=== PATIENT | female | born 1940 | race Caucasian/White ===

== ENCOUNTER 2016-10-08 18:44 | Inpatient (IN) | payer MEDICARE, OTHER, BC ==
[2016-10-08] MEDS ORDERED: HYDROmorphone 0.5 MG/0.5 ML Syringe IM ONE (18:56)
--- NOTE | 2016-10-08 18:59 | EDM.PDOC ---
[id number] Seen by Provider: 10/08/16 18:45 Source of Information: Reports: Patient, EMS, Family History Limitations: Reports: No Limitations - History of Present Illness INITIAL COMMENTS - FREE TEXT/NARRATIVE: 76-year-old female fell outside of a local restaurant injuring her right shoulder and right hip. She was brought in by ambulance. No head injury or neck pain, denies back pain. Her right shoulder is being held abducted and is very painful with any movement. Onset: Sudden Duration: Hour(s): (Within the last hour) Location: Reports: Upper Extremity, Right, Lower Extremity, Right Severity: Moderate Worsens with: Reports: Movement (Any movement causes increased pain in the shoulder or hip) Right Upper Shoulder Pain Score (Numeric/FACES): 10 - Related Data Allergies Allergy/AdvReac Type Severity Reaction Status Date / Time Iodinated Contrast Media - Allergy Severe Anaphylactic Verified 01/05/16 11:18 Oral and Shock [Iodinated Contrast Media - IV Dye] ciprofloxacin Allergy Other Verified 01/05/16 11:18 hydromorphone HCl Allergy Cannot Verified 01/05/16 11:18 [From Dilaudid] Remember Sulfa (Sulfonamide Allergy Rash Verified 01/05/16 11:18 Antibiotics) sumatriptan [From Imitrex] Allergy Tachycardia Verified 01/05/16 11:18 sumatriptan succinate Allergy Tachycardia Verified 01/05/16 11:18 [From Imitrex] morphine AdvReac Intermediate Nausea and Verified 01/05/16 11:18 Vomiting Home Meds: Home Meds Furosemide [Lasix] 20 - 40 mg PO DAILY PRN 02/21/13 [History] Levothyroxine 125 mcg PO DAILY 02/21/13 [History] Aspirin [Stephen Chewable Aspirin] 81 mg PO DAILY 09/04/13 [History] Nitroglycerin [Nitrostat] 0.4 mg SL ASDIRECTED PRN 09/04/13 [History] Acetaminophen [Pain Reliever] 2 tab PO Q6HR PRN 04/11/14 [History] Rosuvastatin [Crestor] 40 mg PO DAILY 06/02/14 [History] busPIRone [Buspar] 10 mg PO BID PRN 08/14/15 [History] Warfarin [Coumadin] 5 mg PO ASDIRECTED 01/01/16 [History] Zolpidem [Ambien] 10 mg PO BEDTIME PRN 01/01/16 [History] Lisinopril 10 mg PO DAILY #30 tablet 01/06/16 [Rx] Metoprolol Succinate [Toprol XL] 50 mg PO DAILY 01/06/16 [History] Nicotine [Habitrol] 14 mg TRDERM Q24H patch 01/06/16 [Rx] Warfarin [Coumadin] 2.5 mg PO ASDIRECTED 10/08/16 [History] Past Medical History HEENT History: Reports: Impaired Vision Cardiovascular History: Reports: CAD, High Cholesterol, Hypertension, [place], Stents Gastrointestinal History: Reports: Diverticulosis Other Genitourinary History: Occasional UTI 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: , Prolapsed 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 Neurological History: Reports: Migraines Endocrine/Metabolic History: Reports: Hypothyroidism Hematologic History: Reports: Anticoagulation Therapy Oncologic (Cancer) History: Reports: Squamous Cell Carcinoma - Infectious Disease History Infectious Disease History: Reports: Chicken Pox - Past Surgical History Cardiovascular Surgical History: Reports: Carotid Stents, Coronary Artery Bypass GI Surgical History: Reports: Appendectomy, Cholecystectomy, Colonoscopy, EGD, Hernia Repair/Other Social & Family History - Family History Cardiac: Reports: [place] Respiratory: Reports: COPD Oncologic: Reports: Brain, Skin - Tobacco Use Smoking Status *Q: Former Smoker Years of Tobacco use: 30 Packs/Tins Daily: 0.5 Used Tobacco, but Quit: No Second Hand Smoke Exposure: Yes - Alcohol Use Days Per Week of Alcohol Use: 7 Number of Drinks Per Day: 3 Total Drinks Per Week: 21 - Recreational Drug Use Recreational Drug Use: No Drug Use in Last 12 Months: No Review of Systems - Review of Systems Review Of Systems: See Below Constitutional: Denies: Fever Respiratory: Denies: Shortness of Breath Cardiovascular: Denies: Chest Pain GI/Abdominal: Denies: Abdominal Pain Neurological: Denies: Dizziness, Headache Psychiatric: Reports: No Symptoms ED EXAM, TRAUMA (MAJOR/MULTI) - Physical Exam Exam: See Below Exam Limited By: No Limitations General Appearance: Alert, Mild Distress (Appears uncomfortable) Head: Atraumatic Eyes: Bilateral Eye: EOMI Neck: Non-Tender Respiratory/Chest: No Respiratory Distress Extremities: Other (Patient has swelling and intense pain with any palpation around the proximal right humerus and anterior shoulder. She also has intense pain with any palpation or passive range of motion of the right hip.) Skin: Other (Patient has a very tiny puncture wound on the anterior aspect of the upper right arm.) Course - Vital Signs Last Recorded V/S: Last Vital Signs Temp 97.2 F 10/08/16 19:07 Pulse 58 L 10/08/16 19:07 Resp 18 10/08/16 19:07 BP 109/58 L 10/08/16 19:07 Pulse Ox 98 10/08/16 19:07 - Orders/Labs/Meds Orders: Active Orders 24 hr Category Date Time Status Vaccines to be Administered [RC] PER UNIT ROUTINE Care 10/08/16 19:46 Active Fluoro Up To 1Hr [CR] Stat Exams 10/08/16 20:14 Taken Hip Min 2V or 3V Rt [CR] Stat Exams 10/08/16 18:55 Taken Shoulder Comp Rt [CR] Stat Exams 10/08/16 18:55 Taken Morphine Med 10/08/16 20:45 Active 2 mg IVPUSH Q2H PRN Sodium Chloride 0.9% [Normal Saline] 1,000 ml Med 10/08/16 19:45 Active IV ASDIRECTED Sodium Chloride 0.9% [Saline Flush] Med 10/08/16 19:38 Active 10 ml FLUSH ASDIRECTED PRN ceFAZolin [Ancef] 1 gm Med 10/08/16 22:00 Active Premix Bag 1 bag IV Q8HR oxyCODONE Med 10/08/16 20:44 Active 5 mg PO Q4H PRN Ice Bag [Ice Therapy] [OM.PC] Routine Oth 10/08/16 20:46 Ordered Saline Lock Insert [OM.PC] Routine Oth 10/08/16 19:38 Ordered Weight bearing status [OM.PC] Routine Oth 10/08/16 20:46 Ordered Medication Orders Sodium Chloride (Normal Saline) 1,000 mls @ 100 mls/hr IV ASDIRECTED ERGLA Last Admin: 10/08/16 20:01 Dose: 100 mls/hr Cefazolin Sodium/Dextrose 1 gm (/ Premix) 50 mls @ 100 mls/hr IV Q8HR [facility] Last Admin: 10/08/16 22:40 Dose: Not Given Morphine Sulfate (Morphine) 2 mg IVPUSH Q2H PRN PRN Reason: Pain Oxycodone HCl (Oxycodone) 5 mg PO Q4H PRN PRN Reason: Pain Sodium Chloride (Saline Flush) 10 ml FLUSH ASDIRECTED PRN PRN Reason: Keep Vein Open Last Admin: 10/08/16 19:56 Dose: 10 ml Meds: Medications Generic Name Dose Route Start Last Admin Trade Name Krish PRN Reason Stop Dose Admin Sodium Chloride 1,000 mls @ 100 mls/hr 10/08/16 19:45 10/08/16 20:01 Normal Saline IV 100 mls/hr ASDIRECTED REGLA Administration Cefazolin Sodium/Dextrose 1 gm 50 mls @ 100 mls/hr 10/08/16 22:00 10/08/16 22 :40 / Premix IV Not Given Q8HR REGLA Morphine Sulfate 2 mg 10/08/16 20:45 Morphine IVPUSH Q2H PRN Pain Oxycodone HCl 5 mg 10/08/16 20:44 Oxycodone PO Q4H PRN Pain Sodium Chloride 10 ml 10/08/16 19:38 10/08/16 19:56 Saline Flush FLUSH 10 ml ASDIRECTED PRN Administration Keep Vein Open Discontinued Medications Generic Name Dose Route Start Last Admin Trade Name Krish PRN Reason Stop Dose Admin Diphtheria/Tetanus/Acell Pertussis 0.5 ml 10/08/16 19:46 10/08/16 20:45 Adacel IM 10/08/16 19:47 0.5 ml .ONCE ONE Administration Hydromorphone HCl 0.5 mg 10/08/16 18:56 10/08/16 19:04 Dilaudid IM 10/08/16 18:57 0.5 mg ONETIME ONE Administration Hydroxyzine HCl 100 mg 10/08/16 21:02 10/08/16 21:29 Vistaril IM 10/08/16 21:03 100 mg ONETIME ONE Administration Cefazolin Sodium 1 gm/ Sodium 50 mls @ 100 mls/hr 10/08/16 19:46 10/08/16 20: 00 Chloride IV 10/08/16 20:15 200 mls/hr ONETIME ONE Administration Sodium Chloride Confirm 10/08/16 20:17 Normal Saline Administered 10/08/16 20:18 Dose 10 mls @ as directed .ROUTE .STK-MED ONE Ketamine HCl Confirm 10/08/16 20:17 Ketalar Administered 10/08/16 20:18 Dose 500 mg .ROUTE .STK-MED ONE Morphine Sulfate 2 mg 10/08/16 21:02 10/08/16 21:20 Morphine IVPUSH 10/08/16 21:03 2 mg ONETIME ONE Administration Ondansetron HCl 4 mg 10/08/16 21:04 10/08/16 21:17 Zofran IVPUSH 10/08/16 21:05 4 mg ONETIME ONE Administration Propofol Confirm 10/08/16 20:16 Diprivan 20 Ml Administered 10/08/16 20:17 Dose 200 mg .ROUTE .STK-MED ONE - Re-Assessments/Exams Free Text/Narrative Re-Assessment/Exam: 10/08/16 18:59 Patient was given 0.5 mg of Dilaudid IM, right shoulder and right hip x-ray were obtained. 10/08/16 20:12 X-ray of the hip looks negative. The right shoulder x-ray shows a comminuted impacted surgical neck fracture and also a displaced spiral fracture of the proximal humerus. 10/08/16 20:13 Orthopedics was consulted because of the open nature of the fracture and significant displacement. She was given 1 g of Ancef IV, tetanus vaccination and she was seen for definitive treatment by Dr. Talavera orthopedics. Departure - Departure Time of Disposition: 23:30 Disposition: Admitted As Inpatient 68 Condition: fair Clinical Impression: Fracture, humerus, neck, open Qualifiers: Encounter type: initial encounter Laterality: right Qualified Code(s): S42.291B - Other displaced fracture of upper end of right humerus, initial encounter for open fracture - Discharge Information - My Orders Last 24 Hours: My Active Orders 10/08/16 18:55 Hip Min 2V or 3V Rt [CR] Stat Shoulder Comp Rt [CR] Stat 10/08/16 19:38 Sodium Chloride 0.9% [Saline Flush] 10 ml FLUSH ASDIRECTED PRN Saline Lock Insert [OM.PC] Routine 10/08/16 19:45 Sodium Chloride 0.9% [Normal Saline] 1,000 ml IV ASDIRECTED 10/08/16 19:46 Vaccines to be Administered [RC] PER UNIT ROUTINE - Assessment/Plan Last 24 Hours: My Active Orders 10/08/16 18:55 Hip Min 2V or 3V Rt [CR] Stat Shoulder Comp Rt [CR] Stat 10/08/16 19:38 Sodium Chloride 0.9% [Saline Flush] 10 ml FLUSH ASDIRECTED PRN Saline Lock Insert [OM.PC] Routine 10/08/16 19:45 Sodium Chloride 0.9% [Normal Saline] 1,000 ml IV ASDIRECTED 10/08/16 19:46 Vaccines to be Administered [RC] PER UNIT ROUTINE
[2016-10-08] MEDS ORDERED: Sodium Chloride 0.9% 10 ML Syringe FLUSH PRN (19:38)
[2016-10-08] MEDS ORDERED: Diphtheria,Pertussis(Acell),Tetanus Vaccine 0.5 ML SDV IM ONE (19:46)
[2016-10-08] MEDS ORDERED: ceFAZolin 1 GM in Sodium Chloride 0.9% 50 ML IV ONE (19:46)
[2016-10-08] MEDS: Sodium Chloride 0.9% 1,000 ML IV SCH (20:01)
--- NOTE | 2016-10-08 20:13 | PCM.CONS ---
H&P History of Present Illness - History of Present Illness Duration of Symptoms: Reports: Hour(s): Location: Reports: Upper Extremity, Right Quality: Reports: Stabbing, Throbbing Severity: Severe Improves with: Reports: None Worsens with: Reports: Movement Right Upper Shoulder Pain Score (Numeric/FACES): 10 - Related Data Allergies/Adverse Reactions: Allergies Allergy/AdvReac Type Severity Reaction Status Date / Time Iodinated Contrast Media - Allergy Severe Anaphylactic Verified 01/05/16 11:18 Oral and Shock [Iodinated Contrast Media - IV Dye] ciprofloxacin Allergy Other Verified 01/05/16 11:18 hydromorphone HCl Allergy Cannot Verified 01/05/16 11:18 [From Dilaudid] Remember Sulfa (Sulfonamide Allergy Rash Verified 01/05/16 11:18 Antibiotics) sumatriptan [From Imitrex] Allergy Tachycardia Verified 01/05/16 11:18 sumatriptan succinate Allergy Tachycardia Verified 01/05/16 11:18 [From Imitrex] morphine AdvReac Intermediate Nausea and Verified 01/05/16 11:18 Vomiting Home Medications: Home Meds Furosemide [Lasix] 20 - 40 mg PO DAILY PRN 02/21/13 [History] Levothyroxine 125 mcg PO DAILY 02/21/13 [History] Aspirin [Stephen Chewable Aspirin] 81 mg PO DAILY 09/04/13 [History] Nitroglycerin [Nitrostat] 0.4 mg SL ASDIRECTED PRN 09/04/13 [History] Acetaminophen [Pain Reliever] 2 tab PO Q6HR PRN 04/11/14 [History] Rosuvastatin [Crestor] 40 mg PO DAILY 06/02/14 [History] busPIRone [Buspar] 10 mg PO BID PRN 08/14/15 [History] Warfarin [Coumadin] 5 mg PO ASDIRECTED 01/01/16 [History] Zolpidem [Ambien] 10 mg PO BEDTIME PRN 01/01/16 [History] Lisinopril 10 mg PO DAILY #30 tablet 01/06/16 [Rx] Metoprolol Succinate [Toprol XL] 50 mg PO DAILY 01/06/16 [History] Nicotine [Habitrol] 14 mg TRDERM Q24H patch 01/06/16 [Rx] Warfarin [Coumadin] 2.5 mg PO ASDIRECTED 10/08/16 [History] Past Medical History HEENT History: Reports: Impaired Vision Cardiovascular History: Reports: Bypass, CAD, High Cholesterol, Hypertension, [place] , Stents Gastrointestinal History: Reports: Diverticulosis Other Genitourinary History: Occasional UTI 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: , 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 Other Musculoskeletal History: blood clots in legs Neurological History: Reports: Migraines Endocrine/Metabolic History: Reports: Hypothyroidism Hematologic History: Reports: Anticoagulation Therapy Oncologic (Cancer) History: Reports: Squamous Cell Carcinoma Other Dermatologic History: skin cancer lesions on feet and legs - Infectious Disease History Infectious Disease History: Reports: Chicken Pox - Past Surgical History Cardiovascular Surgical History: Reports: Carotid Stents, Coronary Artery Bypass GI Surgical History: Reports: Appendectomy, Cholecystectomy, Colonoscopy, EGD, Hernia Repair/Other Female Surgical History: Reports: Hysterectomy Other Musculoskeletal Surgeries/Procedures:: Fall in May - pain to coccyx Social & Family History - Family History Cardiac: Reports: [place] Respiratory: Reports: COPD Oncologic: Reports: Brain, Skin - Tobacco Use Smoking Status *Q: Current Every Day Smoker Years of Tobacco use: 30 Packs/Tins Daily: 0.5 Used Tobacco, but Quit: No Second Hand Smoke Exposure: Yes - Caffeine Use Caffeine Use: Reports: Coffee - Alcohol Use Days Per Week of Alcohol Use: 7 Number of Drinks Per Day: 4 Total Drinks Per Week: 28 Date of Last Drink: 10/08/16 Time of Last Drink: 18:00 - Recreational Drug Use Recreational Drug Use: No Drug Use in Last 12 Months: No H&P Review of Systems - Review of Systems: Review Of Systems: See Below General: Reports: No Symptoms HEENT: Reports: No Symptoms Pulmonary: Reports: No Symptoms Cardiovascular: Reports: No Symptoms Gastrointestinal: Reports: No Symptoms Genitourinary: Reports: No Symptoms Musculoskeletal: Reports: Shoulder Pain, Arm Pain Skin: Reports: No Symptoms Psychiatric: Reports: No Symptoms Neurological: Reports: No Symptoms Hematologic/Lymphatic: Reports: No Symptoms Immunologic: Reports: No Symptoms Exam - Exam Exam: See Below - Vital Signs Vital Signs: Last Vital Signs Temp 97.2 F 10/08/16 19:07 Pulse 58 L 10/08/16 19:07 Resp 18 10/08/16 19:07 BP 109/58 L 10/08/16 19:07 Pulse Ox 98 10/08/16 19:07 Weight: 165 lb - Exam General: Alert, Oriented HEENT: PERRLA, Conjunctiva Clear Neck: Supple, Trachea Midline Skin: Petechia, Ecchymosis, Wound Neuro Extensive - Mental Status: Alert, Oriented x3 Psychiatric: Alert, Normal Affect, Normal Mood Consult PN Assessment/Plan Procedures: Procedures ASSAY OF CK (CPK) (10/06/13) ASSAY OF ETHANOL (10/06/13) ASSAY OF LACTIC ACID (07/14/15) ASSAY OF LIPASE (07/14/15) ASSAY OF MAGNESIUM (06/09/14) ASSAY OF NATRIURETIC PEPTIDE (10/06/13) ASSAY OF PHOSPHORUS (06/09/14) ASSAY OF TROPONIN QUANT (01/05/16) ASSAY THYROID STIM HORMONE (07/14/15) BREATHING CAPACITY TEST (09/02/13) C DIFF AMPLIFIED PROBE (08/12/15) CARDIAC REHAB/MONITOR (10/30/13) CARDIOVASCULAR STRESS TEST (09/09/13) CARDIOVASCULAR STRESS TEST (09/09/13) CARDIOVASCULAR STRESS TEST (02/21/13) CARDIOVASCULAR STRESS TEST (02/21/13) CHEST X-RAY 1 VIEW FRONTAL (01/01/16) CHEST X-RAY 2VW FRONTAL&LATL (07/14/15) COLONOSCOPY AND BIOPSY (08/17/15) COMPLETE CBC AUTOMATED (01/05/16) COMPLETE CBC W/AUTO DIFF WBC (01/01/16) COMPREHEN METABOLIC PANEL (01/01/16) CT ABD & PELVIS W/O CONTRAST (07/14/15) CT THORAX W/O DYE (04/03/14) CULTURE SCREEN ONLY (08/17/15) DIAGNOSTIC COLONOSCOPY (04/14/14) EGD BIOPSY SINGLE/MULTIPLE (08/17/15) ELECTROCARDIOGRAM REPORT (02/21/13) ELECTROCARDIOGRAM TRACING (01/05/16) EMERGENCY DEPT VISIT (01/05/16) EMERGENCY DEPT VISIT (07/14/15) EMERGENCY DEPT VISIT (07/14/15) EMERGENCY DEPT VISIT (02/21/13) EMERGENCY DEPT VISIT (02/21/13) ENDOVENOUS RF 1ST VEIN (08/21/14) EXTRACRANIAL BILAT STUDY (02/08/16) EXTREMITY STUDY (10/03/15) EXTREMITY STUDY (08/25/14) EXTREMITY STUDY (08/07/14) EXTREMITY STUDY (03/19/13) HT MUSCLE IMAGE SPECT MULT (09/09/13) HYDRATE IV INFUSION ADD-ON (06/09/14) INITIAL OBSERVATION CARE (02/21/13) INJECTION THERAPY OF VEINS (08/21/14) MEASURE BLOOD OXYGEN LEVEL (06/03/14) METABOLIC PANEL TOTAL CA (01/05/16) MRI BRAIN STEM W/O & W/DYE (01/05/16) OBSERVATION CARE DISCHARGE (02/21/13) PROTHROMBIN TIME (01/05/16) ROUTINE VENIPUNCTURE (01/05/16) THER/PROPH/DIAG INJ IV PUSH (01/05/16) TISSUE EXAM BY PATHOLOGIST (06/03/14) TTE W/DOPPLER COMPLETE (10/15/15) TX/PRO/DX INJ NEW DRUG ADDON (01/05/16) TX/PRO/DX INJ SAME DRUG BURNER HAND (06/09/14) URINALYSIS AUTO W/SCOPE (01/05/16) Problem List Initiated/Reviewed/Updated: Yes Plan: 76 yo female fell working at [employer]. Had good right shoulder function previous to injury. Seen in ED. found to have angulated proximal shaft and neck fracture right humerus. on coumadin. small poke hole type wound from fracture present. PE: RUE small wound noted with eccymosis and bruising. distal motor and sensory grossly intact. ROM not tested secondary to fracture. XR: spiral apex lateral proximal humeral shaft fracture. Humeral neck fracture. plan: performed reduction of humerus under sedation by anesthesia. used C-arm. placed distal arm in abduction. used sling and swathe. 1) admit to medicine 2) ancef 1 gram q 8 hours x 24 hours 3) discuss operative vs non-operative options tomorrow 4) pain medication 5) nwb rue Requesting Provider: janice Date Consult Requested: 10/08/16 Patient History Reviewed: Yes Admission H&P Reviewed: Yes Notified Requestor: Yes
[2016-10-08] MEDS ORDERED: Propofol 200 MG/20 ML SDV ONE (20:16)
[2016-10-08] MEDS ORDERED: Sodium Chloride 0.9% 10 ML ONE (20:17)
[2016-10-08] MEDS ORDERED: Ketamine 500 MG/5 ML MDV ONE (20:17)
[2016-10-08] MEDS ORDERED: Morphine 2 MG/ML Syringe IVPUSH ONE (21:02)
[2016-10-08] MEDS ORDERED: hydrOXYzine HCl 50 MG/ML SDV IM ONE (21:02)
[2016-10-08] MEDS ORDERED: Ondansetron 4 MG/2 ML SDV IVPUSH ONE (21:04)
--- NOTE | 2016-10-08 21:55 | ANES ---
DATE OF SERVICE: 10/08/2016 HISTORY: A 76-year-old lady admitted to the emergency room with a compound fracture of the right humerus. I was asked by Dr. Mike Talavera to provide sedation for closed reduction and dressing application. She was working at the [employer] and tripped and fell, resulting in this fractured humerus. She has not had anything solid to eat for over 10 hours. She did have a liquid at 6:00 p.m. She has had Dilaudid intramuscularly by the time I got here. She was a little sleepy from that. The procedure was explained to her in detail. Questions were answered. Consent was signed by a relative. She was hooked up to monitors blood pressure, EKG, and pulse oximetry. She was given oxygen at 4 L/minute through nasal prong. I then gave her 35 mg of ketamine intravenously and when this started to take appropriate effect, she was also given 70 mg of Diprivan. After adequate sedation was obtained, Dr. Talavera proceeded to do the reduction and the puncture wound was cleaned. Please see his notes for that. Dressing applied. She was then put in a shoulder brace and she was allowed to wake up a little bit. There was a little bit more manipulation that need to be done. She was given another 30 mg of Diprivan. After approximately 10 minutes, she was responding to verbal stimuli, open her eyes, able to answer questions. Her sats remained in the 96-97 range throughout, blood pressure was 120/72, and pulse approximately 78. She tolerated the procedure well. Zion Hunter CRNA /[id number]
[2016-10-08] MEDS: ceFAZolin 1 GM in Premix Bag 1 BAG IV SCH (22:40)
--- NOTE | 2016-10-08 23:12 | PCM.HP ---
H&P History of Present Illness - General Date of Service: 10/08/16 Admit Problem/Dx: Admission Diagnosis/Problem Admission Diagnosis/Problem Fracture of humerus Source of Information: Patient, Family (Daughter) History Limitations: Reports: No Limitations - History of Present Illness Initial Comments - Free Text/Narative: 76-year-old female fell outside of a local restaurant injuring her right shoulder and right hip. She was brought in by ambulance. No head injury or neck pain, denies back pain. Her right shoulder is being held abducted and is very painful with any movement. Onset: Sudden Duration: Hour(s): (Within the last hour) Location: Reports: Upper Extremity, Right, Lower Extremity, Right Severity: Moderate Worsens with: Reports: Movement (Any movement causes increased pain in the shoulder or hip) Right Upper Shoulder 10/08/16 18:59 Patient was given 0.5 mg of Dilaudid IM, right shoulder and right hip x-ray were obtained. 10/08/16 20:12 X-ray of the hip looks negative. The right shoulder x-ray shows a comminuted impacted surgical neck fracture and also a displaced spiral fracture of the proximal humerus. 10/08/16 20:13 Orthopedics was consulted because of the open nature of the fracture and significant displacement. She was given 1 g of Ancef IV, tetanus vaccination and she was seen for definitive treatment by Dr. Talavera orthopedics. Departure; admit to [address] [place] [address] Onset of Symptoms: Reports: Sudden Symptom Onset Date: 10/08/16 Symptom Onset Time: 18:00 Duration of Symptoms: Reports: Hour(s):, Constant Location: Reports: Upper Extremity, Right Quality: Reports: Sharp, Stabbing Severity: Severe Improves with: Reports: Immobilization Worsens with: Reports: Movement Context: Reports: Trauma (fall at "[employer]") Associated Symptoms: Reports: Other (right hip and upper leg) Right Upper Shoulder Pain Score (Numeric/FACES): 8 - Related Data Allergies/Adverse Reactions: Allergies Allergy/AdvReac Type Severity Reaction Status Date / Time Iodinated Contrast Media - Allergy Severe Anaphylactic Verified 01/05/16 11:18 Oral and Shock [Iodinated Contrast Media - IV Dye] ciprofloxacin Allergy Other Verified 01/05/16 11:18 hydromorphone HCl Allergy Cannot Verified 01/05/16 11:18 [From Dilaudid] Remember Sulfa (Sulfonamide Allergy Rash Verified 01/05/16 11:18 Antibiotics) sumatriptan [From Imitrex] Allergy Tachycardia Verified 01/05/16 11:18 sumatriptan succinate Allergy Tachycardia Verified 01/05/16 11:18 [From Imitrex] morphine AdvReac Intermediate Nausea and Verified 01/05/16 11:18 Vomiting Home Medications: Home Meds Furosemide [Lasix] 20 - 40 mg PO DAILY PRN 02/21/13 [History] Levothyroxine 125 mcg PO DAILY 02/21/13 [History] Aspirin [Stephen Chewable Aspirin] 81 mg PO DAILY 09/04/13 [History] Nitroglycerin [Nitrostat] 0.4 mg SL ASDIRECTED PRN 09/04/13 [History] Acetaminophen [Pain Reliever] 2 tab PO Q6HR PRN 04/11/14 [History] Rosuvastatin [Crestor] 40 mg PO DAILY 06/02/14 [History] busPIRone [Buspar] 10 mg PO BID PRN 08/14/15 [History] Warfarin [Coumadin] 5 mg PO ASDIRECTED 01/01/16 [History] Zolpidem [Ambien] 10 mg PO BEDTIME PRN 01/01/16 [History] Lisinopril 10 mg PO DAILY #30 tablet 01/06/16 [Rx] Metoprolol Succinate [Toprol XL] 50 mg PO DAILY 01/06/16 [History] Nicotine [Habitrol] 14 mg TRDERM Q24H patch 01/06/16 [Rx] Warfarin [Coumadin] 2.5 mg PO ASDIRECTED 10/08/16 [History] Past Medical History HEENT History: Reports: Impaired Vision Cardiovascular History: Reports: Bypass, CAD, High Cholesterol, Hypertension, SD , Stents Gastrointestinal History: Reports: Diverticulosis Other Genitourinary History: Occasional UTI [employer] History: Reports: , Prolapsed Uterus Other Musculoskeletal History: blood clots in legs Neurological History: Reports: Migraines Endocrine/Metabolic History: Reports: Hypothyroidism Hematologic History: Reports: Anticoagulation Therapy Oncologic (Cancer) History: Reports: Squamous Cell Carcinoma Other Dermatologic History: skin cancer lesions on feet and legs - Infectious Disease History Infectious Disease History: Reports: Chicken Pox - Past Surgical History Cardiovascular Surgical History: Reports: Carotid Stents, Coronary Artery Bypass GI Surgical History: Reports: Appendectomy, Cholecystectomy, Colonoscopy, EGD, Hernia Repair/Other Female Surgical History: Reports: Hysterectomy Other Musculoskeletal Surgeries/Procedures:: Fall in May - pain to coccyx Social & Family History - Family History Cardiac: Reports: SD Respiratory: Reports: COPD Oncologic: Reports: Brain, Skin - Tobacco Use Smoking Status *Q: Current Every Day Smoker Years of Tobacco use: 30 Packs/Tins Daily: 0.5 Used Tobacco, but Quit: No Second Hand Smoke Exposure: Yes - Caffeine Use Caffeine Use: Reports: Coffee - Alcohol Use Days Per Week of Alcohol Use: 7 Number of Drinks Per Day: 4 Total Drinks Per Week: 28 Date of Last Drink: 10/08/16 Time of Last Drink: 18:00 Alcohol Use Frequency: Daily (4 drinks per day, last drink at 5 pm) - Recreational Drug Use Recreational Drug Use: No Drug Use in Last 12 Months: No - Living Situation & Occupation Living situation: Reports: ( 08/19/2010), Alone (since of spouse) Occupation: Retired H&P Review of Systems - Review of Systems: Review Of Systems: See Below General: Reports: No Symptoms HEENT: Reports: No Symptoms Pulmonary: Reports: No Symptoms Cardiovascular: Reports: No Symptoms Gastrointestinal: Reports: No Symptoms Genitourinary: Reports: No Symptoms Musculoskeletal: Reports: Neck Pain, Shoulder Pain (right) Skin: Reports: Wound (right upper humerus) Psychiatric: Reports: No Symptoms Neurological: Reports: No Symptoms Hematologic/Lymphatic: Reports: No Symptoms Immunologic: Reports: No Symptoms Exam - Exam Exam: See Below - Vital Signs Vital Signs: Last Vital Signs Temp 36.2 C 10/08/16 19:07 Pulse 58 L 10/08/16 19:07 Resp 18 10/08/16 19:07 BP 109/58 L 10/08/16 19:07 Pulse Ox 98 10/08/16 19:07 Weight: 74.843 kg - Exam Quality Assessment: Supplemental Oxygen General: Alert, Oriented, Cooperative, Sedated HEENT: PERRLA, Hearing Intact, Mucosa Moist & [place], Nares Patent, Normal Nasal Septum, Posterior Pharynx Clear, Conjunctiva Clear, EOMI, EACs Clear, TMs Clear Neck: Supple, Trachea Midline, Other (pain posterior neck ) Lungs: Clear to Auscultation, Normal Respiratory Effort Cardiovascular: Regular Rate, Regular Rhythm Abdomen: Normal Bowel Sounds, Soft, Tenderness (right lower abdomen and pelvis) (Female) Exam: Deferred Rectal (Female) Exam: Deferred Back Exam: Normal Inspection Extremities: Normal Pulses, Other (right upper arm in shoulder immobilizer) Peripheral Pulses: 2+: Radial (L), Radial (R) Skin: Warm, Dry, Wound (right upper arm) Neurological: Normal Speech, Normal Tone Neuro Extensive - Mental Status: Alert, Oriented x3, Normal Mood/Affect, Normal Cognition, Memory Intact Neuro Extensive - Motor, Sensory, Reflexes: CN II-XII Intact Psychiatric: Alert, Normal Affect, Normal Mood *Q Meaningful Use (ADM) - VTE *Q VTE Criteria *Q: - Stroke *Q Stroke Criteria *Q: - AMI *Q AMI Criteria *Q: - Problem List (1) Fracture dislocation of joint of right upper extremity SNOMED Code(s): 066210659 ICD Code: [id number] - Status: Acute Priority: High Current Visit: Yes (2) Alcohol dependence SNOMED Code(s): 34271037 ICD Code: F10.20 - ALCOHOL DEPENDENCE, UNCOMPLICATED Status: Chronic Priority: Medium Current Visit: Yes Problem Details: alcohol use is excessive, especially in light of CAD with recent cardiac bypass surgery (3) Tobacco user SNOMED Code(s): 985888651 ICD Code: Z72.0 - TOBACCO USE Status: Chronic Priority: High Current Visit: Yes Problem List Initiated/Reviewed/Updated: Yes Orders Last 24hrs: Active Orders 24 hr Category Date Time Status Patient Status Manage Transfer [TRANSFER] Routine ADT 10/08/16 22:39 Active Vaccines to be Administered [RC] PER UNIT ROUTINE Care 10/08/16 19:46 Active Fluoro Up To 1Hr [CR] Stat Exams 10/08/16 20:14 Taken Hip Min 2V or 3V Rt [CR] Stat Exams 10/08/16 18:55 Taken Shoulder Comp Rt [CR] Stat Exams 10/08/16 18:55 Taken Morphine Med 10/08/16 20:45 Active 2 mg IVPUSH Q2H PRN Sodium Chloride 0.9% [Normal Saline] 1,000 ml Med 10/08/16 19:45 Active IV ASDIRECTED Sodium Chloride 0.9% [Saline Flush] Med 10/08/16 19:38 Active 10 ml FLUSH ASDIRECTED PRN ceFAZolin [Ancef] 1 gm Med 10/08/16 22:00 Active Premix Bag 1 bag IV Q8HR oxyCODONE Med 10/08/16 20:44 Active 5 mg PO Q4H PRN Ice Bag [Ice Therapy] [OM.PC] Routine Oth 10/08/16 20:46 Ordered Saline Lock Insert [OM.PC] Routine Oth 10/08/16 19:38 Ordered Weight bearing status [OM.PC] Routine Oth 10/08/16 20:46 Ordered Resuscitation Status Routine Resus Stat 10/08/16 22:44 Ordered Medication Orders Sodium Chloride (Normal Saline) 1,000 mls @ 100 mls/hr IV ASDIRECTED [facility] Last Admin: 10/08/16 20:01 Dose: 100 mls/hr Cefazolin Sodium/Dextrose 1 gm (/ Premix) 50 mls @ 100 mls/hr IV Q8HR [facility] Last Admin: 10/08/16 22:40 Dose: Not Given Morphine Sulfate (Morphine) 2 mg IVPUSH Q2H PRN PRN Reason: Pain Oxycodone HCl (Oxycodone) 5 mg PO Q4H PRN PRN Reason: Pain Sodium Chloride (Saline Flush) 10 ml FLUSH ASDIRECTED PRN PRN Reason: Keep Vein Open Last Admin: 10/08/16 19:56 Dose: 10 ml Assessment/Plan Comment:: ASSESSMENT / PLAN 76-year-old female fell outside of a local restaurant injuring her right shoulder and right hip. She was brought in by ambulance. No head injury or neck pain, denies back pain. Her right shoulder is being held abducted and is very painful with any movement. Worsens with: Reports: Movement (Any movement causes increased pain in the shoulder or hip) Right Upper Shoulder 10/08/16 18:59 Patient was given 0.5 mg of Dilaudid IM, right shoulder and right hip x-ray were obtained. 10/08/16 20:12 X-ray of the hip looks negative. The right shoulder x-ray shows a comminuted impacted surgical neck fracture and also a displaced spiral fracture of the proximal humerus. 10/08/16 20:13 Orthopedics was consulted because of the open nature of the fracture and significant displacement. She was given 1 g of Ancef IV, tetanus vaccination and she was seen for definitive treatment by Dr. Talavera orthopedics. Fracture dislocation of right upper extremity -reduction of fracture by Dr. Talavera, placed in shoulder immobilizer -Ancef 1gram booker 8 hours -ice to extremity -dressing change daily to right upper arm, puncture wound from open fracture -pain medication as directed -re-evaluation in am alcohol dependence, uncomplicated -[facility] protocol ordered tobacco use -nictoderm 14mg patch daily Plan -Admit to [address] [place] [address] for further monitoring -IV fluids for rehydration NS at 125 mL per hour -Advise to notify nurses of any chest pain or other symptoms -And a.m. labs: CBC, BMP Maintenance issues -Orders home meds: -Nutrition: NPO after midnight. Regular diet -Bustamante catheter : not indicated at this time -DVT: scd -referral to PT and OT, patient is right hand dominant with right upper arm fracture CODE STATUS: Full Admission status: Admit to [address] [place] [address] Admission justification. This patient will be admitted for inpatient services and is medically appropriate meeting medical necessity for inpatient admission as outlined in my documentation. I reasonably expect the patient will require inpatient services that span. Time over 2 midnights. I reasonably expect this patient to be discharged or transferred within 96 hours after admission to the critical access hospital. Disposition; home Primary care provider: Dr. Talavera and Hakan Sal
[2016-10-08] MEDS ORDERED: Docusate Sodium 100 MG Cap PO PRN (23:38)
[2016-10-08] MEDS ORDERED: hydrOXYzine HCl 50 MG/ML SDV IM PRN (23:38)
[2016-10-08] MEDS ORDERED: Nitroglycerin 0.4 MG Tab.SL SL PRN (23:38)
[2016-10-08] MEDS ORDERED: Warfarin 5 MG Tab PO SCH (23:38)
[2016-10-08] MEDS ORDERED: Zolpidem 5 MG Tab PO PRN (23:38)
[2016-10-08] MEDS ORDERED: busPIRone 10 MG Tab PO PRN (23:38)
[2016-10-08] MEDS ORDERED: Ondansetron 4 MG Tab.DIS PO PRN (23:38)
[2016-10-08] MEDS ORDERED: Albuterol 0.083% 2.5 MG/3 ML Neb Soln NEB PRN (23:38)
[2016-10-08] MEDS ORDERED: LORazepam 2 MG/ML MDV IV PRN (23:38)
[2016-10-08] MEDS ORDERED: Warfarin 2.5 MG Tab PO SCH (23:38)
[2016-10-09] MEDS ORDERED: Nicotine 14 MG/24 Hr Patch TRDERM ONE
[2016-10-09] MEDS: oxyCODONE 5 MG Tab PO PRN ×6 (00:16→21:35)
[2016-10-09] MEDS: Morphine 2 MG/ML Syringe IVPUSH PRN ×4 (00:24→19:55)
[2016-10-09] MEDS: Ondansetron 4 MG/2 ML SDV IVPUSH PRN ×2 (01:41→07:14)
[2016-10-09] MEDS: Sodium Chloride 0.9% 1,000 ML IV SCH ×2 (01:42→12:31)
[2016-10-09] MEDS ORDERED: Sodium Chloride 0.9% 50 ML IV ONE (05:00)
[2016-10-09] MEDS ORDERED: ceFAZolin 1 GM Vial ONE (05:01)
[2016-10-09] MEDS ORDERED: Sodium Chloride 0.9% 50 ML ONE (05:06)
[2016-10-09] MEDS: ceFAZolin 1 GM in Premix Bag 1 BAG IV SCH ×3 (05:46→21:36)
[2016-10-09] MEDS ORDERED: Levothyroxine 50 MCG Tab PO SCH (07:30)
[2016-10-09] MEDS: Acetaminophen 325 MG Tab PO PRN ×4 (08:34→21:35)
[2016-10-09] MEDS: Rosuvastatin 10 MG Tab PO SCH (08:57)
[2016-10-09] MEDS: Furosemide 20 MG Tab PO SCH (08:58)
[2016-10-09] MEDS ORDERED: Pantoprazole 40 MG Vial IVPUSH SCH ×2 (10:00)
--- NOTE | 2016-10-09 11:04 | PCM.PN ---
- General Info Date of Service: 10/09/16 Functional Status: Reports: pain controlled - Review of Systems General: Reports: No Symptoms HEENT: Reports: no symptoms Pulmonary: Reports: no symptoms Cardiovascular: Reports: No Symptoms Gastrointestinal: Reports: No symptoms Genitourinary: Reports: no symptoms Musculoskeletal: Reports: shoulder pain, arm pain Skin: Reports: bruising, other Neurological: Reports: Tingling Psychiatric: Reports: no symptoms - Patient Data Vitals - most recent: Last Vital Signs Temp 98.8 F 10/09/16 07:00 Pulse 63 10/09/16 08:56 Resp 18 10/09/16 07:00 BP 114/50 L 10/09/16 08:56 Pulse Ox 92 L 10/09/16 07:00 Weight - most recent: 165 lb I&O - last 24 hours: Intake & Output 10/08/16 10/09/16 10/09/16 22:59 06:59 14:59 Intake Total 745 240 Balance 745 240 Lab Results last 24 hrs: Laboratory Results - last 24 hr 10/09/16 Range/Units 03:57 Urine Color Yellow Urine Appearance Cloudy Urine pH 5.0 (4.5-8.0) Ur Specific [place] 1.025 (1.008-1.030) Urine Protein Negative (NEGATIVE) mg/dL Urine Glucose (UA) Normal (NEGATIVE) mg/dL Urine Ketones 15 H (NEGATIVE) mg/dL Urine Occult Blood Moderate (NEGATIVE) Urine Nitrite Positive H (NEGATIVE) Urine Bilirubin Negative (NEGATIVE) Urine Urobilinogen Normal (NORMAL) mg/dL Ur Leukocyte Esterase Moderate (NEGATIVE) Urine RBC 5-10 H (0-5) Urine WBC 20-30 H (0-5) Ur Epithelial Cells Few Amorphous Sediment Not seen Urine Bacteria Many Urine Mucus Few Med Orders - Current: Current Medications Acetaminophen (Tylenol) 650 mg PO Q4H PRN PRN Reason: Pain (Mild 1-3)/fever Last Admin: 10/09/16 08:34 Dose: 650 mg Albuterol (Proventil Neb Soln) 2.5 mg NEB Q4H PRN PRN Reason: Shortness Of Breath/wheezing Bisacodyl (Dulcolax) 5 mg PO DAILY PRN PRN Reason: Constipation Buspirone HCl (Buspar) 10 mg PO BID PRN PRN Reason: Anxiety Docusate Sodium (Colace) 100 mg PO BID PRN PRN Reason: Constipation Furosemide (Lasix) 20 mg PO DAILY [facility] Last Admin: 10/09/16 08:58 Dose: 20 mg Hydroxyzine HCl (Vistaril) 50 mg IM Q6H PRN PRN Reason: Nausea/Vomiting Sodium Chloride (Normal Saline) 1,000 mls @ 100 mls/hr IV ASDIRECTED [facility] Last Admin: 10/09/16 01:42 Dose: 100 mls/hr Cefazolin Sodium/Dextrose 1 gm (/ Premix) 50 mls @ 100 mls/hr IV Q8HR [facility] Last Admin: 10/09/16 05:46 Dose: Not Given Levothyroxine Sodium 75 mcg/ (Levothyroxine Sodium 50 mcg) 125 mcg PO ACBREAKFAST [facility] Lisinopril (Prinivil) 10 mg PO DAILY [facility] Lorazepam (Ativan) 1 mg IV Q6H PRN PRN Reason: Nausea/Vomiting Metoprolol Succinate (Toprol Xl) 50 mg PO DAILY [facility] Morphine Sulfate (Morphine) 2 mg IVPUSH Q2H PRN PRN Reason: Pain Last Admin: 10/09/16 03:56 Dose: 2 mg Nicotine (Habitrol) 14 mg TRDERM 2100 [facility] Nitroglycerin (Nitrostat) 0.4 mg SL ASDIRECTED PRN PRN Reason: Pain Ondansetron HCl (Zofran Odt) 4 mg PO Q6H PRN PRN Reason: Nausea able to take PO Ondansetron HCl (Zofran) 4 mg IVPUSH Q4H PRN PRN Reason: Nausea/Vomiting Last Admin: 10/09/16 07:14 Dose: 4 mg Oxycodone HCl (Oxycodone) 5 mg PO Q4H PRN PRN Reason: Pain Last Admin: 10/09/16 08:33 Dose: 5 mg Pantoprazole Sodium (Protonix Iv) 40 mg IVPUSH Q12H [facility] Last Admin: 10/09/16 09:01 Dose: 40 mg Rosuvastatin Calcium (Crestor) 40 mg PO DAILY [facility] Last Admin: 10/09/16 08:57 Dose: 40 mg Sodium Chloride (Saline Flush) 10 ml FLUSH ASDIRECTED PRN PRN Reason: Keep Vein Open Last Admin: 10/08/16 19:56 Dose: 10 ml Warfarin Sodium (Coumadin) 2.5 mg PO ASDIRECTED [facility] Warfarin Sodium (Coumadin) 5 mg PO ASDIRECTED [facility] Zolpidem Tartrate (Ambien) 5 mg PO BEDTIME PRN PRN Reason: Sleep Discontinued Medications Cefazolin Sodium (Ancef) Confirm Administered Dose 1 gm .ROUTE .STK-MED ONE Stop: 10/09/16 05:02 Last Admin: 10/09/16 05:45 Dose: 1 gm Diphtheria/Tetanus/Acell Pertussis (Adacel) 0.5 ml IM .ONCE ONE Stop: 10/08/16 19:47 Last Admin: 10/08/16 20:45 Dose: 0.5 ml Hydromorphone HCl (Dilaudid) 0.5 mg IM ONETIME ONE Stop: 10/08/16 18:57 Last Admin: 10/08/16 19:04 Dose: 0.5 mg Hydroxyzine HCl (Vistaril) 100 mg IM ONETIME ONE Stop: 10/08/16 21:03 Last Admin: 10/08/16 21:29 Dose: 100 mg Cefazolin Sodium 1 gm/ Sodium (Chloride) 50 mls @ 100 mls/hr IV ONETIME ONE Stop: 10/08/16 20:15 Last Admin: 10/08/16 20:00 Dose: 200 mls/hr Sodium Chloride (Normal Saline) Confirm Administered Dose 10 mls @ as directed .ROUTE .STK-MED ONE Stop: 10/08/16 20:18 Sodium Chloride (Normal Saline) Confirm Administered Dose 50 mls @ as directed .ROUTE .STK-MED ONE Stop: 10/09/16 05:07 Last Admin: 10/09/16 05:45 Dose: 50 ml Sodium Chloride (Normal Saline) 50 mls @ as directed IV .STK-MED ONE Stop: 10/09/16 05:01 Ketamine HCl (Ketalar) Confirm Administered Dose 500 mg .ROUTE .STK-MED ONE Stop: 10/08/16 20:18 Levothyroxine Sodium (Synthroid) 125 mcg PO ACBREAKFAST [facility] Last Admin: 10/09/16 07:15 Dose: 125 mcg Levothyroxine Sodium 75 mcg/ (Levothyroxine Sodium 50 mcg) 125 mcg PO ACBREAKFAST [facility] Morphine Sulfate (Morphine) 2 mg IVPUSH ONETIME ONE Stop: 10/08/16 21:03 Last Admin: 10/08/16 21:20 Dose: 2 mg Nicotine (Habitrol) 14 mg TRDERM ONETIME ONE Stop: 10/09/16 00:01 Last Admin: 10/09/16 00:11 Dose: Not Given Ondansetron HCl (Zofran) 4 mg IVPUSH ONETIME ONE Stop: 10/08/16 21:05 Last Admin: 10/08/16 21:17 Dose: 4 mg Pantoprazole Sodium (Protonix Iv) 40 mg IVPUSH Q12H [facility] Last Admin: 10/09/16 00:26 Dose: 40 mg Propofol (Diprivan 20 Ml) Confirm Administered Dose 200 mg .ROUTE .STK-MED ONE Stop: 10/08/16 20:17 - Exam General: alert, oriented HEENT: Pupils equal, Pupils reactive Neck: supple Extremities: normal pulses Peripheral Pulses: 2+: Radial (R) Skin: warm, other Wound/Incisions: dressing dry and intact, no drainage Psy/Mental Status: alert, normal affect Physical Findings Comments:: RUE: distal motor and sensory examination grossly intact. arm appropriately painful with movement. - Problem List Review Problem List Initiated/Reviewed/Updated: Yes - Plan Plan:: ASSESSMENT / PLAN 76-year-old female fell outside of a local restaurant injuring her right shoulder and right hip. She was brought in by ambulance. No head injury or neck pain, denies back pain. Her right shoulder is being held abducted and is very painful with any movement. Worsens with: Reports: Movement (Any movement causes increased pain in the shoulder or hip) Right Upper Shoulder 10/08/16 18:59 Patient was given 0.5 mg of Dilaudid IM, right shoulder and right hip x-ray were obtained. 10/08/16 20:12 A: s/p reduction right proximal humeral shaft and neck fractures in sling and swathe P: plan to dc to snf n[facility] f/u 10/17 with xr keflex 500mg tid x 10 days
[2016-10-09] MEDS: Lisinopril 10 MG Tab PO SCH (11:26)
[2016-10-09] MEDS: Metoprolol Succinate 50 MG Tab.ER PO SCH (12:28)
[2016-10-09] MEDS ORDERED: Diazepam 5 MG Tab PO PRN (13:26)
[2016-10-09] MEDS ORDERED: Sodium Chloride 0.9% 1,000 ML IV SCH (13:30)
[2016-10-09] MEDS: Warfarin 2.5 MG Tab PO SCH (13:31)
--- NOTE | 2016-10-09 13:36 | PCM.PN ---
- General Info Date of Service: 10/09/16 Functional Status: Reports: pain controlled, tolerating diet, ambulating - Review of Systems General: Reports: Weakness Musculoskeletal: Reports: arm pain, leg pain Systems Review Comment:: No acute events since the time of admission. Pain has been fairly well- controlled, especially if she is not moving. Movement causes severe pain in the right arm and right hip. She also has some intermittent seemingly random sharp shooting pains that start in her neck and radiate down the right arm past the elbow. She is unable to bear weight because of her left hip pain at this time. Appetite has been okay. No significant issues with nausea at this time. No evidence for alcohol withdrawal. Patient discussed the fracture with Dr. Talavera again this morning. At this point the plan is for nonoperative management and close followup. Urine sample was suggestive of infection and empiric antibiotics have been initiated. - Patient Data Vitals - most recent: Last Vital Signs Temp 37.2 C 10/09/16 11:00 Pulse 65 10/09/16 12:28 Resp 18 10/09/16 11:00 BP 117/55 L 10/09/16 12:28 Pulse Ox 91 L 10/09/16 11:00 Weight - most recent: 74.843 kg I&O - last 24 hours: Intake & Output 10/08/16 10/09/16 10/09/16 22:59 06:59 14:59 Intake Total 745 290 Balance 745 290 Lab Results last 24 hrs: Laboratory Results - last 24 hr 10/09/16 Range/Units 03:57 Urine Color Yellow Urine Appearance Cloudy Urine pH 5.0 (4.5-8.0) Ur Specific [place] 1.025 (1.008-1.030) Urine Protein Negative (NEGATIVE) mg/dL Urine Glucose (UA) Normal (NEGATIVE) mg/dL Urine Ketones 15 H (NEGATIVE) mg/dL Urine Occult Blood Moderate (NEGATIVE) Urine Nitrite Positive H (NEGATIVE) Urine Bilirubin Negative (NEGATIVE) Urine Urobilinogen Normal (NORMAL) mg/dL Ur Leukocyte Esterase Moderate (NEGATIVE) Urine RBC 5-10 H (0-5) Urine WBC 20-30 H (0-5) Ur Epithelial Cells Few Amorphous Sediment Not seen Urine Bacteria Many Urine Mucus Few Med Orders - Current: Current Medications Acetaminophen (Tylenol) 650 mg PO Q4H PRN PRN Reason: Pain (Mild 1-3)/fever Last Admin: 10/09/16 12:27 Dose: 650 mg Albuterol (Proventil Neb Soln) 2.5 mg NEB Q4H PRN PRN Reason: Shortness Of Breath/wheezing Bisacodyl (Dulcolax) 5 mg PO DAILY PRN PRN Reason: Constipation Buspirone HCl (Buspar) 10 mg PO BID PRN PRN Reason: Anxiety Cephalexin (Keflex) 500 mg PO TID [facility] Diazepam (Valium.) 5 mg PO QID PRN PRN Reason: Muscle Spasm Docusate Sodium (Colace) 100 mg PO BID PRN PRN Reason: Constipation Furosemide (Lasix) 20 mg PO DAILY [facility] Last Admin: 10/09/16 08:58 Dose: 20 mg Cefazolin Sodium/Dextrose 1 gm (/ Premix) 50 mls @ 100 mls/hr IV Q8HR [facility] Stop: 10/09/16 23:59 Last Admin: 10/09/16 13:30 Dose: 100 mls/hr Sodium Chloride (Normal Saline) 1,000 mls @ 25 mls/hr IV ASDIRECTED [facility] Levothyroxine Sodium 75 mcg/ (Levothyroxine Sodium 50 mcg) 125 mcg PO ACBREAKFAST [facility] Lisinopril (Prinivil) 10 mg PO DAILY [facility] Last Admin: 10/09/16 11:26 Dose: Not Given Lorazepam (Ativan) 1 mg IV Q6H PRN PRN Reason: Nausea/Vomiting Metoprolol Succinate (Toprol Xl) 50 mg PO DAILY [facility] Last Admin: 10/09/16 12:28 Dose: 50 mg Morphine Sulfate (Morphine) 2 - 4 mg IVPUSH Q2H PRN PRN Reason: Pain Nicotine (Habitrol) 14 mg TRDERM 2100 [facility] Nitroglycerin (Nitrostat) 0.4 mg SL ASDIRECTED PRN PRN Reason: Pain Ondansetron HCl (Zofran Odt) 4 mg PO Q6H PRN PRN Reason: Nausea able to take PO Ondansetron HCl (Zofran) 4 mg IVPUSH Q4H PRN PRN Reason: Nausea/Vomiting Last Admin: 10/09/16 07:14 Dose: 4 mg Oxycodone HCl (Oxycodone) 5 - 10 mg PO Q4H PRN PRN Reason: Pain Rosuvastatin Calcium (Crestor) 40 mg PO DAILY [facility] Last Admin: 10/09/16 08:57 Dose: 40 mg Sodium Chloride (Saline Flush) 10 ml FLUSH ASDIRECTED PRN PRN Reason: Keep Vein Open Last Admin: 10/08/16 19:56 Dose: 10 ml Warfarin Sodium (Coumadin) 5 mg PO TuTh@1300 [facility] Warfarin Sodium (Coumadin) 2.5 mg PO SuMoWeFrSa@1300 [facility] Last Admin: 10/09/16 13:31 Dose: 2.5 mg Zolpidem Tartrate (Ambien) 5 mg PO BEDTIME PRN PRN Reason: Sleep Discontinued Medications Cefazolin Sodium (Ancef) Confirm Administered Dose 1 gm .ROUTE .STK-MED ONE Stop: 10/09/16 05:02 Last Admin: 10/09/16 05:45 Dose: 1 gm Diphtheria/Tetanus/Acell Pertussis (Adacel) 0.5 ml IM .ONCE ONE Stop: 10/08/16 19:47 Last Admin: 10/08/16 20:45 Dose: 0.5 ml Hydromorphone HCl (Dilaudid) 0.5 mg IM ONETIME ONE Stop: 10/08/16 18:57 Last Admin: 10/08/16 19:04 Dose: 0.5 mg Hydroxyzine HCl (Vistaril) 100 mg IM ONETIME ONE Stop: 10/08/16 21:03 Last Admin: 10/08/16 21:29 Dose: 100 mg Hydroxyzine HCl (Vistaril) 50 mg IM Q6H PRN PRN Reason: Nausea/Vomiting Sodium Chloride (Normal Saline) 1,000 mls @ 100 mls/hr IV ASDIRECTED [facility] Last Admin: 10/09/16 12:31 Dose: 100 mls/hr Cefazolin Sodium 1 gm/ Sodium (Chloride) 50 mls @ 100 mls/hr IV ONETIME ONE Stop: 10/08/16 20:15 Last Admin: 10/08/16 20:00 Dose: 200 mls/hr Sodium Chloride (Normal Saline) Confirm Administered Dose 10 mls @ as directed .ROUTE .STK-MED ONE Stop: 10/08/16 20:18 Sodium Chloride (Normal Saline) Confirm Administered Dose 50 mls @ as directed .ROUTE .STK-MED ONE Stop: 10/09/16 05:07 Last Admin: 10/09/16 05:45 Dose: 50 ml Sodium Chloride (Normal Saline) 50 mls @ as directed IV .STK-MED ONE Stop: 10/09/16 05:01 Ketamine HCl (Ketalar) Confirm Administered Dose 500 mg .ROUTE .STK-MED ONE Stop: 10/08/16 20:18 Levothyroxine Sodium (Synthroid) 125 mcg PO ACBREAKFAST [facility] Last Admin: 10/09/16 07:15 Dose: 125 mcg Levothyroxine Sodium 75 mcg/ (Levothyroxine Sodium 50 mcg) 125 mcg PO ACBREAKFAST [facility] Morphine Sulfate (Morphine) 2 mg IVPUSH Q2H PRN PRN Reason: Pain Last Admin: 10/09/16 03:56 Dose: 2 mg Morphine Sulfate (Morphine) 2 mg IVPUSH ONETIME ONE Stop: 10/08/16 21:03 Last Admin: 10/08/16 21:20 Dose: 2 mg Nicotine (Habitrol) 14 mg TRDERM ONETIME ONE Stop: 10/09/16 00:01 Last Admin: 10/09/16 00:11 Dose: Not Given Ondansetron HCl (Zofran) 4 mg IVPUSH ONETIME ONE Stop: 10/08/16 21:05 Last Admin: 10/08/16 21:17 Dose: 4 mg Oxycodone HCl (Oxycodone) 5 mg PO Q4H PRN PRN Reason: Pain Last Admin: 10/09/16 12:27 Dose: 5 mg Pantoprazole Sodium (Protonix Iv) 40 mg IVPUSH Q12H [facility] Last Admin: 10/09/16 00:26 Dose: 40 mg Pantoprazole Sodium (Protonix Iv) 40 mg IVPUSH Q12H [facility] Last Admin: 10/09/16 09:01 Dose: 40 mg Propofol (Diprivan 20 Ml) Confirm Administered Dose 200 mg .ROUTE .STK-MED ONE Stop: 10/08/16 20:17 - Exam Quality Assessment: No: supplemental oxygen General: alert, oriented, cooperative, no acute distress Neck: supple Lungs: Normal respiratory effort Cardiovascular: Regular Rate, Regular Rhythm Abdomen: soft, no distension Extremities: no edema, no cyanosis, other (right arm wrapped with ramón from elbow to shoulder. right trap and suprascapular muscles ttp. right lateral hip very ttp ) Skin: warm, dry Psy/Mental Status: alert, normal affect - Problem List Review Problem List Initiated/Reviewed/Updated: Yes - My Orders Last 24 Hours: My Active Orders 10/09/16 11:43 CULTURE URINE [RM] Routine 10/09/16 13:26 Diazepam [Valium] 5 mg PO QID PRN 10/09/16 13:30 Sodium Chloride 0.9% [Normal Saline] 1,000 ml IV ASDIRECTED 10/09/16 13:31 Morphine 2 - 4 mg IVPUSH Q2H PRN 10/09/16 13:32 BASIC METABOLIC PANEL,BMP [CHEM] Urgent CBC WITH AUTO DIFF [HEME] Urgent INR,PT,PROTHROMBIN TIME [COAG] Urgent oxyCODONE 5 - 10 mg PO Q4H PRN 10/10/16 08:00 Cephalexin [Keflex] 500 mg PO TID - Plan Plan:: ASSESSMENT / PLAN Assessment and plan - Proximal right humerus fracture, complicated - patient has a small open wound from the fracture. Fracture has been reduced under fluoroscopy. She's currently in a sling and swath. Pain is not well-controlled at this time and is especially bad with any sort of movement. She has not had any fevers. She is currently electing for nonoperative management and close followup. With her right hip pain she's not safe for outpatient management because she is unable to bear weight. -Pain control with oxycodone for moderate pain and morphine for severe pain -Diazepam for muscle spasms -24 hours of IV antibiotics and then switched to cephalexin or morning -Physical therapy in the morning Right hip pain - no evidence for fracture on x-ray imaging. She does have a fair amount of lateral tenderness but I suspect this is related to contusion. No obvious bruising at this time. Pain control as above Acute cystitis - urine sample suggestive of infection and patient has symptoms. -Urine culture -Continue current antibiotics History of DVT - chronically anticoagulated. -Continue warfarin, INR daily Coronary artery disease - Asymptomatic at this time. Vitals are stable. -Continue medical management Maintenance issues - - DVT prophylaxis - warfarin - GI prophylaxis - not indicated - Nutrition - regular diet - Bustamante catheter - placed in the emergency room Disposition - anticipate discharge to halfway facility versus possibly home with family and home care after the hospital stay Obinna Hopper M.D.
[2016-10-09] MEDS: Nicotine 14 MG/24 Hr Patch TRDERM SCH (20:00)
[2016-10-10] MEDS: oxyCODONE 5 MG Tab PO PRN ×5 (03:12→23:52)
[2016-10-10] MEDS: Morphine 2 MG/ML Syringe IVPUSH PRN ×2 (03:19→08:53)
[2016-10-10] MEDS: Acetaminophen 325 MG Tab PO PRN ×4 (08:54→23:52)
[2016-10-10] MEDS: Cephalexin 250 MG Cap PO SCH ×5 (09:01→23:22)
[2016-10-10] MEDS: Rosuvastatin 10 MG Tab PO SCH (09:01)
[2016-10-10] MEDS: Furosemide 20 MG Tab PO SCH (09:02)
[2016-10-10] MEDS: Metoprolol Succinate 50 MG Tab.ER PO SCH (09:04)
[2016-10-10] MEDS: Lisinopril 10 MG Tab PO SCH (09:04)
--- NOTE | 2016-10-10 09:22 | CR ---
Hip Min 2V or 3V Rt HISTORY: fall FINDINGS: No acute fracture or dislocation is identified. Bony architecture and joint spaces are preserved. There is mild superior acetabular osteophyte information right hip. Degenerative changes are noted l ower lumbar spine. I see no signs of joint effusion. Soft tissues are unremarkable. IMPRESSION: Mild degenerative changes right hip. Degenerative changes lower lumbar spine. No acute right hip abn ormality is identified.
--- NOTE | 2016-10-10 09:24 | CR ---
Shoulder Comp Rt HISTORY: fall FINDINGS: There is a comminuted fracture proximal fracture involves the proximal shaft and neck prob ably avulsion of the greater tuberosity. No dislocation is seen. Fractures demonstrate displacement, angulation, and overriding. The humeral neck fracture is impacted. Bony structures are osteopenic. Right upper chest is clear. No other fracture is seen. IMPRESSION: Comminuted and impacted fractures with displacement, angulation, and overriding proximal right humerus.
--- NOTE | 2016-10-10 12:27 | PCM.PN ---
- General Info Date of Service: 10/10/16 Functional Status: Reports: pain controlled, tolerating diet - Review of Systems General: Reports: Weakness. Denies: Fever, Chills Pulmonary: Reports: no symptoms Cardiovascular: Reports: No Symptoms Gastrointestinal: Reports: No symptoms Musculoskeletal: Reports: leg pain Systems Review Comment:: This patient is a 76-year-old woman who was admitted through the emergency department with stay open right humerus fracture. Fracture has been reduced by Dr. Talavera and she is currently on antibiotic therapy. She also is had ongoing pain in her right hip and pelvis and cervical. Pain is severe enough that she is unable to weight-bear or even move the leg. Vital signs have been stable and she has remained afebrile. - Patient Data Vitals - most recent: Last Vital Signs Temp 98.5 F 10/10/16 11:00 Pulse 58 L 10/10/16 11:00 Resp 18 10/10/16 11:00 BP 94/46 L 10/10/16 11:00 Pulse Ox 84 L 10/10/16 11:00 Weight - most recent: 170 lb 7.982 oz I&O - last 24 hours: Intake & Output 10/09/16 10/10/16 10/10/16 22:59 06:59 14:59 Intake Total 1609 982 480 Output Total 500 400 Balance 1109 982 80 Lab Results last 24 hrs: Laboratory Results - last 24 hr 10/09/16 10/09/16 10/09/16 Range/Units 13:55 13:55 13:55 WBC 6.6 (4.5-11.0) K/uL RBC 3.16 L (3.30-5.50) M/uL Hgb 10.5 L D (12.0-15.0) g/dL Hct 31.5 L (36.0-48.0) % MCV 100 H (80-98) fL MCH 33 H (27-31) pg MCHC 33 (32-36) % Plt Count 245 (150-400) K/uL Neut % (Auto) 55 (36-66) % Lymph % (Auto) 34 (24-44) % Toole % (Auto) 9 H (2-6) % Eos % (Auto) 2 (2-4) % Baso % (Auto) 1 (0-1) % PT 28.1 H (9.5-12.0) sec INR 2.57 H (0.80-1.20) Sodium 136 L (140-148) mmol/L Potassium 3.7 (3.6-5.2) mmol/L Chloride 103 (100-108) mmol/L Carbon Dioxide 25 (21-32) mmol/L Anion Gap 11.7 (5.0-14.0) mmol/L BUN 13 (7-18) mg/dL Creatinine 1.2 H (0.6-1.0) mg/dL Est Cr Clr Drug Dosing 38.50 mL/min Estimated GFR (MDRD) 44 L (>60) Glucose 151 H (74-106) mg/dL Calcium 7.4 L (8.5-10.1) mg/dL Pedro Results last 24 hrs: Microbiology 10/09/16 11:43 Urine Culture - Preliminary Urine, Clean Catch Med Orders - Current: Current Medications Acetaminophen (Tylenol) 650 mg PO Q4H PRN PRN Reason: Pain (Mild 1-3)/fever Last Admin: 10/10/16 08:54 Dose: 650 mg Albuterol (Proventil Neb Soln) 2.5 mg NEB Q4H PRN PRN Reason: Shortness Of Breath/wheezing Bisacodyl (Dulcolax) 5 mg PO DAILY PRN PRN Reason: Constipation Buspirone HCl (Buspar) 10 mg PO BID PRN PRN Reason: Anxiety Cephalexin (Keflex) 500 mg PO TID [facility] Last Admin: 10/10/16 09:02 Dose: Not Given Diazepam (Valium.) 5 mg PO QID PRN PRN Reason: Muscle Spasm Docusate Sodium (Colace) 100 mg PO BID PRN PRN Reason: Constipation Last Admin: 10/10/16 03:20 Dose: 100 mg Furosemide (Lasix) 20 mg PO DAILY [facility] Last Admin: 10/10/16 09:02 Dose: 20 mg Levothyroxine Sodium 75 mcg/ (Levothyroxine Sodium 50 mcg) 125 mcg PO ACBREAKFAST [facility] Last Admin: 10/10/16 09:02 Dose: 125 mcg Lisinopril (Prinivil) 10 mg PO DAILY [facility] Last Admin: 10/10/16 09:04 Dose: 10 mg Lorazepam (Ativan) 1 mg IV Q6H PRN PRN Reason: Nausea/Vomiting Metoprolol Succinate (Toprol Xl) 50 mg PO DAILY [facility] Last Admin: 10/10/16 09:04 Dose: 50 mg Morphine Sulfate (Morphine) 2 - 4 mg IVPUSH Q2H PRN PRN Reason: Pain Last Admin: 10/10/16 08:53 Dose: 2 mg Nicotine (Habitrol) 14 mg TRDERM 2100 [facility] Last Admin: 10/09/16 20:00 Dose: Not Given Nitroglycerin (Nitrostat) 0.4 mg SL ASDIRECTED PRN PRN Reason: Pain Ondansetron HCl (Zofran Odt) 4 mg PO Q6H PRN PRN Reason: Nausea able to take PO Last Admin: 10/10/16 05:52 Dose: 4 mg Ondansetron HCl (Zofran) 4 mg IVPUSH Q4H PRN PRN Reason: Nausea/Vomiting Last Admin: 10/09/16 07:14 Dose: 4 mg Oxycodone HCl (Oxycodone) 5 - 10 mg PO Q4H PRN PRN Reason: Pain Last Admin: 10/10/16 08:53 Dose: 10 mg Pantoprazole Sodium (Protonix) 40 mg PO DAILY@0730 [facility] Polyethylene Glycol (Miralax) 17 gm PO DAILY [facility] Rosuvastatin Calcium (Crestor) 40 mg PO DAILY [facility] Last Admin: 10/10/16 09:01 Dose: 40 mg Sodium Chloride (Saline Flush) 10 ml FLUSH ASDIRECTED PRN PRN Reason: Keep Vein Open Last Admin: 10/08/16 19:56 Dose: 10 ml Warfarin Sodium (Coumadin) 5 mg PO TuTh@1300 [facility] Warfarin Sodium (Coumadin) 2.5 mg PO SuMoWeFrSa@1300 [facility] Last Admin: 10/09/16 13:31 Dose: 2.5 mg Zolpidem Tartrate (Ambien) 5 mg PO BEDTIME PRN PRN Reason: Sleep Discontinued Medications Cefazolin Sodium (Ancef) Confirm Administered Dose 1 gm .ROUTE .STK-MED ONE Stop: 10/09/16 05:02 Last Admin: 10/09/16 05:45 Dose: 1 gm Diphtheria/Tetanus/Acell Pertussis (Adacel) 0.5 ml IM .ONCE ONE Stop: 10/08/16 19:47 Last Admin: 10/08/16 20:45 Dose: 0.5 ml Hydromorphone HCl (Dilaudid) 0.5 mg IM ONETIME ONE Stop: 10/08/16 18:57 Last Admin: 10/08/16 19:04 Dose: 0.5 mg Hydroxyzine HCl (Vistaril) 100 mg IM ONETIME ONE Stop: 10/08/16 21:03 Last Admin: 10/08/16 21:29 Dose: 100 mg Hydroxyzine HCl (Vistaril) 50 mg IM Q6H PRN PRN Reason: Nausea/Vomiting Sodium Chloride (Normal Saline) 1,000 mls @ 100 mls/hr IV ASDIRECTED [facility] Last Admin: 10/09/16 12:31 Dose: 100 mls/hr Cefazolin Sodium 1 gm/ Sodium (Chloride) 50 mls @ 100 mls/hr IV ONETIME ONE Stop: 10/08/16 20:15 Last Admin: 10/08/16 20:00 Dose: 200 mls/hr Cefazolin Sodium/Dextrose 1 gm (/ Premix) 50 mls @ 100 mls/hr IV Q8HR [facility] Stop: 10/09/16 23:59 Last Admin: 10/09/16 21:36 Dose: 100 mls/hr Sodium Chloride (Normal Saline) Confirm Administered Dose 10 mls @ as directed .ROUTE .STK-MED ONE Stop: 10/08/16 20:18 Sodium Chloride (Normal Saline) Confirm Administered Dose 50 mls @ as directed .ROUTE .STK-MED ONE Stop: 10/09/16 05:07 Last Admin: 10/09/16 05:45 Dose: 50 ml Sodium Chloride (Normal Saline) 50 mls @ as directed IV .STK-MED ONE Stop: 10/09/16 05:01 Sodium Chloride (Normal Saline) 1,000 mls @ 25 mls/hr IV ASDIRECTED [facility] Ketamine HCl (Ketalar) Confirm Administered Dose 500 mg .ROUTE .STK-MED ONE Stop: 10/08/16 20:18 Levothyroxine Sodium (Synthroid) 125 mcg PO ACBREAKFAST [facility] Last Admin: 10/09/16 07:15 Dose: 125 mcg Levothyroxine Sodium 75 mcg/ (Levothyroxine Sodium 50 mcg) 125 mcg PO ACBREAKFAST [facility] Morphine Sulfate (Morphine) 2 mg IVPUSH Q2H PRN PRN Reason: Pain Last Admin: 10/09/16 03:56 Dose: 2 mg Morphine Sulfate (Morphine) 2 mg IVPUSH ONETIME ONE Stop: 10/08/16 21:03 Last Admin: 10/08/16 21:20 Dose: 2 mg Nicotine (Habitrol) 14 mg TRDERM ONETIME ONE Stop: 10/09/16 00:01 Last Admin: 10/09/16 00:11 Dose: Not Given Ondansetron HCl (Zofran) 4 mg IVPUSH ONETIME ONE Stop: 10/08/16 21:05 Last Admin: 10/08/16 21:17 Dose: 4 mg Oxycodone HCl (Oxycodone) 5 mg PO Q4H PRN PRN Reason: Pain Last Admin: 10/09/16 12:27 Dose: 5 mg Pantoprazole Sodium (Protonix Iv) 40 mg IVPUSH Q12H [facility] Last Admin: 10/09/16 00:26 Dose: 40 mg Pantoprazole Sodium (Protonix Iv) 40 mg IVPUSH Q12H [facility] Last Admin: 10/09/16 09:01 Dose: 40 mg Propofol (Diprivan 20 Ml) Confirm Administered Dose 200 mg .ROUTE .STK-MED ONE Stop: 10/08/16 20:17 - Exam General: alert, oriented, cooperative, moderate distress Lungs: Clear to auscultation, Normal respiratory effort Cardiovascular: Regular Rate, Regular Rhythm, No Murmurs Abdomen: bowel sounds present, soft, no tenderness, no distension Extremities: no edema Skin: warm, dry, intact - Problem List Review Problem List Initiated/Reviewed/Updated: Yes - My Orders Last 24 Hours: My Active Orders 10/10/16 10:50 Hip wo Cont Rt [MR] Stat Pelvis wo Cont [MR] Stat 10/10/16 11:00 Pantoprazole [ProTONIX] 40 mg PO DAILY@0730 Polyethylene Glycol 3350 [MiraLAX] 17 gm PO DAILY 10/10/16 12:22 Convert IV to Saline Lock [OM.PC] Routine 10/11/16 05:00 BASIC METABOLIC PANEL,BMP [CHEM] Timed CBC WITH AUTO DIFF [HEME] Timed INR,PT,PROTHROMBIN TIME [COAG] Timed - Plan Plan:: ASSESSMENT / PLAN Assessment and plan - Proximal right humerus fracture, complicated - patient has a small open wound from the fracture. Fracture has been reduced under fluoroscopy. She's currently in a sling and swath. Pain is not well-controlled at this time and is especially bad with any sort of movement. She has not had any fevers. She is currently electing for nonoperative management and close followup. With her right hip pain she's not safe for outpatient management because she is unable to bear weight. -Pain control with oxycodone for moderate pain and morphine for severe pain -Diazepam for muscle spasms - Continue current antibiotic therapy with cephalexin -Physical therapy in the morning Right hip pain - ongoing pain, unable to move the leg or weight-bear -MRI of the right hip and pelvis to rule out fracture not identified on x-ray Pain control as above Acute cystitis - urine sample suggestive of infection and patient has symptoms. -Urine culture pending -Continue current antibiotics History of DVT - chronically anticoagulated. -Continue warfarin, INR daily Coronary artery disease - Asymptomatic at this time. Vitals are stable. -Continue medical management Maintenance issues - - DVT prophylaxis - warfarin - GI prophylaxis - not indicated - Nutrition - regular diet - Bustamante catheter - placed in the emergency room Disposition - anticipate discharge to senior living facility versus possibly home with family and home care after the hospital stay
[2016-10-10] MEDS: Pantoprazole 40 MG Tab.CR PO SCH (12:44)
[2016-10-10] MEDS: Polyethylene Glycol 3350 Powder 17 GM Packet PO SCH (12:45)
[2016-10-10] MEDS: Warfarin 2.5 MG Tab PO SCH (13:38)
[2016-10-10] MEDS: Bisacodyl 5 MG Tab PO PRN (19:43)
[2016-10-10] MEDS: Nicotine 14 MG/24 Hr Patch TRDERM SCH (23:22)
[2016-10-11] MEDS: oxyCODONE 5 MG Tab PO PRN ×3 (04:36→12:49)
[2016-10-11] MEDS: Pantoprazole 40 MG Tab.CR PO SCH (08:00)
[2016-10-11] MEDS: Acetaminophen 325 MG Tab PO PRN ×2 (08:01→12:49)
[2016-10-11] MEDS: Morphine 2 MG/ML Syringe IVPUSH PRN (08:03)
--- NOTE | 2016-10-11 09:05 | MR ---
Pelvis wo Cont HISTORY: Persistent R hip and pelvic pain, after fall 10/08 Multiplanar sequences of the pelvis were obtained. Comparison plain radiographs are dated 10/08/2016. FINDINGS: Motion artifact limits the exam. No abnormal linear marrow signal or marrow edema can be i dentified. I see no signs of pelvic fracture. No fracture of either proximal femur is identified. There is a small amount of edema in the right gluteus medius muscle adjacent to its insertion on the greater trochanter. Findings probably represent gluteus medius muscle strain. Musculotendinous stru ctures demonstrate otherwise normal signal characteristics throughout the remainder of the pelvis an d appear symmetric. Vascular flow voids appear normal. There is a minimal amount of fluid in the right hip joint. Diffus e degenerative changes lower lumbar spine are noted with displaced tiny desiccation. Anterolateral o steophytes can be seen. There probable reactive signal changes in the vertebral body endplates adjac ent to the L4-5 disc. No intrapelvic mass, adenopathy, or abnormal fluid collections are seen. IMPRESSION: 1. Exam is limited by motion artifact. 2. No fracture or dislocation is identified. 2. Probable muscle strain signal changes in the right gluteus medius muscle adjacent to its insertio n on the greater trochanter. 3. There is very small amount of fluid in the right hip joint compared to the left. 4. Degenerative and hypertrophic changes lower lumbar spine.
[2016-10-11] MEDS: Cephalexin 250 MG Cap PO SCH ×3 (09:44→20:59)
[2016-10-11] MEDS: Polyethylene Glycol 3350 Powder 17 GM Packet PO SCH (09:44)
[2016-10-11] MEDS: Rosuvastatin 10 MG Tab PO SCH (09:44)
--- NOTE | 2016-10-11 10:39 | MR ---
Hip wo Cont Rt HISTORY: PERSISTENT RIGHT HIP AND PELVIC PAIN AFTER FALL, Multiplanar sequences of the right hip were obtained. Comparison plain radiographs are dated 10/09/19 17. FINDINGS: Marrow signal appears within normal limits throughout. No fracture is identified. There is minimal fluid in the right hip joint. There is mild increased T2 signal consistent with edema in the gluteus medius muscle adjacent to its insertion on the greater tuberosity. Findings probably represent gluteus medius muscle strain. Musc ulotendinous structures otherwise show normal signal characteristics throughout. No muscle atrophy i s seen. There is no mass, adenopathy, or abnormal fluid collection. IMPRESSION: A small amount of edema can be seen in the gluteus medius muscle adjacent to its inserti on on the greater tuberosity proximal right femur. Findings appear consistent with muscle strain. Mi nimal joint effusion right hip is noted. No other acute abnormality is identified.
[2016-10-11] MEDS: Lisinopril 10 MG Tab PO SCH (12:45)
[2016-10-11] MEDS: Furosemide 20 MG Tab PO SCH (12:45)
[2016-10-11] MEDS: Metoprolol Succinate 50 MG Tab.ER PO SCH (12:46)
[2016-10-11] MEDS ORDERED: Warfarin 5 MG Tab PO SCH (13:00)
[2016-10-11] MEDS: Bisacodyl 5 MG Tab PO PRN (15:20)
--- NOTE | 2016-10-11 15:52 | PCM.PN ---
- General Info Date of Service: 10/11/16 Functional Status: Reports: tolerating diet - Review of Systems General: Denies: Fever, Chills Pulmonary: Reports: no symptoms Cardiovascular: Reports: No Symptoms Gastrointestinal: Reports: No symptoms Musculoskeletal: Reports: arm pain Systems Review Comment:: This patient has had intermittent difficulty with hypotension, pressure medications have been held today. MRI of the pelvis and right hip showed no evidence of fracture. Vital signs have been stable and she has remained afebrile. - Patient Data Vitals - most recent: Last Vital Signs Temp 98.4 F 10/11/16 15:33 Pulse 56 L 10/11/16 15:33 Resp 18 10/11/16 15:33 BP 108/48 L 10/11/16 15:33 Pulse Ox 92 L 10/11/16 15:33 Weight - most recent: 170 lb 7.982 oz I&O - last 24 hours: Intake & Output 10/11/16 10/11/16 10/11/16 06:59 14:59 22:59 Intake Total 300 Output Total 25 Balance 275 Lab Results last 24 hrs: Laboratory Results - last 24 hr 10/11/16 10/11/16 10/11/16 Range/Units 05:15 05:15 05:15 WBC 10.0 (4.5-11.0) K/uL RBC 3.41 (3.30-5.50) M/uL Hgb 11.3 L (12.0-15.0) g/dL Hct 34.4 L (36.0-48.0) % MCV 101 H (80-98) fL MCH 33 H (27-31) pg MCHC 33 (32-36) % Plt Count 315 (150-400) K/uL Neut % (Auto) 65 (36-66) % Lymph % (Auto) 26 (24-44) % Burt % (Auto) 7 H (2-6) % Eos % (Auto) 2 (2-4) % Baso % (Auto) 1 (0-1) % PT 26.2 H (9.5-12.0) sec INR 2.41 H (0.80-1.20) Sodium 136 L (140-148) mmol/L Potassium 4.1 (3.6-5.2) mmol/L Chloride 102 (100-108) mmol/L Carbon Dioxide 23 (21-32) mmol/L Anion Gap 15.1 H (5.0-14.0) mmol/L BUN 21 H D (7-18) mg/dL Creatinine 1.6 H (0.6-1.0) mg/dL Est Cr Clr Drug Dosing 29.04 mL/min Estimated GFR (MDRD) 32 L (>60) Glucose 113 H (74-106) mg/dL Calcium 8.5 (8.5-10.1) mg/dL Pedro Results last 24 hrs: Microbiology 10/09/16 11:43 Urine Culture - Final Urine, Clean Catch Escherichia Coli Med Orders - Current: Current Medications Acetaminophen (Tylenol) 650 mg PO Q4H PRN PRN Reason: Pain (Mild 1-3)/fever Last Admin: 10/11/16 12:49 Dose: 650 mg Albuterol (Proventil Neb Soln) 2.5 mg NEB Q4H PRN PRN Reason: Shortness Of Breath/wheezing Bisacodyl (Dulcolax) 5 mg PO DAILY PRN PRN Reason: Constipation Last Admin: 10/11/16 15:20 Dose: 5 mg Buspirone HCl (Buspar) 10 mg PO BID PRN PRN Reason: Anxiety Cephalexin (Keflex) 500 mg PO TID [facility] Last Admin: 10/11/16 14:39 Dose: 500 mg Diazepam (Valium.) 5 mg PO QID PRN PRN Reason: Muscle Spasm Last Admin: 10/10/16 12:44 Dose: 5 mg Docusate Sodium (Colace) 100 mg PO BID PRN PRN Reason: Constipation Last Admin: 10/10/16 03:20 Dose: 100 mg Levothyroxine Sodium 75 mcg/ (Levothyroxine Sodium 50 mcg) 125 mcg PO ACBREAKFAST [facility] Last Admin: 10/11/16 08:00 Dose: 125 mcg Nicotine (Habitrol) 14 mg TRDERM 2100 [facility] Last Admin: 10/10/16 23:22 Dose: Not Given Nitroglycerin (Nitrostat) 0.4 mg SL ASDIRECTED PRN PRN Reason: Pain Ondansetron HCl (Zofran Odt) 4 mg PO Q6H PRN PRN Reason: Nausea able to take PO Last Admin: 10/10/16 05:52 Dose: 4 mg Ondansetron HCl (Zofran) 4 mg IVPUSH Q4H PRN PRN Reason: Nausea/Vomiting Last Admin: 10/09/16 07:14 Dose: 4 mg Oxycodone HCl (Oxycodone) 5 - 10 mg PO Q4H PRN PRN Reason: Pain Last Admin: 10/11/16 12:49 Dose: 5 mg Pantoprazole Sodium (Protonix) 40 mg PO DAILY@0730 [facility] Last Admin: 10/11/16 08:00 Dose: 40 mg Polyethylene Glycol (Miralax) 17 gm PO DAILY [facility] Last Admin: 10/11/16 09:44 Dose: 17 gm Rosuvastatin Calcium (Crestor) 40 mg PO DAILY [facility] Last Admin: 10/11/16 09:44 Dose: 40 mg Sodium Chloride (Saline Flush) 10 ml FLUSH ASDIRECTED PRN PRN Reason: Keep Vein Open Last Admin: 10/08/16 19:56 Dose: 10 ml Warfarin Sodium (Coumadin) 5 mg PO TuTh@1300 [facility] Last Admin: 10/11/16 12:50 Dose: 5 mg Warfarin Sodium (Coumadin) 2.5 mg PO SuMoWeFrSa@1300 [facility] Last Admin: 10/10/16 13:38 Dose: 2.5 mg Zolpidem Tartrate (Ambien) 5 mg PO BEDTIME PRN PRN Reason: Sleep Discontinued Medications Cefazolin Sodium (Ancef) Confirm Administered Dose 1 gm .ROUTE .STK-MED ONE Stop: 10/09/16 05:02 Last Admin: 10/09/16 05:45 Dose: 1 gm Diphtheria/Tetanus/Acell Pertussis (Adacel) 0.5 ml IM .ONCE ONE Stop: 10/08/16 19:47 Last Admin: 10/08/16 20:45 Dose: 0.5 ml Furosemide (Lasix) 20 mg PO DAILY [facility] Last Admin: 10/11/16 12:45 Dose: Not Given Hydromorphone HCl (Dilaudid) 0.5 mg IM ONETIME ONE Stop: 10/08/16 18:57 Last Admin: 10/08/16 19:04 Dose: 0.5 mg Hydroxyzine HCl (Vistaril) 100 mg IM ONETIME ONE Stop: 10/08/16 21:03 Last Admin: 10/08/16 21:29 Dose: 100 mg Hydroxyzine HCl (Vistaril) 50 mg IM Q6H PRN PRN Reason: Nausea/Vomiting Sodium Chloride (Normal Saline) 1,000 mls @ 100 mls/hr IV ASDIRECTED [facility] Last Admin: 10/09/16 12:31 Dose: 100 mls/hr Cefazolin Sodium 1 gm/ Sodium (Chloride) 50 mls @ 100 mls/hr IV ONETIME ONE Stop: 10/08/16 20:15 Last Admin: 10/08/16 20:00 Dose: 200 mls/hr Cefazolin Sodium/Dextrose 1 gm (/ Premix) 50 mls @ 100 mls/hr IV Q8HR [facility] Stop: 10/09/16 23:59 Last Admin: 10/09/16 21:36 Dose: 100 mls/hr Sodium Chloride (Normal Saline) Confirm Administered Dose 10 mls @ as directed .ROUTE .[facility] ONE Stop: 10/08/16 20:18 Sodium Chloride (Normal Saline) Confirm Administered Dose 50 mls @ as directed .ROUTE .[facility] ONE Stop: 10/09/16 05:07 Last Admin: 10/09/16 05:45 Dose: 50 ml Sodium Chloride (Normal Saline) 50 mls @ as directed IV .[facility] ONE Stop: 10/09/16 05:01 Sodium Chloride (Normal Saline) 1,000 mls @ 25 mls/hr IV ASDIRECTED [facility] Ketamine HCl (Ketalar) Confirm Administered Dose 500 mg .ROUTE .[facility] ONE Stop: 10/08/16 20:18 Levothyroxine Sodium (Synthroid) 125 mcg PO ACBREAKFAST [facility] Last Admin: 10/09/16 07:15 Dose: 125 mcg Levothyroxine Sodium 75 mcg/ (Levothyroxine Sodium 50 mcg) 125 mcg PO ACBREAKFAST [facility] Lisinopril (Prinivil) 10 mg PO DAILY [facility] Last Admin: 10/11/16 12:45 Dose: Not Given Lorazepam (Ativan) 1 mg IV Q6H PRN PRN Reason: Nausea/Vomiting Metoprolol Succinate (Toprol Xl) 50 mg PO DAILY [facility] Last Admin: 10/11/16 12:46 Dose: Not Given Morphine Sulfate (Morphine) 2 mg IVPUSH Q2H PRN PRN Reason: Pain Last Admin: 10/09/16 03:56 Dose: 2 mg Morphine Sulfate (Morphine) 2 mg IVPUSH ONETIME ONE Stop: 10/08/16 21:03 Last Admin: 10/08/16 21:20 Dose: 2 mg Morphine Sulfate (Morphine) 2 - 4 mg IVPUSH Q2H PRN PRN Reason: Pain Last Admin: 10/11/16 08:03 Dose: 2 mg Nicotine (Habitrol) 14 mg TRDERM ONETIME ONE Stop: 10/09/16 00:01 Last Admin: 10/09/16 00:11 Dose: Not Given Ondansetron HCl (Zofran) 4 mg IVPUSH ONETIME ONE Stop: 10/08/16 21:05 Last Admin: 10/08/16 21:17 Dose: 4 mg Oxycodone HCl (Oxycodone) 5 mg PO Q4H PRN PRN Reason: Pain Last Admin: 10/09/16 12:27 Dose: 5 mg Pantoprazole Sodium (Protonix Iv) 40 mg IVPUSH Q12H [facility] Last Admin: 10/09/16 00:26 Dose: 40 mg Pantoprazole Sodium (Protonix Iv) 40 mg IVPUSH Q12H [facility] Last Admin: 10/09/16 09:01 Dose: 40 mg Propofol (Diprivan 20 Ml) Confirm Administered Dose 200 mg .ROUTE .STK-MED ONE Stop: 10/08/16 20:17 - Exam Quality Assessment: DVT prophylaxis General: alert, oriented, cooperative, mild distress Lungs: Clear to auscultation, Normal respiratory effort Cardiovascular: Regular Rate, Regular Rhythm, No Murmurs Abdomen: bowel sounds present, soft, no tenderness, no distension Extremities: no edema Skin: warm, dry, intact - Problem List Review Problem List Initiated/Reviewed/Updated: Yes - My Orders Last 24 Hours: My Active Orders 10/12/16 05:00 INR,PT,PROTHROMBIN TIME [COAG] Timed - Plan Plan:: ASSESSMENT / PLAN Assessment and plan - Proximal right humerus fracture, complicated - patient has a small open wound from the fracture. Fracture has been reduced under fluoroscopy. She's currently in a sling and swath. MRI of the hip and pelvis showed no evidence of fracture, there was evidence of muscle bruising and strain. -Pain control with oxycodone -Diazepam for muscle spasms - Continue current antibiotic therapy with cephalexin -Physical therapy daily Acute cystitis - urine sample suggestive of infection and patient has symptoms. Urine culture has grown out Escherichia coli sensitive to ciprofloxacin -Ciprofloxacin 500 mg by mouth twice a day History of DVT - chronically anticoagulated. -Continue warfarin, INR daily Coronary artery disease - Asymptomatic at this time. Vitals are stable. -Continue medical management Maintenance issues - - DVT prophylaxis - warfarin - GI prophylaxis - not indicated - Nutrition - regular diet - Bustamante catheter - placed in the emergency room Disposition - [facility]
[2016-10-11] MEDS ORDERED: Bisacodyl 10 MG Supp RECTAL PRN (16:42)
[2016-10-11] MEDS ORDERED: cloNIDine 0.1 MG/Day Transdermal Patch TRDERM SCH (18:00)
[2016-10-11] MEDS ORDERED: LORazepam 2 MG/ML MDV IV SCH (18:15)
[2016-10-11] MEDS ORDERED: LORazepam 1 MG Tab PO SCH (18:15)
[2016-10-11] MEDS: Gabapentin 400 MG Cap PO SCH (20:59)
[2016-10-11] MEDS: Nicotine 14 MG/24 Hr Patch TRDERM SCH (21:00)
[2016-10-12] MEDS: Gabapentin 400 MG Cap PO SCH ×2 (04:25→13:34)
[2016-10-12] MEDS: Acetaminophen 325 MG Tab PO PRN ×2 (04:38→21:01)
[2016-10-12] MEDS: oxyCODONE 5 MG Tab PO PRN ×2 (04:38→21:02)
[2016-10-12] MEDS: Pantoprazole 40 MG Tab.CR PO SCH (07:29)
[2016-10-12] MEDS: Rosuvastatin 10 MG Tab PO SCH (08:22)
[2016-10-12] MEDS: Polyethylene Glycol 3350 Powder 17 GM Packet PO SCH (08:22)
[2016-10-12] MEDS: Cephalexin 250 MG Cap PO SCH ×3 (08:22→21:04)
[2016-10-12] MEDS: CHECK PATCH DAILY TOP SCH (08:23)
--- NOTE | 2016-10-12 12:19 | PCM.PN ---
- General Info Date of Service: 10/12/16 Functional Status: Reports: tolerating diet, ambulating, urinating - Review of Systems General: Reports: Weakness. Denies: Fever, Chills Pulmonary: Reports: no symptoms Cardiovascular: Reports: No Symptoms Gastrointestinal: Reports: No symptoms Musculoskeletal: Reports: arm pain Psychiatric: Reports: confusion Systems Review Comment:: This patient has experienced difficulty with confusion over the past 24 hours. Last night was noted to be confused with tremulousness, elevated blood pressure and heart rate. Was suspected that she was developing a component of alcohol withdrawal. She's had no further tremulousness but has had intermittent confusion. She is been treated with gabapentin and was started on a clonidine patch. Vital signs have been stable and she has remained afebrile. Pain in her hip and buttock have improved significantly and she has been able to walk short distances. - Patient Data Vitals - most recent: Last Vital Signs Temp 97.4 F 10/12/16 11:47 Pulse 58 L 10/12/16 11:47 Resp 16 10/12/16 11:47 BP 114/59 L 10/12/16 11:47 Pulse Ox 95 10/12/16 11:47 Weight - most recent: 170 lb 7.982 oz I&O - last 24 hours: Intake & Output 10/11/16 10/12/16 10/12/16 22:59 06:59 14:59 Intake Total 360 Output Total 650 275 Balance -650 85 Lab Results last 24 hrs: Laboratory Results - last 24 hr 10/12/16 Range/Units 05:52 PT 28.3 H (9.5-12.0) sec INR 2.59 H (0.80-1.20) Med Orders - Current: Current Medications Acetaminophen (Tylenol) 650 mg PO Q4H PRN PRN Reason: Pain (Mild 1-3)/fever Last Admin: 10/12/16 04:38 Dose: 650 mg Albuterol (Proventil Neb Soln) 2.5 mg NEB Q4H PRN PRN Reason: Shortness Of Breath/wheezing Bisacodyl (Dulcolax) 5 mg PO DAILY PRN PRN Reason: Constipation Last Admin: 10/11/16 15:20 Dose: 5 mg Bisacodyl (Dulcolax) 10 mg RECTAL DAILY PRN PRN Reason: Constipation Last Admin: 10/11/16 18:13 Dose: 10 mg Buspirone HCl (Buspar) 10 mg PO BID PRN PRN Reason: Anxiety Cephalexin (Keflex) 500 mg PO TID [facility] Last Admin: 10/12/16 08:22 Dose: 500 mg Clotrimazole (Mycelex) 10 mg PO 5XDAY [facility] Diazepam (Valium.) 5 mg PO QID PRN PRN Reason: Muscle Spasm Last Admin: 10/10/16 12:44 Dose: 5 mg Docusate Sodium (Colace) 100 mg PO BID PRN PRN Reason: Constipation Last Admin: 10/10/16 03:20 Dose: 100 mg Gabapentin (Neurontin) 200 mg PO TID [facility] Levothyroxine Sodium 75 mcg/ (Levothyroxine Sodium 50 mcg) 125 mcg PO ACBREAKFAST [facility] Last Admin: 10/12/16 07:28 Dose: 125 mcg Lorazepam (Ativan) 0 mg PO ASDIRECTED [facility] PRN Reason: Protocol Lorazepam (Ativan) 0 mg IV ASDIRECTED [facility] PRN Reason: Protocol Nicotine (Habitrol) 14 mg TRDERM 2100 [facility] Last Admin: 10/11/16 21:00 Dose: Not Given Nitroglycerin (Nitrostat) 0.4 mg SL ASDIRECTED PRN PRN Reason: Pain Check Patch Daily 1 each TOP DAILY [facility] Last Admin: 10/12/16 08:23 Dose: Not Given Ondansetron HCl (Zofran Odt) 4 mg PO Q6H PRN PRN Reason: Nausea able to take PO Last Admin: 10/10/16 05:52 Dose: 4 mg Ondansetron HCl (Zofran) 4 mg IVPUSH Q4H PRN PRN Reason: Nausea/Vomiting Last Admin: 10/09/16 07:14 Dose: 4 mg Oxycodone HCl (Oxycodone) 5 - 10 mg PO Q4H PRN PRN Reason: Pain Last Admin: 10/12/16 04:38 Dose: 5 mg Pantoprazole Sodium (Protonix) 40 mg PO DAILY@0730 [facility] Last Admin: 10/12/16 07:29 Dose: 40 mg Polyethylene Glycol (Miralax) 17 gm PO DAILY [facility] Last Admin: 10/12/16 08:22 Dose: Not Given Rosuvastatin Calcium (Crestor) 40 mg PO DAILY [facility] Last Admin: 10/12/16 08:22 Dose: 40 mg Sodium Chloride (Saline Flush) 10 ml FLUSH ASDIRECTED PRN PRN Reason: Keep Vein Open Last Admin: 10/08/16 19:56 Dose: 10 ml Warfarin Sodium (Coumadin) 5 mg PO TuTh@1300 [facility] Last Admin: 10/11/16 12:50 Dose: 5 mg Warfarin Sodium (Coumadin) 2.5 mg PO SuMoWeFrSa@1300 [facility] Last Admin: 10/10/16 13:38 Dose: 2.5 mg Discontinued Medications Cefazolin Sodium (Ancef) Confirm Administered Dose 1 gm .ROUTE .STK-MED ONE Stop: 10/09/16 05:02 Last Admin: 10/09/16 05:45 Dose: 1 gm Clonidine HCl (Catapres-Tts 1) 0.1 mg TRDERM Q7D [facility] Last Admin: 10/11/16 21:01 Dose: 0.1 mg Diphtheria/Tetanus/Acell Pertussis (Adacel) 0.5 ml IM .ONCE ONE Stop: 10/08/16 19:47 Last Admin: 10/08/16 20:45 Dose: 0.5 ml Furosemide (Lasix) 20 mg PO DAILY [facility] Last Admin: 10/11/16 12:45 Dose: Not Given Gabapentin (Neurontin) 400 mg PO Q8H [facility] Last Admin: 10/12/16 04:25 Dose: 400 mg Hydromorphone HCl (Dilaudid) 0.5 mg IM ONETIME ONE Stop: 10/08/16 18:57 Last Admin: 10/08/16 19:04 Dose: 0.5 mg Hydroxyzine HCl (Vistaril) 100 mg IM ONETIME ONE Stop: 10/08/16 21:03 Last Admin: 10/08/16 21:29 Dose: 100 mg Hydroxyzine HCl (Vistaril) 50 mg IM Q6H PRN PRN Reason: Nausea/Vomiting Sodium Chloride (Normal Saline) 1,000 mls @ 100 mls/hr IV ASDIRECTED [facility] Last Admin: 10/09/16 12:31 Dose: 100 mls/hr Cefazolin Sodium 1 gm/ Sodium (Chloride) 50 mls @ 100 mls/hr IV ONETIME ONE Stop: 10/08/16 20:15 Last Admin: 10/08/16 20:00 Dose: 200 mls/hr Cefazolin Sodium/Dextrose 1 gm (/ Premix) 50 mls @ 100 mls/hr IV Q8HR [facility] Stop: 10/09/16 23:59 Last Admin: 10/09/16 21:36 Dose: 100 mls/hr Sodium Chloride (Normal Saline) Confirm Administered Dose 10 mls @ as directed .ROUTE .[facility] ONE Stop: 10/08/16 20:18 Sodium Chloride (Normal Saline) Confirm Administered Dose 50 mls @ as directed .ROUTE .[facility] ONE Stop: 10/09/16 05:07 Last Admin: 10/09/16 05:45 Dose: 50 ml Sodium Chloride (Normal Saline) 50 mls @ as directed IV .[facility] ONE Stop: 10/09/16 05:01 Sodium Chloride (Normal Saline) 1,000 mls @ 25 mls/hr IV ASDIRECTED [facility] Ketamine HCl (Ketalar) Confirm Administered Dose 500 mg .ROUTE .[facility] ONE Stop: 10/08/16 20:18 Levothyroxine Sodium (Synthroid) 125 mcg PO ACBREAKFAST [facility] Last Admin: 10/09/16 07:15 Dose: 125 mcg Levothyroxine Sodium 75 mcg/ (Levothyroxine Sodium 50 mcg) 125 mcg PO ACBREAKFAST [facility] Lisinopril (Prinivil) 10 mg PO DAILY [facility] Last Admin: 10/11/16 12:45 Dose: Not Given Lorazepam (Ativan) 1 mg IV Q6H PRN PRN Reason: Nausea/Vomiting Metoprolol Succinate (Toprol Xl) 50 mg PO DAILY [facility] Last Admin: 10/11/16 12:46 Dose: Not Given Morphine Sulfate (Morphine) 2 mg IVPUSH Q2H PRN PRN Reason: Pain Last Admin: 10/09/16 03:56 Dose: 2 mg Morphine Sulfate (Morphine) 2 mg IVPUSH ONETIME ONE Stop: 10/08/16 21:03 Last Admin: 10/08/16 21:20 Dose: 2 mg Morphine Sulfate (Morphine) 2 - 4 mg IVPUSH Q2H PRN PRN Reason: Pain Last Admin: 10/11/16 08:03 Dose: 2 mg Nicotine (Habitrol) 14 mg TRDERM ONETIME ONE Stop: 10/09/16 00:01 Last Admin: 10/09/16 00:11 Dose: Not Given Ondansetron HCl (Zofran) 4 mg IVPUSH ONETIME ONE Stop: 10/08/16 21:05 Last Admin: 10/08/16 21:17 Dose: 4 mg Oxycodone HCl (Oxycodone) 5 mg PO Q4H PRN PRN Reason: Pain Last Admin: 10/09/16 12:27 Dose: 5 mg Pantoprazole Sodium (Protonix Iv) 40 mg IVPUSH Q12H [facility] Last Admin: 10/09/16 00:26 Dose: 40 mg Pantoprazole Sodium (Protonix Iv) 40 mg IVPUSH Q12H [facility] Last Admin: 10/09/16 09:01 Dose: 40 mg Propofol (Diprivan 20 Ml) Confirm Administered Dose 200 mg .ROUTE .STK-MED ONE Stop: 10/08/16 20:17 Zolpidem Tartrate (Ambien) 5 mg PO BEDTIME PRN PRN Reason: Sleep - Exam Quality Assessment: DVT prophylaxis Lungs: Clear to auscultation, Normal respiratory effort Cardiovascular: Regular Rate, Regular Rhythm Abdomen: bowel sounds present, soft, no tenderness, no distension Extremities: no edema Skin: warm, dry, intact - Problem List Review Problem List Initiated/Reviewed/Updated: Yes - My Orders Last 24 Hours: My Active Orders 10/11/16 16:42 Bisacodyl [Dulcolax] 10 mg RECTAL DAILY PRN 10/11/16 18:14 Notify Provider [RC] PRN 10/11/16 18:15 LORazepam [Ativan] See Protocol IV ASDIRECTED LORazepam [Ativan] See Protocol PO ASDIRECTED 10/12/16 14:00 Clotrimazole [Mycelex] 10 mg PO 5XDAY Gabapentin [Neurontin] 200 mg PO TID 10/13/16 05:00 INR,PT,PROTHROMBIN TIME [COAG] Timed - Plan Plan:: ASSESSMENT / PLAN Assessment and plan - Proximal right humerus fracture, complicated - patient has a small open wound from the fracture. Fracture has been reduced under fluoroscopy. She's currently in a sling and swath. MRI of the hip and pelvis showed no evidence of fracture, there was evidence of muscle bruising and strain. 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 Urine culture has grown out Escherichia coli sensitive to ciprofloxacin -Ciprofloxacin 500 mg by mouth twice a day History of DVT - chronically anticoagulated. -Continue warfarin, INR daily Coronary artery disease - Asymptomatic at this time. Vitals are stable. -Continue medical management Maintenance issues - - DVT prophylaxis - warfarin - GI prophylaxis - not indicated - Nutrition - regular diet - Bustamante catheter - placed in the emergency room Disposition - anticipate discharge to long term facility tomorrow
[2016-10-12] MEDS: Warfarin 2.5 MG Tab PO SCH (13:24)
[2016-10-12] MEDS: Clotrimazole 10 MG Troche PO SCH ×3 (13:24→21:04)
[2016-10-12] MEDS: Gabapentin 100 MG Cap PO SCH ×2 (13:25→21:03)
[2016-10-12] MEDS: Nicotine 14 MG/24 Hr Patch TRDERM SCH (21:03)
[2016-10-13] MEDS: oxyCODONE 5 MG Tab PO PRN ×2 (00:50→10:11)
[2016-10-13] MEDS: Clotrimazole 10 MG Troche PO SCH ×2 (06:25→10:06)
[2016-10-13] MEDS: Pantoprazole 40 MG Tab.CR PO SCH (07:34)
[2016-10-13 07:56] VITALS: BP 140/51
[2016-10-13] MEDS: Polyethylene Glycol 3350 Powder 17 GM Packet PO SCH (10:04)
[2016-10-13] MEDS: Gabapentin 100 MG Cap PO SCH (10:04)
[2016-10-13] MEDS: Cephalexin 250 MG Cap PO SCH (10:04)
[2016-10-13] MEDS: CHECK PATCH DAILY TOP SCH (10:05)
[2016-10-13] MEDS: Rosuvastatin 10 MG Tab PO SCH (10:06)
--- NOTE | 2016-10-13 12:06 | PCM.DCSUM1 ---
Discharge Summary - Hospital Course Brief History: This patient is a 76-year-old woman who is admitted through the emergency department with the open displaced fracture of her right humerus. - Discharge Data Discharge Date: 10/13/16 Discharge Disposition: DC/Tfer to SNF 03 Condition: Fair - Discharge Diagnosis/Problem(s) (1) UTI (urinary tract infection) SNOMED Code(s): 46175274 ICD Code: N39.0 - URINARY TRACT INFECTION, SITE NOT SPECIFIED Status: Acute Current Visit: Yes (2) Fracture, humerus, neck, open SNOMED Code(s): 750163526, 101398552 ICD Code: S42.293B - OTH DISP FX OF UPPER END OF UNSP HUMERUS, INIT FOR OPN FX Status: Acute Current Visit: Yes (3) Coronary arteriosclerosis, CAD SNOMED Code(s): 25823978 ICD Code: I25.10 - ATHSCL HEART DISEASE OF [place] CORONARY ARTERY W/O ANG PCTRS Status: Chronic Priority: Medium Current Visit: No (4) Alcohol dependence SNOMED Code(s): 07766359 ICD Code: F10.20 - ALCOHOL DEPENDENCE, UNCOMPLICATED Status: Chronic Priority: Medium Current Visit: Yes Problem Details: alcohol use is excessive, especially in light of CAD with recent cardiac bypass surgery - Patient Summary/Data Consults: Consultations 10/08/16 23:38 Consult to Case Management [CONS] Routine Comment: Physician Instructions: Quantity: OT Evaluation and Treatment [CONS] Routine Please Evaluate and Treat. OT Reason for Consult: Discharge Planning This query below is only for informational purposes and is not editable. PT Evaluation and Treatment [CONS] Routine Please Evaluate and Treat. PT Reason for Consult: Strengthening This query below is only for informational purposes and is not editable. Hospital Course: This patient is a 76-year-old woman who fell and experienced abrupt onset of pain in her right upper arm. On evaluation emergency room department was noted to have a displaced open fracture of the humerus. She was seen and evaluated by Dr. Talavera, options were discussed concerning management. Decision was made to proceed with conservative management the fracture was set by Dr. Talavera and placed in a sling with support. She was admitted to the hospital and given IV fluids for hydration, pain medication as needed, and antiemetic therapy. At the time of admission also reported right hip pain, x-rays of the hip were negative showing no evidence of fracture. After admission because of ongoing pain MRI of the hip and pelvis were obtained and showed no evidence of fracture. She was seen by physical therapy on a daily basis. Initial urinalysis did show evidence of a urinary tract infection, culture grew out Escherichia coli. Because of the open nature of the fracture she was given 24 hours of IV cefazolin and will be discharged with cephalexin 500 mg 3 times daily, for a total of a ten-day course of antibiotic therapy. Hospital course was otherwise complicated by mild alcohol withdrawal, at the time of discharge confusion and tremulousness hadn't totally resolved. Activity will be as tolerated and she will be on a regular diet. There should be no attempts to remove her current sling or dressing until she is seen for followup by Dr. Dewey Talavera on October 17. - Patient Instructions Diet: Usual Diet as Tolerated Activity: Apply Ice, Non Weight Bearing Driving: Do Not Drive Showering/Bathing: No Showering Wound/Incision Care: Do NOT Change Dressing Notify Provider of: Fever, Increased Pain, Swelling and Redness, Drainage, Nausea and/or Vomiting Other/Special Instructions: Followup appointment with Dr. Talavera and x-ray as noted above. Do not remove current splint or dressing until the patient is seen by Dr. Talavera for followup. - Discharge Plan Prescriptions/Med Rec: Clotrimazole [Mycelex] 10 mg PO 5XDAY #40 colton Nicotine [Habitrol] 14 mg TRDERM 2100 #30 patch oxyCODONE 5 mg PO Q4H PRN #30 tablet PRN Reason: Pain Home Medications: Home Meds Furosemide [Lasix] 20 - 40 mg PO DAILY PRN 02/21/13 [History] Levothyroxine 125 mcg PO DAILY 02/21/13 [History] Aspirin [Stephen Chewable Aspirin] 81 mg PO DAILY 09/04/13 [History] Nitroglycerin [Nitrostat] 0.4 mg SL ASDIRECTED PRN 09/04/13 [History] Acetaminophen [Pain Reliever] 2 tab PO Q6HR PRN 04/11/14 [History] Rosuvastatin [Crestor] 40 mg PO DAILY 06/02/14 [History] busPIRone [Buspar] 10 mg PO BID PRN 08/14/15 [History] Warfarin [Coumadin] 5 mg PO ASDIRECTED 01/01/16 [History] Zolpidem [Ambien] 10 mg PO BEDTIME PRN 01/01/16 [History] Lisinopril 10 mg PO DAILY #30 tablet 01/06/16 [Rx] Metoprolol Succinate [Toprol XL] 50 mg PO DAILY 01/06/16 [History] Warfarin [Coumadin] 2.5 mg PO ASDIRECTED 10/08/16 [History] Clotrimazole [Mycelex] 10 mg PO 5XDAY #40 colton 10/13/16 [Rx] Nicotine [Habitrol] 14 mg TRDERM 2100 #30 patch 10/13/16 [Rx] oxyCODONE 5 mg PO Q4H PRN #30 tablet 10/13/16 [Rx] Forms: ED Department Discharge Referrals: Hakan Sal PA-C [Primary Care Provider] - Aston Talavera DO [Physician] - - Patient Data Vitals - Most Recent: Last Vital Signs Temp 96.6 F 10/13/16 07:53 Pulse 61 10/13/16 07:53 Resp 16 10/13/16 07:53 BP 140/51 L 10/13/16 07:53 Pulse Ox 98 10/13/16 07:53 Weight - Most Recent: 170 lb 7.982 oz I&O - Last 24 hours: Intake & Output 10/12/16 10/13/16 10/13/16 22:59 06:59 14:59 Intake Total 1000 360 Balance 1000 360 Lab Results - Last 24 hrs: Laboratory Results - last 24 hr 10/13/16 Range/Units 04:50 PT 28.6 H (9.5-12.0) sec INR 2.62 H (0.80-1.20) Med Orders - Current: Current Medications Acetaminophen (Tylenol) 650 mg PO Q4H PRN PRN Reason: Pain (Mild 1-3)/fever Last Admin: 10/12/16 21:01 Dose: 650 mg Albuterol (Proventil Neb Soln) 2.5 mg NEB Q4H PRN PRN Reason: Shortness Of Breath/wheezing Bisacodyl (Dulcolax) 5 mg PO DAILY PRN PRN Reason: Constipation Last Admin: 10/11/16 15:20 Dose: 5 mg Bisacodyl (Dulcolax) 10 mg RECTAL DAILY PRN PRN Reason: Constipation Last Admin: 10/11/16 18:13 Dose: 10 mg Buspirone HCl (Buspar) 10 mg PO BID PRN PRN Reason: Anxiety Cephalexin (Keflex) 500 mg PO TID [facility] Last Admin: 10/13/16 10:04 Dose: 500 mg Clotrimazole (Mycelex) 10 mg PO 5XDAY [facility] Last Admin: 10/13/16 10:06 Dose: 10 mg Diazepam (Valium.) 5 mg PO QID PRN PRN Reason: Muscle Spasm Last Admin: 10/10/16 12:44 Dose: 5 mg Docusate Sodium (Colace) 100 mg PO BID PRN PRN Reason: Constipation Last Admin: 10/10/16 03:20 Dose: 100 mg Gabapentin (Neurontin) 200 mg PO TID [facility] Last Admin: 10/13/16 10:04 Dose: 200 mg Levothyroxine Sodium 75 mcg/ (Levothyroxine Sodium 50 mcg) 125 mcg PO ACBREAKFAST [facility] Last Admin: 10/13/16 07:34 Dose: 125 mcg Lorazepam (Ativan) 0 mg PO ASDIRECTED [facility] PRN Reason: Protocol Lorazepam (Ativan) 0 mg IV ASDIRECTED [facility] PRN Reason: Protocol Nicotine (Habitrol) 14 mg TRDERM 2100 [facility] Last Admin: 10/12/16 21:03 Dose: Not Given Nitroglycerin (Nitrostat) 0.4 mg SL ASDIRECTED PRN PRN Reason: Pain Check Patch Daily 1 each TOP DAILY [facility] Last Admin: 10/13/16 10:05 Dose: Not Given Ondansetron HCl (Zofran Odt) 4 mg PO Q6H PRN PRN Reason: Nausea able to take PO Last Admin: 10/10/16 05:52 Dose: 4 mg Ondansetron HCl (Zofran) 4 mg IVPUSH Q4H PRN PRN Reason: Nausea/Vomiting Last Admin: 10/09/16 07:14 Dose: 4 mg Oxycodone HCl (Oxycodone) 5 - 10 mg PO Q4H PRN PRN Reason: Pain Last Admin: 10/13/16 10:11 Dose: 5 mg Pantoprazole Sodium (Protonix) 40 mg PO DAILY@0730 [facility] Last Admin: 10/13/16 07:34 Dose: 40 mg Polyethylene Glycol (Miralax) 17 gm PO DAILY [facility] Last Admin: 10/13/16 10:04 Dose: Not Given Rosuvastatin Calcium (Crestor) 40 mg PO DAILY [facility] Last Admin: 10/13/16 10:06 Dose: 40 mg Sodium Chloride (Saline Flush) 10 ml FLUSH ASDIRECTED PRN PRN Reason: Keep Vein Open Last Admin: 10/08/16 19:56 Dose: 10 ml Warfarin Sodium (Coumadin) 5 mg PO TuTh@1300 [facility] Last Admin: 10/11/16 12:50 Dose: 5 mg Warfarin Sodium (Coumadin) 2.5 mg PO SuMoWeFrSa@1300 [facility] Last Admin: 10/12/16 13:24 Dose: 2.5 mg Discontinued Medications Cefazolin Sodium (Ancef) Confirm Administered Dose 1 gm .ROUTE .STK-MED ONE Stop: 10/09/16 05:02 Last Admin: 10/09/16 05:45 Dose: 1 gm Clonidine HCl (Catapres-Tts 1) 0.1 mg TRDERM Q7D [facility] Last Admin: 10/11/16 21:01 Dose: 0.1 mg Diphtheria/Tetanus/Acell Pertussis (Adacel) 0.5 ml IM .ONCE ONE Stop: 10/08/16 19:47 Last Admin: 10/08/16 20:45 Dose: 0.5 ml Furosemide (Lasix) 20 mg PO DAILY [facility] Last Admin: 10/11/16 12:45 Dose: Not Given Gabapentin (Neurontin) 400 mg PO Q8H [facility] Last Admin: 10/12/16 13:34 Dose: Not Given Hydromorphone HCl (Dilaudid) 0.5 mg IM ONETIME ONE Stop: 10/08/16 18:57 Last Admin: 10/08/16 19:04 Dose: 0.5 mg Hydroxyzine HCl (Vistaril) 100 mg IM ONETIME ONE Stop: 10/08/16 21:03 Last Admin: 10/08/16 21:29 Dose: 100 mg Hydroxyzine HCl (Vistaril) 50 mg IM Q6H PRN PRN Reason: Nausea/Vomiting Sodium Chloride (Normal Saline) 1,000 mls @ 100 mls/hr IV ASDIRECTED [facility] Last Admin: 10/09/16 12:31 Dose: 100 mls/hr Cefazolin Sodium 1 gm/ Sodium (Chloride) 50 mls @ 100 mls/hr IV ONETIME ONE Stop: 10/08/16 20:15 Last Admin: 10/08/16 20:00 Dose: 200 mls/hr Cefazolin Sodium/Dextrose 1 gm (/ Premix) 50 mls @ 100 mls/hr IV Q8HR [facility] Stop: 10/09/16 23:59 Last Admin: 10/09/16 21:36 Dose: 100 mls/hr Sodium Chloride (Normal Saline) Confirm Administered Dose 10 mls @ as directed .ROUTE .[facility] ONE Stop: 10/08/16 20:18 Sodium Chloride (Normal Saline) Confirm Administered Dose 50 mls @ as directed .ROUTE .[facility] ONE Stop: 10/09/16 05:07 Last Admin: 10/09/16 05:45 Dose: 50 ml Sodium Chloride (Normal Saline) 50 mls @ as directed IV .[facility] ONE Stop: 10/09/16 05:01 Sodium Chloride (Normal Saline) 1,000 mls @ 25 mls/hr IV ASDIRECTED [facility] Ketamine HCl (Ketalar) Confirm Administered Dose 500 mg .ROUTE .[facility] ONE Stop: 10/08/16 20:18 Levothyroxine Sodium (Synthroid) 125 mcg PO ACBREAKFAST [facility] Last Admin: 10/09/16 07:15 Dose: 125 mcg Levothyroxine Sodium 75 mcg/ (Levothyroxine Sodium 50 mcg) 125 mcg PO ACBREAKFAST [facility] Lisinopril (Prinivil) 10 mg PO DAILY [facility] Last Admin: 10/11/16 12:45 Dose: Not Given Lorazepam (Ativan) 1 mg IV Q6H PRN PRN Reason: Nausea/Vomiting Metoprolol Succinate (Toprol Xl) 50 mg PO DAILY [facility] Last Admin: 10/11/16 12:46 Dose: Not Given Morphine Sulfate (Morphine) 2 mg IVPUSH Q2H PRN PRN Reason: Pain Last Admin: 10/09/16 03:56 Dose: 2 mg Morphine Sulfate (Morphine) 2 mg IVPUSH ONETIME ONE Stop: 10/08/16 21:03 Last Admin: 10/08/16 21:20 Dose: 2 mg Morphine Sulfate (Morphine) 2 - 4 mg IVPUSH Q2H PRN PRN Reason: Pain Last Admin: 10/11/16 08:03 Dose: 2 mg Nicotine (Habitrol) 14 mg TRDERM ONETIME ONE Stop: 10/09/16 00:01 Last Admin: 10/09/16 00:11 Dose: Not Given Ondansetron HCl (Zofran) 4 mg IVPUSH ONETIME ONE Stop: 10/08/16 21:05 Last Admin: 10/08/16 21:17 Dose: 4 mg Oxycodone HCl (Oxycodone) 5 mg PO Q4H PRN PRN Reason: Pain Last Admin: 10/09/16 12:27 Dose: 5 mg Pantoprazole Sodium (Protonix Iv) 40 mg IVPUSH Q12H [facility] Last Admin: 10/09/16 00:26 Dose: 40 mg Pantoprazole Sodium (Protonix Iv) 40 mg IVPUSH Q12H [facility] Last Admin: 10/09/16 09:01 Dose: 40 mg Propofol (Diprivan 20 Ml) Confirm Administered Dose 200 mg .ROUTE .STK-MED ONE Stop: 10/08/16 20:17 Zolpidem Tartrate (Ambien) 5 mg PO BEDTIME PRN PRN Reason: Sleep *Q Meaningful Use (DIS) - VTE *Q VTE Criteria *Q: - Stroke *Q Stroke Criteria *Q: - AMI *Q AMI Criteria *Q:
--- NOTE | 2016-10-25 08:26 | OR ---
DATE OF PROCEDURE: 10/13/2016 PREOPERATIVE DIAGNOSIS: Right humeral neck and proximal humerus fracture, open. POSTOPERATIVE DIAGNOSIS: Right humeral neck and proximal humerus fracture, open. PROCEDURES: Closed reduction, right humeral neck, and proximal humerus fracture. ANESTHESIA: Conscious sedation. FLUIDS: Lactated Ringer solution. ESTIMATED BLOOD LOSS: Zero. COMPLICATIONS: None. SPECIMEN: None. DISCHARGE DISPOSITION: The patient was in the ER at that time and discharged from ER to the floor. 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 She tripped, fell, and injured her right upper extremity. She was brought to the emergency department where she was found to have a small punctate wound to the medial aspect of her arm, as well as the above-mentioned diagnosis, which was confirmed by preoperative imaging. Risks and benefits of the procedure were explained to the patient and an informed consent was obtained. DETAILS OF PROCEDURE: The patient was seen in the emergency department. Conscious sedation was administered. Closed reduction was performed under fluoroscopy. After an adequate reduction had been obtained, I did use quite a few pillows in a sling and swath to maintain the reduction. The patient was then admitted to the hospital service and discharged to the med/surg unit with followup the following day on rounds. Aston Talavera DO /[id number]
== END 2016-10-13 13:15 | DRG 563 ==
LOC: JP.ED 18:44 → JP.MS 22:39
PROVIDERS: ADMIT Internal Medicine; ATTEND Orthopaedic Surgery
PROC: 0PSFXZZ Reposition Right Humeral Shaft, External Approach (ICD-10-PCS; principal; 2016-10-08)
PROC: 0PSCXZZ Reposition Right Humeral Head, External Approach (ICD-10-PCS; 2016-10-08)
DX: S42.214A Unspecified nondisplaced fracture of surgical neck of right humerus, initial encounter for closed fracture (principal); S42.341A Displaced spiral fracture of shaft of humerus, right arm, initial encounter for closed fracture; F10.20 Alcohol dependence, uncomplicated; Z72.0 Tobacco use; Z23 Encounter for immunization; I10 Essential (primary) hypertension; E03.9 Hypothyroidism, unspecified; W18.39XA Other fall on same level, initial encounter; Y93.01 Activity, walking, marching and hiking; Y92.511 Restaurant or cafe as the place of occurrence of the external cause; M25.551 Pain in right hip; I25.10 Atherosclerotic heart disease of native coronary artery without angina pectoris; E78.00 Pure hypercholesterolemia, unspecified; H54.7 Unspecified visual loss; Z95.5 Presence of coronary angioplasty implant and graft; Z95.1 Presence of aortocoronary bypass graft; Z85.828 Personal history of other malignant neoplasm of skin; Z79.82 Long term (current) use of aspirin; Z79.01 Long term (current) use of anticoagulants; Z88.1 Allergy status to other antibiotic agents; Z91.041 Radiographic dye allergy status; Z88.5 Allergy status to narcotic agent; Z88.2 Allergy status to sulfonamides; Z88.8 Allergy status to other drugs, medicaments and biological substances
CPT/HCPCS: 24505; 73030 ×2; 73502 ×2; 76000; 90715; 96361; 96365; 96367; 96372; 96375; 99284 ×2; J0690; J1170; J2270; J2405; J2704; J3410; J7040; J7050 ×3; 36415; 72195; 72195-26; 73721-26-RT; 73721-RT; 80048; 81001; 85025; 85610; 87086; 87088; 87186; 97110-GO; 97110-GP; 97116-GP; 97162-GP; 97165-GO; 97530-GP; 97535-GP; A9270-GY; C9113

== ENCOUNTER 2017-02-10 13:41 | Observation (INO) | payer MEDICARE, OTHER, BC ==
--- NOTE | 2017-02-10 16:18 | EDM.PDOC ---
ED HPI GENERAL MEDICAL PROBLEM - General Chief Complaint: General Stated Complaint: CHEST HEAVINESS,SOB Time Seen by Provider: 02/10/17 14:10 Source of Information: Reports: Patient History Limitations: Reports: No Limitations - History of Present Illness INITIAL COMMENTS - FREE TEXT/NARRATIVE: Patient reports two weeks of progressive paroxysms of acute chest "tightness" and "pressure" with exertion. She presents today with an acute persistent episode worse than those over the last two weeks occurring at ~0930 today. She rested/slept for about an hour and symptoms had abated. She describes a "fluttery feeling" with associated dizziness which she describes as feeling like she was going to pass out. She noted her blood pressure this a.m. to be 80 /59 with HR in the 90's, but reports having heart rate up in the 130s. Over the last two weeks she has noted substantial fatigue and dyspnea on minimal exertion (e.g. vacuuming, single flight of stairs). She denies orthopnea and PND. Her chest "pressure" is distinctly different from her index angina symptoms. She indicated a prior history of occlusion of coronary artery not amenable to PCI, but has had several PCIs s/p her CABG two years ago. Anterior Chest Pain Score (Numeric/FACES): 5 - Related Data Allergies Allergy/AdvReac Type Severity Reaction Status Date / Time Iodinated Contrast- Oral and Allergy Severe Anaphylactic Verified 02/10/17 13:56 IV Dye Shock [Iodinated Contrast Media - IV Dye] ciprofloxacin Allergy Other Verified 02/10/17 13:56 hydromorphone HCl Allergy Cannot Verified 02/10/17 13:56 [From Dilaudid] Remember Sulfa (Sulfonamide Allergy Rash Verified 02/10/17 13:56 Antibiotics) sumatriptan [From Imitrex] Allergy Tachycardia Verified 02/10/17 13:56 sumatriptan succinate Allergy Tachycardia Verified 02/10/17 13:56 [From Imitrex] morphine AdvReac Intermediate Nausea and Verified 02/10/17 13:56 Vomiting Home Meds: Home Meds Furosemide [Lasix] 20 - 40 mg PO DAILY PRN 02/21/13 [History] Aspirin [Stephen Chewable Aspirin] 81 mg PO DAILY 09/04/13 [History] Nitroglycerin [Nitrostat] 0.4 mg SL ASDIRECTED PRN 09/04/13 [History] Acetaminophen [Pain Reliever] 2 tab PO Q6HR PRN 04/11/14 [History] Rosuvastatin [Crestor] 5 mg PO DAILY 06/02/14 [History] busPIRone [Buspar] 10 mg PO BID PRN 08/14/15 [History] Warfarin [Coumadin] 5 mg PO ASDIRECTED 01/01/16 [History] Zolpidem [Ambien] 10 mg PO BEDTIME PRN 01/01/16 [History] Metoprolol Succinate [Toprol XL] 25 mg PO DAILY 01/06/16 [History] Warfarin [Coumadin] 2.5 mg PO ASDIRECTED 10/08/16 [History] Levothyroxine 112 mcg PO DAILY@0730 #90 tablet 02/11/17 [Rx] Lisinopril 5 mg PO DAILY #30 tablet 02/11/17 [Rx] Calcium Carbonate [Tums] 1 tab PO BID 02/21/17 [History] Cholecalciferol (Vitamin D3) [Vitamin D3] 1,000 unit PO DAILY 02/21/17 [History] Isosorbide Mononitrate [Imdur] 30 mg PO DAILY 02/21/17 [History] Sennosides [Senokot] 1 tab PO BID 02/21/17 [History] Past Medical History HEENT History: Reports: Impaired Vision Cardiovascular History: Reports: Bypass, CAD, High Cholesterol, Hypertension, [place] , Stents Gastrointestinal History: Reports: Diverticulosis Genitourinary History: Reports: UTI, Recurrent Other Genitourinary History: Occasional UTI Known UTI [employer] History: Reports: , Prolapsed Uterus Musculoskeletal History: Reports: Other (See Below) Other Musculoskeletal History: blood clots in legs fx r arm in September 2016 Neurological History: Reports: Migraines Endocrine/Metabolic History: Reports: Hypothyroidism Hematologic History: Reports: Anticoagulation Therapy Oncologic (Cancer) History: Reports: Squamous Cell Carcinoma Other Dermatologic History: skin cancer lesions on feet and legs - Infectious Disease History Infectious Disease History: Reports: Chicken Pox - Past Surgical History Cardiovascular Surgical History: Reports: Carotid Stents, Coronary Artery Bypass GI Surgical History: Reports: Appendectomy, Cholecystectomy, Colonoscopy, EGD, Hernia Repair/Other Female Surgical History: Reports: Hysterectomy Other Musculoskeletal Surgeries/Procedures:: Fall in May - pain to coccyx Social & Family History - Family History Family Medical History: Noncontributory Cardiac: Reports: [place] Respiratory: Reports: COPD Oncologic: Reports: Brain, Skin - Tobacco Use Smoking Status *Q: Current Every Day Smoker Years of Tobacco use: 24 Packs/Tins Daily: 0.5 Used Tobacco, but Quit: No Second Hand Smoke Exposure: Yes - Caffeine Use Caffeine Use: Reports: Coffee - Alcohol Use Days Per Week of Alcohol Use: 7 Number of Drinks Per Day: 1 Total Drinks Per Week: 7 - Recreational Drug Use Recreational Drug Use: No Drug Use in Last 12 Months: No - Living Situation & Occupation Living situation: Reports: ( 08/19/2010), Alone (since of spouse) Occupation: Retired ED ROS GENERAL - Review of Systems Review Of Systems: See Below Constitutional: Reports: Fever, Weakness, Fatigue, Decreased Appetite, Weight Loss (10kg since September, ? due to esophageal ds). Denies: Chills, Malaise, Night Sweats, Diaphoresis HEENT: Reports: No Symptoms Respiratory: Reports: Shortness of Breath. Denies: Sputum, Hemoptysis Cardiovascular: Reports: Chest Pain, Blood Pressure Problem, Claudication, Dyspnea on Exertion, Lightheadedness, Palpitations. Denies: Edema, Orthopnea, PND, Syncope Endocrine: Reports: Fatigue GI/Abdominal: Reports: Anorexia, Decreased Appetite, Difficulty Swallowing. Denies: Abdominal Pain, Diarrhea, Distension, Hematemesis, Hematochezia : Reports: No Symptoms Musculoskeletal: Reports: Other (No calf swelling or pain). Denies: Leg Pain Skin: Reports: No Symptoms Neurological: Reports: Dizziness. Denies: Seizure, Syncope Psychiatric: Reports: No Symptoms Hematologic/Lymphatic: Reports: No Symptoms ED EXAM, GENERAL - Physical Exam Exam: See Below Exam Limited By: No Limitations General Appearance: Alert, WD/WN, No Apparent Distress Eye Exam: Bilateral Eye: EOMI, PERRL Nose: Normal Inspection Throat/Mouth: Normal Inspection, Normal Lips, Normal Teeth, No Airway Compromise Head: Atraumatic, Normocephalic Neck: Normal Inspection, Supple, Non-Tender, Full Range of Motion, Other. No: Carotid Bruit, Thyromegaly Respiratory/Chest: No Respiratory Distress, Lungs Clear, No Accessory Muscle Use , Crackles (bibasilar ). No: Rales, Rhonchi, Wheezing Cardiovascular: Normal Peripheral Pulses, Regular Rate, Rhythm, No JVD, No Murmur GI/Abdominal: Normal Bowel Sounds, Soft, Non-Tender, No Organomegaly, No Mass Extremities: Normal Inspection, Normal Range of Motion, Non-Tender, No Pedal Edema, Normal Capillary Refill. No: Pedal Edema Neurological: Alert, Oriented, CN II-XII Intact, Normal Cognition, No Motor/ Sensory Deficits Psychiatric: Normal Affect, Normal Mood Skin Exam: Warm, Dry EKG INTERPRETATION EKG Date: 02/10/17 Rhythm: NSR (non-specific changes, no e/o ischemic changes or prolong QT) Course - Vital Signs Last Recorded V/S: Last Vital Signs Temp 35.9 C 02/11/17 09:14 Pulse 64 02/11/17 09:14 Resp 18 02/11/17 09:14 BP 106/50 L 02/11/17 09:14 Pulse Ox 97 02/11/17 09:14 - Orders/Labs/Meds Labs: Laboratory Tests 02/10/17 02/10/17 02/10/17 Range/Units 14:45 14:46 14:46 WBC 8.5 (4.5-11.0) K/uL RBC 4.42 (3.30-5.50) M/uL Hgb 12.9 (12.0-15.0) g/dL Hct 39.2 (36.0-48.0) % MCV 89 (80-98) fL MCH 29 (27-31) pg MCHC 33 (32-36) % Plt Count 361 (150-400) K/uL Neut % (Auto) 58 (36-66) % Lymph % (Auto) 33 (24-44) % [place] % (Auto) 7 H (2-6) % Eos % (Auto) 1 L (2-4) % Baso % (Auto) 1 (0-1) % PT 20.5 H (9.5-12.0) sec INR 1.87 H (0.80-1.20) Sodium (140-148) mmol/L Potassium (3.6-5.2) mmol/L Chloride (100-108) mmol/L Carbon Dioxide (21-32) mmol/L Anion Gap (5.0-14.0) mmol/L BUN (7-18) mg/dL Creatinine (0.6-1.0) mg/dL Est Cr Clr Drug Dosing mL/min Estimated GFR (MDRD) (>60) Glucose (74-106) mg/dL Calcium (8.5-10.1) mg/dL Troponin I (0.000-0.056) ng/mL NT-Pro-B Natriuret Pep (5-125) pg/mL Free T4 1.74 H (0.76-1.46) ng/dL TSH, Ultra Sensitive 0.219 L (0.358-3.740) uIU/mL 02/10/17 Range/Units 14:46 WBC (4.5-11.0) K/uL RBC (3.30-5.50) M/uL Hgb (12.0-15.0) g/dL Hct (36.0-48.0) % MCV (80-98) fL MCH (27-31) pg MCHC (32-36) % Plt Count (150-400) K/uL Neut % (Auto) (36-66) % Lymph % (Auto) (24-44) % [place] % (Auto) (2-6) % Eos % (Auto) (2-4) % Baso % (Auto) (0-1) % PT (9.5-12.0) sec INR (0.80-1.20) Sodium 137 L (140-148) mmol/L Potassium 3.5 L (3.6-5.2) mmol/L Chloride 101 (100-108) mmol/L Carbon Dioxide 29 (21-32) mmol/L Anion Gap 10.5 (5.0-14.0) mmol/L BUN 26 H (7-18) mg/dL Creatinine 1.2 H (0.6-1.0) mg/dL Est Cr Clr Drug Dosing 38.50 mL/min Estimated GFR (MDRD) 44 L (>60) Glucose 93 (74-106) mg/dL Calcium 9.4 (8.5-10.1) mg/dL Troponin I < 0.017 (0.000-0.056) ng/mL NT-Pro-B Natriuret Pep 191 H (5-125) pg/mL Free T4 (0.76-1.46) ng/dL TSH, Ultra Sensitive (0.358-3.740) uIU/mL Meds: Medications Discontinued Medications Generic Name Dose Route Start Last Admin Trade Name Freq PRN Reason Stop Dose Admin Acetaminophen 650 mg 02/10/17 18:43 Tylenol PO Q4H PRN Pain (Mild 1-3)/fever Aspirin 81 mg 02/11/17 09:00 Aspirin PO DAILY [facility] Buspirone HCl 10 mg 02/10/17 18:43 Buspar PO BID PRN Anxiety Levothyroxine Sodium 112 mcg 02/11/17 07:30 Levothyroxine PO DAILY@0730 [facility] Metoprolol Succinate 25 mg 02/11/17 09:00 Toprol Xl PO DAILY [facility] Cefdinir [Cefdinir] 300 mg 02/10/17 21:00 02/11/17 09:13 300 MgPt Own PO 300 mg BID [facility] Administration Non-Formulary Medication 125 mcg 02/11/17 09:00 Levothyroxine [Levothyroxine] PO DAILY [facility] Ondansetron HCl 4 mg 02/10/17 18:43 Zofran Odt PO Q6H PRN Nausea able to take PO Rosuvastatin Calcium 5 mg 02/11/17 09:00 Crestor PO DAILY [facility] Zolpidem Tartrate 5 mg 02/10/17 19:35 02/10/17 22:58 Ambien PO 5 mg BEDTIME PRN Administration Insomnia Departure - Departure Time of Disposition: 18:53 Disposition: Refer to Observation Condition: Good Clinical Impression: Unintentional weight loss of more than 10 pounds Fatigue Qualifiers: Fatigue type: unspecified Qualified Code(s): R53.83 - Other fatigue - Discharge Information - Assessment/Plan Assessment:: Patient with history that is suspicious for paroxysmal arrhythmia, but not manifest on exam. History also c/w CHF, but no stigmata of right or left sided failure on exam. BNP level is thoroughly unhelpful given her past PMH. TnI negative 5h after initial symptoms. Monitored in ED, in NSR w/o ectopy. 10kg weight loss this summer is very concerning for severe esophageal stricture , esophageal CA, etc. Given complicated history will admit for observation and consideration of stress testing. Will likely need stress echo and event monitor from her audio visual collections coordinator for further evaluation, as well as needing an EGD (pending). Patient has ongoing tobacco abuse which was addressed with her.
--- NOTE | 2017-02-10 17:57 | PCM.HP ---
H&P History of Present Illness - General Date of Service: 02/10/17 Admit Problem/Dx: Admission Diagnosis/Problem Admission Diagnosis/Problem Dyspnea on exertion - History of Present Illness Initial Comments - Free Text/Narative: Demetrice presents to the emergency room today with several concerns. Her main concern today is that she had an episode of extreme fatigue, shortness of breath with activity as well as some palpitations this morning. Symptoms resolved within a few minutes of rest. She was only exerting herself minimally when the symptoms occurred. She did not have associated diaphoresis or nausea. She contacted her primary care physician who recommended she be evaluated. She has not had difficulties with fevers but was recently started on antibiotics for a urinary tract infection. No active urinary symptoms at this time. She does report fatigue over the past 1-2 months and it has been getting worse. Even routine activities of daily living cause her to feel very tired. She does not report any chest pain but has some occasional "flutterings" that come and go. These feel very different than her previous coronary difficulties where she had actual chest pain. She has not been sleeping well at night and has difficulty both falling asleep and staying asleep. No change in her bowel habits. She was recently started on isosorbide mononitrate and her lisinopril was discontinued with concerns that she may be having anginal type symptoms with her dyspnea. This morning her blood pressure was reported to be in the 80s systolic while she was at home. This occurred approximately 90 minutes after taking her morning medications as did the episode mentioned above with the extreme fatigue and shortness of breath. she also notes that she has lost approximately 10 pounds this summer without trying and that she has difficulty swallowing both liquids and solids with the sensation that they get stuck in the back of her throat. Workup in the emergency room has been reassuring with No changes on her EKG, a normal troponin and vital signs that are currently stable. She is feeling better as the emergency room visit has progressed. She has a concerning story and will be admitted for additional workup. Anterior Chest Pain Score (Numeric/FACES): 5 - Related Data Allergies/Adverse Reactions: Allergies Allergy/AdvReac Type Severity Reaction Status Date / Time Iodinated Contrast- Oral and Allergy Severe Anaphylactic Verified 02/10/17 13:56 IV Dye Shock [Iodinated Contrast Media - IV Dye] ciprofloxacin Allergy Other Verified 02/10/17 13:56 hydromorphone HCl Allergy Cannot Verified 02/10/17 13:56 [From Dilaudid] Remember Sulfa (Sulfonamide Allergy Rash Verified 02/10/17 13:56 Antibiotics) sumatriptan [From Imitrex] Allergy Tachycardia Verified 02/10/17 13:56 sumatriptan succinate Allergy Tachycardia Verified 02/10/17 13:56 [From Imitrex] morphine AdvReac Intermediate Nausea and Verified 02/10/17 13:56 Vomiting Home Medications: Home Meds Furosemide [Lasix] 20 - 40 mg PO DAILY PRN 02/21/13 [History] Levothyroxine 125 mcg PO DAILY 02/21/13 [History] Aspirin [Stephen Chewable Aspirin] 81 mg PO DAILY 09/04/13 [History] Nitroglycerin [Nitrostat] 0.4 mg SL ASDIRECTED PRN 09/04/13 [History] Acetaminophen [Pain Reliever] 2 tab PO Q6HR PRN 04/11/14 [History] Rosuvastatin [Crestor] 5 mg PO DAILY 06/02/14 [History] busPIRone [Buspar] 10 mg PO BID PRN 08/14/15 [History] Warfarin [Coumadin] 5 mg PO ASDIRECTED 01/01/16 [History] Zolpidem [Ambien] 10 mg PO BEDTIME PRN 01/01/16 [History] Metoprolol Succinate [Toprol XL] 25 mg PO DAILY 01/06/16 [History] Warfarin [Coumadin] 2.5 mg PO ASDIRECTED 10/08/16 [History] oxyCODONE 5 mg PO Q4H PRN #30 tablet 10/13/16 [Rx] Cefdinir [Cefdinir] 300 mg PO BID 02/10/17 [History] Isosorbide Mononitrate [Isosorbide Mononitrate ER] 30 mg PO DAILY 02/10/17 [ History] Past Medical History HEENT History: Reports: Impaired Vision Cardiovascular History: Reports: Bypass, CAD, High Cholesterol, Hypertension, [place] , Stents Gastrointestinal History: Reports: Diverticulosis Genitourinary History: Reports: UTI, Recurrent Other Genitourinary History: Occasional UTI Known UTI INSPECTOR History: Reports: , Prolapsed Uterus Musculoskeletal History: Reports: Other (See Below) Other Musculoskeletal History: blood clots in legs fx r arm in September 2016 Neurological History: Reports: Migraines Endocrine/Metabolic History: Reports: Hypothyroidism Hematologic History: Reports: Anticoagulation Therapy Oncologic (Cancer) History: Reports: Squamous Cell Carcinoma Other Dermatologic History: skin cancer lesions on feet and legs - Infectious Disease History Infectious Disease History: Reports: Chicken Pox - Past Surgical History Cardiovascular Surgical History: Reports: Carotid Stents, Coronary Artery Bypass GI Surgical History: Reports: Appendectomy, Cholecystectomy, Colonoscopy, EGD, Hernia Repair/Other Female Surgical History: Reports: Hysterectomy Other Musculoskeletal Surgeries/Procedures:: Fall in May - pain to coccyx Social & Family History - Family History Family Medical History: Noncontributory Cardiac: Reports: [place] Respiratory: Reports: COPD Oncologic: Reports: Brain, Skin - Tobacco Use Smoking Status *Q: Current Every Day Smoker Years of Tobacco use: 24 Packs/Tins Daily: 0.5 Used Tobacco, but Quit: No Second Hand Smoke Exposure: Yes - Caffeine Use Caffeine Use: Reports: Coffee - Alcohol Use Days Per Week of Alcohol Use: 7 Number of Drinks Per Day: 1 Total Drinks Per Week: 7 - Recreational Drug Use Recreational Drug Use: No Drug Use in Last 12 Months: No - Living Situation & Occupation Living situation: Reports: ( 08/19/2010), Alone (since of spouse) Occupation: Retired H&P Review of Systems - Review of Systems: Review Of Systems: See Below Free Text/Narrative: A complete 12 point review of systems was obtained. Pertinent positives and negatives are noted in the history of present illness. All other systems were reviewed and were negative except as noted. Exam - Exam Exam: See Below - Vital Signs Vital Signs: Last Vital Signs Temp 36.9 C 02/10/17 14:13 Pulse 65 02/10/17 15:14 Resp 20 02/10/17 14:13 BP 135/68 02/10/17 15:14 Pulse Ox 94 L 02/10/17 15:14 Weight: 66.6 kg - Exam Quality Assessment: No: Supplemental Oxygen General: Alert, Oriented, Cooperative. No: Mild Distress HEENT: Conjunctiva Clear, Mucosa Moist & [place]. No: Scleral Icterus Neck: Supple, Trachea Midline, Other (no masses). No: Lymphadenopathy, Thyromegaly Lungs: Clear to Auscultation, Normal Respiratory Effort Cardiovascular: Regular Rate, Regular Rhythm. No: Systolic Murmur GI/Abdominal Exam: Normal Bowel Sounds, Soft, No Distention, No Mass, Tender ( mild generalized tenderness) Back Exam: Normal Inspection, Full Range of Motion Extremities: Normal Inspection, No Pedal Edema. No: Increased Warmth Peripheral Pulses: 2+: Dorsalis Pedis (L), Dorsalis Pedis (R) Skin: Warm, Dry, Intact. No: Rash Neuro Extensive - Mental Status: Alert, Oriented x3, Nl Response to Commands Neuro Extensive - Motor, Sensory, Reflexes: CN II-XII Intact, Abnormal Reflexes (mildly hyperreflexive). No: Dysarthria, Abnormal Motor, Tremor DTR: 3+: Bicep (L), Patella (L), Patella (R) Psychiatric: Alert, Normal Affect. No: Anxious, Agitated - Patient Data Lab Results Last 24 hrs: Laboratory Results - last 24 hr 02/10/17 02/10/17 02/10/17 Range/Units 14:46 14:46 14:46 WBC 8.5 (4.5-11.0) K/uL RBC 4.42 (3.30-5.50) M/uL Hgb 12.9 (12.0-15.0) g/dL Hct 39.2 (36.0-48.0) % MCV 89 (80-98) fL MCH 29 (27-31) pg MCHC 33 (32-36) % Plt Count 361 (150-400) K/uL Neut % (Auto) 58 (36-66) % Lymph % (Auto) 33 (24-44) % Pender % (Auto) 7 H (2-6) % Eos % (Auto) 1 L (2-4) % Baso % (Auto) 1 (0-1) % PT 20.5 H (9.5-12.0) sec INR 1.87 H (0.80-1.20) Sodium 137 L (140-148) mmol/L Potassium 3.5 L (3.6-5.2) mmol/L Chloride 101 (100-108) mmol/L Carbon Dioxide 29 (21-32) mmol/L Anion Gap 10.5 (5.0-14.0) mmol/L BUN 26 H (7-18) mg/dL Creatinine 1.2 H (0.6-1.0) mg/dL Est Cr Clr Drug Dosing 38.50 mL/min Estimated GFR (MDRD) 44 L (>60) Glucose 93 (74-106) mg/dL Calcium 9.4 (8.5-10.1) mg/dL Troponin I < 0.017 (0.000-0.056) ng/mL NT-Pro-B Natriuret Pep 191 H (5-125) pg/mL Result Diagrams: 02/10/17 14:46 02/10/17 14:46 Imaging Impressions Last 24 hrs: chest x-ray - images personally reviewed - there is no evidence for mass, infiltrate, effusion or cardiomegaly EKG INTERPRETATION EKG Date: 02/10/17 Rhythm: NSR Rate (Beats/Min): 65 [place]: Normal P-Wave: Present QRS: Normal ST-T: Normal QT: Normal Comparison: No Change *Q Meaningful Use (ADM) - VTE *Q VTE Criteria *Q: - VTE Risk Assess *Q Each Risk Factor Represents 1 Point: Abnormal Pulmonary Function (COPD) Total Score 1 Point Risk Factors: 1 Each Risk Factor Represents 2 Points: Age 60 - 74 Years Total Score 2 Point Risk Factors: 2 Each Risk Factor Represents 3 Points: History Superficial Venous Thrombosis, DVT or PE Total Score 3 Point Risk Factors: 3 Each Risk Factor Represents 5 Points: None Total Score 5 Point Risk Factors: 0 Venous Thromboembolism Risk Factor Score *Q: 6 - Stroke *Q Stroke Criteria *Q: - AMI *Q AMI Criteria *Q: - Problem List (1) Dyspnea on exertion SNOMED Code(s): 35270393 ICD Code: R06.09 - OTHER FORMS OF DYSPNEA Status: Acute Current Visit: Yes (2) Fatigue SNOMED Code(s): 04602749 ICD Code: R53.83 - OTHER FATIGUE Status: Acute Current Visit: Yes Qualifiers: Fatigue type: unspecified Qualified Code(s): R53.83 - Other fatigue (3) Dysphasia SNOMED Code(s): 98571395 ICD Code: R47.02 - DYSPHASIA Status: Acute Current Visit: Yes (4) Unintentional weight loss of more than 10 pounds SNOMED Code(s): 320022901 ICD Code: R63.4 - ABNORMAL WEIGHT LOSS Status: Acute Current Visit: Yes (5) Coronary arteriosclerosis, CAD SNOMED Code(s): 54241282 ICD Code: I25.10 - ATHSCL HEART DISEASE OF [place] CORONARY ARTERY W/O ANG PCTRS Status: Chronic Priority: Medium Current Visit: No (6) Tobacco user SNOMED Code(s): 357526266 ICD Code: Z72.0 - TOBACCO USE Status: Chronic Priority: High Current Visit: No (7) Hypothyroidism SNOMED Code(s): 83799135 ICD Code: E03.9 - HYPOTHYROIDISM, UNSPECIFIED Status: Chronic Priority: Medium Current Visit: No Problem List Initiated/Reviewed/Updated: Yes Orders Last 24hrs: Active Orders 24 hr Category Date Time Status Patient Status Manage Transfer [TRANSFER] Routine ADT 02/10/17 17:52 Ordered EKG Documentation Completion [RC] ASDIRECTED Care 02/10/17 15:53 Active EKG Documentation Completion [RC] ASDIRECTED Care 02/10/17 17:41 Active Chest 1V Frontal [CR] Stat Exams 02/10/17 17:04 Taken T4 FREE [CHEM] Routine Lab 02/10/17 17:51 Ordered TSH ULTRASENSITIVE [CHEM] Routine Lab 02/10/17 17:51 Ordered Resuscitation Status Routine Resus Stat 02/10/17 17:55 Ordered EKG 12 Lead [EK] Routine Ther 02/10/17 15:52 Ordered EKG 12 Lead [EK] Urgent Ther 02/10/17 17:41 Ordered Assessment/Plan Comment:: Assessment and plan - Fatigue, dyspnea on exertion and weight loss - TSH is suppressed and T4 is mildly elevated raising suspicion for a mild hyperthyroid state. Symptoms certainly could be explained by the above laboratory findings. Initially there was some concern for progression of her coronary artery disease though this feels less likely with the abnormal lab findings and further discussion. She would benefit from a decrease in her levothyroxine dosing and also some close monitoring of her cardiac status and vital signs with hypotension and presyncope note earlier in the day. -Decrease levothyroxine to 112 mcg (approximately 10% decrease) -cardiac monitoring -Close monitoring of vital signs -Monitored ambulation in the morning Dysphasia - both liquids and solids but more solid. She has a history of Parks 's esophagus as well as current tobacco use. She may have some esophagitis with recent increase in heartburn symptoms. She has an appointment for an endoscopy but would prefer to wait for Dr. Talavera rather than having it done during the hospital stay. Examination is benign. -Monitor while she is eating to see if she has additional difficulties Coronary artery disease - chronic and had been stable. Some concern for progression of disease though with more information I suspect cardiac status is stable. -Continue outpatient management -Consider stress testing if she does not improve with thyroid medication changes above Tobacco dependence - patient would benefit from additional recommendations regarding tobacco cessation. She has been counseled previously and is aware of the potential risks of ongoing tobacco use including increased risk of heart disease, lung disease and cancer. -encourage cessation History of DVT - chronically anticoagulated. INR is very mildly subtherapeutic. -Continue on warfarin dosing Maintenance issues - - DVT prophylaxis - warfarin - GI prophylaxis - consider PPI - Nutrition - regular diet - Bustamante catheter - not indicated CODE STATUS - full code Admission justification - patient will be referred observation status for cardiac monitoring and repeat evaluation in the morning Disposition - anticipate discharge home after the hospital stay Primary care physician - Hakan Hopper M.D.
[2017-02-10] MEDS ORDERED: Ondansetron 4 MG Tab.DIS PO PRN (18:43)
[2017-02-10] MEDS ORDERED: Acetaminophen 325 MG Tab PO PRN (18:43)
[2017-02-10] MEDS ORDERED: busPIRone 10 MG Tab PO PRN (18:43)
[2017-02-10] MEDS ORDERED: Zolpidem 5 MG Tab PO PRN (19:35)
[2017-02-11] MEDS ORDERED: Levothyroxine 112 MCG Tab PO SCH (07:30)
[2017-02-11] MEDS ORDERED: Non-Formulary Medication 1 Each (Levothyroxine [Levothyroxine] 125 MCG) PO SCH (09:00)
[2017-02-11] MEDS ORDERED: Aspirin 81 MG Tab.Chew PO SCH (09:00)
[2017-02-11] MEDS ORDERED: Rosuvastatin 10 MG Tab PO SCH (09:00)
[2017-02-11] MEDS ORDERED: Metoprolol Succinate 25 MG Tab.ER PO SCH (09:00)
[2017-02-11 09:15] VITALS: BP 106/50
--- NOTE | 2017-02-11 10:18 | PCM.DCSUM1 ---
Discharge Summary - Hospital Course Brief History: 76-year-old female with history of tobacco dependence, coronary artery disease, hypothyroidism who presented with dyspnea on exertion, fatigue, palpitations and hypotension leading to presyncope. She was admitted for observation and medication adjustments. - Discharge Data Discharge Date: 02/11/17 Discharge Disposition: Home, Self-Care 01 Condition: Good - Discharge Diagnosis/Problem(s) (1) Iatrogenic hyperthyroidism SNOMED Code(s): 185227562 ICD Code: E05.80 - OTHER THYROTOXICOSIS WITHOUT THYROTOXIC CRISIS OR STORM Status: Acute (2) Dyspnea on exertion SNOMED Code(s): 78480430 ICD Code: R06.09 - OTHER FORMS OF DYSPNEA Status: Acute (3) Fatigue SNOMED Code(s): 01125478 ICD Code: R53.83 - OTHER FATIGUE Status: Acute Qualifiers: Fatigue type: unspecified Qualified Code(s): R53.83 - Other fatigue (4) Dysphasia SNOMED Code(s): 48003915 ICD Code: R47.02 - DYSPHASIA Status: Acute (5) Unintentional weight loss of more than 10 pounds SNOMED Code(s): 997611189 ICD Code: R63.4 - ABNORMAL WEIGHT LOSS Status: Acute (6) Coronary arteriosclerosis, CAD SNOMED Code(s): 94190727 ICD Code: I25.10 - ATHSCL HEART DISEASE OF [place] CORONARY ARTERY W/O ANG PCTRS Status: Chronic Priority: Medium (7) Tobacco user SNOMED Code(s): 199296260 ICD Code: Z72.0 - TOBACCO USE Status: Chronic Priority: High (8) Hypothyroidism SNOMED Code(s): 96329232 ICD Code: E03.9 - HYPOTHYROIDISM, UNSPECIFIED Status: Chronic Priority: Medium - Patient Summary/Data Hospital Course: Demetrice presented to the emergency room with a variety of concerns including dyspnea on exertion, fluttering since her chest, fatigue, weakness, weight loss and dysphasia. Workup in the emergency room was reassuring including an EKG with no changes and relatively normal laboratory studies. There was some concern for dysrhythmia and hospital admission for observation was recommended. We did obtain thyroid studies shortly after admission which revealed a mild hyperthyroid state. She was monitored overnight with no dysrhythmias. Blood pressures have been stable and in the normal range. She feels better the morning after admission and has been up and walking around. I believe she would benefit from a decrease in her levothyroxine down to 112 g from 125 g. I believe this will help with the fatigue, palpitations, weight loss and mood swings that she was reporting. Hopefully this will help with her dyspnea on exertion as well. I don't believe that she has an active cardiac issue at this time but may benefit from stress testing if symptoms do not get better with the indication adjustment. Because her blood pressure dropped so much with the isosorbide I recommended that she stop taking this medication, especially because I don't believe she has active angina or an active cardiac issue. She will resume her lisinopril which had done a nice job controlling her blood pressure in the past. I did recommend that she keep her appointments for the lower extremity ultrasound to assess blood flow as well as the upper endoscopy planned for next week to further assess her dysphasia. We also spent some time talking about smoking cessation. She is not excited about Chantix because of potential side effects. I recommended setting a quit date and discarding cigarettes and all of her smoking paraphernalia. She does have patches available at home. She is aware of the risks of ongoing smoking including increased risk of cancer and heart disease. She will be discharged to home with planned follow-up this week and will need follow-up testing for her thyroid in 6-8 weeks. A new prescription for the reduced dose of levothyroxine has been sent to her pharmacy. - Patient Instructions Diet: Heart Healthy Diet Activity: As Tolerated Driving: May Drive Today Showering/Bathing: May Shower Notify Provider of: Fever, Increased Pain, Nausea and/or Vomiting Other/Special Instructions: 1. You were in the hospital for management of fatigue, palpitations and dyspnea with exertion. I suspect that these symptoms along with your weight loss, difficulty sleeping and mood swings are all related to a mild hyperthyroid state. I recommend that you decrease your levothyroxine from 125 mcg down to 112 mcg. A new prescription has been sent to [facility]. 2. I would recommend that you keep your appointments for the ultrasound of your legs as well as the upper endoscopy to evaluate her trouble swallowing. 3. Stop taking isosorbide mononitrate as I suspect that this drops your blood pressure too much and is not a safe medication to continue. 4. Restart your lisinopril at 5 mg as you were previously prescribed. 5. You will need follow-up testing for your thyroid in 6-8 weeks. 6. Please seek medical attention if you have sudden onset of shortness of breath, severe chest pain, extreme fatigue or you feel like you're going to pass out. - Discharge Plan Prescriptions/Med Rec: Levothyroxine 112 mcg PO DAILY@0730 #90 tablet Lisinopril 5 mg PO DAILY #30 tablet Home Medications: Home Meds Furosemide [Lasix] 20 - 40 mg PO DAILY PRN 02/21/13 [History] Aspirin [Stephen Chewable Aspirin] 81 mg PO DAILY 09/04/13 [History] Nitroglycerin [Nitrostat] 0.4 mg SL ASDIRECTED PRN 09/04/13 [History] Acetaminophen [Pain Reliever] 2 tab PO Q6HR PRN 04/11/14 [History] Rosuvastatin [Crestor] 5 mg PO DAILY 06/02/14 [History] busPIRone [Buspar] 10 mg PO BID PRN 08/14/15 [History] Warfarin [Coumadin] 5 mg PO ASDIRECTED 01/01/16 [History] Zolpidem [Ambien] 10 mg PO BEDTIME PRN 01/01/16 [History] Metoprolol Succinate [Toprol XL] 25 mg PO DAILY 01/06/16 [History] Warfarin [Coumadin] 2.5 mg PO ASDIRECTED 10/08/16 [History] oxyCODONE 5 mg PO Q4H PRN #30 tablet 10/13/16 [Rx] Cefdinir 300 mg PO BID 02/10/17 [History] Levothyroxine 112 mcg PO DAILY@0730 #90 tablet 02/11/17 [Rx] Lisinopril 5 mg PO DAILY #30 tablet 02/11/17 [Rx] Patient Handouts: Levothyroxine tablets, Smoking Cessation, Tips for Success Referrals: Hakan Sal PA-C [Primary Care Provider] - (f/u in 6-8 weeks for repeat thyroid testing or sooner if symptoms do not continute to get better ) - Discharge Summary/Plan Comment DC Time >30 min.: No (25) - Patient Data Vitals - Most Recent: Last Vital Signs Temp 35.9 C 02/11/17 09:14 Pulse 64 02/11/17 09:14 Resp 18 02/11/17 09:14 BP 106/50 L 02/11/17 09:14 Pulse Ox 97 02/11/17 09:14 Weight - Most Recent: 66.6 kg I&O - Last 24 hours: Intake & Output 02/10/17 02/11/17 02/11/17 22:59 06:59 14:59 Intake Total 240 Balance 240 Med Orders - Current: Current Medications Acetaminophen (Tylenol) 650 mg PO Q4H PRN PRN Reason: Pain (Mild 1-3)/fever Aspirin (Aspirin) 81 mg PO DAILY [facility] Buspirone HCl (Buspar) 10 mg PO BID PRN PRN Reason: Anxiety Levothyroxine Sodium (Levothyroxine) 112 mcg PO DAILY@0730 [facility] Metoprolol Succinate (Toprol Xl) 25 mg PO DAILY [facility] Cefdinir [Cefdinir] (300 MgPt Own) 300 mg PO BID [facility] Last Admin: 02/11/17 09:13 Dose: 300 mg Ondansetron HCl (Zofran Odt) 4 mg PO Q6H PRN PRN Reason: Nausea able to take PO Rosuvastatin Calcium (Crestor) 5 mg PO DAILY [facility] Zolpidem Tartrate (Ambien) 5 mg PO BEDTIME PRN PRN Reason: Insomnia Last Admin: 02/10/17 22:58 Dose: 5 mg Discontinued Medications Non-Formulary Medication (Levothyroxine [Levothyroxine]) 125 mcg PO DAILY [facility] *Q Meaningful Use (DIS) - VTE *Q VTE Criteria *Q: - Stroke *Q Stroke Criteria *Q: - AMI *Q AMI Criteria *Q:
--- NOTE | 2017-02-13 08:55 | CR ---
Chest 1V Frontal INDICATION: chest pain, dyspnea, wt loss ? esoph stricture FINDINGS: Comparison 01/01/2016. Sternotomy. Mild hyperinflation. Scattered interstitial changes in bot h lungs appear chronic. No focal consolidation. Healing right humeral fracture.
== END 2017-02-11 10:52 | disposition home or self-care (01) ==
LOC: JP.ED 13:41 → JP.MS 17:52
PROVIDERS: ADMIT Internal Medicine; ATTEND Internal Medicine
DX: E05.80 Other thyrotoxicosis without thyrotoxic crisis or storm (principal); R06.09 Other forms of dyspnea; R53.83 Other fatigue; R47.02 Dysphasia; R63.4 Abnormal weight loss; I25.10 Atherosclerotic heart disease of native coronary artery without angina pectoris; I10 Essential (primary) hypertension; E03.9 Hypothyroidism, unspecified; Z72.0 Tobacco use; Z79.82 Long term (current) use of aspirin; Z79.01 Long term (current) use of anticoagulants; Z79.899 Other long term (current) drug therapy; Z88.2 Allergy status to sulfonamides; Z91.041 Radiographic dye allergy status; Z88.8 Allergy status to other drugs, medicaments and biological substances; Z95.1 Presence of aortocoronary bypass graft; Z95.5 Presence of coronary angioplasty implant and graft; Z90.49 Acquired absence of other specified parts of digestive tract; Z98.890 Other specified postprocedural states; Z90.710 Acquired absence of both cervix and uterus; F17.210 Nicotine dependence, cigarettes, uncomplicated
CPT/HCPCS: 36415; 71010; 80048; 83880; 84439; 84443; 84484; 85025; 85610; 93005; 93010; 99285; A9270; G0378; 99217; 99218

== ENCOUNTER 2017-03-02 05:57 | Day surgery (SDC) | payer MEDICARE, OTHER, BC ==
[2017-03-02] MEDS ORDERED: Dextrose 5%-Lactated Ringers 1,000 ML IV SCH (06:30)
[2017-03-02] MEDS ORDERED: Midazolam 1 MG/ML 2 ML SDV ONE (07:17)
[2017-03-02] MEDS ORDERED: fentaNYL 100 MCG/2 ML SDV ONE (07:17)
[2017-03-02] MEDS ORDERED: Propofol 200 MG/20 ML SDV ONE (07:17)
[2017-03-02] MEDS ORDERED: Pantoprazole 40 MG Vial IVPUSH ONE (08:07)
[2017-03-02 09:43] VITALS: BP 131/67
--- NOTE | 2017-03-08 15:38 | OR ---
DATE OF PROCEDURE: 03/02/2017 PREOPERATIVE DIAGNOSES: Worsening heartburn associated with history of Parks esophagus. POSTOPERATIVE DIAGNOSES: Endoscopic findings suggests Parks esophagus associated with mild inflammation. OPERATIVE PROCEDURE: Esophagogastroduodenoscopy with: 1. Biopsies of antrum for CLOtest. 2. Biopsies of esophagogastric junction for histologic evaluation. ANESTHESIA: IV sedation. INDICATION FOR PROCEDURE: A 76-year-old female with history of Parks esophagus with recently worsening problems with heartburn as well as some dysphagia. This has been associated with some weight loss. The patient is not presently on any antisecretory medications. Plan is to proceed with upper GI endoscopy with biopsies as indicated. Potential risks including bleeding and perforation were discussed, and the patient wishes to proceed. DETAILS OF THE PROCEDURE: The patient was taken to the operating room, placed in a left lateral decubitus position. IV sedation was administered, after which the upper GI endoscope was passed orally through the length of the esophagus and into the stomach with retroflexion view of the fundus, and thereafter through the pyloric channel into the proximal duodenum. Findings included normal hypopharynx, larynx, upper esophageal sphincter, and esophageal body. At the EG junction, there was a diffuse upward extension of the gastroesophageal junction mucosal line perhaps 2 cm above the upper gastric folds. This was associated with gross yeast and some mild inflammation. The patient had an intact William effect although this was a fairly loose. At this point within the stomach, there was some mild redness in the antrum and otherwise, the stomach and duodenum were unremarkable. At this point, biopsies were obtained from the antrum and sent for CLOtest for H. pylori. Multiple biopsies were then obtained circumferentially at multiple levels in the area of the Parks esophagus. The esophagus was sent for histologic evaluation, and no bleeding from the biopsy site was seen. The procedure was then concluded. The patient was taken to the recovery room in satisfactory condition. The patient will be given Protonix 40 mg IV in the recovery room and we will start her on Zantac 300 mg a day. She will be following up with Hakan Sal in about 2 weeks. If her heartburn is not improved with the Zantac, one would consider then switching to a proton pump inhibitor. Otherwise, if she continues to lose weight, adding something like Megace for appetite stimulation would probably be warranted. My suspicion is that weight-loss has more to do with general medical condition than the GI symptoms per se. Ke Talavera MD /[id number]
== END 2017-03-02 09:30 | disposition home or self-care (01) ==
LOC: JP.SDS 05:57
PROVIDERS: ATTEND Surgery
DX: K29.50 Unspecified chronic gastritis without bleeding (principal); K21.0 Gastro-esophageal reflux disease with esophagitis; I12.9 Hypertensive chronic kidney disease with stage 1 through stage 4 chronic kidney disease, or unspecified chronic kidney disease; N18.9 Chronic kidney disease, unspecified; E03.9 Hypothyroidism, unspecified; Z88.1 Allergy status to other antibiotic agents; Z88.2 Allergy status to sulfonamides; Z91.041 Radiographic dye allergy status; Z88.8 Allergy status to other drugs, medicaments and biological substances; Z90.49 Acquired absence of other specified parts of digestive tract; Z95.1 Presence of aortocoronary bypass graft; Z90.710 Acquired absence of both cervix and uterus; Z98.890 Other specified postprocedural states; F17.210 Nicotine dependence, cigarettes, uncomplicated
CPT/HCPCS: 43239; 88305; C9113; J2250; J2704; J3010; J7042

== ENCOUNTER 2017-11-23 15:38 | Emergency (ER) | payer MEDICARE, OTHER, BC ==
[2017-11-23 15:54] VITALS: BP 139/77
--- NOTE | 2017-11-23 17:00 | EDM.PDOC ---
ED HPI GENERAL MEDICAL PROBLEM - General Chief Complaint: Skin Complaint Stated Complaint: TICK BITE Time Seen by Provider: 11/23/17 16:30 Source of Information: Reports: Patient, Family History Limitations: Reports: No Limitations - History of Present Illness INITIAL COMMENTS - FREE TEXT/NARRATIVE: 77-year-old female has a painful irritating area left chest for the past several days. It started with "itching" and she removed a small tick just over a week ago. She was seen in the clinic yesterday because of group of blisters on an erythematous base, it was painful and she was started on doxycycline. 2 days have gone by and it is getting slightly worse rather than better. It is more painful. She also felt some generalized malaise and low-grade fever yesterday. Onset: Gradual (Over the past 4-6 days) Location: Reports: Chest (Left-sided chest) Quality: Reports: Sharp, Stabbing Severity: Moderate Associated Symptoms: Reports: Fever/Chills, Malaise Left Arm Pain Score (Numeric/FACES): 5 - Related Data Allergies Allergy/AdvReac Type Severity Reaction Status Date / Time Iodinated Contrast- Oral and Allergy Severe Anaphylactic Verified 03/02/17 06:35 IV Dye Shock [Iodinated Contrast Media - IV Dye] ciprofloxacin Allergy Other Verified 03/02/17 06:35 hydromorphone HCl Allergy Cannot Verified 03/02/17 06:35 [From Dilaudid] Remember Sulfa (Sulfonamide Allergy Rash Verified 03/02/17 06:35 Antibiotics) sumatriptan [From Imitrex] Allergy Tachycardia Verified 03/02/17 06:35 sumatriptan succinate Allergy Tachycardia Verified 03/02/17 06:35 [From Imitrex] morphine AdvReac Intermediate Nausea and Verified 03/02/17 06:35 Vomiting Home Meds: Home Meds Furosemide [Lasix] 20 mg PO DAILY PRN 02/21/13 [History] Aspirin [Stephen Chewable Aspirin] 81 mg PO DAILY 09/04/13 [History] Nitroglycerin [Nitrostat] 0.4 mg SL ASDIRECTED PRN 09/04/13 [History] Rosuvastatin [Crestor] 5 mg PO DAILY 06/02/14 [History] busPIRone [Buspar] 10 mg PO BID PRN 08/14/15 [History] Warfarin [Coumadin] 5 mg PO TUWETHSA 01/01/16 [History] Zolpidem [Ambien] 10 mg PO BEDTIME PRN 01/01/16 [History] Metoprolol Succinate [Toprol XL] 25 mg PO DAILY 01/06/16 [History] Warfarin [Coumadin] 2.5 mg PO SUMOFR 10/08/16 [History] Cholecalciferol (Vitamin D3) [Vitamin D3] 1,000 unit PO DAILY 02/21/17 [History] Acetaminophen [Tylenol] 650 mg PO Q6H PRN 02/28/17 [History] Levothyroxine 112 mcg PO ACBREAKFAST 04/24/17 [History] Doxycycline Monohydrate 100 mg PO BID 11/23/17 [History] Past Medical History HEENT History: Reports: Impaired Vision Cardiovascular History: Reports: Bypass, CAD, High Cholesterol, Hypertension, [place] , Stents Gastrointestinal History: Reports: Diverticulosis Genitourinary History: Reports: UTI, Recurrent Other Genitourinary History: Occasional UTI Known UTI [employer] History: Reports: , Prolapsed Uterus Musculoskeletal History: Reports: Other (See Below) Other Musculoskeletal History: R shoulder pain Neurological History: Reports: Migraines Psychiatric History: Reports: Anxiety Endocrine/Metabolic History: Reports: Hypothyroidism Hematologic History: Reports: Anticoagulation Therapy Oncologic (Cancer) History: Reports: Squamous Cell Carcinoma Other Dermatologic History: skin cancer lesions on feet and legs, right hand - Infectious Disease History Infectious Disease History: Reports: Chicken Pox, Measles - Past Surgical History Head Surgeries/Procedures: Reports: None HEENT Surgical History: Reports: None Cardiovascular Surgical History: Reports: Carotid Stents, Coronary Artery Bypass GI Surgical History: Reports: Appendectomy, Cholecystectomy, Colonoscopy, EGD, Hernia Repair/Other Female Surgical History: Reports: Hysterectomy Endocrine Surgical History: Reports: None Neurological Surgical History: Reports: None Musculoskeletal Surgical History: Reports: Other (See Below) Other Musculoskeletal Surgeries/Procedures:: Fall in May - pain to coccyx Oncologic Surgical History: Reports: None Dermatological Surgical History: Reports: Skin Biopsy Social & Family History - Family History Family Medical History: Noncontributory Cardiac: Reports: [place] Respiratory: Reports: COPD Oncologic: Reports: Brain, Skin - Tobacco Use Smoking Status *Q: Heavy Tobacco Smoker Years of Tobacco use: 37 Packs/Tins Daily: 0.5 - Caffeine Use Caffeine Use: Reports: Coffee Other Caffeine Use: 1 pot in the morning - Recreational Drug Use Recreational Drug Use: No - Living Situation & Occupation Living situation: Reports: ( 08/19/2010), Alone (since of spouse) Occupation: Retired ED ROS GENERAL - Review of Systems Review Of Systems: See Below Constitutional: Reports: Fever, Chills, Malaise Respiratory: Denies: Shortness of Breath, Cough Cardiovascular: Reports: Chest Pain (Left lateral chest pain, surface pain). Denies: Palpitations GI/Abdominal: Reports: No Symptoms Neurological: Denies: Paresthesia Psychiatric: Reports: No Symptoms ED EXAM, SKIN/RASH Exam: See Below Exam Limited By: No Limitations General Appearance: Alert, No Apparent Distress Respiratory/Chest: No Respiratory Distress, Lungs Clear Cardiovascular: Regular Rate, Rhythm Extremities: Normal Inspection Neurological: Alert, Oriented Skin: Other (Patient is a large erythematous area on the left lateral chest with a centralized group of vesicular lesions) Course - Vital Signs Last Recorded V/S: Last Vital Signs Temp 97.7 F 11/23/17 16:06 Pulse 87 11/23/17 16:06 Resp 18 11/23/17 16:06 BP 139/77 11/23/17 16:06 Pulse Ox 97 11/23/17 16:06 - Re-Assessments/Exams Free Text/Narrative Re-Assessment/Exam: 11/23/17 17:03 The daughter showed me a picture of the lesions 2 days ago, and it appears more herpes simplex then cellulitis. She is going to continue the doxycycline 100 mg twice daily, but I added Famvir 500 3 times daily for the next 7 days. She'll return if worsening despite the treatment. Departure - Departure Time of Disposition: 17:29 Disposition: Home, Self-Care 01 Condition: Good Clinical Impression: Herpes simplex - Discharge Information Instructions: Cold Sore, [id number] Referrals: Eleuterio Hudson NP [Primary Care Provider] - Forms: ED Department Discharge Care Plan Goals: Take antiviral medication 3 times a day for 7 days along with the doxycycline. Return in the next 48-72 hours if worsening despite treatment. I believe you have a diagnosis of herpes simplex of the left chest wall.
== END 2017-11-23 17:29 | disposition home or self-care (01) ==
LOC: JP.ED 15:38
DX: B00.9 Herpesviral infection, unspecified (principal); I25.10 Atherosclerotic heart disease of native coronary artery without angina pectoris; I10 Essential (primary) hypertension; E03.9 Hypothyroidism, unspecified; F17.210 Nicotine dependence, cigarettes, uncomplicated; Z88.1 Allergy status to other antibiotic agents; Z88.8 Allergy status to other drugs, medicaments and biological substances; Z88.5 Allergy status to narcotic agent; Z88.2 Allergy status to sulfonamides; Z79.899 Other long term (current) drug therapy; Z79.82 Long term (current) use of aspirin; Z79.01 Long term (current) use of anticoagulants
CPT/HCPCS: 99283

== ENCOUNTER 2017-12-18 21:30 | Emergency (ER) | payer MEDICARE, OTHER, BC ==
[2017-12-18 22:06] VITALS: BP 162/64
[2017-12-18] MEDS ORDERED: HYDROmorphone 0.5 MG/0.5 ML Syringe IVPUSH ONE (22:24)
[2017-12-18] MEDS ORDERED: Ondansetron 4 MG/2 ML SDV IVPUSH ONE (22:24)
[2017-12-18] MEDS: Sodium Chloride 0.9% 1,000 ML IV SCH (22:51)
[2017-12-18] MEDS ORDERED: Meperidine PF 25 MG/ML Syringe IVPUSH ONE ×2 (22:59→23:51)
[2017-12-18] MEDS ORDERED: diphenhydrAMINE 50 MG/ML SDV IVPUSH ONE (23:02)
[2017-12-18] MEDS ORDERED: Ketorolac 30 MG/ML SDV IVPUSH ONE (23:02)
[2017-12-19] MEDS ORDERED: Potassium Chloride 20 MEQ Tab.ER PO ONE (00:11)
[2017-12-19] MEDS: Sodium Chloride 0.9% 1,000 ML IV SCH (00:14)
--- NOTE | 2017-12-19 00:16 | EDM.PDOC ---
ED HPI GENERAL MEDICAL PROBLEM - General Chief Complaint: Headache Stated Complaint: HEADACHE/ACHE ALL OVER/TINGLING IN EXTREMITIES Time Seen by Provider: 12/18/17 22:10 Source of Information: Reports: Patient History Limitations: Reports: No Limitations - History of Present Illness INITIAL COMMENTS - FREE TEXT/NARRATIVE: pt arrived with a headache which has been going on for several days. She has not been able to break the cycle. She has been very nauseated. She feels like this headache is different from her typical migraines. She hs not vomited but has been very nauseated. She has been slightly lightheaded. Onset: Gradual, Other (last 3 days. ) Duration: Hour(s): Location: Reports: Head Associated Symptoms: Reports: No Other Symptoms, Headaches, Nausea/Vomiting, Weakness Bilateral Headache Pain Score (Numeric/FACES): 7 - Related Data Allergies Allergy/AdvReac Type Severity Reaction Status Date / Time Iodinated Contrast- Oral and Allergy Severe Anaphylactic Verified 03/02/17 06:35 IV Dye Shock [Iodinated Contrast Media - IV Dye] ciprofloxacin Allergy Other Verified 03/02/17 06:35 hydromorphone HCl Allergy Cannot Verified 03/02/17 06:35 [From Dilaudid] Remember Sulfa (Sulfonamide Allergy Rash Verified 03/02/17 06:35 Antibiotics) sumatriptan [From Imitrex] Allergy Tachycardia Verified 03/02/17 06:35 sumatriptan succinate Allergy Tachycardia Verified 03/02/17 06:35 [From Imitrex] morphine AdvReac Intermediate Nausea and Verified 03/02/17 06:35 Vomiting Home Meds: Home Meds Furosemide [Lasix] 20 mg PO DAILY PRN 02/21/13 [History] Aspirin [Stephen Chewable Aspirin] 81 mg PO DAILY 09/04/13 [History] Nitroglycerin [Nitrostat] 0.4 mg SL ASDIRECTED PRN 09/04/13 [History] Rosuvastatin [Crestor] 5 mg PO DAILY 06/02/14 [History] busPIRone [Buspar] 10 mg PO BID PRN 08/14/15 [History] Zolpidem [Ambien] 10 mg PO BEDTIME PRN 01/01/16 [History] Metoprolol Succinate [Toprol XL] 25 mg PO DAILY 01/06/16 [History] Cholecalciferol (Vitamin D3) [Vitamin D3] 1,000 unit PO DAILY 02/21/17 [History] Acetaminophen [Tylenol] 650 mg PO Q6H PRN 02/28/17 [History] Levothyroxine 112 mcg PO ACBREAKFAST 04/24/17 [History] Lisinopril 5 mg PO DAILY 12/18/17 [History] Past Medical History HEENT History: Reports: Impaired Vision Cardiovascular History: Reports: Bypass, CAD, High Cholesterol, Hypertension, [place] , Stents Gastrointestinal History: Reports: Diverticulosis Genitourinary History: Reports: UTI, Recurrent Other Genitourinary History: Occasional UTI 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 R shoulder pain Neurological History: Reports: Migraines Psychiatric History: Reports: Anxiety Endocrine/Metabolic History: Reports: Hypothyroidism Hematologic History: Reports: Anticoagulation Therapy, Other (See Below) Other Hematologic History: Off warfarin for 1 month Oncologic (Cancer) History: Reports: Squamous Cell Carcinoma Other Dermatologic History: skin cancer lesions on feet and legs, right hand - Infectious Disease History Infectious Disease History: Reports: Chicken Pox, Measles - Past Surgical History Head Surgeries/Procedures: Reports: None HEENT Surgical History: Reports: None Cardiovascular Surgical History: Reports: Carotid Stents, Coronary Artery Bypass GI Surgical History: Reports: Appendectomy, Cholecystectomy, Colonoscopy, EGD, Hernia Repair/Other Female Surgical History: Reports: Hysterectomy Endocrine Surgical History: Reports: None Neurological Surgical History: Reports: None Musculoskeletal Surgical History: Reports: Other (See Below) Other Musculoskeletal Surgeries/Procedures:: Fall in May - pain to coccyx Oncologic Surgical History: Reports: None Dermatological Surgical History: Reports: Skin Biopsy Social & Family History - Family History Family Medical History: Noncontributory Cardiac: Reports: [place] Respiratory: Reports: COPD Oncologic: Reports: Brain, Skin - Tobacco Use Smoking Status *Q: Current Some Day Smoker Years of Tobacco use: 28 Packs/Tins Daily: 0.5 Used Tobacco, but Quit: No - Caffeine Use Caffeine Use: Reports: Coffee, Soda Other Caffeine Use: 1 pot in the morning - Alcohol Use Days Per Week of Alcohol Use: 7 Number of Drinks Per Day: 2 Total Drinks Per Week: 14 - Recreational Drug Use Recreational Drug Use: No - Living Situation & Occupation Living situation: Reports: ( 08/19/2010), Alone (since of spouse) Occupation: Retired ED ROS GENERAL - Review of Systems Review Of Systems: See Below Constitutional: Reports: No Symptoms HEENT: Reports: No Symptoms Respiratory: Reports: No Symptoms Cardiovascular: Reports: No Symptoms Endocrine: Reports: No Symptoms GI/Abdominal: Reports: Nausea : Reports: No Symptoms Musculoskeletal: Reports: No Symptoms Skin: Reports: No Symptoms Neurological: Reports: Headache, Weakness Psychiatric: Reports: No Symptoms - Physical Exam Exam: See Below Text/Narrative:: pt arrived appearing very uncomfortable but alert and oriented. She describes this headache as different from her usual headache. Exam Limited By: No Limitations General Appearance: Alert, Anxious, Moderate Distress, Other (pupils are equal and reactive. ) Ears: Normal TMs Nose: Normal Inspection Throat/Mouth: Normal Inspection Head Exam: Atraumatic Neck: Normal Inspection Respiratory/Chest: No Respiratory Distress Cardiovascular: Regular Rate, Rhythm GI/Abdominal: Soft, Non-Tender (Female) Exam: Deferred Rectal (Female) Exam: Deferred Neuro Exam (Abbreviated): Alert, Oriented, Normal Cognition Back Exam: Normal Inspection Extremities: Normal Inspection Psychiatric: Depressed Mood Course - Vital Signs Last Recorded V/S: Last Vital Signs Temp 35.7 C 12/18/17 22:05 Pulse 64 12/18/17 22:05 Resp 14 12/18/17 22:05 BP 162/64 H 12/18/17 22:05 Pulse Ox - Orders/Labs/Meds Labs: Laboratory Tests 12/18/17 12/18/17 12/18/17 Range/Units 22:36 22:38 22:38 WBC 7.1 (4.5-11.0) K/uL RBC 4.42 (3.30-5.50) M/uL Hgb 14.8 (12.0-15.0) g/dL Hct 43.0 (36.0-48.0) % MCV 97 (80-98) fL MCH 34 H (27-31) pg MCHC 34 (32-36) % Plt Count 337 (150-400) K/uL Neut % (Auto) 42 (36-66) % Lymph % (Auto) 48 H (24-44) % [place] % (Auto) 7 H (2-6) % Eos % (Auto) 2 (2-4) % Baso % (Auto) 1 (0-1) % Sodium 139 L (140-148) mmol/L Potassium 3.1 L (3.6-5.2) mmol/L Chloride 99 L (100-108) mmol/L Carbon Dioxide 30 (21-32) mmol/L Anion Gap 13.1 (5.0-14.0) mmol/L BUN 7 D (7-18) mg/dL Creatinine 1.1 H (0.6-1.0) mg/dL Est Cr Clr Drug Dosing 41.37 mL/min Estimated GFR (MDRD) 48 L (>60) Glucose 104 (74-106) mg/dL Calcium 9.5 (8.5-10.1) mg/dL Total Bilirubin 0.4 (0.2-1.0) mg/dL AST 22 (15-37) U/L ALT 25 (12-78) U/L Alkaline Phosphatase 101 (46-116) U/L Total Protein 6.7 (6.4-8.2) g/dL Albumin 3.4 (3.4-5.0) g/dL Globulin 3.3 (2.3-3.5) g/dL Albumin/Globulin Ratio 1.0 L (1.2-2.2) Urine Color Yellow Urine Appearance Clear Urine pH 5.0 (4.5-8.0) Ur Specific [place] 1.015 (1.008-1.030) Urine Protein Negative (NEGATIVE) mg/dL Urine Glucose (UA) Normal (NEGATIVE) mg/dL Urine Ketones Negative (NEGATIVE) mg/dL Urine Occult Blood Negative (NEGATIVE) Urine Nitrite Negative (NEGATIVE) Urine Bilirubin Negative (NEGATIVE) Urine Urobilinogen Normal (NORMAL) mg/dL Ur Leukocyte Esterase Negative (NEGATIVE) Urine RBC 0-5 (0-5) Urine WBC 0-5 (0-5) Ur Epithelial Cells Moderate Amorphous Sediment Not seen Urine Bacteria Few Urine Mucus Not seen Meds: Medications Discontinued Medications Generic Name Dose Route Start Last Admin Trade Name Freq PRN Reason Stop Dose Admin Diphenhydramine HCl 25 mg 12/18/17 23:02 12/18/17 23:06 Benadryl IVPUSH 12/18/17 23:03 25 mg ONETIME ONE Administration Hydromorphone HCl 0.5 mg 12/18/17 22:24 12/18/17 22:58 Dilaudid IVPUSH 12/18/17 22:25 Not Given ONETIME ONE Sodium Chloride 1,000 mls @ 400 mls/hr 12/18/17 22:30 12/19/17 00:14 Normal Saline IV 400 mls/hr ASDIRECTED REGLA Administration Ketorolac Tromethamine 30 mg 12/18/17 23:02 12/18/17 23:06 Toradol IVPUSH 12/18/17 23:03 30 mg ONETIME ONE Administration Meperidine HCl 10 mg 12/18/17 22:59 12/18/17 23:07 Demerol IVPUSH 12/18/17 23:00 Not Given ONETIME ONE Meperidine HCl 10 mg 12/18/17 23:51 12/19/17 00:11 Demerol IVPUSH 12/18/17 23:52 10 mg ONETIME ONE Administration Ondansetron HCl 4 mg 12/18/17 22:24 12/18/17 22:51 Zofran IVPUSH 12/18/17 22:25 4 mg ONETIME ONE Administration Potassium Chloride 20 meq 12/19/17 00:11 12/19/17 00:20 Klor-Con M20 PO 12/19/17 00:12 20 meq ONETIME ONE Administration - Re-Assessments/Exams Free Text/Narrative Re-Assessment/Exam: 12/19/17 00:18 pt was given torodol and demerol 10mg and she is much more comfortable. She feels like she could go home and rest. Her cat scan of the head was normal. 12/20/17 07:32 Departure - Departure Time of Disposition: 00:20 Disposition: Home, Self-Care 01 Condition: Fair Clinical Impression: Migraine - Discharge Information Instructions: Migraine Headache, [id number] Referrals: Eleuterio Hudson NP [Primary Care Provider] - Forms: ED Department Discharge Care Plan Goals: high k diet, rest,low activity.
== END 2017-12-19 00:39 | disposition home or self-care (01) ==
LOC: JP.ED 21:30
DX: G43.909 Migraine, unspecified, not intractable, without status migrainosus (principal); F17.210 Nicotine dependence, cigarettes, uncomplicated; E03.9 Hypothyroidism, unspecified; I10 Essential (primary) hypertension; E78.00 Pure hypercholesterolemia, unspecified; I25.2 Old myocardial infarction; F41.9 Anxiety disorder, unspecified; Z79.82 Long term (current) use of aspirin; Z79.899 Other long term (current) drug therapy; Z88.5 Allergy status to narcotic agent; Z88.8 Allergy status to other drugs, medicaments and biological substances; Z91.041 Radiographic dye allergy status; Z88.1 Allergy status to other antibiotic agents; Z88.2 Allergy status to sulfonamides; Z88.6 Allergy status to analgesic agent
CPT/HCPCS: 36415; 70450; 80053; 81001; 85025; 96361; 96374; 96375; 99284; A9270; J1200; J1885; J2175; J2405; J7030

== ENCOUNTER 2020-01-24 07:50 | Day surgery (SDC) | payer MEDICARE ==
[2020-01-24] MEDS ORDERED: fentaNYL 100 MCG/2 ML SDV ONE (07:56)
[2020-01-24] MEDS ORDERED: Propofol 200 MG/20 ML SDV ONE (07:56)
[2020-01-24] MEDS ORDERED: Dextrose 5%-Lactated Ringers 1,000 ML IV SCH (08:45)
[2020-01-24 11:12] VITALS: BP 174/85; PULSE 54
--- NOTE | 2020-02-04 14:02 | OR ---
DATE OF PROCEDURE: 01/24/2020 SURGEON: Ke Talavera MD PREOPERATIVE DIAGNOSIS: History of Parks esophagus. POSTOPERATIVE DIAGNOSIS: 1. 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 2. Patchy antral gastritis. 3. Examination was negative for any esophageal or gastric varices. OPERATIVE PROCEDURE: Esophagogastroduodenoscopy with: 1. Biopsy of esophagogastric junction for histologic evaluation. 2. Biopsies of antrum for CLOtest. ANESTHESIA: IV sedation. INDICATION FOR PROCEDURE: This is a 79-year-old female presenting for followup surveillance of her Parks esophagus. She presently is on omeprazole 20 mg a day with quite good symptom control with that. She is status post a previous Wililam fundoplication, but has required starting some medication. With those 2 components, she is having good control of it. Plan is to proceed with upper GI endoscopy with biopsies of the esophagogastric junction for surveillance of Parks esophagus. There is significant alcohol use history, and we would be looking for any esophageal and/or gastric varices during the course of the procedure as well. Potential risks of the procedure including bleeding and perforation were discussed, and the patient wishes to proceed. DETAILS OF THE PROCEDURE: The patient was taken to the operating room and placed in a left lateral decubitus position. IV sedation was administered after which the upper GI endoscope was passed orally through the length of the esophagus into the stomach with retroflexion view of the fundus, and thereafter, through the pyloric channel and into the junction of the 3rd and 4th portions of the duodenum. Findings included normal hypopharynx, larynx, upper esophageal sphincter, and esophageal body. At the EG junction, the patient did have a persistent William effect with some obvious narrowing of the distal esophagus in the esophagogastric junction area. This was associated with, as expected, upward extension of the gastroesophageal junction mucosal line. There was only minimal gross inflammation present without erosions or ulcers, and no stricturing, plaquing, or other signs of neoplastic changes noted. Within the stomach, there was, on retroflexion, some obvious loosening of the William fundoplication with a limb of tissue typically seen fundoplication was intact. Within the stomach, there was some patchy redness in the antrum. The pyloric channel and visualized portions of the duodenum were unremarkable. At this point, biopsies were obtained from the antrum and sent for CLOtest for H pylori. Multiple biopsies were then obtained from the esophagogastric junction and sent for histologic evaluation. Minimal bleeding from the biopsy sites was seen, and the procedure was then concluded. Assuming that there is no progression of dysplasia on the biopsies and if remains reasonably stable, the next endoscopy for surveillance of Parks esophagus should be in the 2 to 3-year range. One additional note is that, with the patient's alcohol's use, we looked carefully for any esophageal or gastric varices, and none were identified. Ke Talavera MD /[id number]
== END 2020-01-24 11:35 | disposition home or self-care (01) ==
LOC: JP.SDS 07:50
PROVIDERS: ATTEND Surgery
DX: K29.00 Acute gastritis without bleeding (principal); K29.50 Unspecified chronic gastritis without bleeding; K31.89 Other diseases of stomach and duodenum; K21.0 Gastro-esophageal reflux disease with esophagitis; F17.200 Nicotine dependence, unspecified, uncomplicated; N18.9 Chronic kidney disease, unspecified; Z98.84 Bariatric surgery status
CPT/HCPCS: 43239; 87081; 88305; 88312; 88342; J2704; J3010; J7121

== ENCOUNTER 2020-02-05 22:25 | Observation (INO) | payer MEDICARE ==
[2020-02-05] MEDS ORDERED: Sodium Chloride 0.9% 10 ML Syringe FLUSH PRN (22:32)
[2020-02-05] MEDS ORDERED: Metoprolol Tartrate 5 MG/5 ML SDV IVPUSH ONE (22:34)
[2020-02-05] MEDS ORDERED: Aspirin 81 MG Tab.Chew PO ONE (22:35)
--- NOTE | 2020-02-05 22:44 | EDM.PDOC ---
ED HPI GENERAL MEDICAL PROBLEM - General Chief Complaint: Chest Pain Stated Complaint: JEANNE Time Seen by Provider: 02/05/20 22:30 Source of Information: Reports: Patient, Old Records History Limitations: Reports: No Limitations - History of Present Illness INITIAL COMMENTS - FREE TEXT/NARRATIVE: 79 yo female here with a racing heart, chest pain, and mild SOB. Has a remote hx of afib, but is not normally in afib. Has not missed any of her metoprolol dosing. Is still smoking. 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 Has never been on more than ASA for her afib, was on warfarin in the past for a "blood clot". Has a pHx of CAD. Has hypothyroidism and is due for a recheck on this in February she thinks. Onset: Today, Sudden Onset Date: 02/05/20 Duration: Minutes:, Constant Location: Reports: Chest Quality: Reports: Dull Severity: Mild Improves with: Reports: None Worsens with: Reports: None Context: Reports: Other (See HPI) Associated Symptoms: Reports: Chest Pain, Shortness of Breath (mild). 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: Other (see below) (none) chest pain Pain Score (Numeric/FACES): 6 - Related Data Allergies Allergy/AdvReac Type Severity Reaction Status Date / Time Iodinated Contrast Media Allergy Severe Anaphylactic Verified 02/05/20 22:27 [Iodinated Contrast Media - Shock IV Dye] amlodipine Allergy Other Verified 02/05/20 22:27 ciprofloxacin Allergy Other Verified 02/05/20 22:27 hydromorphone [From Dilaudid] Allergy Other Verified 02/05/20 22:27 hydromorphone HCl Allergy Cannot Verified 02/05/20 22:27 [From Dilaudid] Remember isosorbide [From Imdur] Allergy Hypotension Verified 02/05/20 22:27 Sulfa (Sulfonamide Allergy Rash Verified 02/05/20 22:27 Antibiotics) sumatriptan [From Imitrex] Allergy Tachycardia Verified 02/05/20 22:27 sumatriptan succinate Allergy Tachycardia Verified 02/05/20 22:27 [From Imitrex] morphine AdvReac Intermediate Nausea and Verified 02/05/20 22:27 Vomiting Home Meds: Home Meds Furosemide [Lasix] 40 mg PO DAILY 02/21/13 [History] Aspirin [Stephen Chewable Aspirin] 81 mg PO DAILY 09/04/13 [History] Nitroglycerin [Nitrostat] 0.4 mg SL ASDIRECTED PRN 09/04/13 [History] Rosuvastatin [Crestor] 5 mg PO ASDIRECTED 06/02/14 [History] busPIRone [Buspar] 10 mg PO BID PRN 08/14/15 [History] Metoprolol Succinate [Toprol XL] 25 mg PO DAILY 01/06/16 [History] Acetaminophen [Tylenol] 650 mg PO Q6H PRN 02/28/17 [History] Levothyroxine 100 mcg PO ACBREAKFAST 04/24/17 [History] Lisinopril 5 mg PO DAILY 12/18/17 [History] Budesonide [Budesonide EC] 3 mg PO ASDIRECTED 01/21/20 [History] Cyanocobalamin (Vitamin B-12) [B-12] 1,000 mcg PO DAILY 01/21/20 [History] Folic Acid 1 mg PO DAILY 01/21/20 [History] Omeprazole Magnesium [Prilosec Otc] 20 mg PO DAILY 01/21/20 [History] Triamcinolone Acetonide [Kenalog 0.1% Lotion] 1 applic TOP BID 01/21/20 [History] Past Medical History HEENT History: Reports: Impaired Vision Other HEENT History: wears glasses Cardiovascular History: Reports: Bypass, CAD, High Cholesterol, Hypertension, SC, Stents Gastrointestinal History: Reports: Diverticulosis, GERD, Other (See Below) Other Gastrointestinal History: lymphocitic colitis Genitourinary History: Reports: UTI, Recurrent Other Genitourinary History: Occasional UTI Known UTI 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 R shoulder pain Neurological History: Reports: Migraines Psychiatric History: Reports: Anxiety Endocrine/Metabolic History: Reports: Hypothyroidism Hematologic History: Reports: Anticoagulation Therapy, Other (See Below) Other Hematologic History: Off warfarin for 1 month Oncologic (Cancer) History: Reports: Squamous Cell Carcinoma Other Dermatologic History: skin cancer lesions on feet and legs, right hand - Infectious Disease History Infectious Disease History: Reports: Chicken Pox, Measles, Mumps, Rubella - Past Surgical History Head Surgeries/Procedures: Reports: None HEENT Surgical History: Reports: None Cardiovascular Surgical History: Reports: Carotid Stents, Coronary Artery Bypass GI Surgical History: Reports: Appendectomy, Cholecystectomy, Colonoscopy, EGD, Hernia Repair/Other Female Surgical History: Reports: Hysterectomy Endocrine Surgical History: Reports: None Neurological Surgical History: Reports: None Musculoskeletal Surgical History: Reports: Other (See Below) Other Musculoskeletal Surgeries/Procedures:: Fall in May - pain to coccyx. shoulder surgery Oncologic Surgical History: Reports: None Dermatological Surgical History: Reports: Skin Biopsy Social & Family History - Family History Family Medical History: Noncontributory Cardiac: Reports: SC Respiratory: Reports: COPD Oncologic: Reports: Brain, Skin - Caffeine Use Caffeine Use: Reports: Coffee Other Caffeine Use: 1 pot in the morning - Living Situation & Occupation Living situation: Reports: ( 08/19/2010), Alone (since of spouse) Occupation: Retired ED ROS GENERAL - Review of Systems Review Of Systems: See Below Constitutional: Reports: No Symptoms HEENT: Reports: No Symptoms Respiratory: Reports: Shortness of Breath (mild) Cardiovascular: Reports: Chest Pain, Palpitations GI/Abdominal: Reports: No Symptoms : Reports: No Symptoms Musculoskeletal: Reports: No Symptoms Skin: Reports: No Symptoms Neurological: Reports: No Symptoms Psychiatric: Reports: No Symptoms ED EXAM, GENERAL - Physical Exam Exam: See Below Exam Limited By: No Limitations General Appearance: Alert, WD/WN, No Apparent Distress Eye Exam: Bilateral Eye: Normal Inspection Ears: Normal External Exam, Normal Canal, Hearing Grossly Normal Ear Exam: Bilateral Ear: Auricle Normal, Canal Normal Nose: Normal Inspection, No Blood Throat/Mouth: Normal Inspection, Normal Lips, Normal Oropharynx, Normal Voice, No Airway Compromise Head: Atraumatic, Normocephalic Neck: Normal Inspection Respiratory/Chest: No Respiratory Distress, Lungs Clear, Normal Breath Sounds, No Accessory Muscle Use Cardiovascular: No Edema, Tachycardia, Irregularly Irregular GI/Abdominal: Normal Bowel Sounds, Soft, Non-Tender, No Distention Back Exam: Normal Inspection. No: CVA Tenderness (R), CVA Tenderness (L) Extremities: Normal Inspection, Normal Range of Motion, Non-Tender, No Pedal Edema Neurological: Alert, Oriented, CN II-XII Intact, Normal Cognition, No Motor/Sensory Deficits Psychiatric: Normal Affect, Normal Mood Skin Exam: Warm, Dry, Intact, Normal Color Course - Vital Signs Text/Narrative:: Discussed with Lorena Del Toro and William Hopper @ 1202h Last Recorded V/S: Last Vital Signs Temp 36.7 C 02/05/20 22:37 Pulse 89 02/05/20 23:35 Resp 16 02/05/20 23:00 BP 121/68 02/05/20 23:35 Pulse Ox 96 02/05/20 23:00 - Orders/Labs/Meds Orders: Active Orders 24 hr Category Date Time Status Cardiac Monitoring [RC] .As Directed Care 02/05/20 22:32 Active EKG Documentation Completion [RC] ASDIRECTED Care 02/05/20 22:31 Active UA W/MICROSCOPIC [URIN] Stat Lab 02/05/20 22:34 Ordered Sodium Chloride 0.9% [Saline Flush] Med 02/05/20 22:32 Active 10 ml FLUSH ASDIRECTED PRN Saline Lock Insert [OM.PC] Routine Oth 02/05/20 22:32 Ordered EKG 12 Lead [EK] Routine Ther 02/05/20 22:31 Ordered Medication Orders Sodium Chloride (Saline Flush) 10 ml FLUSH ASDIRECTED PRN PRN Reason: Keep Vein Open Last Admin: 02/05/20 22:41 Dose: 10 ml Documented by: GA Labs: Laboratory Tests 02/05/20 02/05/20 02/05/20 Range/Units 22:34 22:38 22:39 WBC 12.5 H (4.5-11.0) K/uL RBC 4.10 (3.30-5.50) M/uL Hgb 14.8 (12.0-15.0) g/dL Hct 43.2 (36.0-48.0) % MCV 105 H (80-98) fL MCH 36 H (27-31) pg MCHC 34 (32-36) % Plt Count 495 H (150-400) K/uL Sodium 137 L (140-148) mmol/L Potassium 2.9 L* (3.6-5.2) mmol/L Chloride 98 L (100-108) mmol/L Carbon Dioxide 23 (21-32) mmol/L Anion Gap 18.9 H (5.0-14.0) mmol/L BUN 18 D (7-18) mg/dL Creatinine 1.3 H (0.6-1.0) mg/dL Est Cr Clr Drug Dosing 33.93 mL/min Estimated GFR (MDRD) 40 L (>60) Glucose 130 H (74-106) mg/dL Calcium 10.3 H (8.5-10.1) mg/dL Magnesium (1.8-2.4) mg/dL Troponin I < 0.017 (0.000-0.056) ng/mL TSH, Ultra Sensitive 5.529 H (0.358-3.740) uIU/mL 02/05/20 Range/Units 23:28 WBC (4.5-11.0) K/uL RBC (3.30-5.50) M/uL Hgb (12.0-15.0) g/dL Hct (36.0-48.0) % MCV (80-98) fL MCH (27-31) pg MCHC (32-36) % Plt Count (150-400) K/uL Sodium (140-148) mmol/L Potassium (3.6-5.2) mmol/L Chloride (100-108) mmol/L Carbon Dioxide (21-32) mmol/L Anion Gap (5.0-14.0) mmol/L BUN (7-18) mg/dL Creatinine (0.6-1.0) mg/dL Est Cr Clr Drug Dosing mL/min Estimated GFR (MDRD) (>60) Glucose (74-106) mg/dL Calcium (8.5-10.1) mg/dL Magnesium 2.0 (1.8-2.4) mg/dL Troponin I (0.000-0.056) ng/mL TSH, Ultra Sensitive (0.358-3.740) uIU/mL Meds: Medications Generic Name Dose Route Start Last Admin Trade Name Freq PRN Reason Stop Dose Admin Sodium Chloride 10 ml 02/05/20 22:32 02/05/20 22:41 Saline Flush FLUSH 10 ml ASDIRECTED PRN Administration Keep Vein Open Discontinued Medications Generic Name Dose Route Start Last Admin Trade Name Freq PRN Reason Stop Dose Admin Aspirin 324 mg 02/05/20 22:35 02/05/20 22:41 Aspirin PO 02/05/20 22:36 324 mg ONETIME ONE Administration Metoprolol Tartrate 5 mg 02/05/20 22:34 02/05/20 22:41 Lopressor IVPUSH 02/05/20 22:35 5 mg ONETIME ONE Administration Metoprolol Tartrate 25 mg 02/05/20 22:52 02/05/20 23:01 Lopressor PO 02/05/20 22:53 25 mg ONETIME ONE Administration Metoprolol Tartrate 25 mg 02/05/20 23:27 02/05/20 23:35 Lopressor PO 02/05/20 23:28 25 mg ONETIME ONE Administration Potassium Chloride 40 meq 02/05/20 23:07 02/05/20 23:12 Potassium Chloride PO 02/05/20 23:08 40 meq ONETIME ONE Administration - Re-Assessments/Exams Free Text/Narrative Re-Assessment/Exam: 02/06/20 00:00 Declined cardioversion, gave metoprolol 25 mg po x 2. HR 70-90's at rest. Feeling pretty good. Took her for a walk and her HR jumped to upper 120's(slow walk). Departure - Departure Time of Disposition: 00:20 Disposition: Refer to Observation Condition: Fair Clinical Impression: Hypokalemia, Atrial fibrillation with RVR Referrals: Eleuterio Hudson, GLASS DESIGNER [Primary Care Provider] - Forms: ED Department Discharge Sepsis Event Note (ED) - Evaluation Sepsis Screening Result: No Definite Risk - Focused Exam Vital Signs: Vital Signs Temp Pulse Pulse Resp BP BP Pulse Ox 02/05/20 23:35 89 121/68 02/05/20 23:01 88 135/69 02/05/20 23:00 74 16 153/71 H 96 02/05/20 22:41 137 H 153/74 H 02/05/20 22:37 36.7 C 137 H 18 153/74 H 96 02/05/20 22:33 36.7 C 137 H 18 96 - My Orders Last 24 Hours: My Active Orders 02/05/20 22:31 EKG Documentation Completion [RC] ASDIRECTED EKG 12 Lead [EK] Routine 02/05/20 22:32 Cardiac Monitoring [RC] .As Directed Sodium Chloride 0.9% [Saline Flush] 10 ml FLUSH ASDIRECTED PRN Saline Lock Insert [OM.PC] Routine 02/05/20 22:34 UA W/MICROSCOPIC [URIN] Stat - Assessment/Plan Last 24 Hours: My Active Orders 02/05/20 22:31 EKG Documentation Completion [RC] ASDIRECTED EKG 12 Lead [EK] Routine 02/05/20 22:32 Cardiac Monitoring [RC] .As Directed Sodium Chloride 0.9% [Saline Flush] 10 ml FLUSH ASDIRECTED PRN Saline Lock Insert [OM.PC] Routine 02/05/20 22:34 UA W/MICROSCOPIC [URIN] Stat
[2020-02-05] MEDS ORDERED: Metoprolol Tartrate 25 MG Tab PO ONE ×2 (22:52→23:27)
[2020-02-05] MEDS ORDERED: Potassium Chloride 10 MEQ Cap.ER PO ONE (23:07)
[2020-02-06] MEDS ORDERED: Albuterol 0.083% 2.5 MG/3 ML Neb Soln NEB PRN (00:33)
[2020-02-06] MEDS ORDERED: Bisacodyl 5 MG Tab PO PRN (00:33)
[2020-02-06] MEDS ORDERED: Acetaminophen 325 MG Tab PO PRN (00:33)
[2020-02-06] MEDS ORDERED: Morphine 2 MG/ML SYRINGE IVPUSH PRN (00:33)
[2020-02-06] MEDS ORDERED: Ondansetron 4 MG/2 ML SDV IV PRN (00:33)
[2020-02-06] MEDS ORDERED: Docusate Sodium 100 MG Cap PO PRN (00:33)
[2020-02-06] MEDS ORDERED: oxyCODONE 5 MG Tab PO PRN (00:33)
[2020-02-06] MEDS ORDERED: Ondansetron 4 MG Tab.DIS PO PRN (00:33)
[2020-02-06] MEDS ORDERED: busPIRone 10 MG Tab PO PRN (00:41)
[2020-02-06] MEDS ORDERED: Nitroglycerin 0.4 MG Tab.SL SL PRN (00:41)
[2020-02-06] MEDS ORDERED: Non-Formulary Medication 1 Each (Budesonide [Budesonide Ec] 3 MG) PO SCH (00:45)
[2020-02-06] MEDS ORDERED: Sodium Chloride 0.9% 1,000 ML IV SCH (00:45)
--- NOTE | 2020-02-06 00:52 | PCM.HP.2 ---
H&P History of Present Illness - General Date of Service: 02/05/20 Admit Problem/Dx: Admission Diagnosis/Problem Admission Diagnosis/Problem Atrial fibrillation with rapid ventricular response Source of Information: Patient, Family (Daughter Jenn at bedside) History Limitations: Reports: No Limitations - History of Present Illness Initial Comments - Free Text/Narative: chief complaint: pounding heartbeat This is a 79 year old female presents to the ER with her Daughter, reports she was getting ready for bed, had just gotten into bed when she notice her heart was beating fast. phi like a pounding heart beat, she got up and walked around but it did not get any better. felt short of breath and chest was heavy decided to come to ER. Onset of Symptoms: Reports: Today Symptom Onset Date: 02/05/20 Symptom Onset Time: 21:20 Duration of Symptoms: Reports: Waxing/Waning Location: Reports: Chest Quality: Reports: Same as Previous Episode Improves with: Reports: Rest Worsens with: Reports: Movement Context: Reports: Other (racing heart rate with chest heaviness) Associated Symptoms: Reports: Shortness of Breath chest pain Pain Score (Numeric/FACES): 6 - Related Data Allergies/Adverse Reactions: Allergies Allergy/AdvReac Type Severity Reaction Status Date / Time Iodinated Contrast Media Allergy Severe Anaphylactic Verified 02/05/20 22:27 [Iodinated Contrast Media - Shock IV Dye] amlodipine Allergy Other Verified 02/05/20 22:27 ciprofloxacin Allergy Other Verified 02/05/20 22:27 hydromorphone [From Dilaudid] Allergy Other Verified 02/05/20 22:27 hydromorphone HCl Allergy Cannot Verified 02/05/20 22:27 [From Dilaudid] Remember isosorbide [From Imdur] Allergy Hypotension Verified 02/05/20 22:27 Sulfa (Sulfonamide Allergy Rash Verified 02/05/20 22:27 Antibiotics) sumatriptan [From Imitrex] Allergy Tachycardia Verified 02/05/20 22:27 sumatriptan succinate Allergy Tachycardia Verified 02/05/20 22:27 [From Imitrex] morphine AdvReac Intermediate Nausea and Verified 02/05/20 22:27 Vomiting Home Medications: Home Meds Furosemide [Lasix] 40 mg PO DAILY 02/21/13 [History] Aspirin [Stephen Chewable Aspirin] 81 mg PO DAILY 09/04/13 [History] Nitroglycerin [Nitrostat] 0.4 mg SL ASDIRECTED PRN 09/04/13 [History] Rosuvastatin [Crestor] 5 mg PO ASDIRECTED 06/02/14 [History] busPIRone [Buspar] 10 mg PO BID PRN 08/14/15 [History] Metoprolol Succinate [Toprol XL] 25 mg PO DAILY 01/06/16 [History] Acetaminophen [Tylenol] 650 mg PO Q6H PRN 02/28/17 [History] Levothyroxine 100 mcg PO ACBREAKFAST 04/24/17 [History] Lisinopril 5 mg PO DAILY 12/18/17 [History] Budesonide [Budesonide EC] 3 mg PO ASDIRECTED 01/21/20 [History] Cyanocobalamin (Vitamin B-12) [B-12] 1,000 mcg PO DAILY 01/21/20 [History] Folic Acid 1 mg PO DAILY 01/21/20 [History] Omeprazole Magnesium [Prilosec Otc] 20 mg PO DAILY 01/21/20 [History] Triamcinolone Acetonide [Kenalog 0.1% Lotion] 1 applic TOP BID 01/21/20 [History] Past Medical History HEENT History: Reports: Impaired Vision Other HEENT History: wears glasses Cardiovascular History: Reports: Bypass, CAD, High Cholesterol, Hypertension, [place], Stents Gastrointestinal History: Reports: Diverticulosis, GERD, Other (See Below) Other Gastrointestinal History: lymphocitic colitis Genitourinary History: Reports: UTI, Recurrent Other Genitourinary History: Occasional UTI Known UTI BLOCK CAPTAIN History: Reports: , 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 R shoulder pain Neurological History: Reports: Migraines Psychiatric History: Reports: Anxiety Endocrine/Metabolic History: Reports: Hypothyroidism Hematologic History: Reports: Anticoagulation Therapy, Other (See Below) Other Hematologic History: Off warfarin for 1 month Oncologic (Cancer) History: Reports: Squamous Cell Carcinoma Dermatologic History: Reports: Other (See Below) Other Dermatologic History: skin cancer lesions on feet and legs, right hand - Infectious Disease History Infectious Disease History: Reports: Chicken Pox, Measles, Mumps, Rubella - Past Surgical History Head Surgeries/Procedures: Reports: None HEENT Surgical History: Reports: None Cardiovascular Surgical History: Reports: Carotid Stents, Coronary Artery Bypass GI Surgical History: Reports: Appendectomy, Cholecystectomy, Colonoscopy, EGD, Hernia Repair/Other Female Surgical History: Reports: Hysterectomy Endocrine Surgical History: Reports: None Neurological Surgical History: Reports: None Musculoskeletal Surgical History: Reports: Other (See Below) Other Musculoskeletal Surgeries/Procedures:: Fall in May - pain to coccyx. shoulder surgery Oncologic Surgical History: Reports: None Dermatological Surgical History: Reports: Skin Biopsy Social & Family History - Family History Family Medical History: Noncontributory Cardiac: Reports: [place] Respiratory: Reports: COPD Oncologic: Reports: Brain, Skin - Tobacco Use Smoking Status *Q: Current Every Day Smoker Years of Tobacco use: 30 Packs/Tins Daily: 0.5 - Caffeine Use Caffeine Use: Reports: Coffee Other Caffeine Use: 1 pot in the morning - Recreational Drug Use Recreational Drug Use: No - Living Situation & Occupation Living situation: Reports: ( 08/19/2010), Alone (since of spouse) Occupation: Retired H&P Review of Systems - Review of Systems: Review Of Systems: See Below General: Reports: Other (chest pressure with rapid heart rate) HEENT: Reports: No Symptoms Pulmonary: Reports: Shortness of Breath Cardiovascular: Reports: Chest Pain, Palpitations, Dyspnea on Exertion Gastrointestinal: Reports: No Symptoms Genitourinary: Reports: No Symptoms Musculoskeletal: Reports: No Symptoms Skin: Reports: No Symptoms Psychiatric: Reports: No Symptoms Neurological: Reports: No Symptoms Hematologic/Lymphatic: Reports: No Symptoms Immunologic: Reports: No Symptoms Exam - Exam Exam: See Below - Vital Signs Vital Signs: Last Vital Signs Temp 36.7 C 02/05/20 22:37 Pulse 89 02/05/20 23:35 Resp 16 02/05/20 23:00 BP 121/68 02/05/20 23:35 Pulse Ox 96 02/05/20 23:00 Weight: 72.575 kg - Exam Quality Assessment: DVT Prophylaxis General: Alert, Oriented, Cooperative, Other (pleasant 79 year old female in no distress.) HEENT: PERRLA, Hearing Intact, Mucosa Moist & [place], Nares Patent, Normal Nasal Septum, Posterior Pharynx Clear, Conjunctiva Clear, EOMI, EACs Clear, TMs Clear Neck: Supple, Trachea Midline, 2 Lungs: Clear to Auscultation, Normal Respiratory Effort Cardiovascular: Irregular Rhythm GI/Abdominal Exam: Normal Bowel Sounds, Soft, Non-Tender, No Organomegaly, No Distention, No Abnormal Bruit, No Mass, Pelvis Stable (Female) Exam: Deferred Rectal (Female) Exam: Deferred Back Exam: Normal Inspection, Full Range of Motion, NT Extremities: Normal Inspection, Normal Range of Motion, Non-Tender, No Pedal Edema, Normal Capillary Refill Peripheral Pulses: 2+: Radial (R), Femoral (L), Dorsalis Pedis (L), Dorsalis Pedis (R) Skin: Warm, Dry, Intact Neurological: Strength Equal Bilateral, Normal Speech Neuro Extensive - Mental Status: Alert, Oriented x3, Normal Mood/Affect, Normal Cognition Psychiatric: Alert, Normal Affect, Normal Mood - Patient Data Lab Results Last 24 hrs: Laboratory Results - last 24 hr 02/05/20 02/05/20 02/05/20 Range/Units 22:34 22:38 22:39 WBC 12.5 H (4.5-11.0) K/uL RBC 4.10 (3.30-5.50) M/uL Hgb 14.8 (12.0-15.0) g/dL Hct 43.2 (36.0-48.0) % MCV 105 H (80-98) fL MCH 36 H (27-31) pg MCHC 34 (32-36) % Plt Count 495 H (150-400) K/uL Sodium 137 L (140-148) mmol/L Potassium 2.9 L* (3.6-5.2) mmol/L Chloride 98 L (100-108) mmol/L Carbon Dioxide 23 (21-32) mmol/L Anion Gap 18.9 H (5.0-14.0) mmol/L BUN 18 D (7-18) mg/dL Creatinine 1.3 H (0.6-1.0) mg/dL Est Cr Clr Drug Dosing 33.93 mL/min Estimated GFR (MDRD) 40 L (>60) Glucose 130 H (74-106) mg/dL Calcium 10.3 H (8.5-10.1) mg/dL Magnesium (1.8-2.4) mg/dL Troponin I < 0.017 (0.000-0.056) ng/mL TSH, Ultra Sensitive 5.529 H (0.358-3.740) uIU/mL 02/05/20 Range/Units 23:28 WBC (4.5-11.0) K/uL RBC (3.30-5.50) M/uL Hgb (12.0-15.0) g/dL Hct (36.0-48.0) % MCV (80-98) fL MCH (27-31) pg MCHC (32-36) % Plt Count (150-400) K/uL Sodium (140-148) mmol/L Potassium (3.6-5.2) mmol/L Chloride (100-108) mmol/L Carbon Dioxide (21-32) mmol/L Anion Gap (5.0-14.0) mmol/L BUN (7-18) mg/dL Creatinine (0.6-1.0) mg/dL Est Cr Clr Drug Dosing mL/min Estimated GFR (MDRD) (>60) Glucose (74-106) mg/dL Calcium (8.5-10.1) mg/dL Magnesium 2.0 (1.8-2.4) mg/dL Troponin I (0.000-0.056) ng/mL TSH, Ultra Sensitive (0.358-3.740) uIU/mL Result Diagrams: 02/05/20 22:34 02/05/20 22:38 EKG INTERPRETATION Rhythm: A-Fib Rate (Beats/Min): 90 (afib with rvr rate in 120's) Sepsis Event Note - Evaluation Sepsis Screening Result: No Definite Risk - Focused Exam Vital Signs: Vital Signs Temp Pulse Pulse Resp BP BP Pulse Ox 02/05/20 23:35 89 121/68 02/05/20 23:01 88 135/69 02/05/20 23:00 74 16 153/71 H 96 02/05/20 22:41 137 H 153/74 H 02/05/20 22:37 36.7 C 137 H 18 153/74 H 96 02/05/20 22:33 36.7 C 137 H 18 96 - Problem List (1) Atrial fibrillation with RVR SNOMED Code(s): 802175099586398 ICD Code: I48.91 - UNSPECIFIED ATRIAL FIBRILLATION Status: Acute Current Visit: Yes (2) Coronary arteriosclerosis, CAD SNOMED Code(s): 41906377 ICD Code: I25.10 - ATHSCL HEART DISEASE OF [place] CORONARY ARTERY W/O ANG PCTRS Status: Chronic Priority: High Current Visit: Yes Problem List Initiated/Reviewed/Updated: Yes Orders Last 24hrs: Active Orders 24 hr Category Date Time Status Patient Status Manage Transfer [TRANSFER] Routine ADT 02/06/20 00:31 Ordered Bedrest Bathroom Privileges [RC] ASDIRECTED Care 02/06/20 00:33 Ordered Cardiac Monitoring [RC] .As Directed Care 02/05/20 22:32 Active Cardiac Monitoring [RC] CONTINUOUS Care 02/06/20 00:39 Ordered EKG Documentation Completion [RC] ASDIRECTED Care 02/05/20 22:31 Active Intake and Output [RC] QSHIFT Care 02/06/20 00:34 Ordered Notify Provider Vital Signs [RC] ASDIRECTED Care 02/06/20 00:39 Ordered Oxygen Therapy [RC] PRN Care 02/06/20 00:34 Ordered Pulse Oximetry [RC] PRN Care 02/06/20 00:39 Ordered RT Aerosol Therapy [RC] ASDIRECTED Care 02/06/20 00:41 Ordered VTE/DVT Education [RC] Per Unit Routine Care 02/06/20 00:34 Ordered Vital Signs [RC] Q4H Care 02/06/20 00:34 Ordered Heart Healthy Diet [DIET] Diet 02/06/20 Breakfast Ordered BASIC METABOLIC PANEL,BMP [CHEM] AM Lab 02/06/20 05:11 Ordered CBC WITH AUTO DIFF [HEME] AM Lab 02/06/20 05:11 Ordered TROPONIN I [CHEM] Timed Lab 02/06/20 04:30 Ordered UA W/MICROSCOPIC [URIN] Stat Lab 02/05/20 22:34 Ordered Acetaminophen [TylenoL] Med 02/06/20 00:33 Ordered 650 mg PO Q4H PRN Albuterol [Proventil Neb Soln] Med 02/06/20 00:33 Ordered 2.5 mg NEB Q4H PRN Budesonide [Budesonide EC] Med 02/06/20 00:45 Ordered 3 mg PO ASDIRECTED Docusate Sodium [Colace] Med 02/06/20 00:33 Ordered 100 mg PO BID PRN Enoxaparin [Lovenox] Med 02/06/20 00:45 Ordered 40 mg SUBCUT DAILY Folic Acid Med 02/06/20 09:00 Ordered 1 mg PO DAILY Furosemide [Lasix] Med 02/06/20 09:00 Ordered 40 mg PO DAILY Levothyroxine Med 02/06/20 07:30 Ordered 100 mcg PO ACBREAKFAST Metoprolol Succinate [Toprol XL] Med 02/06/20 09:00 Ordered 25 mg PO DAILY Morphine Med 02/06/20 00:33 Ordered 2 mg IVPUSH Q2H PRN Nitroglycerin [Nitrostat] Med 02/06/20 00:41 Ordered 0.4 mg SL ASDIRECTED PRN Omeprazole Magnesium [Prilosec Otc] Med 02/06/20 09:00 Ordered 20 mg PO DAILY Ondansetron [Zofran ODT] Med 02/06/20 00:33 Ordered 4 mg PO Q6H PRN Ondansetron [Zofran] Med 02/06/20 00:33 Ordered 4 mg IV Q4H PRN Sodium Chloride 0.9% @ 125 MLS/HR (1000ml) Med 02/06/20 00:45 Ordered Sodium Chloride 0.9% [Normal Saline] 1,000 ml IV ASDIRECTED Sodium Chloride 0.9% [Saline Flush] Med 02/05/20 22:32 Active 10 ml FLUSH ASDIRECTED PRN bisacodyL [Dulcolax] Med 02/06/20 00:33 Ordered 5 mg PO DAILY PRN busPIRone [Buspar] Med 02/06/20 00:41 Ordered 10 mg PO BID PRN lisinopriL [Prinivil] Med 02/06/20 09:00 Ordered 5 mg PO DAILY oxyCODONE Med 02/06/20 00:33 Ordered 5 mg PO Q4H PRN Saline Lock Insert [OM.PC] Routine Oth 02/05/20 22:32 Ordered Resuscitation Status Routine Resus Stat 02/06/20 00:33 Ordered EKG 12 Lead [EK] Routine Ther 02/05/20 22:31 Ordered Medication Orders Sodium Chloride (Saline Flush) 10 ml FLUSH ASDIRECTED PRN PRN Reason: Keep Vein Open Last Admin: 02/05/20 22:41 Dose: 10 ml Documented by: GA Assessment/Plan Comment:: ASSESSMENT AND PLAN OF CARE- ATRIAL FIB WITH RVR A-FIB WITH RVR -IV fluids for hydration, Normal Saline 125 ml/hr -cardiac monitoring -may need to repeat Metoprolol if rate continues >120. (last dose at 2338) -am labs cbc, bmp HYPOKALEMIA- give PO Potassium 40 meq in ER -cardiac monitoring -repeat BMP in am CARDIOVASCULAR DISEASE -continue Outpatient medication -cardiac monitoring. MAINTENANCE ISSUES -DVT Prophylaxis - Lovenox 40 mg subcut now. -GI prophylaxis- Prilosec po -Bustamante catheter not indicated -Nutrition - Healthy heart diet CODE STATUS FULL ADMISSION This patient will be admitted to observation status, expect no more than one night hospital stay for evaluation and management of problems outline above. DISPOSITION anticipate discharge to home after the hospital stay PRIMARY CARE PROVIDER Eleuterio Hudson NP. [facility] HOSPITALIST Dr. Hopper - Mortality Measure Prognosis:: Good
[2020-02-06] MEDS ORDERED: Levothyroxine 100 MCG Tab PO SCH (07:30)
[2020-02-06 07:59] VITALS: BP 102/51; PULSE 55
[2020-02-06] MEDS ORDERED: Enoxaparin 40 MG/0.4 ML Syringe SUBCUT SCH (09:00)
[2020-02-06] MEDS ORDERED: Folic Acid 1 MG Tab PO SCH (09:00)
[2020-02-06] MEDS ORDERED: Metoprolol Succinate 25 MG Tab.ER PO SCH (09:00)
[2020-02-06] MEDS ORDERED: Furosemide 40 MG Tab PO SCH (09:00)
[2020-02-06] MEDS ORDERED: Non-Formulary Medication 1 Each (Omeprazole Magnesium [Prilosec Otc] 20 MG) PO SCH (09:00)
[2020-02-06] MEDS ORDERED: Lisinopril 5 MG Tab PO SCH (09:00)
--- NOTE | 2020-02-06 09:25 | PCM.DCSUM1 ---
Discharge Summary - Hospital Course Brief History: 79-year-old female with history of coronary artery disease status post bypass surgery, acquired hypothyroidism and previous episode of atrial fibrillation who presented with palpitations and chest pressure as well as dyspnea. She was admitted for management of paroxysmal atrial fibrillation with a rapid ventricular response. Diagnosis: Stroke: No - Discharge Data Discharge Date: 02/06/20 Discharge Disposition: Home, Self-Care 01 Condition: Good - Referral to Home Health Primary Care Physician: Eleuterio Hudson NP - Discharge Diagnosis/Problem(s) (1) Paroxysmal atrial fibrillation with rapid ventricular response SNOMED Code(s): 056471001, [id number] ICD Code: I48.0 - PAROXYSMAL ATRIAL FIBRILLATION Status: Acute (2) Hypokalemia SNOMED Code(s): 84268412 ICD Code: E87.6 - HYPOKALEMIA Status: Acute (3) Coronary arteriosclerosis, CAD SNOMED Code(s): 71698508 ICD Code: I25.10 - ATHSCL HEART DISEASE OF [place] CORONARY ARTERY W/O ANG PCTRS Status: Chronic Priority: Medium (4) Hypothyroidism SNOMED Code(s): 96819194 ICD Code: E03.9 - HYPOTHYROIDISM, UNSPECIFIED Status: Chronic Priority: Medium - Patient Summary/Data Hospital Course: Demetrice presented to the emergency room with acute onset of palpitations, chest pressure and dyspnea. In the emergency room she was noted to be in atrial fibrillation with a mild rapid ventricular response. Laboratory studies were unremarkable other than mild hypokalemia. Heart rate did improve with metoprolol administered in the emergency room. She was admitted to the hospital for observation with additional doses of rate slowing medication and potassium supplementation. Overnight her heart rate remained in the normal range and early in the morning after admission she converted to a normal sinus rhythm. She has not had any chest pain or dyspnea. Troponin levels were normal. She feels back to her usual self at this point. Her potassium level is normal today. I suspect the atrial fibrillation resulted from hypokalemia. She has been battling poor nutrition with lymphocytic colitis which is finally beginning to improve. I believe she is safe for outpatient management at this time. We did not initiate systemic anticoagulation because of the very short duration of the atrial fibrillation. If she does have additional episodes we may need to consider restarting medication such as warfarin but at this point not to change anything with her medications. We did provide her with information about high potassium foods. - Patient Instructions Diet: Heart Healthy Diet Activity: As Tolerated Showering/Bathing: May Shower Notify Provider of: Fever, Increased Pain Other/Special Instructions: 1. You were in the hospital for management of paroxysmal atrial fibrillation with a rapid ventricular response. I suspect that this abnormal heart rhythm was caused by a low potassium level. Your heart is now back in a normal rhythm after we supplemented your potassium and gave an extra dose of short acting metoprolol. I do not believe we need to make any medication changes at this time. You should review the sheets discussing potassium content of food and make sure you are eating plenty of potassium rich foods to avoid low levels in the future. I would recommend that you follow-up with your primary care provider next week and have your potassium level rechecked. - Discharge Plan *PRESCRIPTION DRUG MONITORING PROGRAM REVIEWED*: Not Applicable *COPY OF PRESCRIPTION DRUG MONITORING REPORT IN PATIENT COLIN: Not Applicable Home Medications: Home Meds Furosemide [Lasix] 40 mg PO DAILY 02/21/13 [History] Aspirin [Stephen Chewable Aspirin] 81 mg PO DAILY 09/04/13 [History] Nitroglycerin [Nitrostat] 0.4 mg SL ASDIRECTED PRN 09/04/13 [History] Rosuvastatin [Crestor] 5 mg PO ASDIRECTED 06/02/14 [History] busPIRone [Buspar] 10 mg PO BID PRN 08/14/15 [History] Metoprolol Succinate [Toprol XL] 25 mg PO DAILY 01/06/16 [History] Acetaminophen [Tylenol] 650 mg PO Q6H PRN 02/28/17 [History] Levothyroxine 100 mcg PO ACBREAKFAST 04/24/17 [History] Lisinopril 5 mg PO DAILY 12/18/17 [History] Budesonide [Budesonide EC] 3 mg PO ASDIRECTED 01/21/20 [History] Cyanocobalamin (Vitamin B-12) [B-12] 1,000 mcg PO DAILY 01/21/20 [History] Folic Acid 1 mg PO DAILY 01/21/20 [History] Omeprazole Magnesium [Prilosec Otc] 20 mg PO DAILY 01/21/20 [History] Triamcinolone Acetonide [Kenalog 0.1% Lotion] 1 applic TOP BID 01/21/20 [History] Oxygen Therapy Mode: Room Air Patient Handouts: Hypokalemia, Potassium Content of Foods Referrals: Eleuterio Hudson NP [Primary Care Provider] - 02/11/20 9:40 am (Arrive 15 minutes early to register for your appointment. ) - Discharge Summary/Plan Comment DC Time >30 min.: No - Patient Data Vitals - Most Recent: Last Vital Signs Temp 36.1 C 02/06/20 07:58 Pulse 55 L 02/06/20 07:58 Resp 18 02/06/20 07:58 BP 102/51 L 02/06/20 07:58 Pulse Ox 96 02/06/20 07:58 Weight - Most Recent: 74.843 kg Lab Results - Last 24 hrs: Laboratory Results - last 24 hr 02/05/20 02/05/20 02/05/20 Range/Units 22:34 22:38 22:39 WBC 12.5 H (4.5-11.0) K/uL RBC 4.10 (3.30-5.50) M/uL Hgb 14.8 (12.0-15.0) g/dL Hct 43.2 (36.0-48.0) % MCV 105 H (80-98) fL MCH 36 H (27-31) pg MCHC 34 (32-36) % Plt Count 495 H (150-400) K/uL Neut % (Auto) (36-66) % Lymph % (Auto) (24-44) % [place] % (Auto) (2-6) % Eos % (Auto) (2-4) % Baso % (Auto) (0-1) % Sodium 137 L (140-148) mmol/L Potassium 2.9 L* (3.6-5.2) mmol/L Chloride 98 L (100-108) mmol/L Carbon Dioxide 23 (21-32) mmol/L Anion Gap 18.9 H (5.0-14.0) mmol/L BUN 18 D (7-18) mg/dL Creatinine 1.3 H (0.6-1.0) mg/dL Est Cr Clr Drug Dosing 33.93 mL/min Estimated GFR (MDRD) 40 L (>60) Glucose 130 H (74-106) mg/dL Calcium 10.3 H (8.5-10.1) mg/dL Magnesium (1.8-2.4) mg/dL Troponin I < 0.017 (0.000-0.056) ng/mL TSH, Ultra Sensitive 5.529 H (0.358-3.740) uIU/mL Urine Color (YELLOW) Urine Appearance (CLEAR) Urine pH (5.0-8.0) Ur Specific [place] (1.008-1.030) Urine Protein (NEGATIVE) mg/dL Urine Glucose (UA) (NEGATIVE) mg/dL Urine Ketones (NEGATIVE) mg/dL Urine Occult Blood (NEGATIVE) Urine Nitrite (NEGATIVE) Urine Bilirubin (NEGATIVE) Urine Urobilinogen (0.2-1.0) EU/dL Ur Leukocyte Esterase (NEGATIVE) Urine RBC (0-5) Urine WBC (0-5) Ur Epithelial Cells Amorphous Sediment Urine Bacteria Urine Mucus 02/05/20 02/06/20 02/06/20 Range/Units 23:28 04:30 05:11 WBC 9.5 (4.5-11.0) K/uL RBC 3.47 (3.30-5.50) M/uL Hgb 12.3 D (12.0-15.0) g/dL Hct 37.1 (36.0-48.0) % MCV 107 H (80-98) fL MCH 35 H (27-31) pg MCHC 33 (32-36) % Plt Count 413 H (150-400) K/uL Neut % (Auto) 44 (36-66) % Lymph % (Auto) 47 H (24-44) % [place] % (Auto) 7 H (2-6) % Eos % (Auto) 1 L (2-4) % Baso % (Auto) 1 (0-1) % Sodium (140-148) mmol/L Potassium (3.6-5.2) mmol/L Chloride (100-108) mmol/L Carbon Dioxide (21-32) mmol/L Anion Gap (5.0-14.0) mmol/L BUN (7-18) mg/dL Creatinine (0.6-1.0) mg/dL Est Cr Clr Drug Dosing mL/min Estimated GFR (MDRD) (>60) Glucose (74-106) mg/dL Calcium (8.5-10.1) mg/dL Magnesium 2.0 (1.8-2.4) mg/dL Troponin I < 0.017 (0.000-0.056) ng/mL TSH, Ultra Sensitive (0.358-3.740) uIU/mL Urine Color (YELLOW) Urine Appearance (CLEAR) Urine pH (5.0-8.0) Ur Specific [place] (1.008-1.030) Urine Protein (NEGATIVE) mg/dL Urine Glucose (UA) (NEGATIVE) mg/dL Urine Ketones (NEGATIVE) mg/dL Urine Occult Blood (NEGATIVE) Urine Nitrite (NEGATIVE) Urine Bilirubin (NEGATIVE) Urine Urobilinogen (0.2-1.0) EU/dL Ur Leukocyte Esterase (NEGATIVE) Urine RBC (0-5) Urine WBC (0-5) Ur Epithelial Cells Amorphous Sediment Urine Bacteria Urine Mucus 02/06/20 02/06/20 Range/Units 05:11 06:40 WBC (4.5-11.0) K/uL RBC (3.30-5.50) M/uL Hgb (12.0-15.0) g/dL Hct (36.0-48.0) % MCV (80-98) fL MCH (27-31) pg MCHC (32-36) % Plt Count (150-400) K/uL Neut % (Auto) (36-66) % Lymph % (Auto) (24-44) % [place] % (Auto) (2-6) % Eos % (Auto) (2-4) % Baso % (Auto) (0-1) % Sodium 140 (140-148) mmol/L Potassium 4.0 (3.6-5.2) mmol/L Chloride 105 (100-108) mmol/L Carbon Dioxide 29 (21-32) mmol/L Anion Gap 6.4 (5.0-14.0) mmol/L BUN 17 (7-18) mg/dL Creatinine 1.2 H (0.6-1.0) mg/dL Est Cr Clr Drug Dosing 36.75 mL/min Estimated GFR (MDRD) 44 L (>60) Glucose 99 (74-106) mg/dL Calcium 9.1 (8.5-10.1) mg/dL Magnesium (1.8-2.4) mg/dL Troponin I (0.000-0.056) ng/mL TSH, Ultra Sensitive (0.358-3.740) uIU/mL Urine Color Yellow (YELLOW) Urine Appearance Slightly cloudy A (CLEAR) Urine pH 5.5 (5.0-8.0) Ur Specific [place] 1.015 (1.008-1.030) Urine Protein Negative (NEGATIVE) mg/dL Urine Glucose (UA) Negative (NEGATIVE) mg/dL Urine Ketones Negative (NEGATIVE) mg/dL Urine Occult Blood Negative (NEGATIVE) Urine Nitrite Negative (NEGATIVE) Urine Bilirubin Negative (NEGATIVE) Urine Urobilinogen 0.2 (0.2-1.0) EU/dL Ur Leukocyte Esterase Negative (NEGATIVE) Urine RBC Not seen (0-5) Urine WBC Not seen (0-5) Ur Epithelial Cells Many Amorphous Sediment Many Urine Bacteria Few Urine Mucus Not seen Med Orders - Current: Current Medications Acetaminophen (Tylenol) 650 mg PO Q4H PRN PRN Reason: Pain (Mild 1-3)/fever Albuterol (Proventil Neb Soln) 2.5 mg NEB Q4H PRN PRN Reason: Shortness Of Breath/wheezing Bisacodyl (Dulcolax) 5 mg PO DAILY PRN PRN Reason: Constipation Buspirone HCl (Buspar) 10 mg PO BID PRN PRN Reason: Anxiety Docusate Sodium (Colace) 100 mg PO BID PRN PRN Reason: Constipation Enoxaparin Sodium (Lovenox) 40 mg SUBCUT DAILY [facility] Folic Acid (Folic Acid) 1 mg PO DAILY [facility] Furosemide (Lasix) 40 mg PO DAILY [facility] Sodium Chloride (Normal Saline) 1,000 mls @ 125 mls/hr IV ASDIRECTED [facility] Levothyroxine Sodium (Synthroid) 100 mcg PO ACBREAKFAST [facility] Lisinopril (Prinivil) 5 mg PO DAILY [facility] Metoprolol Succinate (Toprol Xl) 25 mg PO DAILY [facility] Morphine Sulfate (Morphine) 2 mg IVPUSH Q2H PRN PRN Reason: Pain (severe 7-10) Nitroglycerin (Nitrostat) 0.4 mg SL ASDIRECTED PRN PRN Reason: Pain Non-Formulary Medication (Budesonide [Budesonide Ec]) 3 mg PO ASDIRECTED [facility] Non-Formulary Medication (Omeprazole Magnesium [Prilosec Otc]) 20 mg PO DAILY [facility] Ondansetron HCl (Zofran Odt) 4 mg PO Q6H PRN PRN Reason: Nausea able to take PO Ondansetron HCl (Zofran) 4 mg IV Q4H PRN PRN Reason: Nausea/Vomiting Oxycodone HCl (Oxycodone) 5 mg PO Q4H PRN PRN Reason: Pain (moderate 4-6) Sodium Chloride (Saline Flush) 10 ml FLUSH ASDIRECTED PRN PRN Reason: Keep Vein Open Last Admin: 02/05/20 22:41 Dose: 10 ml Documented by: Discontinued Medications Aspirin (Aspirin) 324 mg PO ONETIME ONE Stop: 02/05/20 22:36 Last Admin: 02/05/20 22:41 Dose: 324 mg Documented by: Metoprolol Tartrate (Lopressor) 5 mg IVPUSH ONETIME ONE Stop: 02/05/20 22:35 Last Admin: 02/05/20 22:41 Dose: 5 mg Documented by: Metoprolol Tartrate (Lopressor) 25 mg PO ONETIME ONE Stop: 02/05/20 22:53 Last Admin: 02/05/20 23:01 Dose: 25 mg Documented by: Metoprolol Tartrate (Lopressor) 25 mg PO ONETIME ONE Stop: 02/05/20 23:28 Last Admin: 02/05/20 23:35 Dose: 25 mg Documented by: Potassium Chloride (Potassium Chloride) 40 meq PO ONETIME ONE Stop: 02/05/20 23:08 Last Admin: 02/05/20 23:12 Dose: 40 meq Documented by:
== END 2020-02-06 11:04 | disposition home or self-care (01) ==
LOC: JP.ED 22:25 → JP.MS 02-06 00:37
PROVIDERS: ADMIT Nurse Practitioner; ATTEND Internal Medicine
DX: I48.0 Paroxysmal atrial fibrillation (principal); E87.6 Hypokalemia; K21.9 Gastro-esophageal reflux disease without esophagitis; F17.210 Nicotine dependence, cigarettes, uncomplicated; I25.10 Atherosclerotic heart disease of native coronary artery without angina pectoris; E03.9 Hypothyroidism, unspecified; E78.00 Pure hypercholesterolemia, unspecified; I10 Essential (primary) hypertension; F41.9 Anxiety disorder, unspecified; Z91.041 Radiographic dye allergy status; Z88.1 Allergy status to other antibiotic agents; Z88.2 Allergy status to sulfonamides; Z88.5 Allergy status to narcotic agent; Z79.82 Long term (current) use of aspirin; Z95.5 Presence of coronary angioplasty implant and graft; Z79.01 Long term (current) use of anticoagulants; Z79.899 Other long term (current) drug therapy; Z79.890 Hormone replacement therapy
CPT/HCPCS: 36415; 80048; 81001; 83735; 84443; 84484; 85025; 85027; 93005; 96374; 99285-25; A9270-GY; G0378; J3490

== ENCOUNTER 2020-08-05 18:14 | Emergency (ER) | payer MEDICARE ==
[2020-08-05] MEDS ORDERED: Sodium Chloride 0.9% 10 ML Syringe FLUSH PRN (18:20)
--- NOTE | 2020-08-05 18:35 | EDM.PDOC ---
ED HPI GENERAL MEDICAL PROBLEM - General Chief Complaint: Chest Pain Stated Complaint: CHEST PAINS Time Seen by Provider: 08/05/20 18:20 Source of Information: Reports: Patient, Old Records History Limitations: Reports: No Limitations - History of Present Illness INITIAL COMMENTS - FREE TEXT/NARRATIVE: Sherry is a 80-year-old female presenting to the ED for evaluation of chest pain. Patient first started having symptoms on Monday (5 days ago consisting of low central chest pain radiating under the right breast. The pain would last 10 to 15 minutes and then subside with rest. The patient reported having some mild shortness of breath associated with this. Pain would worsen with activity. Patient did state that the pain sometimes increased with deep inspiration. The patient denies any fever, chills, cough, however she has a half a pack per day smoker. She does have a very significant coronary artery history having had 4 stents and then in 2015 had a triple bypass. 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 Patient also has a history for paroxysmal atrial fibrillation. In addition to this, the patient has a history for colitis her last episode being nearly a year ago. He presents to the [facility] because the chest pressure was also associated with nausea and vomiting. Patient does report some epigastric distress. She has had no change in appetite. Chest Pain Score (Numeric/FACES): 8 - Related Data Allergies Allergy/AdvReac Type Severity Reaction Status Date / Time Iodinated Contrast Media Allergy Severe Anaphylactic Verified 08/05/20 18:31 [Iodinated Contrast Media - Shock IV Dye] amlodipine Allergy Other Verified 08/05/20 18:31 ciprofloxacin Allergy Other Verified 08/05/20 18:31 hydromorphone [From Dilaudid] Allergy Other Verified 08/05/20 18:31 hydromorphone HCl Allergy Cannot Verified 08/05/20 18:31 [From Dilaudid] Remember isosorbide [From Imdur] Allergy Hypotension Verified 08/05/20 18:31 Sulfa (Sulfonamide Allergy Rash Verified 08/05/20 18:31 Antibiotics) sumatriptan [From Imitrex] Allergy Tachycardia Verified 08/05/20 18:31 sumatriptan succinate Allergy Tachycardia Verified 08/05/20 18:31 [From Imitrex] morphine AdvReac Intermediate Nausea and Verified 08/05/20 18:31 Vomiting Home Meds: Home Meds Furosemide [Lasix] 40 mg PO DAILY 02/21/13 [History] Aspirin [Stephen Chewable Aspirin] 81 mg PO DAILY 09/04/13 [History] Nitroglycerin [Nitrostat] 0.4 mg SL ASDIRECTED PRN 09/04/13 [History] Rosuvastatin [Crestor] 5 mg PO ASDIRECTED 06/02/14 [History] busPIRone [Buspar] 10 mg PO DAILY 08/14/15 [History] Metoprolol Succinate [Toprol XL] 25 mg PO DAILY 01/06/16 [History] Acetaminophen [Tylenol] 650 mg PO Q6H PRN 02/28/17 [History] Levothyroxine 100 mcg PO ACBREAKFAST 04/24/17 [History] Lisinopril 5 mg PO DAILY 12/18/17 [History] Omeprazole Magnesium [Prilosec Otc] 20 mg PO DAILY 01/21/20 [History] L.acidoph,Paracasei, B.lactis [Probiotic] 1 tab PO DAILY 08/05/20 [History] Past Medical History HEENT History: Reports: Impaired Vision Other HEENT History: wears glasses Cardiovascular History: Reports: Bypass, CAD, High Cholesterol, Hypertension, [place], Stents Gastrointestinal History: Reports: Diverticulosis, GERD, Other (See Below) Other Gastrointestinal History: lymphocitic colitis Genitourinary History: Reports: UTI, Recurrent Other Genitourinary History: Occasional UTI Known UTI 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 R shoulder pain Neurological History: Reports: Migraines Psychiatric History: Reports: Anxiety Endocrine/Metabolic History: Reports: Hypothyroidism Hematologic History: Reports: Anticoagulation Therapy, Other (See Below) Other Hematologic History: Off warfarin for 1 month Oncologic (Cancer) History: Reports: Squamous Cell Carcinoma Dermatologic History: Reports: Other (See Below) Other Dermatologic History: skin cancer lesions on feet and legs, right hand - Infectious Disease History Infectious Disease History: Reports: Chicken Pox, Measles, Mumps, Rubella - Past Surgical History Head Surgeries/Procedures: Reports: None HEENT Surgical History: Reports: None Cardiovascular Surgical History: Reports: Carotid Stents, Coronary Artery Bypass GI Surgical History: Reports: Appendectomy, Cholecystectomy, Colonoscopy, EGD, Hernia Repair/Other Female Surgical History: Reports: Hysterectomy Endocrine Surgical History: Reports: None Neurological Surgical History: Reports: None Musculoskeletal Surgical History: Reports: Other (See Below) Other Musculoskeletal Surgeries/Procedures:: Fall in May - pain to coccyx. shoulder surgery Oncologic Surgical History: Reports: None Dermatological Surgical History: Reports: Skin Biopsy Social & Family History - Family History Family Medical History: No Pertinent Family History Cardiac: Reports: [place] Respiratory: Reports: COPD Oncologic: Reports: Brain, Skin - Tobacco Use Tobacco Use Status *Q: Light Tobacco User Years of Tobacco use: 30 Packs/Tins Daily: 0.3 - Caffeine Use Caffeine Use: Reports: Coffee Other Caffeine Use: 1 pot in the morning - Alcohol Use Days Per Week of Alcohol Use: 7 Number of Drinks Per Day: 2 Total Drinks Per Week: 14 - Recreational Drug Use Recreational Drug Use: No - Living Situation & Occupation Living situation: Reports: ( 08/19/2010), Alone (since of spouse) Occupation: Retired ED ROS GENERAL - Review of Systems Review Of Systems: See Below Constitutional: Reports: No Symptoms HEENT: Reports: No Symptoms Respiratory: Reports: Shortness of Breath Cardiovascular: Reports: Chest Pain Endocrine: Reports: No Symptoms GI/Abdominal: Reports: Abdominal Pain (Epigastric), Nausea, Vomiting (1 episode of bilious emesis) : Reports: No Symptoms Musculoskeletal: Reports: No Symptoms Skin: Reports: No Symptoms Neurological: Reports: No Symptoms Psychiatric: Reports: No Symptoms Hematologic/Lymphatic: Reports: No Symptoms Immunologic: Reports: No Symptoms ED EXAM, GENERAL - Physical Exam Exam: See Below Exam Limited By: No Limitations General Appearance: Alert, No Apparent Distress Eye Exam: Bilateral Eye: EOMI, PERRL Head: Atraumatic, Normocephalic Neck: Normal Inspection, Supple, Non-Tender, Full Range of Motion. No: Carotid Bruit, Lymphadenopathy (R), Lymphadenopathy (L) Respiratory/Chest: No Respiratory Distress, Lungs Clear, Normal Breath Sounds, Chest Non-Tender Cardiovascular: Normal Peripheral Pulses, Regular Rate, Rhythm, No Edema, No JVD, No Murmur Peripheral Pulses: 2+: Radial (L), Radial (R), Posterior Tibial (L), Posterior Tibial (R) GI/Abdominal: Normal Bowel Sounds, Soft, Non-Tender. No: Guarding, Rebound Back Exam: Normal Inspection, Full Range of Motion Extremities: Normal Inspection, Normal Range of Motion Neurological: Alert, Oriented, Normal Cognition, No Motor/Sensory Deficits Psychiatric: Normal Affect, Normal Mood Skin Exam: Warm, Dry, Intact, Normal Color Lymphatic: No Adenopathy #1 Interpretation EKG Date: 08/05/20 Time: 18:22 Rhythm: NSR [place]: Normal P-Wave: Present QRS: Normal (Low voltage in all leads.) ST-T: Normal QT: Normal Comparison: Change From Previous EKG (Normal sinus rhythm has replaced atrial fibrillation.) Course - Vital Signs Last Recorded V/S: Last Vital Signs Temp 36.3 C 08/05/20 18:25 Pulse 56 L 08/05/20 19:47 Resp 24 H 08/05/20 19:47 BP 140/62 08/05/20 19:47 Pulse Ox 96 08/05/20 19:47 - Orders/Labs/Meds Orders: Active Orders 24 hr Category Date Time Status EKG Documentation Completion [RC] ASDIRECTED Care 08/05/20 18:21 Active Chest 2V [CR] Stat Exams 08/05/20 19:19 Taken Sodium Chloride 0.9% [Saline Flush] Med 08/05/20 18:20 Active 10 ml FLUSH ASDIRECTED PRN Saline Lock Insert [OM.PC] Routine Oth 08/05/20 18:20 Ordered EKG 12 Lead [EK] Routine Ther 08/05/20 18:20 Ordered Medication Orders Sodium Chloride (Sodium Chloride 0.9% 10 Ml Syringe) 10 ml FLUSH ASDIRECTED PRN PRN Reason: Keep Vein Open Last Admin: 08/05/20 18:47 Dose: 10 ml Documented by: LACHELLE Labs: Laboratory Tests 08/05/20 08/05/20 08/05/20 Range/Units 18:31 18:31 18:31 WBC 12.3 H (4.5-11.0) K/uL RBC 3.90 (3.30-5.50) M/uL Hgb 13.4 (12.0-15.0) g/dL Hct 39.1 (36.0-48.0) % MCV 100 H (80-98) fL MCH 34 H (27-31) pg MCHC 34 (32-36) % Plt Count 454 H (150-400) K/uL Neut % (Auto) 63 (36-66) % Lymph % (Auto) 27 (24-44) % [place] % (Auto) 7 H (2-6) % Eos % (Auto) 3 (2-4) % Baso % (Auto) 0 (0-1) % PT 10.7 (9.5-12.0) sec INR 0.98 (0.80-1.20) APTT 25.7 L (27.0-36.0) sec Sodium 135 L (140-148) mmol/L Potassium 3.0 L (3.6-5.2) mmol/L Chloride 96 L (100-108) mmol/L Carbon Dioxide 25 (21-32) mmol/L Anion Gap 17.0 H (5.0-14.0) mmol/L BUN 12 (7-18) mg/dL Creatinine 1.0 (0.6-1.0) mg/dL Est Cr Clr Drug Dosing 43.40 mL/min Estimated GFR (MDRD) 54 L (>60) Glucose 102 (74-106) mg/dL Calcium 9.9 (8.5-10.1) mg/dL Total Bilirubin 0.3 (0.2-1.0) mg/dL AST 11 L (15-37) U/L ALT 14 (12-78) U/L Alkaline Phosphatase 101 (46-116) U/L Troponin I < 0.017 (0.000-0.056) ng/mL C-Reactive Protein 1.77 H (0.0-0.3) mg/dL Total Protein 6.8 (6.4-8.2) g/dL Albumin 3.3 L (3.4-5.0) g/dL Globulin 3.5 (2.3-3.5) g/dL Albumin/Globulin Ratio 0.9 L (1.2-2.2) Meds: Medications Generic Name Dose Route Start Last Admin Trade Name Freq PRN Reason Stop Dose Admin Sodium Chloride 10 ml 08/05/20 18:20 08/05/20 18:47 Sodium Chloride 0.9% 10 Ml Syringe FLUSH 10 ml ASDIRECTED PRN Administration Keep Vein Open - Radiology Interpretation Free Text/Narrative:: Hyperinflation of the lungs without evidence for acute infiltrates or hilar adenopathy. There is a small pulmonary nodule in the right base not seen on previous x-ray. Follow-up is recommended. - Re-Assessments/Exams Free Text/Narrative Re-Assessment/Exam: 08/05/20 19:49 I reviewed the x-ray of the chest and labs, patient has mild hypokalemia with potassium 3.0. She has elevation of her CRP at 1.77. She has a mild leukocytosis of 12.3 with a normal differential. Her EKG shows low voltage but normal sinus rhythm without evidence for ST elevation or depression. Her troponin is negative at <0.017. Given the patient history of having symptoms for the last 5 days, it is unlikely that this is coronary ischemia with a normal troponin. In addition since her CRP is elevated it is likely that this is acute pleurisy especially given the respiratory component of the pain. We will put her on a 5-day course of prednisone 20 mg daily to reduce inflammation. There is no evidence for an acute infiltrate or hilar adenopathy to suggest a bronchitis or pneumonia and with a normal differential I think antibiotics are not warranted at this time. Certainly we will revisit this if she develops fever, chills, increasing shortness of breath or productive cough. At this time, I am discharging the patient home. Indications return to the ED were discussed and all questions were answered prior to discharge. Departure - Departure Time of Disposition: 19:52 Disposition: Home, Self-Care 01 Condition: Good Clinical Impression: Pleurisy without effusion, Viral URI Instructions: Viral Respiratory Infection, [id number], Pleurisy, [id number] Referrals: Eleuterio Hudson [employer] SUPERVISOR [Primary Care Provider] - Forms: ED Department Discharge Care Plan Goals: It appears that you have acute pleurisy which is inflammation of the lining around the lung usually due to a viral infection. We will put you on prednisone 20 mg daily for the next 5 days to help reduce the inflammation of this area and therefore reduce the pain. There is no evidence for pneumonia or bronchitis therefore antibiotics are not going to be helpful. I would strongly encourage you to discontinue smoking as there is evidence for emphysema on your chest x- ray. Turn to the ER or to your primary care provider if you continue to develop increasing shortness of breath or worsening chest pain. Is no evidence in your work-up today that the pain was caused from your heart. Sepsis Event Note (ED) - Evaluation Sepsis Screening Result: No Definite Risk - Focused Exam Vital Signs: Vital Signs Temp Pulse Resp BP Pulse Ox 08/05/20 19:47 56 L 24 H 140/62 96 08/05/20 19:18 59 L 22 H 125/65 94 L 08/05/20 18:25 36.3 C 69 16 162/75 H 99 - Problem List & Annotations (1) Hypokalemia SNOMED Code(s): 08611347 Code(s): E87.6 - HYPOKALEMIA Status: Acute Priority: Medium Current Visit: No (2) Pleurisy without effusion SNOMED Code(s): 975692881 Code(s): R09.1 - PLEURISY Status: Acute Priority: High Current Visit: Yes (3) Viral URI SNOMED Code(s): 776227761 Code(s): J06.9 - ACUTE UPPER RESPIRATORY INFECTION, UNSPECIFIED Status: Acute Priority: High Current Visit: Yes - Problem List Review Problem List Initiated/Reviewed/Updated: Yes - My Orders Last 24 Hours: My Active Orders 08/05/20 18:20 Sodium Chloride 0.9% [Saline Flush] 10 ml FLUSH ASDIRECTED PRN Saline Lock Insert [OM.PC] Routine EKG 12 Lead [EK] Routine 08/05/20 18:21 EKG Documentation Completion [RC] ASDIRECTED 08/05/20 19:19 Chest 2V [CR] Stat - Assessment/Plan Last 24 Hours: My Active Orders 08/05/20 18:20 Sodium Chloride 0.9% [Saline Flush] 10 ml FLUSH ASDIRECTED PRN Saline Lock Insert [OM.PC] Routine EKG 12 Lead [EK] Routine 08/05/20 18:21 EKG Documentation Completion [RC] ASDIRECTED 08/05/20 19:19 Chest 2V [CR] Stat
[2020-08-05 19:48] VITALS: BP 140/62; PULSE 56
[2020-08-05] MEDS ORDERED: Potassium Chloride 20 MEQ Tab.ER PO ONE (19:55)
--- NOTE | 2020-08-06 09:13 | CR ---
CHEST: 2 view CLINICAL HISTORY:Chest pain COMPARISON:2017 FINDINGS: There has been previous sternotomy. The heart size, pulmonary vascularity and hilar structures are normal. No infiltrate effusion or pneumothorax is seen. There are a few scattered small nodules in both lung bases greater on the right. Most of these are seen on prior study and are likely granulomatous. There is a nodular focus in the right lower lung field which has increased in size. This may be superimposition IMPRESSION: No acute cardiopulmonary process. Nodularity in both lower lung valadez right greater than left. There is a nodular focus in the right lower lobe showing increased conspicuity. Noncontrast CT chest is recommended on a nonemergent basis.
== END 2020-08-05 20:10 | disposition home or self-care (01) ==
LOC: JP.ED 18:14
DX: R09.1 Pleurisy (principal); J06.9 Acute upper respiratory infection, unspecified; I25.10 Atherosclerotic heart disease of native coronary artery without angina pectoris; E78.00 Pure hypercholesterolemia, unspecified; I10 Essential (primary) hypertension; I25.2 Old myocardial infarction; K21.9 Gastro-esophageal reflux disease without esophagitis; E03.9 Hypothyroidism, unspecified; F17.200 Nicotine dependence, unspecified, uncomplicated; Z91.041 Radiographic dye allergy status; Z88.8 Allergy status to other drugs, medicaments and biological substances; Z88.1 Allergy status to other antibiotic agents; Z88.5 Allergy status to narcotic agent; Z88.2 Allergy status to sulfonamides; Z79.82 Long term (current) use of aspirin; Z79.899 Other long term (current) drug therapy; Z95.1 Presence of aortocoronary bypass graft
CPT/HCPCS: 36415; 71046; 71046-26; 80053; 84484; 85025; 85610; 85730; 86140; 93005; 99283; 99285-25; A9270-GY

== ENCOUNTER 2020-08-12 11:53 | Inpatient (IN) | payer MEDICARE ==
[2020-08-12] MEDS ORDERED: Sodium Chloride 0.9% 10 ML Syringe FLUSH PRN ×2 (11:56→16:02)
[2020-08-12] MEDS ORDERED: HYDROmorphone 0.5 MG/0.5 ML Syringe IVPUSH ONE (12:42)
[2020-08-12] MEDS ORDERED: Metoclopramide 10 MG/2 ML SDV IVPUSH ONE (12:42)
--- NOTE | 2020-08-12 12:44 | EDM.PDOC ---
ED HPI GENERAL MEDICAL PROBLEM - General Chief Complaint: Gastrointestinal Problem Stated Complaint: CHEST PAIN Time Seen by Provider: 08/12/20 12:35 Source of Information: Reports: Patient, Old Records, RN History Limitations: Reports: No Limitations - History of Present Illness INITIAL COMMENTS - FREE TEXT/NARRATIVE: 80 yo female presents with chest and abdomen pain that began a couple weeks ago and has been slowly progressive since. Was recently seen in the ER and also on Monday in the clinic for this. The abdominal portion of her pain is much worse today. A chest CT scan was ordered on Monday which was done this morning, there are no results yet. No abdominal imaging was ordered as her pain was not that bad then. Has nausea today, not able to vomit due to her hx of a William fundoplication. Her bowels have been normal for her. Onset: Gradual Duration: Week(s): (~2), Getting Worse Location: Reports: Chest, Abdomen Quality: Reports: Ache Severity: Moderate Improves with: Reports: None Worsens with: Reports: Other (time) Context: Reports: Other (See HPI) Associated Symptoms: Reports: Chest Pain, Nausea/Vomiting (no vomiting). Denies: Cough, Fever/Chills Treatments METAL NEUTRALIZER: Reports: Other (see below) (none) - Related Data Allergies Allergy/AdvReac Type Severity Reaction Status Date / Time Iodinated Contrast Media Allergy Severe Anaphylactic Verified 08/12/20 12:49 [Iodinated Contrast Media - Shock IV Dye] sumatriptan succinate Allergy Severe Tachycardia Verified 08/12/20 12:49 [From Imitrex] Sulfa (Sulfonamide Allergy Intermediate Rash Verified 08/12/20 12:49 Antibiotics) isosorbide [From Imdur] Allergy Mild Hypotension Verified 08/12/20 12:49 amlodipine Allergy Unknown Other Verified 08/12/20 12:49 ciprofloxacin Allergy Unknown Other Verified 08/12/20 12:49 hydromorphone [From Dilaudid] Allergy Unknown Other Verified 08/12/20 12:49 hydromorphone HCl Allergy Unknown Cannot Verified 08/12/20 12:49 [From Dilaudid] Remember sumatriptan [From Imitrex] Allergy Tachycardia Verified 08/12/20 12:49 morphine AdvReac Intermediate Nausea and Verified 08/12/20 12:49 Vomiting Home Meds: Home Meds Furosemide [Lasix] 40 mg PO DAILY 09/26/13 [History] Aspirin [Stephen Chewable Aspirin] 81 mg PO DAILY 09/04/13 [History] Nitroglycerin [Nitrostat] 0.4 mg SL ASDIRECTED PRN 09/04/13 [History] Rosuvastatin [Crestor] 5 mg PO ASDIRECTED 06/02/14 [History] busPIRone [Buspar] 10 mg PO DAILY 08/14/15 [History] Metoprolol Succinate [Toprol XL] 25 mg PO DAILY 01/06/16 [History] Acetaminophen [Tylenol] 650 mg PO Q6H PRN 02/28/17 [History] Levothyroxine 100 mcg PO ACBREAKFAST 04/24/17 [History] Lisinopril 5 mg PO DAILY 12/18/17 [History] Omeprazole Magnesium [Prilosec Otc] 40 mg PO DAILY 01/21/20 [History] L.acidoph,Paracasei, B.lactis [Probiotic] 1 tab PO DAILY 08/05/20 [History] Past Medical History HEENT History: Reports: Impaired Vision Other HEENT History: wears glasses Cardiovascular History: Reports: Bypass, CAD, High Cholesterol, Hypertension, DC, Stents Gastrointestinal History: Reports: Diverticulosis, GERD, Other (See Below) Other Gastrointestinal History: lymphocitic colitis Genitourinary History: Reports: UTI, Recurrent Other Genitourinary History: Occasional UTI Known UTI 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 R shoulder pain Neurological History: Reports: Migraines Psychiatric History: Reports: Anxiety Endocrine/Metabolic History: Reports: Hypothyroidism Hematologic History: Reports: Anticoagulation Therapy, Other (See Below) Other Hematologic History: Off warfarin for 1 month Oncologic (Cancer) History: Reports: Squamous Cell Carcinoma Dermatologic History: Reports: Other (See Below) Other Dermatologic History: skin cancer lesions on feet and legs, right hand - Infectious Disease History Infectious Disease History: Reports: Chicken Pox, Measles, Mumps, Rubella - Past Surgical History Head Surgeries/Procedures: Reports: None HEENT Surgical History: Reports: None Cardiovascular Surgical History: Reports: Carotid Stents, Coronary Artery Bypass Other Cardiovascular Surgeries/Procedures: 2010 with stents. Intermittent use of anticoagulants GI Surgical History: Reports: Appendectomy, Cholecystectomy, Colonoscopy, EGD, Hernia Repair/Other Female Surgical History: Reports: Hysterectomy Endocrine Surgical History: Reports: None Neurological Surgical History: Reports: None Musculoskeletal Surgical History: Reports: Other (See Below) Other Musculoskeletal Surgeries/Procedures:: Fall in May - pain to coccyx. shoulder surgery Oncologic Surgical History: Reports: None Dermatological Surgical History: Reports: Skin Biopsy Social & Family History - Family History Family Medical History: No Pertinent Family History Cardiac: Reports: DC Respiratory: Reports: COPD Oncologic: Reports: Brain, Skin - Tobacco Use Tobacco Use Status *Q: Current Every Day Tobacco User Years of Tobacco use: 30 Packs/Tins Daily: 0.5 Used Tobacco, but Quit: No Tobacco Use Comment: she bought patches yesterday - Caffeine Use Caffeine Use: Reports: Coffee Other Caffeine Use: 1 pot in the morning - Alcohol Use Days Per Week of Alcohol Use: 7 Number of Drinks Per Day: 3 Total Drinks Per Week: 21 - Recreational Drug Use Recreational Drug Use: No - Living Situation & Occupation Living situation: Reports: ( 08/19/2010), Alone (since of spouse) Occupation: Retired ED ROS GENERAL - Review of Systems Review Of Systems: See Below Constitutional: Reports: Malaise. Denies: Fever HEENT: Reports: No Symptoms Respiratory: Reports: No Symptoms Cardiovascular: Reports: No Symptoms Endocrine: Reports: No Symptoms GI/Abdominal: Reports: Abdominal Pain, Nausea. Denies: Black Stool, Bloody Stool, Constipation, Diarrhea, Distension, Flatus, Hematemesis, Hematochezia, Melena, Vomiting : Reports: No Symptoms Musculoskeletal: Reports: No Symptoms Skin: Reports: No Symptoms Neurological: Reports: No Symptoms Psychiatric: Reports: No Symptoms ED EXAM, GI/ABD - Physical Exam Exam: See Below Exam Limited By: No Limitations General Appearance: Alert, WD/WN, Mild Distress Eyes: Bilateral: Normal Appearance Ears: Normal External Exam, Normal Canal, Hearing Grossly Normal Nose: Normal Inspection, No Blood Throat/Mouth: Normal Inspection, Normal Lips, Normal Oropharynx, Normal Voice, No Airway Compromise Head: Atraumatic, Normocephalic Neck: Normal Inspection Respiratory/Chest: No Respiratory Distress, Lungs Clear, Normal Breath Sounds, No Accessory Muscle Use. No: Chest Non-Tender (chest diffusely tender) Cardiovascular: Regular Rate, Rhythm, No Edema GI/Abdominal Exam: No Distention, Guarding, Rigid, Tender (diffuse with even mild palpation), Abnormal Bowel Sounds (slightly increased). No: Soft, Non- Tender, Distended Back Exam: Normal Inspection. No: CVA Tenderness (R), CVA Tenderness (L) Extremities: Normal Inspection, Normal Range of Motion, Non-Tender, No Pedal Edema. No: Pedal Edema Neurological: Alert, Oriented, CN II-XII Intact, Normal Cognition Psychiatric: Normal Affect, Normal Mood Skin Exam: Warm, Dry, Intact, Normal Color, No Rash #1 Interpretation EKG Date: 08/12/20 Time: 13:30 Rhythm: NSR Rate (Beats/Min): 68 [place]: Normal P-Wave: Present QRS: Normal ST-T: Normal QT: Normal Comparison: No Change Course - Vital Signs Last Recorded V/S: Last Vital Signs Temp 36.4 C 08/12/20 12:45 Pulse 98 08/12/20 12:45 Resp 16 08/12/20 12:45 BP 136/59 L 08/12/20 12:45 Pulse Ox 98 08/12/20 12:45 - Orders/Labs/Meds Orders: Active Orders 24 hr Category Date Time Status Cardiac Monitoring [RC] .As Directed Care 08/12/20 11:55 Active EKG Documentation Completion [RC] ASDIRECTED Care 08/12/20 11:55 Active NS + KCl 20mEq/L [Normal Saline with 20 mEq KCl] 1,000 Med 08/12/20 14:15 Active ml IV ASDIRECTED Sodium Chloride 0.9% [Saline Flush] Med 08/12/20 11:56 Active 10 ml FLUSH ASDIRECTED PRN Saline Lock Insert [OM.PC] Routine Oth 08/12/20 11:56 Ordered EKG 12 Lead [EK] Routine Ther 08/12/20 11:55 Stop Req Medication Orders Potassium Chloride/Sodium Chloride (Normal Saline With 20 Meq Kcl) 1,000 mls @ 500 mls/hr IV ASDIRECTED REGLA Sodium Chloride (Sodium Chloride 0.9% 10 Ml Syringe) 10 ml FLUSH ASDIRECTED PRN PRN Reason: Keep Vein Open Last Admin: 08/12/20 13:02 Dose: 10 ml Documented by: [id number] Labs: Laboratory Tests 08/12/20 08/12/20 08/12/20 Range/Units 12:42 12:52 12:55 WBC 14.8 H (4.5-11.0) K/uL RBC 3.86 (3.30-5.50) M/uL Hgb 13.0 (12.0-15.0) g/dL Hct 39.5 (36.0-48.0) % MCV 102 H (80-98) fL MCH 34 H (27-31) pg MCHC 33 (32-36) % Plt Count 518 H (150-400) K/uL Sodium (140-148) mmol/L Potassium (3.6-5.2) mmol/L Chloride (100-108) mmol/L Carbon Dioxide (21-32) mmol/L Anion Gap (5.0-14.0) mmol/L BUN (7-18) mg/dL Creatinine (0.6-1.0) mg/dL Est Cr Clr Drug Dosing mL/min Estimated GFR (MDRD) (>60) Glucose (74-106) mg/dL Calcium (8.5-10.1) mg/dL Magnesium 1.8 (1.8-2.4) mg/dL Lipase 8594 H (73-393) U/L Urine Color (YELLOW) Urine Appearance (CLEAR) Urine pH (5.0-8.0) Ur Specific [place] (1.008-1.030) Urine Protein (NEGATIVE) mg/dL Urine Glucose (UA) (NEGATIVE) mg/dL Urine Ketones (NEGATIVE) mg/dL Urine Occult Blood (NEGATIVE) Urine Nitrite (NEGATIVE) Urine Bilirubin (NEGATIVE) Urine Urobilinogen (0.2-1.0) EU/dL Ur Leukocyte Esterase (NEGATIVE) Ur Epithelial Cells Amorphous Sediment Urine Bacteria Urine Mucus 08/12/20 08/12/20 Range/Units 12:55 13:12 WBC (4.5-11.0) K/uL RBC (3.30-5.50) M/uL Hgb (12.0-15.0) g/dL Hct (36.0-48.0) % MCV (80-98) fL MCH (27-31) pg MCHC (32-36) % Plt Count (150-400) K/uL Sodium 139 L (140-148) mmol/L Potassium 3.4 L (3.6-5.2) mmol/L Chloride 98 L (100-108) mmol/L Carbon Dioxide 31 (21-32) mmol/L Anion Gap 13.4 (5.0-14.0) mmol/L BUN 23 H D (7-18) mg/dL Creatinine 1.0 (0.6-1.0) mg/dL Est Cr Clr Drug Dosing 41.72 mL/min Estimated GFR (MDRD) 54 L (>60) Glucose 154 H (74-106) mg/dL Calcium 10.0 (8.5-10.1) mg/dL Magnesium (1.8-2.4) mg/dL Lipase (73-393) U/L Urine Color Yellow (YELLOW) Urine Appearance Clear (CLEAR) Urine pH 5.5 (5.0-8.0) Ur Specific [place] 1.015 (1.008-1.030) Urine Protein Negative (NEGATIVE) mg/dL Urine Glucose (UA) Negative (NEGATIVE) mg/dL Urine Ketones Negative (NEGATIVE) mg/dL Urine Occult Blood Negative (NEGATIVE) Urine Nitrite Negative (NEGATIVE) Urine Bilirubin Negative (NEGATIVE) Urine Urobilinogen 0.2 (0.2-1.0) EU/dL Ur Leukocyte Esterase Negative (NEGATIVE) Ur Epithelial Cells Rare Amorphous Sediment Rare Urine Bacteria Many Urine Mucus Not seen Meds: Medications Generic Name Dose Route Start Last Admin Trade Name Freq PRN Reason Stop Dose Admin Potassium Chloride/Sodium Chloride 1,000 mls @ 500 mls/hr 08/12/20 14:15 Normal Saline With 20 Meq Kcl IV ASDIRECTED REGLA Sodium Chloride 10 ml 08/12/20 11:56 08/12/20 13:02 Sodium Chloride 0.9% 10 Ml Syringe FLUSH 10 ml ASDIRECTED PRN Administration Keep Vein Open Discontinued Medications Generic Name Dose Route Start Last Admin Trade Name Freq PRN Reason Stop Dose Admin Hydromorphone HCl 0.5 mg 08/12/20 12:42 08/12/20 13:03 Hydromorphone 0.5 Mg/0.5 Ml Syringe IVPUSH 08/12/20 12:43 Not Given ONETIME ONE Meperidine HCl 50 mg 08/12/20 12:56 08/12/20 13:02 Meperidine Pf 100 Mg/Ml Syringe IV 08/12/20 12:57 50 mg ONETIME ONE Administration Metoclopramide HCl 10 mg 08/12/20 12:42 08/12/20 13:01 Metoclopramide 10 Mg/2 Ml Sdv IVPUSH 08/12/20 12:43 10 mg ONETIME ONE Administration Ondansetron HCl 4 mg 08/12/20 14:14 08/12/20 14:24 Ondansetron 4 Mg/2 Ml Sdv IVPUSH 08/12/20 14:15 4 mg ONETIME ONE Administration - Radiology Interpretation Free Text/Narrative:: CT abd/pelvis without contrast(allergy)-mild thickening of the mid pancreas, new area of low attenuation in the mid pancreas body. CT Results Date: 08/12/20 CT Results Time: 15:27 Departure - Departure Time of Disposition: 15:40 Disposition: Admitted As Inpatient 68 Condition: Fair Clinical Impression: Acute pancreatitis Qualifiers: Pancreatitis type: unspecified pancreatitis type Acute pancreatitis complication: unspecified Qualified Code(s): K85.90 - Acute pancreatitis without necrosis or infection, unspecified - Discharge Information Referrals: Eleuterio Hudson SOFTWARE DESIGN ANALYST [Primary Care Provider] - Forms: ED Department Discharge Sepsis Event Note (ED) - Focused Exam Vital Signs: Vital Signs Temp Pulse Resp BP Pulse Ox 08/12/20 12:45 36.4 C 98 16 136/59 L 98 - My Orders Last 24 Hours: My Active Orders 08/12/20 11:55 Cardiac Monitoring [RC] .As Directed EKG Documentation Completion [RC] ASDIRECTED EKG 12 Lead [EK] Routine 08/12/20 11:56 Sodium Chloride 0.9% [Saline Flush] 10 ml FLUSH ASDIRECTED PRN Saline Lock Insert [OM.PC] Routine 08/12/20 14:15 NS + KCl 20mEq/L [Normal Saline with 20 mEq KCl] 1,000 ml IV ASDIRECTED - Assessment/Plan Last 24 Hours: My Active Orders 08/12/20 11:55 Cardiac Monitoring [RC] .As Directed EKG Documentation Completion [RC] ASDIRECTED EKG 12 Lead [EK] Routine 08/12/20 11:56 Sodium Chloride 0.9% [Saline Flush] 10 ml FLUSH ASDIRECTED PRN Saline Lock Insert [OM.PC] Routine 08/12/20 14:15 NS + KCl 20mEq/L [Normal Saline with 20 mEq KCl] 1,000 ml IV ASDIRECTED
[2020-08-12] MEDS ORDERED: Meperidine PF 100 MG/ML Syringe IV ONE (12:56)
[2020-08-12] MEDS ORDERED: Ondansetron 4 MG/2 ML SDV IVPUSH ONE (14:14)
[2020-08-12] MEDS ORDERED: NS + KCl 20mEq/L 1,000 ML IV SCH (14:15)
--- NOTE | 2020-08-12 15:13 | CT ---
Abdomen Pelvis wo Cont CLINICAL HISTORY: Abdominal pain COMPARISON: 2019. TECHNIQUE: Axial tomographic images are obtained from the dome of the diaphragm to the pubic symphysis without IV contrast enhancement. No oral contrast was used. The dosage reduction and iterative reconstruction techniques employed. FINDINGS: The lung bases are clear. The liver shows a small granulomata in the right lobe. There is no focal mass or biliary dilatation.. The gallbladder has been removed. The spleen has a normal size shape. The pancreas shows some peripancreatic ill-definition suggesting inflammation. In the body the pancreas there is a 1.2 x 1.6 cm low-attenuation focus. Pancreatic mass is not excluded. The adrenal glands show some mild fullness bilaterally this is similar to 2020.. There is a 2.1 x 1.5 cm low-attenuation focus in the midpole of the right kidney similar to prior study. There is a 2.7 x 2.1 cm low-attenuation focus in the upper pole of the left kidney also unchanged from prior study. There is a punctate calcification in the lower pole of the left kidney. There is no hydronephrosis. The ureters have a normal course and contour. The ascending colon and cecum is in the left abdomen. There is diverticulosis without evidence diverticulitis. The aorta shows severe atheromatous calcification. There is no suspicious retroperitoneal adenopathy. Small intestinal configuration is nonacute. IMPRESSION: Mild thickening of the mid pancreas with some ill-definition of the peripancreatic fat. There is now a 1.2 x 1.6 cm low-attenuation focus in the pancreas body not present prior study. Necrosis or abscess is not excluded. Small bowel malrotation Bilateral renal cysts
--- NOTE | 2020-08-12 15:45 | PCM.HP.2 ---
H&P History of Present Illness - General Date of Service: 08/12/20 Admit Problem/Dx: Admission Diagnosis/Problem Admission Diagnosis/Problem Pancreatitis Source of Information: Patient, Family, Provider, RN Notes Reviewed History Limitations: Reports: No Limitations - History of Present Illness Initial Comments - Free Text/Narative: Ms. Johnson is a 80-year-old woman who was admitted through the emergency department with nausea, vomiting, and abdominal pain, secondary to acute on chronic pancreatitis. She has had ongoing difficulty with abdominal discomfort over the past year. 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 Previous CT scan did show some evidence of pancreatic inflammation. Over the last week he has had progressive increase in upper abdominal pain associated with nausea. The symptoms have been significantly worse over the last 24 hours. Because of increased symptoms she presented to the emergency department today for further evaluation. CT scan again shows evidence of inflammation of the pancreas with possible pseudocyst. Lipase level is significantly elevated at 8000. She does admit to ongoing daily alcohol use. - Related Data Allergies/Adverse Reactions: Allergies Allergy/AdvReac Type Severity Reaction Status Date / Time Iodinated Contrast Media Allergy Severe Anaphylactic Verified 08/12/20 12:49 [Iodinated Contrast Media - Shock IV Dye] sumatriptan succinate Allergy Severe Tachycardia Verified 08/12/20 12:49 [From Imitrex] Sulfa (Sulfonamide Allergy Intermediate Rash Verified 08/12/20 12:49 Antibiotics) isosorbide [From Imdur] Allergy Mild Hypotension Verified 08/12/20 12:49 amlodipine Allergy Unknown Other Verified 08/12/20 12:49 ciprofloxacin Allergy Unknown Other Verified 08/12/20 12:49 hydromorphone [From Dilaudid] Allergy Unknown Other Verified 08/12/20 12:49 hydromorphone HCl Allergy Unknown Cannot Verified 08/12/20 12:49 [From Dilaudid] Remember sumatriptan [From Imitrex] Allergy Tachycardia Verified 08/12/20 12:49 morphine AdvReac Intermediate Nausea and Verified 08/12/20 12:49 Vomiting Home Medications: Home Meds Furosemide [Lasix] 40 mg PO DAILY 02/21/13 [History] Aspirin [Stephen Chewable Aspirin] 81 mg PO DAILY 09/04/13 [History] Nitroglycerin [Nitrostat] 0.4 mg SL ASDIRECTED PRN 09/04/13 [History] Rosuvastatin [Crestor] 5 mg PO Q48H 06/02/14 [History] busPIRone [Buspar] 10 mg PO DAILY 08/14/15 [History] Metoprolol Succinate [Toprol XL] 25 mg PO DAILY 01/06/16 [History] Acetaminophen [Tylenol] 650 mg PO Q6H PRN 02/28/17 [History] Levothyroxine 100 mcg PO ACBREAKFAST 04/24/17 [History] Lisinopril 5 mg PO DAILY 12/18/17 [History] Omeprazole Magnesium [Prilosec Otc] 40 mg PO DAILY 01/21/20 [History] L.acidoph,Paracasei, B.lactis [Probiotic] 1 tab PO DAILY 08/05/20 [History] Past Medical History HEENT History: Reports: Impaired Vision Other HEENT History: wears glasses Cardiovascular History: Reports: Bypass, CAD, High Cholesterol, Hypertension, NM, Stents Gastrointestinal History: Reports: Diverticulosis, GERD, Other (See Below) Other Gastrointestinal History: lymphocitic colitis Genitourinary History: Reports: UTI, Recurrent Other Genitourinary History: Occasional UTI Known UTI [employer] History: Reports: , 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 R shoulder pain Neurological History: Reports: Migraines Psychiatric History: Reports: Anxiety Endocrine/Metabolic History: Reports: Hypothyroidism Hematologic History: Reports: Anticoagulation Therapy, Other (See Below) Other Hematologic History: Off warfarin for 1 month Oncologic (Cancer) History: Reports: Squamous Cell Carcinoma Dermatologic History: Reports: Other (See Below) Other Dermatologic History: skin cancer lesions on feet and legs, right hand - Infectious Disease History Infectious Disease History: Reports: Chicken Pox, Measles, Mumps, Rubella - Past Surgical History Head Surgeries/Procedures: Reports: None HEENT Surgical History: Reports: None Cardiovascular Surgical History: Reports: Carotid Stents, Coronary Artery Bypass Other Cardiovascular Surgeries/Procedures: 2010 with stents. Intermittent use of anticoagulants GI Surgical History: Reports: Appendectomy, Cholecystectomy, Colonoscopy, EGD, Hernia Repair/Other Female Surgical History: Reports: Hysterectomy Endocrine Surgical History: Reports: None Neurological Surgical History: Reports: None Musculoskeletal Surgical History: Reports: Other (See Below) Other Musculoskeletal Surgeries/Procedures:: Fall in May - pain to coccyx. shoulder surgery Oncologic Surgical History: Reports: None Dermatological Surgical History: Reports: Skin Biopsy Social & Family History - Family History Family Medical History: No Pertinent Family History Cardiac: Reports: NM Respiratory: Reports: COPD Oncologic: Reports: Brain, Skin - Tobacco Use Tobacco Use Status *Q: Current Every Day Tobacco User Years of Tobacco use: 30 Packs/Tins Daily: 0.5 Used Tobacco, but Quit: No Tobacco Use Comment: she bought patches yesterday - Caffeine Use Caffeine Use: Reports: Coffee Other Caffeine Use: 1 pot in the morning - Alcohol Use Days Per Week of Alcohol Use: 7 Number of Drinks Per Day: 3 Total Drinks Per Week: 21 - Recreational Drug Use Recreational Drug Use: No - Living Situation & Occupation Living situation: Reports: ( 08/19/2010), Alone (since of spouse) Occupation: Retired H&P Review of Systems - Review of Systems: Review Of Systems: See Below General: Reports: Malaise, Weakness, Decreased Appetite. Denies: Fever, Chills HEENT: Reports: No Symptoms Pulmonary: Reports: No Symptoms Cardiovascular: Reports: No Symptoms Gastrointestinal: Reports: Abdominal Pain, Decreased Appetite, Nausea, Vomiting. Denies: Difficulty Swallowing, Distension, Hematemesis, Hematochezia, Melena Genitourinary: Reports: No Symptoms Musculoskeletal: Reports: No Symptoms Skin: Reports: No Symptoms Psychiatric: Reports: No Symptoms Neurological: Reports: No Symptoms Hematologic/Lymphatic: Reports: No Symptoms Immunologic: Reports: No Symptoms Exam - Exam Exam: See Below - Vital Signs Vital Signs: Last Vital Signs Temp 97.5 F 08/12/20 12:45 Pulse 98 08/12/20 12:45 Resp 16 08/12/20 12:45 BP 136/59 L 08/12/20 12:45 Pulse Ox 98 08/12/20 12:45 Weight: 159 lb - Exam Quality Assessment: DVT Prophylaxis General: Alert, Oriented, Cooperative, Moderate Distress HEENT: Conjunctiva Clear, Hearing Intact, Mucosa Moist & [place], Normal Nasal Septum, Posterior Pharynx Clear, Pupils Equal Neck: Supple, Trachea Midline, +2 Carotid Pulse wo Bruit Lungs: Clear to Auscultation, Normal Respiratory Effort, Decreased Breath Sounds Cardiovascular: Regular Rate, Regular Rhythm, Normal S1, Normal S2. No: Systolic Murmur, Diastolic Murmur GI/Abdominal Exam: Soft, No Organomegaly, Tender. No: Distended, Guarding, Rigid, Rebound Back Exam: Normal Inspection, Full Range of Motion Extremities: Non-Tender, No Pedal Edema Skin: Warm, Dry, Intact Neurological: Cranial Nerves Intact, Strength Equal Bilateral, Normal Speech, Normal Tone, Sensation Intact. No: Focal Deficit Neuro Extensive - Mental Status: Alert, Oriented x3, Normal Mood/Affect, Normal Cognition, Memory Intact - Patient Data Lab Results Last 24 hrs: Laboratory Results - last 24 hr 08/12/20 08/12/20 08/12/20 Range/Units 12:42 12:52 12:55 WBC 14.8 H (4.5-11.0) K/uL RBC 3.86 (3.30-5.50) M/uL Hgb 13.0 (12.0-15.0) g/dL Hct 39.5 (36.0-48.0) % MCV 102 H (80-98) fL MCH 34 H (27-31) pg MCHC 33 (32-36) % Plt Count 518 H (150-400) K/uL Sodium (140-148) mmol/L Potassium (3.6-5.2) mmol/L Chloride (100-108) mmol/L Carbon Dioxide (21-32) mmol/L Anion Gap (5.0-14.0) mmol/L BUN (7-18) mg/dL Creatinine (0.6-1.0) mg/dL Est Cr Clr Drug Dosing mL/min Estimated GFR (MDRD) (>60) Glucose (74-106) mg/dL Calcium (8.5-10.1) mg/dL Magnesium 1.8 (1.8-2.4) mg/dL Lipase 8594 H (73-393) U/L Urine Color (YELLOW) Urine Appearance (CLEAR) Urine pH (5.0-8.0) Ur Specific [place] (1.008-1.030) Urine Protein (NEGATIVE) mg/dL Urine Glucose (UA) (NEGATIVE) mg/dL Urine Ketones (NEGATIVE) mg/dL Urine Occult Blood (NEGATIVE) Urine Nitrite (NEGATIVE) Urine Bilirubin (NEGATIVE) Urine Urobilinogen (0.2-1.0) EU/dL Ur Leukocyte Esterase (NEGATIVE) Ur Epithelial Cells Amorphous Sediment Urine Bacteria Urine Mucus 08/12/20 08/12/20 Range/Units 12:55 13:12 WBC (4.5-11.0) K/uL RBC (3.30-5.50) M/uL Hgb (12.0-15.0) g/dL Hct (36.0-48.0) % MCV (80-98) fL MCH (27-31) pg MCHC (32-36) % Plt Count (150-400) K/uL Sodium 139 L (140-148) mmol/L Potassium 3.4 L (3.6-5.2) mmol/L Chloride 98 L (100-108) mmol/L Carbon Dioxide 31 (21-32) mmol/L Anion Gap 13.4 (5.0-14.0) mmol/L BUN 23 H D (7-18) mg/dL Creatinine 1.0 (0.6-1.0) mg/dL Est Cr Clr Drug Dosing 41.72 mL/min Estimated GFR (MDRD) 54 L (>60) Glucose 154 H (74-106) mg/dL Calcium 10.0 (8.5-10.1) mg/dL Magnesium (1.8-2.4) mg/dL Lipase (73-393) U/L Urine Color Yellow (YELLOW) Urine Appearance Clear (CLEAR) Urine pH 5.5 (5.0-8.0) Ur Specific [place] 1.015 (1.008-1.030) Urine Protein Negative (NEGATIVE) mg/dL Urine Glucose (UA) Negative (NEGATIVE) mg/dL Urine Ketones Negative (NEGATIVE) mg/dL Urine Occult Blood Negative (NEGATIVE) Urine Nitrite Negative (NEGATIVE) Urine Bilirubin Negative (NEGATIVE) Urine Urobilinogen 0.2 (0.2-1.0) EU/dL Ur Leukocyte Esterase Negative (NEGATIVE) Ur Epithelial Cells Rare Amorphous Sediment Rare Urine Bacteria Many Urine Mucus Not seen Result Diagrams: 08/12/20 12:55 08/12/20 12:55 Sepsis Event Note - Evaluation Sepsis Screening Result: No Definite Risk - Focused Exam Vital Signs: Vital Signs Temp Pulse Resp BP Pulse Ox 08/12/20 12:45 97.5 F 98 16 136/59 L 98 *Q Meaningful Use (ADM) - VTE Risk Assess *Q Each Risk Factor Represents 1 Point: Obesity ( BMI > 25 kg/m2) Total Score 1 Point Risk Factors: 1 Each Risk Factor Represents 2 Points: None Total Score 2 Point Risk Factors: 0 Each Risk Factor Represents 3 Points: Age 75 Years or Greater Total Score 3 Point Risk Factors: 3 Each Risk Factor Represents 5 Points: None Total Score 5 Point Risk Factors: 0 Venous Thromboembolism Risk Factor Score *Q: 4 Problem List Initiated/Reviewed/Updated: Yes Orders Last 24hrs: Active Orders 24 hr Category Date Time Status Patient Status Manage Transfer [TRANSFER] Routine ADT 08/12/20 15:34 Ordered Cardiac Monitoring [RC] .As Directed Care 08/12/20 11:55 Active EKG Documentation Completion [RC] ASDIRECTED Care 08/12/20 11:55 Active HEPATIC FUNCTION PANEL,HFP [CHEM] Stat Lab 08/12/20 12:52 Received NS + KCl 20mEq/L [Normal Saline with 20 mEq KCl] 1,000 Med 08/12/20 14:15 Active ml IV ASDIRECTED Sodium Chloride 0.9% [Saline Flush] Med 08/12/20 11:56 Active 10 ml FLUSH ASDIRECTED PRN Saline Lock Insert [OM.PC] Routine Oth 08/12/20 11:56 Ordered Resuscitation Status Routine Resus Stat 08/12/20 15:40 Ordered EKG 12 Lead [EK] Routine Ther 08/12/20 11:55 Stop Req Medication Orders Potassium Chloride/Sodium Chloride (Normal Saline With 20 Meq Kcl) 1,000 mls @ 500 mls/hr IV ASDIRECTED REGLA Sodium Chloride (Sodium Chloride 0.9% 10 Ml Syringe) 10 ml FLUSH ASDIRECTED PRN PRN Reason: Keep Vein Open Last Admin: 08/12/20 13:02 Dose: 10 ml Documented by: [id number] Assessment/Plan Comment:: ASSESSMENT AND PLAN PANCREATITIS-likely acute on chronic, previous evidence of pancreatic inflammation noted on previous CT scan. Likely secondary to her ongoing daily alcohol use. -Avoid further alcohol use -N.p.o. -Follow-up lipase in a.m. -Pain and nausea medication as needed -Will need follow-up of possible pancreatic pseudocyst in the future HISTORY OF DAILY ALCOHOL USE -Monitor closely for alcohol withdrawal -Alcohol withdrawal protocol MAINTENANCE ISSUES -DVT prophylaxis; Lovenox 40 mg subcu daily -GI prophylaxis; continue outpatient PPI therapy -Bustamante catheter; not indicated -Nutrition; n.p.o. -Nicotine dependence; not required CODE STATUS-FULL CODE ADMISSION STATUS-patient will be admitted to inpatient status, expect at least a 2 night hospital stay for evaluation and management of problems as outlined above. At the time of this admission I do not reasonably expected evaluation and management of this problem will require more than a 96 hour hospital stay. DISPOSITION-anticipate discharge to home after the hospital stay. PRIMARY CARE PROVIDER-Eleuterio Hudson - Mortality Measure Prognosis:: Good
[2020-08-12] MEDS ORDERED: LORazepam 1 MG Tab PO PRN (16:02)
[2020-08-12] MEDS ORDERED: Ondansetron 4 MG/2 ML SDV IV PRN (16:02)
[2020-08-12] MEDS ORDERED: Polyethylene Glycol 3350 Powder 17 GM Packet PO PRN (16:02)
[2020-08-12] MEDS ORDERED: Acetaminophen 325 MG Tab PO PRN (16:02)
[2020-08-12] MEDS: Sodium Chloride 0.9% 1,000 ML IV SCH ×2 (16:54→23:16)
[2020-08-12] MEDS: HYDROmorphone 0.5 MG/0.5 ML Syringe IVPUSH PRN ×3 (16:59→23:14)
[2020-08-12] MEDS: Enoxaparin 40 MG/0.4 ML Syringe SUBCUT SCH (17:56)
[2020-08-12] MEDS: Thiamine 100 MG Tab PO SCH (17:58)
[2020-08-12] MEDS: Folic Acid 1 MG Tab PO SCH (17:58)
[2020-08-13] MEDS: HYDROmorphone 0.5 MG/0.5 ML Syringe IVPUSH PRN ×6 (02:24→21:27)
[2020-08-13] MEDS: Ketorolac 30 MG/ML SDV IVPUSH PRN ×3 (03:21→20:05)
[2020-08-13] MEDS: Aspirin 81 MG Tab.Chew PO SCH (08:04)
[2020-08-13] MEDS: Sodium Chloride 0.9% 1,000 ML IV SCH ×2 (08:04→21:31)
[2020-08-13] MEDS: Thiamine 100 MG Tab PO SCH (08:05)
[2020-08-13] MEDS: Levothyroxine 100 MCG Tab PO SCH (08:06)
[2020-08-13] MEDS: Folic Acid 1 MG Tab PO SCH (08:07)
[2020-08-13] MEDS: Rosuvastatin 10 MG Tab PO SCH (08:08)
[2020-08-13] MEDS: Lactobacillus Rhamnosus GG (Probiotic) Cap PO SCH (08:09)
[2020-08-13] MEDS: Pantoprazole 40 MG Tab.CR PO SCH (08:10)
[2020-08-13] MEDS ORDERED: Potassium Chloride 20 MEQ Tab.ER PO ONE (08:20)
[2020-08-13] MEDS: Magnesium Oxide 400 MG Tab PO SCH ×2 (09:04→20:09)
[2020-08-13] MEDS: Metoprolol Succinate 25 MG Tab.ER PO SCH (09:05)
[2020-08-13] MEDS: Magnesium Sulfate/Water 2 GM/50 ML BAG IV SCH ×2 (09:06→14:20)
--- NOTE | 2020-08-13 10:35 | PCM.PN ---
- General Info Date of Service: 08/13/20 Subjective Update: Ms. Johnson has been stable since admission yesterday. Nausea and abdominal pain have improved but not resolved. Lipase level this morning significantly improve d from admission. Functional Status: Reports: Ambulating, Urinating - Review of Systems General: Reports: Weakness, Fatigue. Denies: Fever, Chills Pulmonary: Reports: No Symptoms Cardiovascular: Reports: No Symptoms Gastrointestinal: Reports: Abdominal Pain, Nausea. Denies: Difficulty Swallowing, Hematochezia, Melena, Vomiting - Patient Data Vitals - Most Recent: Last Vital Signs Temp 97.2 F 08/13/20 07:09 Pulse 50 L 08/13/20 09:05 Resp 16 08/13/20 07:09 BP 98/47 L 08/13/20 09:05 Pulse Ox 94 L 08/13/20 08:00 Weight - Most Recent: 166 lb 4.8 oz I&O - Last 24 Hours: Intake & Output 08/12/20 08/13/20 08/13/20 22:59 06:59 14:59 Intake Total 380 Output Total 100 Balance 280 Lab Results Last 24 Hours: Laboratory Results - last 24 hr 08/12/20 08/12/20 08/12/20 Range/Units 12:42 12:52 12:52 WBC (4.5-11.0) K/uL RBC (3.30-5.50) M/uL Hgb (12.0-15.0) g/dL Hct (36.0-48.0) % MCV (80-98) fL MCH (27-31) pg MCHC (32-36) % Plt Count (150-400) K/uL Neut % (Auto) (36-66) % Lymph % (Auto) (24-44) % [place] % (Auto) (2-6) % Eos % (Auto) (2-4) % Baso % (Auto) (0-1) % Sodium (140-148) mmol/L Potassium (3.6-5.2) mmol/L Chloride (100-108) mmol/L Carbon Dioxide (21-32) mmol/L Anion Gap (5.0-14.0) mmol/L BUN (7-18) mg/dL Creatinine (0.6-1.0) mg/dL Est Cr Clr Drug Dosing mL/min Estimated GFR (MDRD) (>60) Glucose (74-106) mg/dL Calcium (8.5-10.1) mg/dL Magnesium 1.8 (1.8-2.4) mg/dL Total Bilirubin 0.4 (0.2-1.0) mg/dL Direct Bilirubin 0.14 (0.0-0.2) mg/dL Indirect Bilirubin 0.26 AST 22 D (15-37) U/L ALT 24 (12-78) U/L Alkaline Phosphatase 90 (46-116) U/L Total Protein 6.6 (6.4-8.2) g/dL Albumin 3.2 L (3.4-5.0) g/dL Globulin 3.4 (2.3-3.5) g/dL Albumin/Globulin Ratio 0.9 L (1.2-2.2) Lipase 8594 H (73-393) U/L Urine Color (YELLOW) Urine Appearance (CLEAR) Urine pH (5.0-8.0) Ur Specific [place] (1.008-1.030) Urine Protein (NEGATIVE) mg/dL Urine Glucose (UA) (NEGATIVE) mg/dL Urine Ketones (NEGATIVE) mg/dL Urine Occult Blood (NEGATIVE) Urine Nitrite (NEGATIVE) Urine Bilirubin (NEGATIVE) Urine Urobilinogen (0.2-1.0) EU/dL Ur Leukocyte Esterase (NEGATIVE) Ur Epithelial Cells Amorphous Sediment Urine Bacteria Urine Mucus 08/12/20 08/12/20 08/12/20 Range/Units 12:55 12:55 13:12 WBC 14.8 H (4.5-11.0) K/uL RBC 3.86 (3.30-5.50) M/uL Hgb 13.0 (12.0-15.0) g/dL Hct 39.5 (36.0-48.0) % MCV 102 H (80-98) fL MCH 34 H (27-31) pg MCHC 33 (32-36) % Plt Count 518 H (150-400) K/uL Neut % (Auto) (36-66) % Lymph % (Auto) (24-44) % [place] % (Auto) (2-6) % Eos % (Auto) (2-4) % Baso % (Auto) (0-1) % Sodium 139 L (140-148) mmol/L Potassium 3.4 L (3.6-5.2) mmol/L Chloride 98 L (100-108) mmol/L Carbon Dioxide 31 (21-32) mmol/L Anion Gap 13.4 (5.0-14.0) mmol/L BUN 23 H D (7-18) mg/dL Creatinine 1.0 (0.6-1.0) mg/dL Est Cr Clr Drug Dosing 41.72 mL/min Estimated GFR (MDRD) 54 L (>60) Glucose 154 H (74-106) mg/dL Calcium 10.0 (8.5-10.1) mg/dL Magnesium (1.8-2.4) mg/dL Total Bilirubin (0.2-1.0) mg/dL Direct Bilirubin (0.0-0.2) mg/dL Indirect Bilirubin AST (15-37) U/L ALT (12-78) U/L Alkaline Phosphatase (46-116) U/L Total Protein (6.4-8.2) g/dL Albumin (3.4-5.0) g/dL Globulin (2.3-3.5) g/dL Albumin/Globulin Ratio (1.2-2.2) Lipase (73-393) U/L Urine Color Yellow (YELLOW) Urine Appearance Clear (CLEAR) Urine pH 5.5 (5.0-8.0) Ur Specific [place] 1.015 (1.008-1.030) Urine Protein Negative (NEGATIVE) mg/dL Urine Glucose (UA) Negative (NEGATIVE) mg/dL Urine Ketones Negative (NEGATIVE) mg/dL Urine Occult Blood Negative (NEGATIVE) Urine Nitrite Negative (NEGATIVE) Urine Bilirubin Negative (NEGATIVE) Urine Urobilinogen 0.2 (0.2-1.0) EU/dL Ur Leukocyte Esterase Negative (NEGATIVE) Ur Epithelial Cells Rare Amorphous Sediment Rare Urine Bacteria Many Urine Mucus Not seen 08/13/20 08/13/20 08/13/20 Range/Units 04:24 04:24 04:24 WBC 9.5 (4.5-11.0) K/uL RBC 3.26 L (3.30-5.50) M/uL Hgb 11.1 L (12.0-15.0) g/dL Hct 33.7 L (36.0-48.0) % MCV 103 H (80-98) fL MCH 34 H (27-31) pg MCHC 33 (32-36) % Plt Count 408 H (150-400) K/uL Neut % (Auto) 68 H (36-66) % Lymph % (Auto) 21 L (24-44) % [place] % (Auto) 9 H (2-6) % Eos % (Auto) 3 (2-4) % Baso % (Auto) 0 (0-1) % Sodium 142 (140-148) mmol/L Potassium 3.4 L (3.6-5.2) mmol/L Chloride 103 (100-108) mmol/L Carbon Dioxide 28 (21-32) mmol/L Anion Gap 14.4 H (5.0-14.0) mmol/L BUN 18 (7-18) mg/dL Creatinine 0.8 (0.6-1.0) mg/dL Est Cr Clr Drug Dosing 52.15 mL/min Estimated GFR (MDRD) > 60 (>60) Glucose 115 H (74-106) mg/dL Calcium 8.7 (8.5-10.1) mg/dL Magnesium 1.7 L (1.8-2.4) mg/dL Total Bilirubin 0.6 (0.2-1.0) mg/dL Direct Bilirubin (0.0-0.2) mg/dL Indirect Bilirubin AST 24 (15-37) U/L ALT 23 (12-78) U/L Alkaline Phosphatase 72 (46-116) U/L Total Protein 5.3 L (6.4-8.2) g/dL Albumin 2.5 L (3.4-5.0) g/dL Globulin 2.8 (2.3-3.5) g/dL Albumin/Globulin Ratio 0.9 L (1.2-2.2) Lipase 1837 H (73-393) U/L Urine Color (YELLOW) Urine Appearance (CLEAR) Urine pH (5.0-8.0) Ur Specific [place] (1.008-1.030) Urine Protein (NEGATIVE) mg/dL Urine Glucose (UA) (NEGATIVE) mg/dL Urine Ketones (NEGATIVE) mg/dL Urine Occult Blood (NEGATIVE) Urine Nitrite (NEGATIVE) Urine Bilirubin (NEGATIVE) Urine Urobilinogen (0.2-1.0) EU/dL Ur Leukocyte Esterase (NEGATIVE) Ur Epithelial Cells Amorphous Sediment Urine Bacteria Urine Mucus Med Orders - Current: Current Medications Acetaminophen (Acetaminophen 325 Mg Tab) 650 mg PO Q4H PRN PRN Reason: Pain (Mild 1-3)/fever Aspirin (Aspirin 81 Mg Tab.Chew) 81 mg PO DAILY [facility] Last Admin: 08/13/20 08:04 Dose: 81 mg Documented by: Enoxaparin Sodium (Enoxaparin 40 Mg/0.4 Ml Syringe) 40 mg SUBCUT Q24H [facility] Last Admin: 08/12/20 17:56 Dose: 40 mg Documented by: Folic Acid (Folic Acid 1 Mg Tab) 1 mg PO DAILY [facility] Last Admin: 08/13/20 08:07 Dose: 1 mg Documented by: Furosemide (Furosemide 40 Mg Tab) 40 mg PO DAILY [facility] Hydromorphone HCl (Hydromorphone 0.5 Mg/0.5 Ml Syringe) 0.5 mg IVPUSH Q2H PRN PRN Reason: Pain Last Admin: 08/13/20 09:17 Dose: 0.5 mg Documented by: Magnesium Sulfate (Magnesium Sulfate In Water 2 Gm/50 Ml) 2 gm in 50 mls @ 25 mls/hr IV Q6H [facility] Stop: 08/13/20 16:59 Last Admin: 08/13/20 09:06 Dose: 25 mls/hr Documented by: Sodium Chloride (Normal Saline) 1,000 mls @ 75 mls/hr IV ASDIRECTED [facility] Ketorolac Tromethamine (Ketorolac 30 Mg/Ml Sdv) 30 mg IVPUSH Q6H PRN PRN Reason: Pain Stop: 08/17/20 23:19 Last Admin: 08/13/20 03:21 Dose: 30 mg Documented by: Lactobacillus Rhamnosus (Lactobacillus Rhamnosus Gg (Probiotic) Cap) 1 cap PO DAILY [facility] Last Admin: 08/13/20 08:09 Dose: 1 cap Documented by: Levothyroxine Sodium (Levothyroxine 100 Mcg Tab) 100 mcg PO ACBREAKFAST [facility] Last Admin: 08/13/20 08:06 Dose: 100 mcg Documented by: Lisinopril (Lisinopril 5 Mg Tab) 5 mg PO DAILY [facility] Lorazepam (Lorazepam 1 Mg Tab) 0 mg PO ASDIRECTED PRN; Protocol PRN Reason: ETOH WITHDRAWAL Magnesium Oxide (Magnesium Oxide 400 Mg Tab) 400 mg PO BID [facility] Last Admin: 08/13/20 09:04 Dose: 400 mg Documented by: Metoprolol Succinate (Metoprolol Succinate 25 Mg Tab.Er) 25 mg PO DAILY [facility] Last Admin: 08/13/20 09:05 Dose: 25 mg Documented by: Ondansetron HCl (Ondansetron 4 Mg/2 Ml Sdv) 4 mg IV Q4H PRN PRN Reason: Nausea/Vomiting Pantoprazole Sodium (Pantoprazole 40 Mg Tab.Cr) 40 mg PO ACBREAKFAST [facility] Last Admin: 08/13/20 08:10 Dose: 40 mg Documented by: Polyethylene Glycol (Polyethylene Glycol 3350 Powder 17 Gm Packet) 17 gm PO DAILY PRN PRN Reason: Constipation Rosuvastatin Calcium (Rosuvastatin 10 Mg Tab) 5 mg PO Q48H [facility] Last Admin: 08/13/20 08:08 Dose: 5 mg Documented by: Sodium Chloride (Sodium Chloride 0.9% 10 Ml Syringe) 10 ml FLUSH ASDIRECTED PRN PRN Reason: Keep Vein Open Thiamine HCl (Thiamine 100 Mg Tab) 100 mg PO DAILY [facility] Last Admin: 08/13/20 08:05 Dose: 100 mg Documented by: Discontinued Medications Hydromorphone HCl (Hydromorphone 0.5 Mg/0.5 Ml Syringe) 0.5 mg IVPUSH ONETIME ONE Stop: 08/12/20 12:43 Last Admin: 08/12/20 13:03 Dose: Not Given Documented by: Hydromorphone HCl (Hydromorphone 0.5 Mg/0.5 Ml Syringe) 0.5 mg IVPUSH Q3H PRN PRN Reason: Pain Last Admin: 08/12/20 23:14 Dose: 0.5 mg Documented by: Potassium Chloride/Sodium Chloride (Normal Saline With 20 Meq Kcl) 1,000 mls @ 500 mls/hr IV ASDIRECTED [facility] Sodium Chloride (Normal Saline) 1,000 mls @ 125 mls/hr IV ASDIRECTED [facility] Last Admin: 08/13/20 08:04 Dose: 125 mls/hr Documented by: Meperidine HCl (Meperidine Pf 100 Mg/Ml Syringe) 50 mg IV ONETIME ONE Stop: 08/12/20 12:57 Last Admin: 08/12/20 13:02 Dose: 50 mg Documented by: Metoclopramide HCl (Metoclopramide 10 Mg/2 Ml Sdv) 10 mg IVPUSH ONETIME ONE Stop: 08/12/20 12:43 Last Admin: 08/12/20 13:01 Dose: 10 mg Documented by: Ondansetron HCl (Ondansetron 4 Mg/2 Ml Sdv) 4 mg IVPUSH ONETIME ONE Stop: 08/12/20 14:15 Last Admin: 08/12/20 14:24 Dose: 4 mg Documented by: Potassium Chloride (Potassium Chloride 20 Meq Tab.Er) 40 meq PO ONETIME ONE Stop: 08/13/20 08:21 Last Admin: 08/13/20 09:53 Dose: 40 meq Documented by: Sodium Chloride (Sodium Chloride 0.9% 10 Ml Syringe) 10 ml FLUSH ASDIRECTED PRN PRN Reason: Keep Vein Open Last Admin: 08/12/20 13:02 Dose: 10 ml Documented by: - Exam Quality Assessment: DVT Prophylaxis General: Alert, Oriented, Cooperative, Moderate Distress Lungs: Clear to Auscultation, Normal Respiratory Effort Cardiovascular: Regular Rate, Regular Rhythm, No Murmurs GI/Abdominal Exam: Soft, No Organomegaly, Distended, Tender. No: Guarding, Rigid, Rebound Extremities: Non-Tender, No Pedal Edema - Patient Data Lab Results Last 24 hrs: Laboratory Results - last 24 hr 08/12/20 08/12/20 08/12/20 Range/Units 12:42 12:52 12:52 WBC (4.5-11.0) K/uL RBC (3.30-5.50) M/uL Hgb (12.0-15.0) g/dL Hct (36.0-48.0) % MCV (80-98) fL MCH (27-31) pg MCHC (32-36) % Plt Count (150-400) K/uL Neut % (Auto) (36-66) % Lymph % (Auto) (24-44) % [place] % (Auto) (2-6) % Eos % (Auto) (2-4) % Baso % (Auto) (0-1) % Sodium (140-148) mmol/L Potassium (3.6-5.2) mmol/L Chloride (100-108) mmol/L Carbon Dioxide (21-32) mmol/L Anion Gap (5.0-14.0) mmol/L BUN (7-18) mg/dL Creatinine (0.6-1.0) mg/dL Est Cr Clr Drug Dosing mL/min Estimated GFR (MDRD) (>60) Glucose (74-106) mg/dL Calcium (8.5-10.1) mg/dL Magnesium 1.8 (1.8-2.4) mg/dL Total Bilirubin 0.4 (0.2-1.0) mg/dL Direct Bilirubin 0.14 (0.0-0.2) mg/dL Indirect Bilirubin 0.26 AST 22 D (15-37) U/L ALT 24 (12-78) U/L Alkaline Phosphatase 90 (46-116) U/L Total Protein 6.6 (6.4-8.2) g/dL Albumin 3.2 L (3.4-5.0) g/dL Globulin 3.4 (2.3-3.5) g/dL Albumin/Globulin Ratio 0.9 L (1.2-2.2) Lipase 8594 H (73-393) U/L Urine Color (YELLOW) Urine Appearance (CLEAR) Urine pH (5.0-8.0) Ur Specific [place] (1.008-1.030) Urine Protein (NEGATIVE) mg/dL Urine Glucose (UA) (NEGATIVE) mg/dL Urine Ketones (NEGATIVE) mg/dL Urine Occult Blood (NEGATIVE) Urine Nitrite (NEGATIVE) Urine Bilirubin (NEGATIVE) Urine Urobilinogen (0.2-1.0) EU/dL Ur Leukocyte Esterase (NEGATIVE) Ur Epithelial Cells Amorphous Sediment Urine Bacteria Urine Mucus 08/12/20 08/12/20 08/12/20 Range/Units 12:55 12:55 13:12 WBC 14.8 H (4.5-11.0) K/uL RBC 3.86 (3.30-5.50) M/uL Hgb 13.0 (12.0-15.0) g/dL Hct 39.5 (36.0-48.0) % MCV 102 H (80-98) fL MCH 34 H (27-31) pg MCHC 33 (32-36) % Plt Count 518 H (150-400) K/uL Neut % (Auto) (36-66) % Lymph % (Auto) (24-44) % [place] % (Auto) (2-6) % Eos % (Auto) (2-4) % Baso % (Auto) (0-1) % Sodium 139 L (140-148) mmol/L Potassium 3.4 L (3.6-5.2) mmol/L Chloride 98 L (100-108) mmol/L Carbon Dioxide 31 (21-32) mmol/L Anion Gap 13.4 (5.0-14.0) mmol/L BUN 23 H D (7-18) mg/dL Creatinine 1.0 (0.6-1.0) mg/dL Est Cr Clr Drug Dosing 41.72 mL/min Estimated GFR (MDRD) 54 L (>60) Glucose 154 H (74-106) mg/dL Calcium 10.0 (8.5-10.1) mg/dL Magnesium (1.8-2.4) mg/dL Total Bilirubin (0.2-1.0) mg/dL Direct Bilirubin (0.0-0.2) mg/dL Indirect Bilirubin AST (15-37) U/L ALT (12-78) U/L Alkaline Phosphatase (46-116) U/L Total Protein (6.4-8.2) g/dL Albumin (3.4-5.0) g/dL Globulin (2.3-3.5) g/dL Albumin/Globulin Ratio (1.2-2.2) Lipase (73-393) U/L Urine Color Yellow (YELLOW) Urine Appearance Clear (CLEAR) Urine pH 5.5 (5.0-8.0) Ur Specific [place] 1.015 (1.008-1.030) Urine Protein Negative (NEGATIVE) mg/dL Urine Glucose (UA) Negative (NEGATIVE) mg/dL Urine Ketones Negative (NEGATIVE) mg/dL Urine Occult Blood Negative (NEGATIVE) Urine Nitrite Negative (NEGATIVE) Urine Bilirubin Negative (NEGATIVE) Urine Urobilinogen 0.2 (0.2-1.0) EU/dL Ur Leukocyte Esterase Negative (NEGATIVE) Ur Epithelial Cells Rare Amorphous Sediment Rare Urine Bacteria Many Urine Mucus Not seen 08/13/20 08/13/20 08/13/20 Range/Units 04:24 04:24 04:24 WBC 9.5 (4.5-11.0) K/uL RBC 3.26 L (3.30-5.50) M/uL Hgb 11.1 L (12.0-15.0) g/dL Hct 33.7 L (36.0-48.0) % MCV 103 H (80-98) fL MCH 34 H (27-31) pg MCHC 33 (32-36) % Plt Count 408 H (150-400) K/uL Neut % (Auto) 68 H (36-66) % Lymph % (Auto) 21 L (24-44) % [place] % (Auto) 9 H (2-6) % Eos % (Auto) 3 (2-4) % Baso % (Auto) 0 (0-1) % Sodium 142 (140-148) mmol/L Potassium 3.4 L (3.6-5.2) mmol/L Chloride 103 (100-108) mmol/L Carbon Dioxide 28 (21-32) mmol/L Anion Gap 14.4 H (5.0-14.0) mmol/L BUN 18 (7-18) mg/dL Creatinine 0.8 (0.6-1.0) mg/dL Est Cr Clr Drug Dosing 52.15 mL/min Estimated GFR (MDRD) > 60 (>60) Glucose 115 H (74-106) mg/dL Calcium 8.7 (8.5-10.1) mg/dL Magnesium 1.7 L (1.8-2.4) mg/dL Total Bilirubin 0.6 (0.2-1.0) mg/dL Direct Bilirubin (0.0-0.2) mg/dL Indirect Bilirubin AST 24 (15-37) U/L ALT 23 (12-78) U/L Alkaline Phosphatase 72 (46-116) U/L Total Protein 5.3 L (6.4-8.2) g/dL Albumin 2.5 L (3.4-5.0) g/dL Globulin 2.8 (2.3-3.5) g/dL Albumin/Globulin Ratio 0.9 L (1.2-2.2) Lipase 1837 H (73-393) U/L Urine Color (YELLOW) Urine Appearance (CLEAR) Urine pH (5.0-8.0) Ur Specific [place] (1.008-1.030) Urine Protein (NEGATIVE) mg/dL Urine Glucose (UA) (NEGATIVE) mg/dL Urine Ketones (NEGATIVE) mg/dL Urine Occult Blood (NEGATIVE) Urine Nitrite (NEGATIVE) Urine Bilirubin (NEGATIVE) Urine Urobilinogen (0.2-1.0) EU/dL Ur Leukocyte Esterase (NEGATIVE) Ur Epithelial Cells Amorphous Sediment Urine Bacteria Urine Mucus Result Diagrams: 08/13/20 04:24 08/13/20 04:24 Sepsis Event Note - Evaluation Sepsis Screening Result: No Definite Risk - Focused Exam Vital Signs: Vital Signs Temp Pulse Pulse Resp BP BP BP 08/13/20 09:05 50 L 98/47 L 08/13/20 08:00 08/13/20 07:09 97.2 F 53 L 16 98/47 L 08/13/20 03:00 96.7 F L 53 L 16 114/43 L 08/13/20 01:32 08/12/20 23:09 95.6 F L 59 L 20 143/59 H Pulse Ox 08/13/20 09:05 08/13/20 08:00 94 L 08/13/20 07:09 95 08/13/20 03:00 96 08/13/20 01:32 94 L 08/12/20 23:09 97 - Problem List Review Problem List Initiated/Reviewed/Updated: Yes - My Orders Last 24 Hours: My Active Orders 08/12/20 Lunch Nothing per Oral Now Diet [DIET] 08/12/20 15:40 Resuscitation Status Routine 08/12/20 16:02 Acetaminophen [TylenoL] 650 mg PO Q4H PRN Folic Acid 1 mg PO DAILY LORazepam [Ativan] See Protocol PO ASDIRECTED PRN Ondansetron [Zofran] 4 mg IV Q4H PRN Sodium Chloride 0.9% [Saline Flush] 10 ml FLUSH ASDIRECTED PRN Thiamine [Vitamin B-1] 100 mg PO DAILY polyethylene glycoL 3350 [MiraLAX] 17 gm PO DAILY PRN 08/12/20 16:02 Patient Status [ADT] Routine Ambulate [RC] QID CIWAA Assessment [RC] Q4H Height and Weight [RC] 0500 Intake and Output [RC] QSHIFT Notify Provider Vital Signs [RC] ASDIRECTED Notify Provider [RC] PRN Oxygen Therapy [RC] PRN Pulse Oximetry [RC] CONTINUOUS Up With Assistance [RC] ASDIRECTED Up to Chair [RC] QID Vital Signs [RC] Q4H Peripheral IV Insertion Adult [OM.PC] Routine 08/12/20 18:00 Enoxaparin [Lovenox] 40 mg SUBCUT Q24H 08/13/20 07:30 Levothyroxine [Synthroid] 100 mcg PO ACBREAKFAST Pantoprazole [ProTONIX] 40 mg PO ACBREAKFAST 08/13/20 09:00 Aspirin 81 mg PO DAILY Furosemide [Lasix] 40 mg PO DAILY Lactobacillus Rhamnosus GG [Culturelle] 1 cap PO DAILY Magnesium Oxide 400 mg PO BID Magnesium Sulfate/Water [Magnesium Sulfate in Water 2 GM/50 ML] 2 gm in 50 ml IV Q6H Metoprolol Succinate [Toprol XL] 25 mg PO DAILY Rosuvastatin [Crestor] 5 mg PO Q48H lisinopriL [Prinivil] 5 mg PO DAILY 08/13/20 10:45 Sodium Chloride 0.9% @ 75 MLS/HR(1000ml) Sodium Chloride 0.9% [Normal Saline] 1,000 ml IV ASDIRECTED 08/14/20 05:00 BASIC METABOLIC PANEL,BMP [CHEM] Timed CBC WITH AUTO DIFF [HEME] Timed LIPASE [CHEM] Timed MAGNESIUM [CHEM] Timed - Plan Plan:: ASSESSMENT AND PLAN PANCREATITIS-likely acute on chronic, previous evidence of pancreatic inflammation noted on previous CT scan. Likely secondary to her ongoing daily alcohol use. -Avoid further alcohol use -N.p.o. -Follow-up lipase in a.m. -Pain and nausea medication as needed -Will need follow-up of possible pancreatic pseudocyst in the future -IV fluids for hydration HISTORY OF DAILY ALCOHOL USE-no evidence of significant alcohol withdrawal -Monitor closely for alcohol withdrawal -Alcohol withdrawal protocol MAINTENANCE ISSUES -DVT prophylaxis; Lovenox 40 mg subcu daily -GI prophylaxis; continue outpatient PPI therapy -Bust[place]ante catheter; not indicated -Nutrition; n.p.o. -Nicotine dependence; not required CODE STATUS-FULL CODE ADMISSION STATUS-patient will be admitted to inpatient status, expect at least a 2 night hospital stay for evaluation and management of problems as outlined above. At the time of this admission I do not reasonably expected evaluation and management of this problem will require more than a 96 hour hospital stay. DISPOSITION-anticipate discharge to home after the hospital stay. PRIMARY CARE PROVIDER-Eleuterio Hudson
[2020-08-13] MEDS: Enoxaparin 40 MG/0.4 ML Syringe SUBCUT SCH (17:09)
[2020-08-14] MEDS: HYDROmorphone 0.5 MG/0.5 ML Syringe IVPUSH PRN ×6 (03:17→21:21)
[2020-08-14] MEDS: Pantoprazole 40 MG Tab.CR PO SCH (08:30)
[2020-08-14] MEDS: Folic Acid 1 MG Tab PO SCH (08:30)
[2020-08-14] MEDS: Lactobacillus Rhamnosus GG (Probiotic) Cap PO SCH (08:30)
[2020-08-14] MEDS: Aspirin 81 MG Tab.Chew PO SCH (08:30)
[2020-08-14] MEDS: Levothyroxine 100 MCG Tab PO SCH (08:30)
[2020-08-14] MEDS: Furosemide 40 MG Tab PO SCH ×2 (08:31→13:21)
[2020-08-14] MEDS: Magnesium Oxide 400 MG Tab PO SCH ×2 (08:31→21:31)
[2020-08-14] MEDS: Metoprolol Succinate 25 MG Tab.ER PO SCH (08:31)
[2020-08-14] MEDS: Lisinopril 5 MG Tab PO SCH ×2 (08:31→13:21)
[2020-08-14] MEDS: Thiamine 100 MG Tab PO SCH (08:32)
[2020-08-14] MEDS: Sodium Chloride 0.9% 1,000 ML IV SCH (11:30)
--- NOTE | 2020-08-14 13:07 | PCM.PN ---
- General Info Date of Service: 08/14/20 Subjective Update: Ms. Johnson continues to experience epigastric supraumbilical abdominal pain. Lipase level stable from yesterday but remains significantly elevated. She has been afebrile and remained hemodynamically stable. Functional Status: Reports: Ambulating, Urinating - Review of Systems General: Reports: Weakness, Fatigue. Denies: Fever, Chills Pulmonary: Reports: No Symptoms Cardiovascular: Reports: No Symptoms Gastrointestinal: Reports: Abdominal Pain, Nausea. Denies: Diarrhea, Difficulty Swallowing, Hematochezia, Melena, Vomiting - Patient Data Vitals - Most Recent: Last Vital Signs Temp 97.2 F 08/14/20 11:12 Pulse 67 08/14/20 11:12 Resp 16 08/14/20 11:12 BP 142/54 H 08/14/20 11:12 Pulse Ox 96 08/14/20 11:12 Weight - Most Recent: 166 lb I&O - Last 24 Hours: Intake & Output 08/13/20 08/14/20 08/14/20 22:59 06:59 14:59 Intake Total 1099 Output Total 125 200 200 Balance -125 899 -200 Lab Results Last 24 Hours: Laboratory Results - last 24 hr 08/14/20 08/14/20 Range/Units 05:55 05:55 WBC 10.6 (4.5-11.0) K/uL RBC 3.43 (3.30-5.50) M/uL Hgb 11.8 L (12.0-15.0) g/dL Hct 36.2 (36.0-48.0) % MCV 106 H (80-98) fL MCH 34 H (27-31) pg MCHC 33 (32-36) % Plt Count 391 (150-400) K/uL Neut % (Auto) 69 H (36-66) % Lymph % (Auto) 22 L (24-44) % Cook % (Auto) 6 (2-6) % Eos % (Auto) 4 (2-4) % Baso % (Auto) 0 (0-1) % Sodium 142 (140-148) mmol/L Potassium 4.6 (3.6-5.2) mmol/L Chloride 106 (100-108) mmol/L Carbon Dioxide 25 (21-32) mmol/L Anion Gap 11.0 (5.0-14.0) mmol/L BUN 15 (7-18) mg/dL Creatinine 0.7 (0.6-1.0) mg/dL Est Cr Clr Drug Dosing 59.50 mL/min Estimated GFR (MDRD) > 60 (>60) Glucose 77 (74-106) mg/dL Calcium 8.6 (8.5-10.1) mg/dL Magnesium 2.5 H D (1.8-2.4) mg/dL Lipase 2021 H (73-393) U/L Med Orders - Current: Current Medications Acetaminophen (Acetaminophen 325 Mg Tab) 650 mg PO Q4H PRN PRN Reason: Pain (Mild 1-3)/fever Aspirin (Aspirin 81 Mg Tab.Chew) 81 mg PO DAILY [facility] Last Admin: 08/14/20 08:30 Dose: 81 mg Documented by: Enoxaparin Sodium (Enoxaparin 40 Mg/0.4 Ml Syringe) 40 mg SUBCUT Q24H [facility] Last Admin: 08/13/20 17:09 Dose: 40 mg Documented by: Folic Acid (Folic Acid 1 Mg Tab) 1 mg PO DAILY [facility] Last Admin: 08/14/20 08:30 Dose: 1 mg Documented by: Furosemide (Furosemide 40 Mg Tab) 40 mg PO DAILY [facility] Hydromorphone HCl (Hydromorphone 0.5 Mg/0.5 Ml Syringe) 0.5 mg IVPUSH Q2H PRN PRN Reason: Pain Last Admin: 08/14/20 10:16 Dose: 0.5 mg Documented by: Sodium Chloride (Normal Saline) 1,000 mls @ 75 mls/hr IV ASDIRECTED [facility] Last Admin: 08/14/20 11:30 Dose: 75 mls/hr Documented by: Ketorolac Tromethamine (Ketorolac 30 Mg/Ml Sdv) 30 mg IVPUSH Q6H PRN PRN Reason: Pain Stop: 08/17/20 23:19 Last Admin: 08/13/20 20:05 Dose: 30 mg Documented by: Lactobacillus Rhamnosus (Lactobacillus Rhamnosus Gg (Probiotic) Cap) 1 cap PO DAILY [facility] Last Admin: 08/14/20 08:30 Dose: 1 cap Documented by: Levothyroxine Sodium (Levothyroxine 100 Mcg Tab) 100 mcg PO ACBREAKFAST [facility] Last Admin: 08/14/20 08:30 Dose: 100 mcg Documented by: Lisinopril (Lisinopril 5 Mg Tab) 5 mg PO DAILY [facility] Lorazepam (Lorazepam 1 Mg Tab) 0 mg PO ASDIRECTED PRN; Protocol PRN Reason: ETOH WITHDRAWAL Magnesium Oxide (Magnesium Oxide 400 Mg Tab) 400 mg PO BID [facility] Last Admin: 08/14/20 08:31 Dose: 400 mg Documented by: Metoprolol Succinate (Metoprolol Succinate 25 Mg Tab.Er) 25 mg PO DAILY [facility] Last Admin: 08/14/20 08:31 Dose: 25 mg Documented by: Ondansetron HCl (Ondansetron 4 Mg/2 Ml Sdv) 4 mg IV Q4H PRN PRN Reason: Nausea/Vomiting Pantoprazole Sodium (Pantoprazole 40 Mg Tab.Cr) 40 mg PO ACBREAKFAST [facility] Last Admin: 08/14/20 08:30 Dose: 40 mg Documented by: Polyethylene Glycol (Polyethylene Glycol 3350 Powder 17 Gm Packet) 17 gm PO DAILY PRN PRN Reason: Constipation Rosuvastatin Calcium (Rosuvastatin 10 Mg Tab) 5 mg PO Q48H [facility] Last Admin: 08/13/20 08:08 Dose: 5 mg Documented by: Sodium Chloride (Sodium Chloride 0.9% 10 Ml Syringe) 10 ml FLUSH ASDIRECTED PRN PRN Reason: Keep Vein Open Thiamine HCl (Thiamine 100 Mg Tab) 100 mg PO DAILY [facility] Last Admin: 08/14/20 08:32 Dose: 100 mg Documented by: Discontinued Medications Hydromorphone HCl (Hydromorphone 0.5 Mg/0.5 Ml Syringe) 0.5 mg IVPUSH ONETIME ONE Stop: 08/12/20 12:43 Last Admin: 08/12/20 13:03 Dose: Not Given Documented by: Hydromorphone HCl (Hydromorphone 0.5 Mg/0.5 Ml Syringe) 0.5 mg IVPUSH Q3H PRN PRN Reason: Pain Last Admin: 08/12/20 23:14 Dose: 0.5 mg Documented by: Potassium Chloride/Sodium Chloride (Normal Saline With 20 Meq Kcl) 1,000 mls @ 500 mls/hr IV ASDIRECTED [facility] Sodium Chloride (Normal Saline) 1,000 mls @ 125 mls/hr IV ASDIRECTED [facility] Last Admin: 08/13/20 08:04 Dose: 125 mls/hr Documented by: Magnesium Sulfate (Magnesium Sulfate In Water 2 Gm/50 Ml) 2 gm in 50 mls @ 25 mls/hr IV Q6H [facility] Stop: 08/13/20 16:59 Last Admin: 08/13/20 14:20 Dose: 25 mls/hr Documented by: Meperidine HCl (Meperidine Pf 100 Mg/Ml Syringe) 50 mg IV ONETIME ONE Stop: 08/12/20 12:57 Last Admin: 08/12/20 13:02 Dose: 50 mg Documented by: Metoclopramide HCl (Metoclopramide 10 Mg/2 Ml Sdv) 10 mg IVPUSH ONETIME ONE Stop: 08/12/20 12:43 Last Admin: 08/12/20 13:01 Dose: 10 mg Documented by: Ondansetron HCl (Ondansetron 4 Mg/2 Ml Sdv) 4 mg IVPUSH ONETIME ONE Stop: 08/12/20 14:15 Last Admin: 08/12/20 14:24 Dose: 4 mg Documented by: Potassium Chloride (Potassium Chloride 20 Meq Tab.Er) 40 meq PO ONETIME ONE Stop: 08/13/20 08:21 Last Admin: 08/13/20 09:53 Dose: 40 meq Documented by: Sodium Chloride (Sodium Chloride 0.9% 10 Ml Syringe) 10 ml FLUSH ASDIRECTED PRN PRN Reason: Keep Vein Open Last Admin: 08/12/20 13:02 Dose: 10 ml Documented by: - Exam Quality Assessment: DVT Prophylaxis General: Alert, Oriented, Cooperative, Moderate Distress Lungs: Clear to Auscultation, Normal Respiratory Effort Cardiovascular: Regular Rate, Regular Rhythm, No Murmurs GI/Abdominal Exam: Soft, No Organomegaly, Tender. No: Distended, Guarding, R igid, Rebound Extremities: Non-Tender, No Pedal Edema - Patient Data Lab Results Last 24 hrs: Laboratory Results - last 24 hr 08/14/20 08/14/20 Range/Units 05:55 05:55 WBC 10.6 (4.5-11.0) K/uL RBC 3.43 (3.30-5.50) M/uL Hgb 11.8 L (12.0-15.0) g/dL Hct 36.2 (36.0-48.0) % MCV 106 H (80-98) fL MCH 34 H (27-31) pg MCHC 33 (32-36) % Plt Count 391 (150-400) K/uL Neut % (Auto) 69 H (36-66) % Lymph % (Auto) 22 L (24-44) % Cook % (Auto) 6 (2-6) % Eos % (Auto) 4 (2-4) % Baso % (Auto) 0 (0-1) % Sodium 142 (140-148) mmol/L Potassium 4.6 (3.6-5.2) mmol/L Chloride 106 (100-108) mmol/L Carbon Dioxide 25 (21-32) mmol/L Anion Gap 11.0 (5.0-14.0) mmol/L BUN 15 (7-18) mg/dL Creatinine 0.7 (0.6-1.0) mg/dL Est Cr Clr Drug Dosing 59.50 mL/min Estimated GFR (MDRD) > 60 (>60) Glucose 77 (74-106) mg/dL Calcium 8.6 (8.5-10.1) mg/dL Magnesium 2.5 H D (1.8-2.4) mg/dL Lipase 2021 H (73-393) U/L Result Diagrams: 08/14/20 05:55 08/14/20 05:55 Sepsis Event Note - Evaluation Sepsis Screening Result: No Definite Risk - Focused Exam Vital Signs: Vital Signs Temp Pulse Pulse Resp BP BP Pulse Ox 08/14/20 11:12 97.2 F 67 16 142/54 H 96 08/14/20 08:31 79 145/56 H 08/14/20 07:45 97.2 F 62 16 145/56 H 99 08/14/20 07:26 97 08/14/20 03:00 96.4 F L 63 16 145/62 H 97 08/14/20 01:37 95 - Problem List Review Problem List Initiated/Reviewed/Updated: Yes - My Orders Last 24 Hours: My Active Orders 08/15/20 05:00 BASIC METABOLIC PANEL,BMP [CHEM] Timed LIPASE [CHEM] Timed - Plan Plan:: ASSESSMENT AND PLAN PANCREATITIS-likely acute on chronic, previous evidence of pancreatic inflammation noted on previous CT scan. Likely secondary to her ongoing daily alcohol use. Persistent pain and elevation in lipase level. -Avoid further alcohol use -N.p.o. -Follow-up lipase in a.m. -Pain and nausea medication as needed -Will need follow-up of possible pancreatic pseudocyst in the future -IV fluids for hydration HISTORY OF DAILY ALCOHOL USE-no evidence of significant alcohol withdrawal -Monitor closely for alcohol withdrawal -Alcohol withdrawal protocol MAINTENANCE ISSUES -DVT prophylaxis; Lovenox 40 mg subcu daily -GI prophylaxis; continue outpatient PPI therapy -Bustamante catheter; not indicated -Nutrition; n.p.o. -Nicotine dependence; not required CODE STATUS-FULL CODE ADMISSION STATUS-patient will be admitted to inpatient status, expect at least a 2 night hospital stay for evaluation and management of problems as outlined above. At the time of this admission I do not reasonably expected evaluation and management of this problem will require more than a 96 hour hospital stay. DISPOSITION-anticipate discharge to home after the hospital stay. PRIMARY CARE PROVIDER-Eleuterio Hudson
[2020-08-14] MEDS: Enoxaparin 40 MG/0.4 ML Syringe SUBCUT SCH (17:23)
[2020-08-15] MEDS: Sodium Chloride 0.9% 1,000 ML IV SCH (00:44)
[2020-08-15] MEDS: HYDROmorphone 0.5 MG/0.5 ML Syringe IVPUSH PRN ×2 (02:29→07:40)
[2020-08-15] MEDS: Pantoprazole 40 MG Tab.CR PO SCH (07:42)
[2020-08-15] MEDS: Levothyroxine 100 MCG Tab PO SCH (07:43)
[2020-08-15] MEDS: Magnesium Oxide 400 MG Tab PO SCH ×2 (09:17→21:53)
[2020-08-15] MEDS: Lactobacillus Rhamnosus GG (Probiotic) Cap PO SCH (09:17)
[2020-08-15] MEDS: Aspirin 81 MG Tab.Chew PO SCH (09:18)
[2020-08-15] MEDS: Rosuvastatin 10 MG Tab PO SCH (09:18)
[2020-08-15] MEDS: Folic Acid 1 MG Tab PO SCH (09:18)
[2020-08-15] MEDS: Thiamine 100 MG Tab PO SCH (09:18)
[2020-08-15] MEDS: Furosemide 40 MG Tab PO SCH (09:18)
[2020-08-15] MEDS: Metoprolol Succinate 25 MG Tab.ER PO SCH (09:19)
[2020-08-15] MEDS: Lisinopril 5 MG Tab PO SCH (09:19)
[2020-08-15] MEDS ORDERED: Hypromellose 0.3% Ophth Soln 15 ML Bottle EYEBOTH PRN (09:50)
[2020-08-15] MEDS ORDERED: Polyethylene Glycol 3350 Powder 17 GM Packet PO ONE (09:55)
[2020-08-15] MEDS ORDERED: Bisacodyl 10 MG Supp RECTAL ONE (09:55)
--- NOTE | 2020-08-15 10:00 | PCM.PN ---
- General Info Date of Service: 08/15/20 Subjective Update: Ms. Johnson has felt improved today abdominal pain has improved but not totally resolved. Vital signs have been stable and she has remained afebrile. Lipase level has now normalized. Functional Status: Reports: Ambulating, Urinating - Review of Systems General: Reports: Weakness, Fatigue. Denies: Fever, Chills Pulmonary: Reports: No Symptoms Cardiovascular: Reports: No Symptoms Gastrointestinal: Reports: Abdominal Pain. Denies: Difficulty Swallowing, Hematochezia, Melena, Nausea, Vomiting Genitourinary: Reports: No Symptoms - Patient Data Vitals - Most Recent: Last Vital Signs Temp 97.1 F 08/15/20 07:14 Pulse 74 08/15/20 09:19 Resp 16 08/15/20 02:32 BP 133/57 L 08/15/20 09:19 Pulse Ox 99 08/15/20 07:18 Weight - Most Recent: 164 lb I&O - Last 24 Hours: Intake & Output 08/14/20 08/15/20 08/15/20 22:59 06:59 14:59 Intake Total 1169 595 Output Total 1400 300 200 Balance -1400 869 395 Lab Results Last 24 Hours: Laboratory Results - last 24 hr 08/15/20 Range/Units 04:15 Sodium 142 (140-148) mmol/L Potassium 4.2 (3.6-5.2) mmol/L Chloride 106 (100-108) mmol/L Carbon Dioxide 22 (21-32) mmol/L Anion Gap 14.2 H (5.0-14.0) mmol/L BUN 12 (7-18) mg/dL Creatinine 0.7 (0.6-1.0) mg/dL Est Cr Clr Drug Dosing 59.50 mL/min Estimated GFR (MDRD) > 60 (>60) Glucose 57 L (74-106) mg/dL Calcium 8.4 L (8.5-10.1) mg/dL Lipase 224 (73-393) U/L Med Orders - Current: Current Medications Acetaminophen (Acetaminophen 325 Mg Tab) 650 mg PO Q4H PRN PRN Reason: Pain (Mild 1-3)/fever Artificial Tears (Hypromellose 0.3% Ophth Soln 15 Ml Bottle) 1 ml EYEBOTH Q1H PRN PRN Reason: Dry Eyes Aspirin (Aspirin 81 Mg Tab.Chew) 81 mg PO DAILY [facility] Last Admin: 08/15/20 09:18 Dose: 81 mg Documented by: Bisacodyl (Bisacodyl 10 Mg Supp) 10 mg RECTAL ONETIME ONE Stop: 08/15/20 09:56 Buspirone HCl (Buspirone 10 Mg Tab) 10 mg PO DAILY [facility] Enoxaparin Sodium (Enoxaparin 40 Mg/0.4 Ml Syringe) 40 mg SUBCUT Q24H [facility] Last Admin: 08/14/20 17:23 Dose: 40 mg Documented by: Folic Acid (Folic Acid 1 Mg Tab) 1 mg PO DAILY [facility] Last Admin: 08/15/20 09:18 Dose: 1 mg Documented by: Furosemide (Furosemide 40 Mg Tab) 40 mg PO DAILY [facility] Last Admin: 08/15/20 09:18 Dose: 40 mg Documented by: Hydromorphone HCl (Hydromorphone 0.5 Mg/0.5 Ml Syringe) 0.5 mg IVPUSH Q2H PRN PRN Reason: Pain Last Admin: 08/15/20 07:40 Dose: 0.5 mg Documented by: Ketorolac Tromethamine (Ketorolac 30 Mg/Ml Sdv) 30 mg IVPUSH Q6H PRN PRN Reason: Pain Stop: 08/17/20 23:19 Last Admin: 08/13/20 20:05 Dose: 30 mg Documented by: Lactobacillus Rhamnosus (Lactobacillus Rhamnosus Gg (Probiotic) Cap) 1 cap PO DAILY [facility] Last Admin: 08/15/20 09:17 Dose: 1 cap Documented by: Levothyroxine Sodium (Levothyroxine 100 Mcg Tab) 100 mcg PO ACBREAKFAST [facility] Last Admin: 08/15/20 07:43 Dose: 100 mcg Documented by: Lisinopril (Lisinopril 5 Mg Tab) 5 mg PO DAILY [facility] Last Admin: 08/15/20 09:19 Dose: 5 mg Documented by: Lorazepam (Lorazepam 1 Mg Tab) 0 mg PO ASDIRECTED PRN; Protocol PRN Reason: ETOH WITHDRAWAL Magnesium Oxide (Magnesium Oxide 400 Mg Tab) 400 mg PO BID [facility] Last Admin: 08/15/20 09:17 Dose: 400 mg Documented by: Metoprolol Succinate (Metoprolol Succinate 25 Mg Tab.Er) 25 mg PO DAILY [facility] Last Admin: 08/15/20 09:19 Dose: 25 mg Documented by: Ondansetron HCl (Ondansetron 4 Mg/2 Ml Sdv) 4 mg IV Q4H PRN PRN Reason: Nausea/Vomiting Pantoprazole Sodium (Pantoprazole 40 Mg Tab.Cr) 40 mg PO ACBREAKFAST [facility] Last Admin: 08/15/20 07:42 Dose: 40 mg Documented by: Polyethylene Glycol (Polyethylene Glycol 3350 Powder 17 Gm Packet) 17 gm PO DAILY PRN PRN Reason: Constipation Polyethylene Glycol (Polyethylene Glycol 3350 Powder 17 Gm Packet) 34 gm PO ONETIME ONE Stop: 08/15/20 09:56 Rosuvastatin Calcium (Rosuvastatin 10 Mg Tab) 5 mg PO Q48H [facility] Last Admin: 08/15/20 09:18 Dose: 5 mg Documented by: Sodium Chloride (Sodium Chloride 0.9% 10 Ml Syringe) 10 ml FLUSH ASDIRECTED PRN PRN Reason: Keep Vein Open Thiamine HCl (Thiamine 100 Mg Tab) 100 mg PO DAILY [facility] Last Admin: 08/15/20 09:18 Dose: 100 mg Documented by: Discontinued Medications Hydromorphone HCl (Hydromorphone 0.5 Mg/0.5 Ml Syringe) 0.5 mg IVPUSH ONETIME ONE Stop: 08/12/20 12:43 Last Admin: 08/12/20 13:03 Dose: Not Given Documented by: Hydromorphone HCl (Hydromorphone 0.5 Mg/0.5 Ml Syringe) 0.5 mg IVPUSH Q3H PRN PRN Reason: Pain Last Admin: 08/12/20 23:14 Dose: 0.5 mg Documented by: Potassium Chloride/Sodium Chloride (Normal Saline With 20 Meq Kcl) 1,000 mls @ 500 mls/hr IV ASDIRECTED [facility] Sodium Chloride (Normal Saline) 1,000 mls @ 125 mls/hr IV ASDIRECTED [facility] Last Admin: 08/13/20 08:04 Dose: 125 mls/hr Documented by: Magnesium Sulfate (Magnesium Sulfate In Water 2 Gm/50 Ml) 2 gm in 50 mls @ 25 mls/hr IV Q6H [facility] Stop: 08/13/20 16:59 Last Admin: 08/13/20 14:20 Dose: 25 mls/hr Documented by: Sodium Chloride (Normal Saline) 1,000 mls @ 75 mls/hr IV ASDIRECTED [facility] Last Admin: 08/15/20 00:44 Dose: 75 mls/hr Documented by: Meperidine HCl (Meperidine Pf 100 Mg/Ml Syringe) 50 mg IV ONETIME ONE Stop: 08/12/20 12:57 Last Admin: 08/12/20 13:02 Dose: 50 mg Documented by: Metoclopramide HCl (Metoclopramide 10 Mg/2 Ml Sdv) 10 mg IVPUSH ONETIME ONE Stop: 08/12/20 12:43 Last Admin: 08/12/20 13:01 Dose: 10 mg Documented by: Ondansetron HCl (Ondansetron 4 Mg/2 Ml Sdv) 4 mg IVPUSH ONETIME ONE Stop: 08/12/20 14:15 Last Admin: 08/12/20 14:24 Dose: 4 mg Documented by: Potassium Chloride (Potassium Chloride 20 Meq Tab.Er) 40 meq PO ONETIME ONE Stop: 08/13/20 08:21 Last Admin: 08/13/20 09:53 Dose: 40 meq Documented by: Sodium Chloride (Sodium Chloride 0.9% 10 Ml Syringe) 10 ml FLUSH ASDIRECTED PRN PRN Reason: Keep Vein Open Last Admin: 08/12/20 13:02 Dose: 10 ml Documented by: - Exam Quality Assessment: DVT Prophylaxis General: Alert, Oriented, Cooperative, Mild Distress Lungs: Clear to Auscultation, Normal Respiratory Effort Cardiovascular: Regular Rate, Regular Rhythm, No Murmurs GI/Abdominal Exam: Soft, No Organomegaly, Distended, Tender. No: Guarding, Rigid, Rebound Extremities: Non-Tender, No Pedal Edema - Patient Data Lab Results Last 24 hrs: Laboratory Results - last 24 hr 08/15/20 Range/Units 04:15 Sodium 142 (140-148) mmol/L Potassium 4.2 (3.6-5.2) mmol/L Chloride 106 (100-108) mmol/L Carbon Dioxide 22 (21-32) mmol/L Anion Gap 14.2 H (5.0-14.0) mmol/L BUN 12 (7-18) mg/dL Creatinine 0.7 (0.6-1.0) mg/dL Est Cr Clr Drug Dosing 59.50 mL/min Estimated GFR (MDRD) > 60 (>60) Glucose 57 L (74-106) mg/dL Calcium 8.4 L (8.5-10.1) mg/dL Lipase 224 (73-393) U/L Result Diagrams: 08/14/20 05:55 08/15/20 04:15 Sepsis Event Note - Evaluation Sepsis Screening Result: No Definite Risk - Focused Exam Vital Signs: Vital Signs Temp Pulse Pulse Resp BP BP Pulse Ox 08/15/20 09:19 74 133/57 L 08/15/20 07:18 99 08/15/20 07:14 97.1 F 133/57 L 99 08/15/20 02:32 97.1 F 66 16 140/53 L 95 08/14/20 22:56 96.4 F L 60 16 133/60 95 - Problem List Review Problem List Initiated/Reviewed/Updated: Yes - My Orders Last 24 Hours: My Active Orders 08/15/20 Breakfast GI Soft Low Fiber [Soft Diet] [DIET] 08/15/20 08:25 Convert IV to Saline Lock [OM.PC] Routine 08/15/20 09:50 Hypromellose [GenTeal Mild to Moderate Ophth Soln] 1 ml EYEBOTH Q1H PRN 08/15/20 09:55 bisacodyL [Dulcolax] 10 mg RECTAL ONETIME ONE polyethylene glycoL 3350 [MiraLAX] 34 gm PO ONETIME ONE 08/15/20 10:00 busPIRone [Buspar] 10 mg PO DAILY - Plan Plan:: ASSESSMENT AND PLAN PANCREATITIS-likely acute on chronic, previous evidence of pancreatic inflammation noted on previous CT scan. Likely secondary to her ongoing daily alcohol use. Improved over the last 24 hours with less pain and normalization of lipase level -Avoid further alcohol use -Soft diet -Pain and nausea medication as needed -Will need follow-up of possible pancreatic pseudocyst in the future -Saline lock IV HISTORY OF DAILY ALCOHOL USE-no evidence of significant alcohol withdrawal -Monitor closely for alcohol withdrawal -Alcohol withdrawal protocol CONSTIPATION -MiraLAX 34 g p.o. now -Dulcolax suppository 1 per rectum now MAINTENANCE ISSUES -DVT prophylaxis; Lovenox 40 mg subcu daily -GI prophylaxis; continue outpatient PPI therapy -Bustamante catheter; not indicated -Nutrition; n.p.o. -Nicotine dependence; not required CODE STATUS-FULL CODE ADMISSION STATUS-patient will be admitted to inpatient status, expect at least a 2 night hospital stay for evaluation and management of problems as outlined above. At the time of this admission I do not reasonably expected evaluation and management of this problem will require more than a 96 hour hospital stay. DISPOSITION-anticipate discharge to home after the hospital stay. PRIMARY CARE PROVIDER-Eleuterio Hudson
[2020-08-15] MEDS: busPIRone 10 MG Tab PO SCH (12:05)
[2020-08-15] MEDS: oxyCODONE 5 MG Tab PO PRN ×3 (12:43→21:52)
[2020-08-15] MEDS: Ketorolac 30 MG/ML SDV IVPUSH PRN ×2 (16:09→21:52)
[2020-08-15] MEDS: Enoxaparin 40 MG/0.4 ML Syringe SUBCUT SCH (18:04)
[2020-08-16] MEDS: oxyCODONE 5 MG Tab PO PRN ×2 (05:12→10:56)
[2020-08-16] MEDS: Ketorolac 30 MG/ML SDV IVPUSH PRN ×2 (05:13→12:17)
[2020-08-16] MEDS: busPIRone 10 MG Tab PO SCH (08:08)
[2020-08-16] MEDS: Levothyroxine 100 MCG Tab PO SCH (08:08)
[2020-08-16] MEDS: Lactobacillus Rhamnosus GG (Probiotic) Cap PO SCH (08:08)
[2020-08-16] MEDS: Magnesium Oxide 400 MG Tab PO SCH (08:09)
[2020-08-16] MEDS: Furosemide 40 MG Tab PO SCH (08:09)
[2020-08-16] MEDS: Aspirin 81 MG Tab.Chew PO SCH (08:09)
[2020-08-16] MEDS: Folic Acid 1 MG Tab PO SCH (08:09)
[2020-08-16] MEDS: Pantoprazole 40 MG Tab.CR PO SCH (08:09)
[2020-08-16] MEDS: Thiamine 100 MG Tab PO SCH (08:10)
[2020-08-16] MEDS: Lisinopril 5 MG Tab PO SCH (09:19)
[2020-08-16] MEDS: Metoprolol Succinate 25 MG Tab.ER PO SCH (09:20)
[2020-08-16 11:54] VITALS: BP 118/52; PULSE 58
--- NOTE | 2020-08-16 13:44 | PCM.DCSUM1 ---
Discharge Summary - Hospital Course Brief History: Ms. Johnson is a 80-year-old woman admitted through the emergency department with abdominal pain and nausea secondary to acute on chronic pancreatitis. - Discharge Data Discharge Date: 08/16/20 Discharge Disposition: Home, Self-Care 01 Condition: Fair - Referral to Home Health Primary Care Physician: Eleuterio Hudson NP - Discharge Diagnosis/Problem(s) (1) Nausea & vomiting SNOMED Code(s): 84804240 ICD Code: R11.2 - NAUSEA WITH VOMITING, UNSPECIFIED Status: Acute Current Visit: Yes (2) Hypokalemia SNOMED Code(s): 28794421 ICD Code: E87.6 - HYPOKALEMIA Status: Acute Priority: Medium Current Visit: No (3) Acute pancreatitis SNOMED Code(s): 230330165 ICD Code: K85.90 - ACUTE PANCREATITIS WITHOUT NECROSIS OR INFECTION, UNSP Status: Acute Current Visit: Yes Qualifiers: Pancreatitis type: unspecified pancreatitis type Acute pancreatitis complication: unspecified Qualified Code(s): K85.90 - Acute pancreatitis without necrosis or infection, unspecified - Patient Summary/Data Hospital Course: Ms. Johnson is a 80-year-old woman who was admitted through the emergency department with nausea, vomiting, and abdominal pain, secondary to acute on chronic pancreatitis. She has had ongoing difficulty with abdominal discomfort over the past year. 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 Previous CT scan did show some evidence of pancreatic inflammation. Over the last week she has had progressive increase in upper abdominal pain associated with nausea. The symptoms have been significantly worse over the last 24 hours. Because of increased symptoms she presented to the emergency department today for further evaluation. CT scan again shows evidence of inflammation of the pancreas with possible pseudocyst. Lipase level is significantly elevated at 8000. She does admit to ongoing daily alcohol use. On admission she was kept n.p.o. and given medication as needed for nausea and pain. She was started on IV fluids for hydration and kept n.p.o. By the third hospital day, lipase level had normalized and she was experiencing much less pain. She was placed on a regular diet which she tolerated relatively well. By the time of discharge pain had not totally resolved but was much improved. There was a possible question of pseudocyst noted on CT scan. She should have follow-up CT scan in 3 months and if there is evidence of ongoing pseudocyst should have referral to gastroenterology. She is encouraged to avoid all alcohol use in the future. She was monitored for alcohol withdrawal during hospitalization but had no significant symptoms or findings. Activity will be as tolerated and she will resume her usual diet. Follow-up appointment will be scheduled with primary care provider within 1 week. - Patient Instructions Diet: Usual Diet as Tolerated, No Alcoholic Beverages Activity: As Tolerated Other/Special Instructions: Please schedule follow-up appointment with primary care provider within 1 week. - Discharge Plan *PRESCRIPTION DRUG MONITORING PROGRAM REVIEWED*: Not Applicable *COPY OF PRESCRIPTION DRUG MONITORING REPORT IN PATIENT COLIN: Not Applicable Home Medications: Home Meds Furosemide [Lasix] 40 mg PO DAILY 02/21/13 [History] Aspirin [Stephen Chewable Aspirin] 81 mg PO DAILY 09/04/13 [History] Nitroglycerin [Nitrostat] 0.4 mg SL ASDIRECTED PRN 09/04/13 [History] Rosuvastatin [Crestor] 5 mg PO Q48H 06/02/14 [History] busPIRone [Buspar] 10 mg PO DAILY 08/14/15 [History] Metoprolol Succinate [Toprol XL] 25 mg PO DAILY 01/06/16 [History] Acetaminophen [Tylenol] 650 mg PO Q6H PRN 02/28/17 [History] Levothyroxine 100 mcg PO ACBREAKFAST 04/24/17 [History] Lisinopril 5 mg PO DAILY 12/18/17 [History] Omeprazole Magnesium [Prilosec Otc] 40 mg PO DAILY 01/21/20 [History] L.acidoph,Paracasei, B.lactis [Probiotic] 1 tab PO DAILY PRN 08/05/20 [History] Referrals: Eleuterio Hudson, REGISTERED NURSE PRACTITIONER [Primary Care Provider] - - Discharge Summary/Plan Comment DC Time >30 min.: No - Patient Data Vitals - Most Recent: Last Vital Signs Temp 96.6 F L 08/16/20 11:53 Pulse 58 L 08/16/20 11:53 Resp 16 08/16/20 11:53 BP 118/52 L 08/16/20 11:53 Pulse Ox 97 08/16/20 11:53 Weight - Most Recent: 166 lb 3.2 oz I&O - Last 24 hours: Intake & Output 08/15/20 08/16/2021 22:59 06:59 14:59 Intake Total 300 756 Balance 300 756 Med Orders - Current: Current Medications Acetaminophen (Acetaminophen 325 Mg Tab) 650 mg PO Q4H PRN PRN Reason: Pain (Mild 1-3)/fever Artificial Tears (Hypromellose 0.3% Ophth Soln 15 Ml Bottle) 0 ml EYEBOTH Q1H PRN PRN Reason: Dry Eyes Last Admin: 08/15/20 18:09 Dose: 1 drop Documented by: Aspirin (Aspirin 81 Mg Tab.Chew) 81 mg PO DAILY [facility] Last Admin: 08/16/20 08:09 Dose: 81 mg Documented by: Buspirone HCl (Buspirone 10 Mg Tab) 10 mg PO DAILY [facility] Last Admin: 08/16/20 08:08 Dose: 10 mg Documented by: Enoxaparin Sodium (Enoxaparin 40 Mg/0.4 Ml Syringe) 40 mg SUBCUT Q24H [facility] Last Admin: 08/15/20 18:04 Dose: 40 mg Documented by: Folic Acid (Folic Acid 1 Mg Tab) 1 mg PO DAILY [facility] Last Admin: 08/16/20 08:09 Dose: 1 mg Documented by: Furosemide (Furosemide 40 Mg Tab) 40 mg PO DAILY [facility] Last Admin: 08/16/20 08:09 Dose: 40 mg Documented by: Ketorolac Tromethamine (Ketorolac 30 Mg/Ml Sdv) 30 mg IVPUSH Q6H PRN PRN Reason: Pain Stop: 08/17/20 23:19 Last Admin: 08/16/20 12:17 Dose: 30 mg Documented by: Lactobacillus Rhamnosus (Lactobacillus Rhamnosus Gg (Probiotic) Cap) 1 cap PO DAILY [facility] Last Admin: 08/16/20 08:08 Dose: 1 cap Documented by: Levothyroxine Sodium (Levothyroxine 100 Mcg Tab) 100 mcg PO ACBREAKFAST [facility] Last Admin: 08/16/20 08:08 Dose: 100 mcg Documented by: Lisinopril (Lisinopril 5 Mg Tab) 5 mg PO DAILY [facility] Last Admin: 08/16/20 09:19 Dose: Not Given Documented by: Lorazepam (Lorazepam 1 Mg Tab) 0 mg PO ASDIRECTED PRN; Protocol PRN Reason: ETOH WITHDRAWAL Magnesium Oxide (Magnesium Oxide 400 Mg Tab) 400 mg PO BID [facility] Last Admin: 08/16/20 08:09 Dose: 400 mg Documented by: Metoprolol Succinate (Metoprolol Succinate 25 Mg Tab.Er) 25 mg PO DAILY [facility] Last Admin: 08/16/20 09:20 Dose: Not Given Documented by: Ondansetron HCl (Ondansetron 4 Mg/2 Ml Sdv) 4 mg IV Q4H PRN PRN Reason: Nausea/Vomiting Oxycodone HCl (Oxycodone 5 Mg Tab) 5 mg PO Q4H PRN PRN Reason: Pain Last Admin: 08/16/20 10:56 Dose: 5 mg Documented by: Pantoprazole Sodium (Pantoprazole 40 Mg Tab.Cr) 40 mg PO ACBREAKFAST [facility] Last Admin: 08/16/20 08:09 Dose: 40 mg Documented by: Polyethylene Glycol (Polyethylene Glycol 3350 Powder 17 Gm Packet) 17 gm PO DAILY PRN PRN Reason: Constipation Rosuvastatin Calcium (Rosuvastatin 10 Mg Tab) 5 mg PO Q48H [facility] Last Admin: 08/15/20 09:18 Dose: 5 mg Documented by: Sodium Chloride (Sodium Chloride 0.9% 10 Ml Syringe) 10 ml FLUSH ASDIRECTED PRN PRN Reason: Keep Vein Open Thiamine HCl (Thiamine 100 Mg Tab) 100 mg PO DAILY [facility] Last Admin: 08/16/20 08:10 Dose: 100 mg Documented by: Discontinued Medications Bisacodyl (Bisacodyl 10 Mg Supp) 10 mg RECTAL ONETIME ONE Stop: 08/15/20 09:56 Last Admin: 08/15/20 12:00 Dose: 10 mg Documented by: Hydromorphone HCl (Hydromorphone 0.5 Mg/0.5 Ml Syringe) 0.5 mg IVPUSH ONETIME ONE Stop: 08/12/20 12:43 Last Admin: 08/12/20 13:03 Dose: Not Given Documented by: Hydromorphone HCl (Hydromorphone 0.5 Mg/0.5 Ml Syringe) 0.5 mg IVPUSH Q3H PRN PRN Reason: Pain Last Admin: 08/12/20 23:14 Dose: 0.5 mg Documented by: Hydromorphone HCl (Hydromorphone 0.5 Mg/0.5 Ml Syringe) 0.5 mg IVPUSH Q2H PRN PRN Reason: Pain Last Admin: 08/15/20 07:40 Dose: 0.5 mg Documented by: Potassium Chloride/Sodium Chloride (Normal Saline With 20 Meq Kcl) 1,000 mls @ 500 mls/hr IV ASDIRECTED REGLA Sodium Chloride (Normal Saline) 1,000 mls @ 125 mls/hr IV ASDIRECTED [facility] Last Admin: 08/13/20 08:04 Dose: 125 mls/hr Documented by: Magnesium Sulfate (Magnesium Sulfate In Water 2 Gm/50 Ml) 2 gm in 50 mls @ 25 mls/hr IV Q6H [facility] Stop: 08/13/20 16:59 Last Admin: 08/13/20 14:20 Dose: 25 mls/hr Documented by: Sodium Chloride (Normal Saline) 1,000 mls @ 75 mls/hr IV ASDIRECTED [facility] Last Admin: 08/15/20 00:44 Dose: 75 mls/hr Documented by: Meperidine HCl (Meperidine Pf 100 Mg/Ml Syringe) 50 mg IV ONETIME ONE Stop: 08/12/20 12:57 Last Admin: 08/12/20 13:02 Dose: 50 mg Documented by: Metoclopramide HCl (Metoclopramide 10 Mg/2 Ml Sdv) 10 mg IVPUSH ONETIME ONE Stop: 08/12/20 12:43 Last Admin: 08/12/20 13:01 Dose: 10 mg Documented by: Ondansetron HCl (Ondansetron 4 Mg/2 Ml Sdv) 4 mg IVPUSH ONETIME ONE Stop: 08/12/20 14:15 Last Admin: 08/12/20 14:24 Dose: 4 mg Documented by: Polyethylene Glycol (Polyethylene Glycol 3350 Powder 17 Gm Packet) 34 gm PO ONETIME ONE Stop: 08/15/20 09:56 Last Admin: 08/15/20 12:03 Dose: 34 gm Documented by: Potassium Chloride (Potassium Chloride 20 Meq Tab.Er) 40 meq PO ONETIME ONE Stop: 08/13/20 08:21 Last Admin: 08/13/20 09:53 Dose: 40 meq Documented by: Sodium Chloride (Sodium Chloride 0.9% 10 Ml Syringe) 10 ml FLUSH ASDIRECTED PRN PRN Reason: Keep Vein Open Last Admin: 08/12/20 13:02 Dose: 10 ml Documented by: - Exam Quality Assessment: Reports: DVT Prophylaxis General: Reports: Alert, Oriented, Cooperative, Mild Distress Lungs: Reports: Clear to Auscultation, Normal Respiratory Effort Cardiovascular: Reports: Regular Rate, Regular Rhythm, No Murmurs GI/Abdominal Exam: Soft, No Organomegaly, Tender. No: Distended, Guarding, Rigid, Rebound
== END 2020-08-16 15:30 | disposition home or self-care (01) | DRG 439 ==
LOC: JP.ED 11:53 → JP.MS 15:34
PROVIDERS: ADMIT Hospitalist; ATTEND Hospitalist
DX: K85.90 Acute pancreatitis without necrosis or infection, unspecified (principal); K85.20 Alcohol induced acute pancreatitis without necrosis or infection; K86.3 Pseudocyst of pancreas; E87.6 Hypokalemia; K86.0 Alcohol-induced chronic pancreatitis; F10.20 Alcohol dependence, uncomplicated; H54.7 Unspecified visual loss; I25.10 Atherosclerotic heart disease of native coronary artery without angina pectoris; E78.00 Pure hypercholesterolemia, unspecified; I10 Essential (primary) hypertension; Z85.828 Personal history of other malignant neoplasm of skin; K21.9 Gastro-esophageal reflux disease without esophagitis; K57.90 Diverticulosis of intestine, part unspecified, without perforation or abscess without bleeding; E03.9 Hypothyroidism, unspecified; F41.9 Anxiety disorder, unspecified; F17.210 Nicotine dependence, cigarettes, uncomplicated; Z91.041 Radiographic dye allergy status; Z88.2 Allergy status to sulfonamides; Z88.1 Allergy status to other antibiotic agents; Z88.5 Allergy status to narcotic agent; Z88.8 Allergy status to other drugs, medicaments and biological substances; Z79.82 Long term (current) use of aspirin; Z79.890 Hormone replacement therapy; Z79.899 Other long term (current) drug therapy; I25.2 Old myocardial infarction; Z87.440 Personal history of urinary (tract) infections; Z86.718 Personal history of other venous thrombosis and embolism; Z79.01 Long term (current) use of anticoagulants; Z90.49 Acquired absence of other specified parts of digestive tract; Z90.710 Acquired absence of both cervix and uterus; G43.909 Migraine, unspecified, not intractable, without status migrainosus; Z95.1 Presence of aortocoronary bypass graft; Z95.5 Presence of coronary angioplasty implant and graft; Z88.6 Allergy status to analgesic agent
CPT/HCPCS: 36415; 74176 ×2; 80048; 80076; 81001; 83690; 83735; 85027; 93005; 96374; 96375; 99285; J2175; J2405; J2765; 80053; 85025; 94762; A9270-GY; J1170; J1650; J1885; J3475; J7030

== ENCOUNTER 2020-10-04 11:46 | Emergency (ER) | payer MEDICARE ==
[2020-10-04 12:06] VITALS: BP 132/58; PULSE 94
[2020-10-04] MEDS ORDERED: Bisacodyl 10 MG Supp RECTAL ONE ×2 (12:32→12:36)
--- NOTE | 2020-10-04 12:35 | EDM.PDOC ---
ED HPI GENERAL MEDICAL PROBLEM - General Chief Complaint: Gastrointestinal Problem Stated Complaint: CONSTIPATION/HEMROID ISSUES Time Seen by Provider: 10/04/20 12:33 Source of Information: Reports: Patient History Limitations: Reports: No Limitations - History of Present Illness INITIAL COMMENTS - FREE TEXT/NARRATIVE: pt arrived with a history of constipaton since mon. She has tried alot of laxatives which has not been affective. She is passing liquid and she thinks this is coming around some hard stool. She is quite uncomfortable. Onset: Gradual Duration: Day(s): Location: Reports: Abdomen Associated Symptoms: Reports: Other (pt is markedly constipated. ) Lower Abdomen Pain Score (Numeric/FACES): 8 - Related Data Allergies Allergy/AdvReac Type Severity Reaction Status Date / Time Iodinated Contrast Media Allergy Severe Anaphylactic Verified 10/04/20 12:18 [Iodinated Contrast Media - Shock IV Dye] sumatriptan succinate Allergy Severe Tachycardia Verified 10/04/20 12:18 [From Imitrex] Sulfa (Sulfonamide Allergy Intermediate Rash Verified 10/04/20 12:18 Antibiotics) isosorbide [From Imdur] Allergy Mild Hypotension Verified 10/04/20 12:18 amlodipine Allergy Unknown Other Verified 10/04/20 12:18 ciprofloxacin Allergy Unknown Other Verified 10/04/20 12:18 sumatriptan [From Imitrex] Allergy Tachycardia Verified 10/04/20 12:18 morphine AdvReac Intermediate Nausea and Verified 10/04/20 12:18 Vomiting Home Meds: Home Meds Furosemide [Lasix] 40 mg PO DAILY 02/21/13 [History] Aspirin [Stephen Chewable Aspirin] 81 mg PO DAILY 09/04/13 [History] Nitroglycerin [Nitrostat] 0.4 mg SL ASDIRECTED PRN 09/04/13 [History] Rosuvastatin [Crestor] 5 mg PO Q48H 06/02/14 [History] busPIRone [Buspar] 10 mg PO DAILY 08/14/15 [History] Metoprolol Succinate [Toprol XL] 25 mg PO DAILY 01/06/16 [History] Acetaminophen [Tylenol] 650 mg PO Q6H PRN 02/28/17 [History] Levothyroxine 100 mcg PO ACBREAKFAST 04/24/17 [History] Lisinopril 5 mg PO DAILY 12/18/17 [History] Omeprazole Magnesium [Prilosec Otc] 40 mg PO DAILY 01/21/20 [History] L.acidoph,Paracasei, B.lactis [Probiotic] 1 tab PO DAILY PRN 08/05/20 [History] Cefdinir [Omnicef] 300 mg PO BID 10/04/20 [History] Past Medical History HEENT History: Reports: Cataract, Impaired Vision Other HEENT History: wears glasses Cardiovascular History: Reports: Afib, Bypass, CAD, High Cholesterol, Hypertension, ND, Stents Other Respiratory History: new diagnosis pleurisy and nodule on right lung Gastrointestinal History: Reports: Diverticulosis, GERD, Other (See Below) Other Gastrointestinal History: lymphocitic colitis Genitourinary History: Reports: UTI, Recurrent Other Genitourinary History: Occasional UTI Known UTI SHOE PACKER History: Reports: , 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 R shoulder pain Neurological History: Reports: Migraines Psychiatric History: Reports: Anxiety Endocrine/Metabolic History: Reports: Hypothyroidism Hematologic History: Reports: Anticoagulation Therapy, Other (See Below) Other Hematologic History: Off warfarin for 1 month Oncologic (Cancer) History: Reports: Squamous Cell Carcinoma Dermatologic History: Reports: Other (See Below) Other Dermatologic History: skin cancer lesions on feet and legs, right hand - Infectious Disease History Infectious Disease History: Reports: Chicken Pox, Measles, Mumps, Rubella - Past Surgical History Head Surgeries/Procedures: Reports: None HEENT Surgical History: Reports: Cataract Surgery Cardiovascular Surgical History: Reports: Carotid Stents, Coronary Artery Bypass Other Cardiovascular Surgeries/Procedures: 2010 with stents. Intermittent use of anticoagulants GI Surgical History: Reports: Appendectomy, Cholecystectomy, Colonoscopy, EGD, Hernia Repair/Other Female Surgical History: Reports: Hysterectomy Musculoskeletal Surgical History: Reports: Other (See Below) Other Musculoskeletal Surgeries/Procedures:: shoulder surgery Dermatological Surgical History: Reports: Skin Biopsy Social & Family History - Family History Family Medical History: No Pertinent Family History Cardiac: Reports: ND Respiratory: Reports: COPD Oncologic: Reports: Brain, Skin - Tobacco Use Tobacco Use Status *Q: Light Tobacco User Years of Tobacco use: 40 Packs/Tins Daily: 0.3 - Caffeine Use Caffeine Use: Reports: None Other Caffeine Use: 1 pot in the morning - Recreational Drug Use Recreational Drug Use: No - Living Situation & Occupation Living situation: Reports: ( 08/19/2010), Alone (since of spouse) Occupation: Retired ED ROS GENERAL - Review of Systems Review Of Systems: See Below Constitutional: Reports: Weakness, Decreased Appetite HEENT: Reports: No Symptoms Respiratory: Reports: No Symptoms Cardiovascular: Reports: No Symptoms Endocrine: Reports: No Symptoms GI/Abdominal: Reports: Abdominal Pain, Constipation, Nausea : Reports: No Symptoms Musculoskeletal: Reports: No Symptoms Skin: Reports: No Symptoms Neurological: Reports: No Symptoms ED EXAM, GI/ABD - Physical Exam Exam: See Below Text/Narrative:: pt arrived with severe abdomanal pain. He can bearly sit . He feels likd the hard stool is poking her rectum. She is having loose stools around the hard stool. Exam Limited By: No Limitations General Appearance: Alert, Anxious, Severe Distress Ears: Normal TMs Nose: Normal Inspection Throat/Mouth: Normal Inspection Head: Atraumatic Neck: Normal Inspection Respiratory/Chest: No Respiratory Distress Cardiovascular: Regular Rate, Rhythm GI/Abdominal Exam: Guarding, Tender, Other (abdoman is distended. ) (Female) Exam: Deferred Rectal (Female) Exam: Other (pt was found to have a fecal impaction. The stool was broke up and she was able to pass a fair amount. She was given suppositories which helped her pass alot more. ) Back Exam: Normal Inspection Extremities: Normal Inspection Neurological: Alert, Oriented, Normal Cognition Psychiatric: Anxious Course - Vital Signs Last Recorded V/S: Last Vital Signs Temp 35.9 C L 10/04/20 12:16 Pulse 94 10/04/20 12:16 Resp 16 10/04/20 12:16 BP 132/58 L 10/04/20 12:16 Pulse Ox 98 10/04/20 12:16 - Orders/Labs/Meds Orders: Active Orders 24 hr Category Date Time Status Enema [RC] ASDIRECTED Care 10/04/20 12:32 Active Abdomen 2V AP Flat Upright [CR] Stat Exams 10/04/20 14:48 Taken Labs: Laboratory Tests 10/04/20 10/04/20 10/04/20 Range/Units 15:04 15:04 15:04 WBC 14.5 H (4.5-11.0) K/uL RBC 3.73 (3.30-5.50) M/uL Hgb 11.9 L (12.0-15.0) g/dL Hct 37.6 (36.0-48.0) % MCV 101 H (80-98) fL MCH 32 H (27-31) pg MCHC 32 (32-36) % Plt Count 480 H (150-400) K/uL Neut % (Auto) 79 H (36-66) % Lymph % (Auto) 14 L (24-44) % Whiteside % (Auto) 5 (2-6) % Eos % (Auto) 1 L (2-4) % Baso % (Auto) 0 (0-1) % Sodium 141 (140-148) mmol/L Potassium 4.5 (3.6-5.2) mmol/L Chloride 103 (100-108) mmol/L Carbon Dioxide 27 (21-32) mmol/L Anion Gap 11.2 (5.0-14.0) mmol/L BUN 29 H D (7-18) mg/dL Creatinine 1.1 H D (0.6-1.0) mg/dL Est Cr Clr Drug Dosing 39.46 mL/min Estimated GFR (MDRD) 48 L (>60) Glucose 112 H (74-106) mg/dL Calcium 10.5 H D (8.5-10.1) mg/dL Total Bilirubin 0.6 (0.2-1.0) mg/dL AST 12 L (15-37) U/L ALT 20 (12-78) U/L Alkaline Phosphatase 74 (46-116) U/L C-Reactive Protein 1.25 H (0.0-0.3) mg/dL Total Protein 7.5 (6.4-8.2) g/dL Albumin 3.8 (3.4-5.0) g/dL Globulin 3.7 H (2.3-3.5) g/dL Albumin/Globulin Ratio 1.0 L (1.2-2.2) Meds: Medications Discontinued Medications Generic Name Dose Route Start Last Admin Trade Name Freq PRN Reason Stop Dose Admin Bisacodyl 10 mg 10/04/20 12:32 10/04/20 13:10 Bisacodyl 10 Mg Supp RECTAL 10/04/20 12:33 10 mg ONETIME ONE Administration Bisacodyl 10 mg 10/04/20 12:36 10/04/20 13:10 Bisacodyl 10 Mg Supp RECTAL 10/04/20 12:37 10 mg ONETIME ONE Administration - Re-Assessments/Exams Free Text/Narrative Re-Assessment/Exam: 10/04/20 17:40 cat scan showed diverticulosis without inflamation, She still has some edemea in the pancreas which needs to be followed. She is already scheduled for a colonoscopy. Departure - Departure Time of Disposition: 17:42 Disposition: Home, Self-Care 01 Condition: Fair Clinical Impression: Constipation - Discharge Information Referrals: Eleuterio Hudson, MARINE MACHINIST [Primary Care Provider] - Forms: ED Department Discharge Care Plan Goals: push fluids, take a bottle of mag citrate home with pt and drink it tomorrow to clear from above. high fiber diet, miralax on a daily basis. follow up with Eleuterio Burroughs Sepsis Event Note (ED) - Evaluation Sepsis Screening Result: No Definite Risk - Focused Exam Vital Signs: Vital Signs Temp Pulse Resp BP Pulse Ox 10/04/20 12:16 35.9 C L 94 16 132/58 L 98 10/04/20 12:04 35.9 C L 94 16 132/58 L 98 - My Orders Last 24 Hours: My Active Orders 10/04/20 12:32 Enema [RC] ASDIRECTED 10/04/20 14:48 Abdomen 2V AP Flat Upright [CR] Stat - Assessment/Plan Last 24 Hours: My Active Orders 10/04/20 12:32 Enema [RC] ASDIRECTED 10/04/20 14:48 Abdomen 2V AP Flat Upright [CR] Stat
--- NOTE | 2020-10-04 17:20 | CRLCT ---
INDICATION: Lower abdominal pain. COMPARISON: CT scan of the abdomen and pelvis dated 12 August 2020. TECHNIQUE: Noncontrast CT scan of the abdomen and pelvis. FINDINGS: The lung bases show a 4 mm pulmonary nodule in the lateral aspect of the left lower lobe best seen on image 5 of series 2 which is unchanged. Punctate calcified granuloma in segment 4 of the liver. No other focal abnormalities identified in the visualized portions of the liver, spleen, and adrenal glands. The mild peripancreatic edema has resolved. The small, 1.2 cm, area of decreased attenuation in the lower portion of the head of the pancreas best seen on image 42 of series 2. Single bilateral renal cysts with the largest located in the interpolar region of the left kidney measuring 2.3 cm. No hydronephrosis. No uroliths. Colonic diverticulosis with no evidence of diverticulitis. The remainder of the GI tract is incompletely distended but shows no gross abnormalities. No retroperitoneal, pelvic sidewall, or mesenteric adenopathy. Atherosclerotic vascular calcifications. Osteopenia. Degenerative changes of the spine. Impression : 1. Resolution of the peripancreatic edema. Small area of decreased attenuation in the head of the pancreas may be a small area of residual edema from the previous pancreatitis but cannot exclude a pancreatic mass. Recommend contrast-enhanced CT scan for further evaluation. 2. 4 mm pulmonary nodule in the left lower lobe is unchanged. 3. Colonic diverticulosis with no evidence of diverticulitis. Dictated by Don Galaviz MD @ 10/04/2020 5:18:53 PM Dictated by: Don Galaviz MD @ 10/04/2020 17:19:05 (Electronically Signed)
--- NOTE | 2020-10-05 11:57 | CR ---
Abdomen 2V AP Flat Upright CLINICAL HISTORY: Constipation FINDINGS: No free air is identified. Small intestinal configuration is nonspecific. There is some gas and feces throughout the colon. There are arterial calcifications IMPRESSION: Nonacute intestinal gas pattern
== END 2020-10-04 17:52 | disposition home or self-care (01) ==
LOC: JP.ED 11:46
DX: K59.00 Constipation, unspecified (principal); I25.10 Atherosclerotic heart disease of native coronary artery without angina pectoris; I25.2 Old myocardial infarction; E78.00 Pure hypercholesterolemia, unspecified; I10 Essential (primary) hypertension; K21.9 Gastro-esophageal reflux disease without esophagitis; Z91.041 Radiographic dye allergy status; Z88.8 Allergy status to other drugs, medicaments and biological substances; Z88.2 Allergy status to sulfonamides; Z88.6 Allergy status to analgesic agent; Z88.1 Allergy status to other antibiotic agents; Z79.82 Long term (current) use of aspirin; Z79.899 Other long term (current) drug therapy; Z95.5 Presence of coronary angioplasty implant and graft; Z72.0 Tobacco use
CPT/HCPCS: 36415; 74019; 74019-26; 74176; 80053; 85025; 86140; 99283; 99284-25; A9270-GY

== ENCOUNTER 2020-10-13 08:29 | Day surgery (SDC) | payer MEDICARE ==
[2020-10-13] MEDS ORDERED: Propofol 200 MG/20 ML SDV ONE (08:34)
[2020-10-13] MEDS ORDERED: fentaNYL 100 MCG/2 ML SDV ONE (08:35)
[2020-10-13] MEDS ORDERED: Midazolam 1 MG/ML 2 ML SDV ONE (08:35)
[2020-10-13] MEDS ORDERED: Dextrose 5%-Lactated Ringers 1,000 ML IV SCH (09:00)
[2020-10-13 12:47] VITALS: BP 132/7; PULSE 68
--- NOTE | 2020-10-20 16:39 | OR ---
DATE OF PROCEDURE: 10/13/2020 SURGEON: Ke Talavera MD PREOPERATIVE DIAGNOSIS: History of colon polyps. POSTOPERATIVE DIAGNOSES: 1. No recurrent colon polyps. 2. Uncomplicated left colonic diverticulosis. PROCEDURE PERFORMED: Flexible colonoscopy. ANESTHESIA: IV sedation. INDICATION FOR PROCEDURE: A 80-year-old female presenting for followup screening colonoscopy. She has a history of colon polyps in the past. Plan is to proceed with colonoscopy with biopsies and/or polypectomy as indicated. Potential risks including bleeding and perforation were discussed, and the patient wishes to proceed. DETAILS OF PROCEDURE: The patient was taken to the operating room and placed in a left lateral decubitus position. IV sedation was administered after which the initial digital rectal exam was performed and was unremarkable. The colonoscope was then passed into the rectum with retroflexion revealing uncomplicated hemorrhoidal columns. The scope was eventually passed to the level of the cecum. The prep was fairly good. Only a small amount of liquid stool was present. The patient was noted to have some uncomplicated left colonic diverticulosis. Otherwise, there were no areas of colitis and no evidence of recurrent polyps or other signs of neoplasia. The scope was then withdrawn and the procedure concluded. There were no evident complications. Ke Talavera MD /[id number]
== END 2020-10-13 13:07 | disposition home or self-care (01) ==
LOC: JP.SDS 08:29
PROVIDERS: ATTEND Surgery
DX: Z12.11 Encounter for screening for malignant neoplasm of colon (principal); K57.30 Diverticulosis of large intestine without perforation or abscess without bleeding; K64.9 Unspecified hemorrhoids; Z88.2 Allergy status to sulfonamides; Z88.6 Allergy status to analgesic agent; Z88.8 Allergy status to other drugs, medicaments and biological substances; Z91.041 Radiographic dye allergy status; Z86.010 Personal history of colon polyps
CPT/HCPCS: G0105; J2250; J2704; J3010; J7121

== ENCOUNTER 2020-12-16 07:57 | Emergency (ER) | payer MEDICARE ==
[2020-12-16 08:22] VITALS: BP 178/56; PULSE 53
[2020-12-16] MEDS ORDERED: Ketorolac 30 MG/ML SDV IM ONE (09:25)
[2020-12-16] MEDS ORDERED: Lidocaine 5% 700 MG Patch TRDERM ONE (09:26)
--- NOTE | 2020-12-16 09:52 | EDM.PDOC ---
<Mary Mayorga - Last Filed: 12/16/20 14:55> ED HPI GENERAL MEDICAL PROBLEM - General Chief Complaint: Back Pain or Injury Stated Complaint: low back pain Time Seen by Provider: 12/16/20 09:10 Source of Information: Reports: Patient, Family History Limitations: Reports: No Limitations - History of Present Illness INITIAL COMMENTS - FREE TEXT/NARRATIVE: 80 year old female with recent history of gout arrives with bilateral lower back pain that started 4 days ago. She reports no known injury to cause this pain, "It just came on out of nowhere". She reports that it feels like it is strapping across her lower back and "is constant and just hurts". States rest improves her symptoms and movement exacerbates it. Denies any loss of bowel or bladder c ontrol. Has no urinary symptoms such as dysuria, hematuria, frequency or retention. Reports that she gets a sharp pain that lasts 1 second in her pelvic area but that is something that has been on going. Reports normal bowel movments about every 2 days with her last one being two days ago. Denies numbness or tingling to bilateral lower extremities, and does not have weakness to extremities. She lives alone and has been using Tylenol and icy hot for pain control as well as ambulating with a cane. Daughter has been helping her with her ADL's over the last 2 days and wonders if she has a UTI due to her history of UTI's despite her being asymptomatic. No fevers or other health related complaints today, she reports she had recently been treated for gout and just finished a prednisone rx 2 days ago, no gout symptoms at this time. Onset: Gradual Onset Date: 12/12/20 Duration: Day(s): Location: Reports: Back Quality: Reports: Other (strapping bilateral low back pain) Improves with: Reports: Immobilization, Rest Worsens with: Reports: Movement Context: Reports: Other (No injury noted, just came on "Out of nowhere") Associated Symptoms: Reports: No Other Symptoms Treatments [employer]ES [employer]AD: Reports: Acetaminophen, Other (see below) (ICY HOT Topical) Back Pain Score (Numeric/FACES): 10 - Related Data Allergies Allergy/AdvReac Type Severity Reaction Status Date / Time Iodinated Contrast Media Allergy Severe Anaphylactic Verified 12/16/20 08:45 [Iodinated Contrast Media - Shock IV Dye] sumatriptan succinate Allergy Severe Tachycardia Verified 12/16/20 08:45 [From Imitrex] Sulfa (Sulfonamide Allergy Intermediate Rash Verified 12/16/20 08:45 Antibiotics) isosorbide [From Imdur] Allergy Mild Hypotension Verified 12/16/20 08:45 amlodipine Allergy Unknown Agitation Verified 12/16/20 08:45 ciprofloxacin Allergy Unknown Rash Verified 12/16/20 08:45 hydromorphone [From Dilaudid] Allergy Nausea Verified 12/16/20 08:45 sumatriptan [From Imitrex] Allergy Tachycardia Verified 12/16/20 08:45 morphine AdvReac Intermediate Nausea and Verified 12/16/20 08:45 Vomiting Home Meds: Home Meds Furosemide [Lasix] 40 mg PO DAILY 02/21/13 [History] Aspirin [Stephen Chewable Aspirin] 81 mg PO DAILY 09/04/13 [History] Nitroglycerin [Nitrostat] 0.4 mg SL ASDIRECTED PRN 09/04/13 [History] Rosuvastatin [Crestor] 5 mg PO Q48H 06/02/14 [History] busPIRone [Buspar] 10 mg PO DAILY 08/14/15 [History] Metoprolol Succinate [Toprol XL] 50 mg PO DAILY 01/06/16 [History] Acetaminophen [Tylenol] 650 mg PO Q6H PRN 02/28/17 [History] Levothyroxine 100 mcg PO ACBREAKFAST 04/24/17 [History] Lisinopril 5 mg PO DAILY 12/18/17 [History] Omeprazole Magnesium [Prilosec Otc] 40 mg PO DAILY 01/21/20 [History] L.acidoph,Paracasei, B.lactis [Probiotic] 1 tab PO DAILY PRN 08/05/20 [History] Multivitamin [Multi-Day Vitamins] 1 each PO DAILY 10/09/20 [History] Past Medical History HEENT History: Reports: Cataract, Impaired Vision Other HEENT History: wears glasses Cardiovascular History: Reports: Afib, Blood Clots/VTE/DVT, Bypass, CAD, High Cholesterol, Hypertension, NE, Stents Respiratory History: Reports: Other (See Below) Other Respiratory History: new diagnosis pleurisy and nodule on right lung Gastrointestinal History: Reports: Diverticulosis, GERD, Other (See Below) Other Gastrointestinal History: lymphocitic colitis Genitourinary History: Reports: Renal Calculus, UTI, Recurrent Other Genitourinary History: Occasional UTI Known UTI 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 R shoulder pain Neurological History: Reports: Migraines Psychiatric History: Reports: Anxiety Endocrine/Metabolic History: Reports: Hypothyroidism Hematologic History: Reports: Anticoagulation Therapy, Other (See Below) Other Hematologic History: warfarin a few years ago Oncologic (Cancer) History: Reports: Squamous Cell Carcinoma Dermatologic History: Reports: Other (See Below) Other Dermatologic History: skin cancer lesions on feet and legs, right hand - Infectious Disease History Infectious Disease History: Reports: Chicken Pox, Measles, Mumps, Rubella - Past Surgical History Head Surgeries/Procedures: Reports: None HEENT Surgical History: Reports: Cataract Surgery Cardiovascular Surgical History: Reports: Carotid Stents, Coronary Artery Bypass Other Cardiovascular Surgeries/Procedures: NE 2010 with stents; CABG x3 in 2016. Intermittent use of anticoagulants Respiratory Surgical History: Reports: None GI Surgical History: Reports: Appendectomy, Cholecystectomy, Colonoscopy, EGD, Hernia Repair/Other, William Fundoplication Female Surgical History: Reports: Hysterectomy Endocrine Surgical History: Reports: None Neurological Surgical History: Reports: None Musculoskeletal Surgical History: Reports: Other (See Below) Other Musculoskeletal Surgeries/Procedures:: shoulder surgery Oncologic Surgical History: Reports: None Dermatological Surgical History: Reports: Skin Biopsy Social & Family History - Family History Family Medical History: No Pertinent Family History Cardiac: Reports: NE Respiratory: Reports: COPD Oncologic: Reports: Brain, Skin - Tobacco Use Tobacco Use Comment: current smoker - Caffeine Use Caffeine Use: Reports: Coffee, Tea Other Caffeine Use: 1 pot in the morning - Living Situation & Occupation Living situation: Reports: ( 08/19/2010), Alone (since of spouse) Occupation: Retired ED ROS GENERAL - Review of Systems Review Of Systems: See Below Constitutional: Reports: No Symptoms. Denies: Fever, Chills, Malaise, Weakness HEENT: Reports: No Symptoms Respiratory: Reports: No Symptoms. Denies: Shortness of Breath, Wheezing, Pleuritic Chest Pain, Cough Cardiovascular: Reports: No Symptoms. Denies: Chest Pain, Edema, Palpitations Endocrine: Reports: No Symptoms. Denies: Fatigue GI/Abdominal: Reports: No Symptoms. Denies: Abdominal Pain, Black Stool, Bloody Stool, Diarrhea, Nausea, Vomiting : Reports: No Symptoms. Denies: Dysuria, Flank Pain, Frequency, Hematuria, Pain, Urgency Musculoskeletal: Reports: Back Pain ("strapping bilateral lower back pain start ed 4 days ago".) Skin: Reports: No Symptoms. Denies: Diaphoresis, Bruising, Rash, Lumps Neurological: Reports: No Symptoms. Denies: Confusion, Dizziness, Headache, Numbness, Tingling, Weakness Psychiatric: Reports: No Symptoms Hematologic/Lymphatic: Reports: No Symptoms Immunologic: Reports: No Symptoms ED EXAM,LOWER BACK PAIN/INJURY - Physical Exam Exam: See Below Text/Narrative:: Sherry is well appearing, resting on cart, and is alert and oriented. Skin is warm and dry. Respirations are regular and non labored, lung sounds clear. No abdominal pain with palpation, no pedal or ankle edema. Pain with palpation to right lower back, middle lower back and left lower back. No bruising, rash, or deformity to back noted. No focal weakness. Sensation intact. Noted grimacing wi th movement of legs or when sitting up in bed. Exam Limited By: No Limitations General Appearance: Alert, WD/WN, No Apparent Distress Ears: Normal External Exam Nose: Normal Inspection, No Blood Throat/Mouth: Normal Inspection, Normal Lips, Normal Teeth, No Airway Compromise Head: Atraumatic Neck: Normal Inspection, Non-Tender, Full Range of Motion Respiratory/Chest: No Respiratory Distress, Lungs Clear, Normal Breath Sounds, No Accessory Muscle Use, Chest Non-Tender Cardiovascular: Normal Peripheral Pulses, No Edema GI/Abdominal: Soft, Non-Tender. No: Distended, Guarding, Rigid, Tender (Female) Exam: Deferred Rectal (Female) Exam: Deferred Back Exam: Normal Inspection, Full Range of Motion, Paraspinal Tenderness (bilaterally, lumbar region), Vertebral Tenderness (lumbar region) Extremities: Normal Inspection, Normal Range of Motion, Non-Tender, Normal Capillary Refill. No: Pedal Edema, Joint Swelling, Leg Pain, Limited Range of Motion, Increased Warmth, Redness Neurological: Alert, Normal Mood/Affect, Normal Gait Psychiatric: Normal Affect, Normal Mood Skin Exam: Warm, Dry, Intact, No Rash. No: Wound/Incision Lymphatic: No Adenopathy Course - Vital Signs Text/Narrative:: Discussed with patient the possible cause of her back pain being muscular related. UA collected to be thorough. Lidoderm patch applied to lower back and 30 mg Toradol IM given for pain control. Patient resting on cart, waiting for results. Patient and daughter agree with plan of care at this time. Departure - Departure Time of Disposition: 10:58 Disposition: Home, Self-Care 01 Condition: Good Clinical Impression: Back pain - Discharge Information Instructions: Acute Back Pain, Adult, Muscle Strain, [id number] Referrals: Eleuterio Hudson, DEBT RECOVERY OFFICER [Primary Care Provider] - Forms: ED Department Discharge Additional Instructions: Please try taking 2 Aleve twice per day and Tylenol, in combination for your back pain for the next couple days. You do not have a UTI. You can use over the counter Lidoderm patches as well if you feel that it helped you today. Please return for reevaluation if your symptoms persist after a few days without improvement, if you develop numbness, tingling, one sided weakness, or loss of bowel/ bladder control. Sepsis Event Note (ED) - Evaluation Sepsis Screening Result: No Definite Risk <Johny Bowens - Last Filed: 12/16/20 16:08> Course - Vital Signs Last Recorded V/S: Last Vital Signs Temp 97.1 F 12/16/20 08:44 Pulse 53 L 12/16/20 08:44 Resp 16 12/16/20 08:44 BP 178/56 H 12/16/20 08:44 Pulse Ox 100 12/16/20 08:44 - Orders/Labs/Meds Labs: Laboratory Tests 12/16/20 Range/Units 09:36 Urine Color Yellow (YELLOW) Urine Appearance Slightly cloudy A (CLEAR) Urine pH 5.5 (5.0-8.0) Ur Specific [place] 1.025 (1.008-1.030) Urine Protein Negative (NEGATIVE) mg/dL Urine Glucose (UA) Negative (NEGATIVE) mg/dL Urine Ketones Negative (NEGATIVE) mg/dL Urine Occult Blood Negative (NEGATIVE) Urine Nitrite Negative (NEGATIVE) Urine Bilirubin Negative (NEGATIVE) Urine Urobilinogen 0.2 (0.2-1.0) EU/dL Ur Leukocyte Esterase Negative (NEGATIVE) Urine RBC Not seen (0-5) Urine WBC Not seen (0-5) Ur Epithelial Cells Not seen Amorphous Sediment Rare Urine Bacteria Not seen Urine Mucus Not seen Meds: Medications Discontinued Medications Generic Name Dose Route Start Last Admin Trade Name Krish PRN Reason Stop Dose Admin Ketorolac Tromethamine 30 mg 12/16/20 09:25 12/16/20 09:33 Ketorolac 30 Mg/Ml Sdv IM 12/16/20 09:26 30 mg ONETIME ONE Administration Lidocaine 700 mg 12/16/20 09:26 12/16/20 09:33 Lidocaine 5% 700 Mg Patch TRDERM 12/16/20 09:27 700 mg ONETIME ONE Administration Departure - Departure Time of Disposition: 10:58 Sepsis Event Note (ED) - Focused Exam Vital Signs: Vital Signs Temp Pulse Resp BP Pulse Ox 12/16/20 08:44 97.1 F 53 L 16 178/56 H 100 12/16/20 08:21 97.1 F 53 L 16 178/56 H 100 Attestation - Student - Attestation Statement Attestation Statement: I personally performed or re-performed the physical examination and medical decision making. I have verified all student documentation or findings, including history, physical exam and/or medical decision making.
== END 2020-12-16 10:58 | disposition home or self-care (01) ==
LOC: JP.ED 07:57
DX: M54.5 Low back pain (principal); I48.91 Unspecified atrial fibrillation; E78.00 Pure hypercholesterolemia, unspecified; I10 Essential (primary) hypertension; I25.2 Old myocardial infarction; K21.9 Gastro-esophageal reflux disease without esophagitis; E03.9 Hypothyroidism, unspecified; F17.200 Nicotine dependence, unspecified, uncomplicated; Z95.5 Presence of coronary angioplasty implant and graft; Z88.2 Allergy status to sulfonamides; Z91.041 Radiographic dye allergy status; Z88.1 Allergy status to other antibiotic agents; Z88.6 Allergy status to analgesic agent; Z88.8 Allergy status to other drugs, medicaments and biological substances; Z88.5 Allergy status to narcotic agent; Z79.82 Long term (current) use of aspirin; Z79.899 Other long term (current) drug therapy
CPT/HCPCS: 81001; 96372; 99283; A9270; J1885

== ENCOUNTER 2021-02-23 18:07 | Emergency (ER) | payer MEDICARE ==
[2021-02-23] MEDS ORDERED: Sodium Chloride 0.9% 1,000 ML IV SCH (18:45)
[2021-02-23] MEDS ORDERED: methylPREDNISolone Sodium Succinate 40 MG/1 ML SDV IVPUSH ONE (18:45)
[2021-02-23] MEDS ORDERED: Ondansetron 4 MG/2 ML SDV IVPUSH ONE (18:45)
--- NOTE | 2021-02-23 18:48 | EDM.PDOC ---
ED HPI GENERAL MEDICAL PROBLEM - General Chief Complaint: Chest Pain Stated Complaint: CHEST PAIN & LOWER BACK PAIN Time Seen by Provider: 02/23/21 18:20 Source of Information: Reports: Patient, Family History Limitations: Reports: No Limitations - History of Present Illness INITIAL COMMENTS - FREE TEXT/NARRATIVE: 72-year-old female who was seen at the clinic today for generalized malaise, weight loss, and chronic pain presents with increased abdominal pain and chest pain over the past couple of hours. Vitals are stable. She describes the pain is mostly on her right side, upper abdomen and chest with some chest pressure but no shortness of breath or diaphoresis. Labs were done at the clinic today and she is going to be set up for a CT scan in the near future. She has had 2 normal bowel movements today, she does have "lung nodules" and a chronic smoker's cough, she continues to smoke. Also complaining of nausea. Onset: Unknown/Unsure Duration: Chronic (Pain is chronic, the right sided abdominal pain and chest pain according to the patient has just worsened today) Location: Reports: Chest, Abdomen Associated Symptoms: Reports: Chest Pain, Cough, Loss of Appetite, Malaise, Nausea/Vomiting, Weakness, Other (30 pound weight loss in the past 6 months). Denies: Fever/Chills, Headaches, Shortness of Breath Chest Pain Score (Numeric/FACES): 6 - Related Data Allergies Allergy/AdvReac Type Severity Reaction Status Date / Time Iodinated Contrast Media Allergy Severe Anaphylactic Verified 02/23/21 18:21 [Iodinated Contrast Media - Shock IV Dye] sumatriptan succinate Allergy Severe Tachycardia Verified 02/23/21 18:21 [From Imitrex] Sulfa (Sulfonamide Allergy Intermediate Rash Verified 02/23/21 18:21 Antibiotics) isosorbide [From Imdur] Allergy Mild Hypotension Verified 02/23/21 18:21 ciprofloxacin Allergy Unknown Rash Verified 02/23/21 18:21 morphine AdvReac Intermediate Nausea and Verified 02/23/21 18:21 Vomiting amlodipine AdvReac Unknown Agitation Verified 02/23/21 18:21 hydromorphone [From Dilaudid] AdvReac Nausea Verified 02/23/21 18:21 Home Meds: Home Meds Furosemide [Lasix] 40 mg PO DAILY 02/21/13 [History] Aspirin [Stephen Chewable Aspirin] 81 mg PO DAILY 09/04/13 [History] Nitroglycerin [Nitrostat] 0.4 mg SL ASDIRECTED PRN 09/04/13 [History] Rosuvastatin [Crestor] 5 mg PO Q48H 06/02/14 [History] busPIRone [Buspar] 10 mg PO DAILY 08/14/15 [History] Metoprolol Succinate [Toprol XL] 50 mg PO DAILY 01/06/16 [History] Acetaminophen [Tylenol] 650 mg PO Q6H PRN 02/28/17 [History] Levothyroxine 100 mcg PO ACBREAKFAST 04/24/17 [History] Lisinopril 5 mg PO DAILY 12/18/17 [History] Omeprazole Magnesium [Prilosec Otc] 40 mg PO DAILY 01/21/20 [History] Past Medical History HEENT History: Reports: Cataract, Impaired Vision Other HEENT History: wears glasses Cardiovascular History: Reports: Afib, Blood Clots/VTE/DVT, Bypass, CAD, High Cholesterol, Hypertension, DE, Stents Respiratory History: Reports: Other (See Below) Other Respiratory History: new diagnosis pleurisy and nodule on right lung Gastrointestinal History: Reports: Diverticulosis, GERD, Other (See Below) Other Gastrointestinal History: lymphocitic colitis Genitourinary History: Reports: Renal Calculus, UTI, Recurrent Other Genitourinary History: Occasional UTI Known UTI [employer]PERVIS[employer] WAY History: Reports: , 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 R shoulder pain Neurological History: Reports: Migraines Psychiatric History: Reports: Anxiety Endocrine/Metabolic History: Reports: Hypothyroidism Hematologic History: Reports: Anticoagulation Therapy, Other (See Below) Other Hematologic History: warfarin a few years ago Oncologic (Cancer) History: Reports: Squamous Cell Carcinoma Dermatologic History: Reports: Other (See Below) Other Dermatologic History: skin cancer lesions on feet and legs, right hand - Infectious Disease History Infectious Disease History: Reports: Chicken Pox, Measles, Mumps, Rubella - Past Surgical History Head Surgeries/Procedures: Reports: None HEENT Surgical History: Reports: Cataract Surgery Cardiovascular Surgical History: Reports: Carotid Stents, Coronary Artery Bypass Other Cardiovascular Surgeries/Procedures: DE 2010 with stents; CABG x3 in 2016. Intermittent use of anticoagulants GI Surgical History: Reports: Appendectomy, Cholecystectomy, Colonoscopy, EGD, Hernia Repair/Other, William Fundoplication Female Surgical History: Reports: Hysterectomy Musculoskeletal Surgical History: Reports: Other (See Below) Other Musculoskeletal Surgeries/Procedures:: shoulder surgery Dermatological Surgical History: Reports: Skin Biopsy Social & Family History - Family History Family Medical History: No Pertinent Family History Cardiac: Reports: DE Respiratory: Reports: COPD Oncologic: Reports: Brain, Skin - Tobacco Use Tobacco Use Status *Q: Light Tobacco User Years of Tobacco use: 30 Packs/Tins Daily: 0.4 - Caffeine Use Caffeine Use: Reports: Coffee Other Caffeine Use: 1 pot in the morning - Alcohol Use Days Per Week of Alcohol Use: 7 Number of Drinks Per Day: 3 Total Drinks Per Week: 21 - Recreational Drug Use Recreational Drug Use: No - Living Situation & Occupation Living situation: Reports: ( 08/19/2010), Alone (since of spouse) Occupation: Retired ED ROS GENERAL - Review of Systems Review Of Systems: See Below Constitutional: Reports: Malaise, Decreased Appetite, Weight Loss. Denies: Fever, Chills HEENT: Denies: Vision Change Respiratory: Reports: Cough. Denies: Shortness of Breath Cardiovascular: Reports: Chest Pain (Right-sided). Denies: Palpitations GI/Abdominal: Reports: Abdominal Pain Musculoskeletal: Reports: Other (Pain everywhere, back pain, shoulder pain, extremity pain) Skin: Reports: Bruising (Patient bruises easily) Neurological: Reports: Weakness. Denies: Headache, Trouble Speaking Psychiatric: Reports: Anxiety ED EXAM, GENERAL - Physical Exam Exam: See Below Exam Limited By: No Limitations General Appearance: Alert, No Apparent Distress (Looks nauseated and somewhat uncomfortable but not distressed) Eye Exam: Bilateral Eye: Normal Inspection (No jaundice, good hydration) Head: Atraumatic Respiratory/Chest: No Respiratory Distress, Lungs Clear Cardiovascular: Regular Rate, Rhythm GI/Abdominal: Tender (Patient is very difficult to examine because even light palpation to the abdomen, chest wall, neck causes her to wince with discomfort. It is very difficult to localize an objective source of pain, although the upper abdomen seems more tender) Extremities: No: Pedal Edema Neurological: Alert, Oriented, No Motor/Sensory Deficits Psychiatric: Anxious, Other (Pain presentation does seem hyper dramatic, out of proportion to just physical source of pain) Skin Exam: Warm, Dry, Other (Scattered bruises on the extremities) #1 Interpretation EKG Date: 02/23/21 Rhythm: NSR ST-T: Depressed (Equivocal diffuse to depression and ST segments likely baseline for patient as it is generally equivalent to an EKG in September of this year) Course - Vital Signs Last Recorded V/S: Last Vital Signs Temp 97.5 F 02/23/21 18:16 Pulse 74 02/23/21 20:23 Resp 12 02/23/21 20:23 BP 153/62 H 02/23/21 20:23 Pulse Ox 98 02/23/21 20:23 - Orders/Labs/Meds Orders: Active Orders 24 hr Category Date Time Status EKG 12 Lead [EK] Routine Ther 02/23/21 18:41 Ordered Labs: Laboratory Tests 02/23/21 02/23/21 02/23/21 Range/Units 18:49 20:01 20:03 Troponin I < 0.017 (0.000-0.056) ng/mL Amylase 742 H (25-115) U/L Lipase 47965 H (73-393) U/L Ethyl Alcohol < 3 mg/dL Meds: Medications Discontinued Medications Generic Name Dose Route Start Last Admin Trade Name Freq PRN Reason Stop Dose Admin Fentanyl 50 mcg 02/23/21 20:04 02/23/21 20:16 Fentanyl 100 Mcg/2 Ml Sdv IVPUSH 02/23/21 20:05 50 mcg ONETIME ONE Administration Fentanyl 50 mcg 02/23/21 20:45 02/23/21 21:01 Fentanyl 50 Mcg/Hr Transdermal Patch TRDERM 50 mcg Q72H REGLA Administration Sodium Chloride 1,000 mls @ 500 mls/hr 02/23/21 18:45 02/23/21 19:02 Normal Saline IV 500 mls/hr ASDIRECTED REGLA Administration Sodium Chloride 80 mls @ 3 mls/sec 02/23/21 20:00 02/23/21 20:25 Normal Saline IV 3 mls/sec ASDIRECTED REGLA Administration Iopamidol 100 ml 02/23/21 20:00 02/23/21 20:26 Iopamidol 612 Mg/Ml 100 Ml Bottle IV 100 ml . DIRECTED REGLA Administration Methylprednisolone Sodium Succinate 62.5 mg 02/23/21 18:45 02/23/21 19:02 Methylprednisolone Sodium Succinate 40 Mg/1 Ml Sdv IVPUSH 02/23/21 18:46 62.5 mg ONETIME ONE Administration Ondansetron HCl 4 mg 02/23/21 18:45 02/23/21 19:02 Ondansetron 4 Mg/2 Ml Sdv IVPUSH 02/23/21 18:46 4 mg ONETIME ONE Administration Sodium Chloride 10 ml 02/23/21 19:53 02/23/21 20:25 Sodium Chloride 0.9% 10 Ml Syringe FLUSH 02/23/21 19:54 10 ml ONETIME ONE Administration - Re-Assessments/Exams Free Text/Narrative Re-Assessment/Exam: 02/23/21 19:03 EKG is nonspecific, an IV was started and the patient will be hydrated and a troponin drawn. She was given 4 mg of Zofran IV. Her records from the clinic were reviewed from today, her labs generally are reassuring. 02/23/21 20:53 Troponin 0, CT the abdomen and pelvis and chest with IV contrast was obtained after 62.5 mg of IV Solu-Medrol. Initial view of the CT scan revealed what was likely pancreatic inflammation, so a lipase and amylase were added as well as an EtOH to the labs. EtOH returned zero but lipase was normal 17,000 and amylase 750. Patient admitted she is drinking daily rum Cokes. She does not want to be admitted and is nauseated but not actively vomiting. She was given 25 mcg of IV fentanyl. 02/23/21 21:02 IMPRESSION: 1. Recurrent peripancreatic stranding suggestive of acute pancreatitis. Multiple low-density cystic lesions within the pancreatic body are suggestive of cirrhosis, suggesting that pancreatitis may be acute on chronic. 2. Severe compression deformity of the L2 vertebral body, new from October 2020 comparison. Superior endplate deformity at L1 also appears new from October comparison. 3. Cortical destruction of the right proximal humeral neck, with apparent fracture. Area was not well visualized on November 16 comparison. Recommend correlation with history of traumatic injury. If no history of traumatic injury, consider MRI of the shoulder to rule out neoplastic process. Findings were discussed with Johny Bowens by telephone at 8:45 PM on 02/23/2021. Patient seem to get very good pain relief from the IV fentanyl. The rest of the IV fluids were given, patient refused hospitalization at this time. A 50 mcg/h fentanyl patch was applied to her shoulder and she was encouraged to continue pushing fluids and avoiding solid foods and absolutely no alcohol for the next several days and this pancreatitis may settle down on its own. I encouraged her to make an appointment with her primary provider in 3 days to discuss not only the CT findings and to reassess her progress with treatment but also the other findings on the CT scan. Departure - Departure Time of Disposition: 21:10 Disposition: Home, Self-Care 01 Clinical Impression: Pancreatitis Qualifiers: Chronicity: acute Pancreatitis type: other Acute pancreatitis complication: no infection or necrosis Qualified Code(s): K85.80 - Other acute pancreatitis without necrosis or infection Nausea & vomiting Qualifiers: Vomiting type: unspecified Vomiting Intractability: non-intractable Qualified Code(s): R11.2 - Nausea with vomiting, unspecified Abdominal pain Qualifiers: Abdominal location: upper abdomen, unspecified Qualified Code(s): R10.10 - Up per abdominal pain, unspecified - Discharge Information Instructions: Acute Pancreatitis, [id number], Pancreatitis Eating Plan Referrals: Eleuterio Hudson NP [Primary Care Provider] - Forms: ED Department Discharge Care Plan Goals: Concentrate on staying hydrated with at least 2 L of water a day, avoid solid food but continue your medications as directed. Call the clinic to make a recheck appointment on Monday if possible to discuss your CT findings and to monitor your progress with your pancreatitis. Return to the emergency room at any time if you are worsening. Sepsis Event Note (ED) - Evaluation Sepsis Screening Result: No Definite Risk - Focused Exam Vital Signs: Vital Signs Temp Pulse Resp BP Pulse Ox 02/23/21 20:23 74 12 153/62 H 98 02/23/21 20:01 75 19 143/53 H 100 02/23/21 19:15 80 16 148/69 H 02/23/21 18:46 80 15 149/71 H 02/23/21 18:16 97.5 F 98 19 145/74 H 99 - My Orders Last 24 Hours: My Active Orders 02/23/21 18:41 EKG 12 Lead [EK] Routine - Assessment/Plan Last 24 Hours: My Active Orders 02/23/21 18:41 EKG 12 Lead [EK] Routine
[2021-02-23] MEDS ORDERED: Iopamidol 612 MG/ML 100 ML Bottle IV SCH (20:00)
[2021-02-23] MEDS ORDERED: Sodium Chloride 0.9% 80 ML IV SCH (20:00)
[2021-02-23] MEDS ORDERED: fentaNYL 100 MCG/2 ML SDV IVPUSH ONE (20:04)
[2021-02-23] MEDS: Sodium Chloride 0.9% 10 ML Syringe FLUSH ONE ×2 (20:17→20:25)
[2021-02-23 20:23] VITALS: BP 153/62; PULSE 74
[2021-02-23] MEDS ORDERED: fentaNYL 50 MCG/HR Transdermal Patch TRDERM SCH (20:45)
--- NOTE | 2021-02-23 20:51 | CRLCT ---
For Patients: As a result of the Century Cures Act, medical imaging exams and procedure reports are released immediately into your electronic medical record. You may view this report before your referring provider. If you have questions, please contact your health care provider. CLINICAL INFORMATION: Abdomen and chest pain with weight loss. TECHNIQUE: Contrast-enhanced CT of the chest, abdomen, and pelvis was performed. Coronal and sagittal reformatted images were obtained. Contrast: 100 mL of Omnipaque 350 intravenous contrast was injected uneventfully prior to image acquisition. COMPARISON: CT chest abdomen pelvis November 16, 2020. FINDINGS: Chest: Vasculature: Thoracic aorta is normal in caliber with moderate atherosclerotic calcifications of the aortic arch and descending thoracic aorta. Four vessel aortic arch, normal variant. Main pulmonary artery measures within normal limits. No central pulmonary embolism. Lungs/Pleura: No airspace opacification. No pleural effusion. No pneumothorax. No suspicious pulmonary nodules. Mediastinum: Thyroid is unremarkable. No esophageal wall thickening. No mediastinal or hilar lymphadenopathy. Heart/Pericardium: Heart is normal in size without pericardial effusion. Severe coronary calcifications. Soft Tissues: No axillary lymphadenopathy. Abdomen/Pelvis: Liver: Normal in size and attenuation. No suspicious hepatic lesion. No intrahepatic biliary ductal dilatation. Prominent extrahepatic common bile duct, likely post cholecystectomy reservoir effect. Gallbladder: Not visualized. Spleen: Unremarkable. Adrenal glands: No focal adrenal lesion. Pancreas: Low-density lesion in the pancreatic head measuring 1.8 cm and low-density lesion in the pancreatic body measuring 1.3 cm. Peripancreatic stranding. Kidneys: Symmetric in size. Low-density cystic lesions in the bilateral kidneys. No suspicious renal lesion. Nonobstructive punctate nephrolithiasis on the left. No hydronephrosis. Urinary bladder: Limited evaluation due to underdistention. No focal wall thickening. Vascular: Abdominal aorta is normal in caliber. Calcified small splenic artery aneurysm. No portal venous thrombus. Bowel: Postsurgical change distal esophageal fundoplication. Normal in caliber without evidence of bowel obstruction. No focal bowel wall thickening. Colonic diverticulosis without evidence of diverticulitis. Lymph nodes: No retroperitoneal, mesenteric, inguinal, or pelvic adenopathy by CT criteria. Reproductive structures: Uterus is not visualized, presumed surgically absent. No suspicious adnexal mass. Soft tissues/Peritoneum: No abdominal/pelvic ascites or free intraperitoneal air. Bones: Cortical destruction of the right proximal humeral neck, with apparent fracture. Area was not well visualized on November 16 comparison. Recommend correlation with history of traumatic injury. If no history of traumatic injury, consider MRI of the shoulder to rule out neoplastic process. Median sternotomy wires. Severe multilevel degenerative changes of the lumbar spine. Severe compression deformity of the L2 vertebral body. Compression deformity superior endplate of the L1 vertebral body. Grade 1 anterolisthesis of L5 on S1. IMPRESSION: 1. Recurrent peripancreatic stranding suggestive of acute pancreatitis. Multiple low-density cystic lesions within the pancreatic body are suggestive of cirrhosis, suggesting that pancreatitis may be acute on chronic. 2. Severe compression deformity of the L2 vertebral body, new from October 2020 comparison. Superior endplate deformity at L1 also appears new from October comparison. 3. Cortical destruction of the right proximal humeral neck, with apparent fracture. Area was not well visualized on November 16 comparison. Recommend correlation with history of traumatic injury. If no history of traumatic injury, consider MRI of the shoulder to rule out neoplastic process. Findings were discussed with Johny Bowens by telephone at 8:45 PM on 02/23/2021. Please note that all CT scans at this facility use dose modulation, iterative reconstruction, and/or weight-based dosing when appropriate to reduce radiation dose to as low as reasonably achievable. Dictated by Josep Sheffield MD @ 02/23/2021 8:49:49 PM (Electronically Signed)
== END 2021-02-23 21:21 | disposition home or self-care (01) ==
LOC: JP.ED 18:07
DX: K85.80 Other acute pancreatitis without necrosis or infection (principal); R11.2 Nausea with vomiting, unspecified; I48.91 Unspecified atrial fibrillation; E78.00 Pure hypercholesterolemia, unspecified; I10 Essential (primary) hypertension; I25.2 Old myocardial infarction; E03.9 Hypothyroidism, unspecified; I25.10 Atherosclerotic heart disease of native coronary artery without angina pectoris; K21.9 Gastro-esophageal reflux disease without esophagitis; Z91.041 Radiographic dye allergy status; Z88.8 Allergy status to other drugs, medicaments and biological substances; Z88.2 Allergy status to sulfonamides; Z88.1 Allergy status to other antibiotic agents; Z88.5 Allergy status to narcotic agent; Z95.5 Presence of coronary angioplasty implant and graft; Z79.82 Long term (current) use of aspirin; Z79.899 Other long term (current) drug therapy; Z95.1 Presence of aortocoronary bypass graft; Z72.0 Tobacco use
CPT/HCPCS: 36415; 71260; 74177; 80307; 82150; 83690; 84484; 93005; 96374; 96375; 99284; A9270; J2405; J2920; J3010; J7030; Q9967

== ENCOUNTER 2021-03-29 01:55 | Emergency (ER) | payer MEDICARE ==
[2021-03-29] MEDS ORDERED: Sodium Chloride 0.9% 10 ML Syringe FLUSH PRN (02:48)
[2021-03-29] MEDS ORDERED: fentaNYL 100 MCG/2 ML SDV IVPUSH ONE ×2 (02:49→03:51)
[2021-03-29] MEDS ORDERED: Ondansetron 4 MG/2 ML SDV IVPUSH ONE (02:52)
[2021-03-29] MEDS ORDERED: Lactated Ringers 1,000 ML IV SCH ×2 (03:00→04:00)
--- NOTE | 2021-03-29 03:00 | EDM.PDOC ---
<OfficerCheng - Last Filed: 03/29/21 02:58> ED HPI GENERAL MEDICAL PROBLEM - General Chief Complaint: Abdominal Pain Stated Complaint: LEFT SIDE PAIN Time Seen by Provider: 03/29/21 02:43 Source of Information: Reports: Patient, Family, Old Records, RN Notes Reviewed History Limitations: Reports: No Limitations - History of Present Illness INITIAL COMMENTS - FREE TEXT/NARRATIVE: 80-year-old female presents emergency department day complaint of abdominal pain, she states it come on pretty much within the last 12 hours does have a history of alcoholic pancreatitis last flareup was in January. She states she has not been using alcohol the pain came on after she had eaten dinner. Does have nausea and vomiting pain feels very similar to prior episodes. - Related Data Allergies Allergy/AdvReac Type Severity Reaction Status Date / Time Iodinated Contrast Media Allergy Severe Anaphylactic Verified 02/23/21 18:21 [Iodinated Contrast Media - Shock IV Dye] sumatriptan succinate Allergy Severe Tachycardia Verified 02/23/21 18:21 [From Imitrex] Sulfa (Sulfonamide Allergy Intermediate Rash Verified 02/23/21 18:21 Antibiotics) isosorbide [From Imdur] Allergy Mild Hypotension Verified 02/23/21 18:21 ciprofloxacin Allergy Unknown Rash Verified 02/23/21 18:21 morphine AdvReac Intermediate Nausea and Verified 02/23/21 18:21 Vomiting amlodipine AdvReac Unknown Agitation Verified 02/23/21 18:21 hydromorphone [From Dilaudid] AdvReac Nausea Verified 02/23/21 18:21 Home Meds: Home Meds Furosemide [Lasix] 40 mg PO DAILY 02/21/13 [History] Aspirin [Stephen Chewable Aspirin] 81 mg PO DAILY 09/04/13 [History] Nitroglycerin [Nitrostat] 0.4 mg SL ASDIRECTED PRN 09/04/13 [History] Rosuvastatin [Crestor] 5 mg PO Q48H 06/02/14 [History] busPIRone [Buspar] 10 mg PO DAILY 08/14/15 [History] Metoprolol Succinate [Toprol XL] 50 mg PO DAILY 01/06/16 [History] Acetaminophen [Tylenol] 650 mg PO Q6H PRN 02/28/17 [History] Levothyroxine 100 mcg PO ACBREAKFAST 04/24/17 [History] Lisinopril 5 mg PO DAILY 12/18/17 [History] Omeprazole Magnesium [Prilosec Otc] 40 mg PO DAILY 01/21/20 [History] DULoxetine [Cymbalta] 20 mg PO DAILY 03/29/21 [History] ondansetron HCL [Zofran] 4 mg PO Q8H 03/29/21 [History] Past Medical History HEENT History: Reports: Cataract, Impaired Vision Other HEENT History: wears glasses Cardiovascular History: Reports: Afib, Blood Clots/VTE/DVT, Bypass, CAD, High Cholesterol, Hypertension, [place], Stents Respiratory History: Reports: Other (See Below) Other Respiratory History: new diagnosis pleurisy and nodule on right lung Gastrointestinal History: Reports: Diverticulosis, GERD, Other (See Below) Other Gastrointestinal History: lymphocitic colitis Genitourinary History: Reports: Renal Calculus, UTI, Recurrent Other Genitourinary History: Occasional UTI Known UTI 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 R shoulder pain Neurological History: Reports: Migraines Psychiatric History: Reports: Anxiety Endocrine/Metabolic History: Reports: Hypothyroidism Hematologic History: Reports: Anticoagulation Therapy, Other (See Below) Other Hematologic History: warfarin a few years ago Oncologic (Cancer) History: Reports: Squamous Cell Carcinoma Dermatologic History: Reports: Other (See Below) Other Dermatologic History: skin cancer lesions on feet and legs, right hand - Infectious Disease History Infectious Disease History: Reports: Chicken Pox, Measles, Mumps, Rubella - Past Surgical History Head Surgeries/Procedures: Reports: None HEENT Surgical History: Reports: Cataract Surgery Cardiovascular Surgical History: Reports: Carotid Stents, Coronary Artery Bypass Other Cardiovascular Surgeries/Procedures: [place] 2010 with stents; CABG x3 in 2016. Intermittent use of anticoagulants Respiratory Surgical History: Reports: None GI Surgical History: Reports: Appendectomy, Cholecystectomy, Colonoscopy, EGD, Hernia Repair/Other, William Fundoplication Female Surgical History: Reports: Hysterectomy Endocrine Surgical History: Reports: None Neurological Surgical History: Reports: None Musculoskeletal Surgical History: Reports: Other (See Below) Other Musculoskeletal Surgeries/Procedures:: shoulder surgery Oncologic Surgical History: Reports: None Dermatological Surgical History: Reports: Skin Biopsy Social & Family History - Family History Family Medical History: No Pertinent Family History Cardiac: Reports: [place] Respiratory: Reports: COPD Oncologic: Reports: Brain, Skin - Tobacco Use Tobacco Use Status *Q: Current Every Day Tobacco User Years of Tobacco use: 30 Packs/Tins Daily: 0.7 Second Hand Smoke Exposure: No - Caffeine Use Caffeine Use: Reports: Coffee Other Caffeine Use: 1 pot in the morning - Alcohol Use Days Per Week of Alcohol Use: 1 Number of Drinks Per Day: 3 Total Drinks Per Week: 3 - Recreational Drug Use Recreational Drug Use: No - Living Situation & Occupation Living situation: Reports: ( 08/19/2010), Alone (since of spouse) Occupation: Retired ED ROS GENERAL - Review of Systems Review Of Systems: See Below Constitutional: Reports: No Symptoms HEENT: Reports: No Symptoms Respiratory: Reports: No Symptoms Cardiovascular: Reports: No Symptoms GI/Abdominal: Reports: Abdominal Pain, Flatus, Nausea, Vomiting : Reports: No Symptoms ED EXAM, GI/ABD - Physical Exam Exam: See Below Exam Limited By: No Limitations General Appearance: Alert, Mild Distress Respiratory/Chest: No Respiratory Distress, Lungs Clear, Normal Breath Sounds, No Accessory Muscle Use, Chest Non-Tender Cardiovascular: Regular Rate, Rhythm, No Murmur GI/Abdominal Exam: Normal Bowel Sounds, Soft, Tender (Left upper quadrant) Departure - Departure Disposition: DC/Tfer to [facility] 02 Clinical Impression: Acute pancreatitis Qualifiers: Pancreatitis type: unspecified pancreatitis type Acute pancreatitis complic ation: unspecified Qualified Code(s): K85.90 - Acute pancreatitis without necrosis or infection, unspecified - Discharge Information Referrals: Eleuterio Hudson JIG GRINDER [Primary Care Provider] - Forms: ED Department Discharge Sepsis Event Note (ED) - Evaluation Sepsis Screening Result: No Definite Risk <Korey Mcfarland - Last Filed: 03/29/21 18:09> ED HPI GENERAL MEDICAL PROBLEM Left Upper Abdominal Pain Score (Numeric/FACES): 10 Course - Vital Signs Text/Narrative:: Discussed case with Dr. Luna @ [facility] @ [facility], accepts pending an available bed. Last Recorded V/S: Last Vital Signs Temp 36.9 C 03/29/21 13:13 Pulse 59 L 03/29/21 13:13 Resp 12 03/29/21 13:13 BP 137/63 03/29/21 12:15 Pulse Ox 97 03/29/21 13:13 - Orders/Labs/Meds Orders: Active Orders 24 hr Category Date Time Status Peripheral IV Insertion Adult [OM.PC] Urgent Oth 03/29/21 02:48 Ordered Labs: Laboratory Tests 03/29/21 03/29/21 03/29/21 Range/Units 02:48 02:48 02:48 WBC 11.9 H (4.5-11.0) K/uL RBC 4.42 (3.30-5.50) M/uL Hgb 14.0 D (12.0-15.0) g/dL Hct 42.0 (36.0-48.0) % MCV 95 (80-98) fL MCH 32 H (27-31) pg MCHC 33 (32-36) % Plt Count 451 H (150-400) K/uL Neut % (Auto) 65.0 (36-66) % Lymph % (Auto) 24.0 (24-44) % [place] % (Auto) 6.0 (2-6) % Eos % (Auto) 4.0 (2-4) % Baso % (Auto) 0.0 (0-1) % Sodium 135 L (140-148) mmol/L Potassium 3.7 (3.6-5.2) mmol/L Chloride 98 L (100-108) mmol/L Carbon Dioxide 26 (21-32) mmol/L Anion Gap 14.7 H (5.0-14.0) mmol/L BUN 16 (7-18) mg/dL Creatinine 1.2 H (0.6-1.0) mg/dL Est Cr Clr Drug Dosing TNP Estimated GFR (MDRD) 43 L (>60) Glucose 111 H (74-106) mg/dL Lactic Acid 1.2 (0.4-2.0) mmol/L Calcium 10.0 (8.5-10.1) mg/dL Magnesium (1.8-2.4) mg/dL Total Bilirubin 0.7 (0.2-1.0) mg/dL AST 10 L (15-37) U/L ALT 14 (12-78) U/L Alkaline Phosphatase 86 (46-116) U/L Troponin I < 0.017 (0.000-0.056) ng/mL Total Protein 6.8 (6.4-8.2) g/dL Albumin 3.5 (3.4-5.0) g/dL Globulin 3.3 (2.3-3.5) g/dL Albumin/Globulin Ratio 1.1 L (1.2-2.2) Lipase 2224 H (73-393) U/L 03/29/21 Range/Units 09:40 WBC (4.5-11.0) K/uL RBC (3.30-5.50) M/uL Hgb (12.0-15.0) g/dL Hct (36.0-48.0) % MCV (80-98) fL MCH (27-31) pg MCHC (32-36) % Plt Count (150-400) K/uL Neut % (Auto) (36-66) % Lymph % (Auto) (24-44) % [place] % (Auto) (2-6) % Eos % (Auto) (2-4) % Baso % (Auto) (0-1) % Sodium (140-148) mmol/L Potassium (3.6-5.2) mmol/L Chloride (100-108) mmol/L Carbon Dioxide (21-32) mmol/L Anion Gap (5.0-14.0) mmol/L BUN (7-18) mg/dL Creatinine (0.6-1.0) mg/dL Est Cr Clr Drug Dosing Estimated GFR (MDRD) (>60) Glucose (74-106) mg/dL Lactic Acid (0.4-2.0) mmol/L Calcium (8.5-10.1) mg/dL Magnesium 1.8 D (1.8-2.4) mg/dL Total Bilirubin (0.2-1.0) mg/dL AST (15-37) U/L ALT (12-78) U/L Alkaline Phosphatase (46-116) U/L Troponin I (0.000-0.056) ng/mL Total Protein (6.4-8.2) g/dL Albumin (3.4-5.0) g/dL Globulin (2.3-3.5) g/dL Albumin/Globulin Ratio (1.2-2.2) Lipase (73-393) U/L Meds: Medications Discontinued Medications Generic Name Dose Route Start Last Admin Trade Name Freq PRN Reason Stop Dose Admin Famotidine 20 mg 03/29/21 09:35 03/29/21 09:41 Famotidine 20 Mg/2 Ml Sdv IVPUSH 03/29/21 09:36 20 mg ONETIME ONE Administration Fentanyl 50 mcg 03/29/21 02:49 03/29/21 02:59 Fentanyl 100 Mcg/2 Ml Sdv IVPUSH 03/29/21 02:50 50 mcg ONETIME ONE Administration Fentanyl 50 mcg 03/29/21 03:51 03/29/21 03:58 Fentanyl 100 Mcg/2 Ml Sdv IVPUSH 03/29/21 03:52 50 mcg ONETIME ONE Administration Fentanyl 50 mcg 03/29/21 05:30 03/29/21 09:38 Fentanyl 100 Mcg/2 Ml Sdv IVPUSH 50 mcg Q1H PRN Administration Pain Hydromorphone HCl 0.5 mg 03/29/21 12:33 Hydromorphone 0.5 Mg/0.5 Ml Syringe IVPUSH 03/29/21 12:34 ONETIME ONE Lactated Ringer's 1,000 mls @ 999 mls/hr 03/29/21 03:00 03/29/21 02:58 Ringers, Lactated IV 999 mls/hr ASDIRECTED REGLA Administration Lactated Ringer's 1,000 mls @ 250 mls/hr 03/29/21 04:00 03/29/21 04:10 Ringers, Lactated IV 250 mls/hr ASDIRECTED REGLA Administration Potassium Chloride/Sodium Chloride 1,000 mls @ 250 mls/hr 03/29/21 08:15 03/29/21 08:14 Normal Saline With 20 Meq Kcl IV 250 mls/hr ASDIRECTED REGLA Administration Potassium Chloride/Sodium Chloride 1,000 mls @ 250 mls/hr 03/29/21 12:45 03/29/21 13:48 Normal Saline With 20 Meq Kcl IV 250 mls/hr ASDIRECTED REGLA Administration Ondansetron HCl 4 mg 03/29/21 02:52 03/29/21 02:58 Ondansetron 4 Mg/2 Ml Sdv IVPUSH 03/29/21 02:53 4 mg ONETIME ONE Administration Prochlorperazine Edisylate 5 mg 03/29/21 05:29 03/29/21 05:39 Prochlorperazine 10 Mg/2 Ml Sdv IVPUSH 03/29/21 05:30 5 mg ONETIME ONE Administration Prochlorperazine Edisylate 5 mg 03/29/21 08:16 03/29/21 08:41 Prochlorperazine 10 Mg/2 Ml Sdv IVPUSH 03/29/21 08:17 5 mg ONETIME ONE Administration Sodium Chloride 10 ml 03/29/21 02:48 03/29/21 03:00 Sodium Chloride 0.9% 10 Ml Syringe FLUSH 10 ml ASDIRECTED PRN Administration Keep Vein Open Departure - Departure Time of Disposition: 15:15 Condition: Fair Sepsis Event Note (ED) - Focused Exam Vital Signs: Vital Signs Temp Pulse Resp BP Pulse Ox 03/29/21 13:13 36.9 C 59 L 12 97 03/29/21 12:15 59 L 137/63 03/29/21 11:15 59 L 149/69 H 03/29/21 09:15 55 L 18 143/68 H 96 03/29/21 08:43 73 14 148/58 H 94 L 03/29/21 07:42 55 L 15 144/67 H 91 L 03/29/21 06:15 55 L 13 156/73 H 91 L
[2021-03-29] MEDS ORDERED: Prochlorperazine 10 MG/2 ML SDV IVPUSH ONE ×2 (05:29→08:16)
[2021-03-29] MEDS: fentaNYL 100 MCG/2 ML SDV IVPUSH PRN ×2 (05:39→09:38)
[2021-03-29] MEDS ORDERED: NS + KCl 20mEq/L 1,000 ML IV SCH ×2 (08:15→12:45)
[2021-03-29] MEDS ORDERED: Famotidine 20 MG/2 ML SDV IVPUSH ONE (09:35)
[2021-03-29] MEDS ORDERED: HYDROmorphone 0.5 MG/0.5 ML Syringe IVPUSH ONE (12:33)
[2021-03-29 13:13] VITALS: BP 137/63; PULSE 59
== END 2021-03-29 13:50 ==
LOC: JP.ED 01:55
DX: K85.90 Acute pancreatitis without necrosis or infection, unspecified (principal); I25.10 Atherosclerotic heart disease of native coronary artery without angina pectoris; E78.00 Pure hypercholesterolemia, unspecified; I10 Essential (primary) hypertension; I25.2 Old myocardial infarction; E03.9 Hypothyroidism, unspecified; Z95.1 Presence of aortocoronary bypass graft; Z86.718 Personal history of other venous thrombosis and embolism; Z91.041 Radiographic dye allergy status; Z88.2 Allergy status to sulfonamides; Z88.5 Allergy status to narcotic agent; Z88.1 Allergy status to other antibiotic agents; Z88.8 Allergy status to other drugs, medicaments and biological substances; Z79.899 Other long term (current) drug therapy; Z72.0 Tobacco use
CPT/HCPCS: 36415; 80053; 83605; 83690; 83735; 84484; 85025; 96365; 96366; 96375; 96376; 99285-25; J0780; J2405; J3010; J3480; J3490; J7120

== ENCOUNTER 2021-05-21 09:43 | Emergency (ER) | payer MEDICARE ==
[2021-05-21 09:52] VITALS: PULSE 63
[2021-05-21] MEDS ORDERED: Aspirin 81 MG Tab.Chew PO ONE (10:26)
[2021-05-21] MEDS ORDERED: Alum Hydrox/Mag Hydrox/Simeth 15 ML, Lidocaine 2% 15 ML PO ONE ×2 (10:27)
--- NOTE | 2021-05-21 10:30 | EDM.PDOC ---
ED HPI GENERAL MEDICAL PROBLEM - General Chief Complaint: Chest Pain Stated Complaint: chest pain Time Seen by Provider: 05/21/21 10:18 Source of Information: Reports: Patient, RN Notes Reviewed History Limitations: Reports: No Limitations - History of Present Illness INITIAL COMMENTS - FREE TEXT/NARRATIVE: 80-year-old female presents emergency department day complaint of chest pain, she states that chest pain started about 4 hours prior she does have a known history of Covid she is currently on day 4 for symptoms she is scheduled for monoclonal antibody treatment today she admits this feels similar to her cardiac events in the past, she has had nausea diaphoresis and shortness of breath she is also wondering if it may be indigestion Middle Chest Pain Score (Numeric/FACES): 6 - Related Data Allergies Allergy/AdvReac Type Severity Reaction Status Date / Time Iodinated Contrast Media Allergy Severe Anaphylactic Verified 05/21/21 09:53 [Iodinated Contrast Media - Shock IV Dye] sumatriptan succinate Allergy Severe Tachycardia Verified 05/21/21 09:53 [From Imitrex] Sulfa (Sulfonamide Allergy Intermediate Rash Verified 05/21/21 09:53 Antibiotics) isosorbide [From Imdur] Allergy Mild Hypotension Verified 05/21/21 09:53 ciprofloxacin Allergy Unknown Rash Verified 05/21/21 09:53 morphine AdvReac Intermediate Nausea and Verified 05/21/21 09:53 Vomiting amlodipine AdvReac Unknown Agitation Verified 05/21/21 09:53 hydromorphone [From Dilaudid] AdvReac Nausea Verified 05/21/21 09:53 Home Meds: Home Meds Furosemide [Lasix] 40 mg PO DAILY 02/21/13 [History] Aspirin [Stephen Chewable Aspirin] 81 mg PO DAILY 09/04/13 [History] Rosuvastatin [Crestor] 5 mg PO Q48H 06/02/14 [History] Metoprolol Succinate [Toprol XL] 50 mg PO DAILY 01/06/16 [History] Acetaminophen [Tylenol] 650 mg PO Q6H PRN 02/28/17 [History] Levothyroxine 100 mcg PO ACBREAKFAST 04/24/17 [History] Lisinopril 5 mg PO DAILY 12/18/17 [History] Omeprazole Magnesium [Prilosec Otc] 40 mg PO DAILY 01/21/20 [History] DULoxetine [Cymbalta] 20 mg PO DAILY 03/29/21 [History] Past Medical History HEENT History: Reports: Cataract, Impaired Vision Other HEENT History: wears glasses Cardiovascular History: Reports: Afib, Blood Clots/VTE/DVT, Bypass, CAD, High Cholesterol, Hypertension, [place], Stents Respiratory History: Reports: Other (See Below) Other Respiratory History: new diagnosis pleurisy and nodule on right lung Gastrointestinal History: Reports: Diverticulosis, GERD, Other (See Below) Other Gastrointestinal History: lymphocitic colitis Genitourinary History: Reports: Renal Calculus, UTI, Recurrent Other Genitourinary History: Occasional UTI Known UTI 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 R shoulder pain. Lumbago Neurological History: Reports: Migraines Psychiatric History: Reports: Anxiety Endocrine/Metabolic History: Reports: Hypothyroidism Hematologic History: Reports: Anticoagulation Therapy, Other (See Below) Other Hematologic History: warfarin a few years ago Oncologic (Cancer) History: Reports: Squamous Cell Carcinoma Dermatologic History: Reports: Other (See Below) Other Dermatologic History: skin cancer lesions on feet and legs, right hand - Infectious Disease History Infectious Disease History: Reports: Chicken Pox, Measles, Mumps, Novel Coronavirus, Rubella - Past Surgical History Head Surgeries/Procedures: Reports: None HEENT Surgical History: Reports: Cataract Surgery Cardiovascular Surgical History: Reports: Carotid Stents, Coronary Artery Bypass Other Cardiovascular Surgeries/Procedures: [place] 2010 with stents; CABG x3 in 2016. Intermittent use of anticoagulants Respiratory Surgical History: Reports: None GI Surgical History: Reports: Appendectomy, Cholecystectomy, Colonoscopy, EGD, Hernia Repair/Other, William Fundoplication Female Surgical History: Reports: Hysterectomy Endocrine Surgical History: Reports: None Neurological Surgical History: Reports: None Musculoskeletal Surgical History: Reports: Other (See Below) Other Musculoskeletal Surgeries/Procedures:: shoulder surgery Oncologic Surgical History: Reports: None Dermatological Surgical History: Reports: Skin Biopsy Social & Family History - Family History Family Medical History: No Pertinent Family History Cardiac: Reports: [place] Respiratory: Reports: COPD Oncologic: Reports: Brain, Skin - Tobacco Use Tobacco Use Status *Q: Current Every Day Tobacco User Years of Tobacco use: 30 Packs/Tins Daily: 0.5 - Caffeine Use Caffeine Use: Reports: Coffee Other Caffeine Use: 1 pot in the morning - Recreational Drug Use Recreational Drug Use: No - Living Situation & Occupation Living situation: Reports: ( 08/19/2010), Alone (since of spouse) Occupation: Retired ED ROS GENERAL - Review of Systems Review Of Systems: See Below Constitutional: Reports: Fever, Weakness, Fatigue, Diaphoresis HEENT: Reports: No Symptoms Respiratory: Reports: Shortness of Breath, Cough. Denies: Sputum Cardiovascular: Reports: Chest Pain, Dyspnea on Exertion GI/Abdominal: Reports: Nausea. Denies: Abdominal Pain : Reports: No Symptoms ED EXAM, GENERAL - Physical Exam Exam: See Below Exam Limited By: No Limitations General Appearance: Alert, WD/WN, No Apparent Distress Respiratory/Chest: No Respiratory Distress, Lungs Clear, Normal Breath Sounds, No Accessory Muscle Use, Chest Non-Tender Cardiovascular: Regular Rate, Rhythm, No Murmur GI/Abdominal: Soft, Non-Tender #1 Interpretation EKG Date: 05/21/21 Time: 10:58 Rhythm: NSR [place]: Normal P-Wave: Present QRS: Normal ST-T: Normal QT: Normal Comparison: Change From Previous EKG Course - Vital Signs Last Recorded V/S: Last Vital Signs Temp 97.9 F 05/21/21 09:51 Pulse 63 05/21/21 09:51 Resp 20 05/21/21 10:47 BP 163/66 H 05/21/21 10:47 Pulse Ox 97 05/21/21 10:47 - Orders/Labs/Meds Orders: Active Orders 24 hr Category Date Time Status Cardiac Monitoring [RC] .As Directed Care 05/21/21 10:26 Active EKG 12 Lead [EK] Stat Ther 05/21/21 10:27 Ordered Labs: Laboratory Tests 05/21/21 05/21/21 Range/Units 10:47 10:47 WBC 7.9 (4.5-11.0) K/uL RBC 3.66 (3.30-5.50) M/uL Hgb 11.3 L D (12.0-15.0) g/dL Hct 35.4 L (36.0-48.0) % MCV 97 (80-98) fL MCH 31 (27-31) pg MCHC 32 (32-36) % Plt Count 340 (150-400) K/uL Neut % (Auto) 77.5 H (36-66) % Lymph % (Auto) 15.2 L (24-44) % [place] % (Auto) 6.6 H (2-6) % Eos % (Auto) 0.4 L (2-4) % Baso % (Auto) 0.3 (0-1) % Sodium 141 (140-148) mmol/L Potassium 3.6 (3.6-5.2) mmol/L Chloride 104 (100-108) mmol/L Carbon Dioxide 27 (21-32) mmol/L Anion Gap 10.0 (5.0-14.0) mmol/L BUN 15 (7-18) mg/dL Creatinine 0.8 (0.6-1.0) mg/dL Est Cr Clr Drug Dosing 51.88 mL/min Estimated GFR (MDRD) > 60 (>60) Glucose 109 H (74-106) mg/dL Calcium 9.0 (8.5-10.1) mg/dL Total Bilirubin 0.5 (0.2-1.0) mg/dL AST 177 H D (15-37) U/L ALT 62 D (12-78) U/L Alkaline Phosphatase 155 H D (46-116) U/L Troponin I High Sens 9.3 (<=60.3) pg/mL Total Protein 6.0 L (6.4-8.2) g/dL Albumin 3.0 L (3.4-5.0) g/dL Globulin 3.0 (2.3-3.5) g/dL Albumin/Globulin Ratio 1.0 L (1.2-2.2) Meds: Medications Discontinued Medications Generic Name Dose Route Start Last Admin Trade Name Freq PRN Reason Stop Dose Admin Aspirin 324 mg 05/21/21 10:26 05/21/21 10:48 Aspirin 81 Mg Tab.Chew PO 05/21/21 10:27 324 mg ONETIME ONE Administration Al Hydroxide/Mg Hydroxide 15 0 ml 05/21/21 10:27 05/21/21 10:48 ml/ Lidocaine HCl 15 ml PO 05/21/21 10:28 30 ml ONETIME ONE Administration Departure - Departure Time of Disposition: 11:24 Disposition: Home, Self-Care 01 Condition: Fair Clinical Impression: Atypical chest pain Instructions: Nonspecific Chest Pain, Adult Referrals: PCP,None [Primary Care Provider] - Forms: ED Department Discharge Additional Instructions: Please report outpatient therapy for treatment of monoclonal which we will f inish today, call or return to the emergency department worsening of symptoms Sepsis Event Note (ED) - Evaluation Sepsis Screening Result: No Definite Risk - Focused Exam Vital Signs: Vital Signs Temp Pulse Resp BP Pulse Ox 05/21/21 10:47 20 163/66 H 97 05/21/21 09:51 97.9 F 63 18 169/63 H 100 - My Orders Last 24 Hours: My Active Orders 05/21/21 10:26 Cardiac Monitoring [RC] .As Directed 05/21/21 10:27 EKG 12 Lead [EK] Stat - Assessment/Plan Last 24 Hours: My Active Orders 05/21/21 10:26 Cardiac Monitoring [RC] .As Directed 05/21/21 10:27 EKG 12 Lead [EK] Stat Plan: Assessment Acuity = acute Site and laterality = atypical chest pain complicated patient with known history of coronary artery disease and currently on day four of Covid symptoms Etiology = probably related to Covid/reflux Manifestations = none Location of injury = Home Lab values = CBC unremarkable CMP unremarkable other than AST elevated 177 consistent with elevated liver enzymes troponin was negative EKG demonstrates normal sinus rhythm no ST elevations or depressions Plan She had good relief with a GI cocktail plan is to continue with monoclonal antibody treatment which she was scheduled for nine three this morning we will just transfer her to outpatient to finish that treatment to help with the Covid This note was dictated using [employer] voice recognition software please call with any questions on syntax or grammar.
[2021-05-21 10:48] VITALS: BP 163/66
[2021-05-21] MEDS ORDERED: Famotidine 20 MG/2 ML SDV IV PRN (12:00)
[2021-05-21] MEDS ORDERED: EPINEPHrine 1 MG/ML SDV IM PRN (12:00)
[2021-05-21] MEDS ORDERED: diphenhydrAMINE 50 MG/ML SDV IVPUSH PRN (12:00)
[2021-05-21] MEDS ORDERED: Acetaminophen 325 MG Tab PO PRN (12:00)
[2021-05-21] MEDS ORDERED: methylPREDNISolone Sodium Succinate 125 MG/2 ML SDV IVPUSH PRN (12:00)
== END 2021-05-21 11:46 | disposition home or self-care (01) ==
LOC: JP.ED 09:43
DX: R07.89 Other chest pain (principal); I48.91 Unspecified atrial fibrillation; I25.10 Atherosclerotic heart disease of native coronary artery without angina pectoris; E78.00 Pure hypercholesterolemia, unspecified; I10 Essential (primary) hypertension; K21.9 Gastro-esophageal reflux disease without esophagitis; E03.9 Hypothyroidism, unspecified; Z86.73 Personal history of transient ischemic attack (TIA), and cerebral infarction without residual deficits; Z95.5 Presence of coronary angioplasty implant and graft; Z91.041 Radiographic dye allergy status; Z88.8 Allergy status to other drugs, medicaments and biological substances; Z88.2 Allergy status to sulfonamides; Z88.5 Allergy status to narcotic agent; Z79.82 Long term (current) use of aspirin; Z79.899 Other long term (current) drug therapy; Z72.0 Tobacco use
CPT/HCPCS: 36415; 80053; 84484; 85025; 93005; 99285-25; A9270-GY

== ENCOUNTER 2021-07-29 09:53 | Emergency (ER) | payer MEDICARE ==
[2021-07-29] MEDS ORDERED: Sodium Chloride 0.9% 10 ML Syringe FLUSH PRN (10:01)
[2021-07-29] MEDS ORDERED: diphenhydrAMINE 50 MG/ML SDV IVPUSH ONE (10:01)
[2021-07-29 10:06] VITALS: BP 138/74; PULSE 92
[2021-07-29] MEDS ORDERED: Famotidine 20 MG/2 ML SDV IVPUSH ONE (10:18)
[2021-07-29] MEDS ORDERED: methylPREDNISolone Sodium Succinate 125 MG/2 ML SDV IVPUSH ONE (10:18)
== END 2021-07-29 13:36 | disposition home or self-care (01) ==
LOC: JP.ED 09:53
DX: L25.8 Unspecified contact dermatitis due to other agents (principal); T36.1X5A Adverse effect of cephalosporins and other beta-lactam antibiotics, initial encounter; S80.01XA Contusion of right knee, initial encounter; S70.01XA Contusion of right hip, initial encounter; W19.XXXA Unspecified fall, initial encounter
CPT/HCPCS: 36415; 73502-26-RT; 73502-RT; 73562-26-RT; 73562-RT; 80048; 84484; 85025; 86140; 93005; 93010; 96374; 96375; 99283; 99284-25; J1200; J2930; J3490

== ENCOUNTER 2022-10-28 08:54 | Emergency (ER) | payer MEDICARE ==
[2022-10-28] MEDS ORDERED: Ondansetron 4 MG/2 ML SDV IVPUSH ONE (10:00)
[2022-10-28] MEDS ORDERED: HYDROmorphone 0.5 MG/0.5 ML Syringe IVPUSH ONE (10:12)
[2022-10-28 10:13] LABS: HEMATOCRIT 38.2 % (34.3-46.0); HEMOGLOBIN 12.9 g/dL (11.2-15.5); MEAN CORPUSCULAR HGB CONC 33.8 g/dL (31.6-35.5); MEAN CORPUSCULAR VOLUME 97.7 fL (81.4-99.0); RED BLOOD CELL COUNT 3.91 M/uL (3.77-5.24); WHITE BLOOD CELL COUNT,WBC 18.8 K/uL (3.2-11.0)
[2022-10-28] MEDS: Sodium Chloride 0.9% 1,000 ML IV SCH ×3 (10:19→13:32)
[2022-10-28 10:30] LABS: INR 1.3; PROTHROMBIN TIME 13.1 sec (9.2-10.6)
[2022-10-28 10:41] LABS: A/G RATIO 0.7 (1.2-2.2); ALANINE AMINOTRANSFERASE,ALT 10 U/L (12-78); ALBUMIN 2.7 g/dL (3.4-5.0); ALKALINE PHOSPHATASE 105 U/L (46-116); ASPARTATE AMNIOTRANSFERASE,AST 14 U/L (15-37); BILIRUBIN TOTAL 0.8 mg/dL (0.2-1.0); BLOOD UREA NITROGEN,BUN 30 mg/dL (7-18); CALCIUM 9.1 mg/dL (8.5-10.1); CARBON DIOXIDE,CO2 31 mmol/L (21-32); CHLORIDE,CL 96 mmol/L (100-108); CREATININE 2.1 mg/dL (0.6-1.0); ESTIMATED GFR 23 mL/min (>60); GLUCOSE RANDOM 147 mg/dL (74-106); POTASSIUM,K 3.2 mmol/L (3.6-5.2); PRO B-TYPE NATRIUR PEPT,BNPPRO 4403 pg/mL (5-450); PROTEIN TOTAL,TP 6.6 g/dL (6.4-8.2); SODIUM,NA 134 mmol/L (140-148)
[2022-10-28] MEDS ORDERED: Acetaminophen 325 MG Tab PO ONE (10:46)
[2022-10-28 10:52] LABS: ANION GAP 10.2 mmol/L (5.0-14.0)
[2022-10-28] MEDS ORDERED: diphenhydrAMINE 50 MG/ML SDV IVPUSH ONE (10:56)
[2022-10-28] MEDS ORDERED: Aspirin 81 MG Tab.Chew PO ONE (10:59)
[2022-10-28] MEDS ORDERED: Meropenem 1 GM in Sodium Chloride 0.9% 100 ML IV ONE (11:31)
[2022-10-28] MEDS ORDERED: Vancomycin 1.4 GM in Sodium Chloride 0.9% 250 ML IV ONE (12:15)
[2022-10-28] MEDS ORDERED: Sodium Chloride 0.9% 500 ML IV ONE (13:04)
[2022-10-28 13:39] LABS: APPEARANCE,URINE CLOUDY (CLEAR); BILIRUBIN,URINE NEGATIVE (NEGATIVE); COLOR,URINE YELLOW (YELLOW); GLUCOSE,URINE NEGATIVE (NEGATIVE); KETONES,URINE NEGATIVE (NEGATIVE); LEUKOCYTE ESTERASE,URINE SMALL (NEGATIVE); NITRITE,URINE NEGATIVE (NEGATIVE); OCCULT BLOOD,URINE TRACE-INTACT (NEGATIVE); PROTEIN,URINE 100 mg/dL (NEGATIVE); UROBILINOGEN,URINE 0.2 EU/dL (0.2-1.0)
[2022-10-28 13:45] LABS: AMORPHOUS SEDIMENT,URINE NOT SEEN; BACTERIA,URINE MANY; EPITHELIAL CELLS,URINE MANY; MUCUS,URINE MANY; WBC,URINE 40-50 (0-5)
[2022-10-28 14:31] VITALS: BP 91/41; PULSE 65
== END 2022-10-28 14:34 | disposition critical access hospital (66) ==
LOC: JP.ED 08:54
DX: A41.9 Sepsis, unspecified organism (principal); I48.19 Other persistent atrial fibrillation; R10.9 Unspecified abdominal pain; I25.10 Atherosclerotic heart disease of native coronary artery without angina pectoris; E78.00 Pure hypercholesterolemia, unspecified; I10 Essential (primary) hypertension; I25.2 Old myocardial infarction; M10.9 Gout, unspecified; E03.9 Hypothyroidism, unspecified; Z91.041 Radiographic dye allergy status; Z88.5 Allergy status to narcotic agent; Z88.8 Allergy status to other drugs, medicaments and biological substances; Z79.82 Long term (current) use of aspirin; Z79.899 Other long term (current) drug therapy; Z86.16 Personal history of COVID-19; Z72.0 Tobacco use; Z20.822 Contact with and (suspected) exposure to COVID-19
CPT/HCPCS: 36415; 71045; 71250; 74018; 74176; 80053; 80307; 81001; 83605; 83690; 83880; 84145; 84484; 85027; 85379; 85610; 87040; 87077; 87186; 93005; 96361; 96365; 96367; 96375; 99285; A9270; J1170; J1200; J2185; J2405; J3370; J3490; J7030; J7040; J7050; U0002

== ENCOUNTER 2023-05-12 15:12 | Inpatient (IN) | payer MEDICARE ==
[2023-05-12] MEDS ORDERED: Ondansetron 4 MG/2 ML SDV IVPUSH ONE (16:05)
[2023-05-12] MEDS ORDERED: HYDROmorphone 0.5 MG/0.5 ML Syringe IVPUSH ONE (16:05)
[2023-05-12 16:41] LABS: BASOPHILS ABSOLUTE AUTO 0.07 K/uL (0.00-0.10); BASOPHILS PERCENT AUTO 0.7 % (0.1-1.3); EOSINOPHILS PERCENT AUTO 1.9 % (0.0-5.4); HEMATOCRIT 38.9 % (34.3-46.0); HEMOGLOBIN 13.9 g/dL (11.2-15.5); IMMATURE GRAN ABSOLUTE AUTO 0.06 K/uL (0.00-0.23); IMMATURE GRAN PERCENT AUTO 0.6 % (0.0-0.7); LYMPHOCYTES ABSOLUTE AUTO 1.86 K/uL (0.8-3.3); LYMPHOCYTES PERCENT AUTO 17.9 % (11.4-47.7); MEAN CORPUSCULAR HEMOGLOBIN 35.1 pg (31.6-35.5); MEAN CORPUSCULAR HGB CONC 35.7 g/dL (31.6-35.5); MEAN CORPUSCULAR VOLUME 98.2 fL (81.4-99.0); MONOCYTES PERCENT AUTO 6.7 % (3.3-12.6); NEUTROPHILS ABSOLUTE AUTO 7.52 K/uL (1.0-7.6); NEUTROPHILS PERCENT AUTO 72.2 % (40.0-78.1); PLATELET COUNT,PLT 449 K/uL (130-375); RED BLOOD CELL COUNT 3.96 M/uL (3.77-5.24); WHITE BLOOD CELL COUNT,WBC 10.4 K/uL (3.2-11.0)
[2023-05-12 16:44] LABS: APPEARANCE,URINE CLOUDY (CLEAR); BILIRUBIN,URINE NEGATIVE (NEGATIVE); COLOR,URINE YELLOW (YELLOW); GLUCOSE,URINE NEGATIVE (NEGATIVE); KETONES,URINE TRACE mg/dL (NEGATIVE); LEUKOCYTE ESTERASE,URINE MODERATE (NEGATIVE); NITRITE,URINE POSITIVE (NEGATIVE); OCCULT BLOOD,URINE TRACE-INTACT (NEGATIVE); PH,URINE 5.5 (5.0-8.0); PROTEIN,URINE 30 mg/dL (NEGATIVE); UROBILINOGEN,URINE 0.2 EU/dL (0.2-1.0)
[2023-05-12 16:50] LABS: AMORPHOUS SEDIMENT,URINE NOT SEEN; BACTERIA,URINE MANY; EPITHELIAL CELLS,URINE FEW; MUCUS,URINE MODERATE; RBC,URINE 0-5 (0-5); WBC,URINE 40-50 (0-5)
[2023-05-12 16:51] LABS: A/G RATIO 0.9 (1.2-2.2); ALANINE AMINOTRANSFERASE,ALT 12 U/L (12-78); ALBUMIN 3.5 g/dL (3.4-5.0); ALKALINE PHOSPHATASE 101 U/L (46-116); ANION GAP 16.7 mmol/L (5.0-14.0); ASPARTATE AMNIOTRANSFERASE,AST 18 U/L (15-37); BILIRUBIN TOTAL 0.3 mg/dL (0.2-1.0); BLOOD UREA NITROGEN,BUN 32 mg/dL (7-18); CALCIUM 10.5 mg/dL (8.5-10.1); CARBON DIOXIDE,CO2 22 mmol/L (21-32); CHLORIDE,CL 98 mmol/L (100-108); CREATININE 1.3 mg/dL (0.6-1.0); EST CRCL DRUG DOSING (CG) 32.31 mL/min; ESTIMATED GFR 42 mL/min (>60); GLUCOSE RANDOM 103 mg/dL (74-106); POTASSIUM,K 3.7 mmol/L (3.6-5.2); PROTEIN TOTAL,TP 7.5 g/dL (6.4-8.2); SODIUM,NA 133 mmol/L (140-148)
[2023-05-12] MEDS ORDERED: Sodium Chloride 0.9% 1,000 ML IV SCH ×2 (17:00→19:35)
[2023-05-12] MEDS ORDERED: Meropenem 1 GM in Sodium Chloride 0.9% 100 ML IV ONE (17:08)
[2023-05-12] MEDS ORDERED: Pantoprazole 40 MG Vial IVPUSH ONE (17:25)
[2023-05-12] MEDS ORDERED: Lactated Ringers 1,000 ML IV SCH (18:15)
[2023-05-12 18:55] LABS: CORONAVIRUS COVID-19 NAA NEGATIVE (NEGATIVE); INFLUENZA A NAA NEGATIVE (NEGATIVE); INFLUENZA B NAA NEGATIVE (NEGATIVE); RESPIRATORY SYNCYTIAL VIR NAA NEGATIVE (NEGATIVE)
[2023-05-12] MEDS ORDERED: Sennosides/Docusate Sodium 50-8.6 MG Tab PO PRN (19:35)
[2023-05-12] MEDS ORDERED: Nicotine 14 MG/24 Hr Patch TRDERM PRN (19:35)
[2023-05-12] MEDS ORDERED: Magnesium Hydroxide 400 MG/5 ML Susp 30 ML Cup PO PRN (19:35)
[2023-05-12] MEDS ORDERED: Acetaminophen 325 MG Tab PO PRN (19:35)
[2023-05-12] MEDS ORDERED: Ondansetron 4 MG/2 ML SDV IV PRN (19:35)
[2023-05-12] MEDS ORDERED: Melatonin 3 MG Tab PO PRN (19:35)
[2023-05-12] MEDS ORDERED: Ondansetron 4 MG Tab.DIS PO PRN (19:35)
[2023-05-12] MEDS: Lactobacillus Rhamnosus GG (Probiotic) Cap PO SCH (20:59)
[2023-05-12] MEDS ORDERED: Rosuvastatin 5 MG Tab PO SCH (21:00)
[2023-05-12] MEDS ORDERED: HYDROmorphone 0.5 MG/0.5 ML Syringe IM SCH (21:00)
[2023-05-12] MEDS: Mirtazapine 15 MG Tab PO SCH (21:00)
[2023-05-12] MEDS: Meropenem 500 MG in Sodium Chloride 0.9% 50 ML IV SCH (23:39)
[2023-05-12] MEDS ORDERED: Meropenem 1 GM in Sodium Chloride 0.9% 100 ML IV SCH (23:55)
[2023-05-13] MEDS: HYDROmorphone 0.5 MG/0.5 ML Syringe IVPUSH PRN ×3 (01:47→10:52)
[2023-05-13 04:45] LABS: BASOPHILS ABSOLUTE AUTO 0.05 K/uL (0.00-0.10); BASOPHILS PERCENT AUTO 0.6 % (0.1-1.3); EOSINOPHILS ABSOLUTE AUTO 0.23 K/uL (0.00-0.40); EOSINOPHILS PERCENT AUTO 2.9 % (0.0-5.4); HEMATOCRIT 33.9 % (34.3-46.0); HEMOGLOBIN 11.7 g/dL (11.2-15.5); IMMATURE GRAN ABSOLUTE AUTO 0.05 K/uL (0.00-0.23); IMMATURE GRAN PERCENT AUTO 0.6 % (0.0-0.7); LYMPHOCYTES ABSOLUTE AUTO 2.44 K/uL (0.8-3.3); LYMPHOCYTES PERCENT AUTO 31.2 % (11.4-47.7); MEAN CORPUSCULAR HEMOGLOBIN 34.3 pg (31.6-35.5); MEAN CORPUSCULAR HGB CONC 34.5 g/dL (31.6-35.5); MEAN CORPUSCULAR VOLUME 99.4 fL (81.4-99.0); MONOCYTES ABSOLUTE AUTO 0.62 K/uL (0.20-0.90); MONOCYTES PERCENT AUTO 7.9 % (3.3-12.6); NEUTROPHILS ABSOLUTE AUTO 4.44 K/uL (1.0-7.6); NEUTROPHILS PERCENT AUTO 56.8 % (40.0-78.1); PLATELET COUNT,PLT 302 K/uL (130-375); RED BLOOD CELL COUNT 3.41 M/uL (3.77-5.24); WHITE BLOOD CELL COUNT,WBC 7.8 K/uL (3.2-11.0)
[2023-05-13 05:00] LABS: CALCIUM 9.4 mg/dL (8.5-10.1); CREATININE 1.1 mg/dL (0.6-1.0); EST CRCL DRUG DOSING (CG) 38.19 mL/min; POTASSIUM,K 3.7 mmol/L (3.6-5.2)
[2023-05-13 05:05] LABS: ANION GAP 13.7 mmol/L (5.0-14.0)
[2023-05-13] MEDS: Levothyroxine 100 MCG Tab PO SCH (07:53)
[2023-05-13] MEDS ORDERED: Rosuvastatin 5 MG Tab PO SCH (09:00)
[2023-05-13] MEDS: Meropenem 500 MG in Sodium Chloride 0.9% 50 ML IV SCH ×2 (09:25→15:29)
[2023-05-13] MEDS: Aspirin 81 MG Tab.Chew PO SCH (09:26)
[2023-05-13] MEDS: busPIRone 10 MG Tab PO SCH (09:27)
[2023-05-13] MEDS: Sertraline 50 MG Tab PO SCH (09:27)
[2023-05-13] MEDS: Bumetanide 1 MG Tab PO SCH (09:27)
[2023-05-13] MEDS: Lactobacillus Rhamnosus GG (Probiotic) Cap PO SCH ×2 (09:27→21:24)
[2023-05-13] MEDS: Enoxaparin 40 MG/0.4 ML Syringe SUBCUT SCH (09:27)
[2023-05-13] MEDS: Lisinopril 5 MG Tab PO SCH (09:28)
[2023-05-13] MEDS: Metoprolol Succinate 50 MG Tab.ER PO SCH (09:35)
[2023-05-13] MEDS: Pantoprazole 40 MG Tab.CR PO SCH (15:29)
[2023-05-13] MEDS: oxyCODONE 5 MG Tab PO PRN (18:00)
[2023-05-13] MEDS ORDERED: Pantoprazole 40 MG Vial IV SCH (18:00)
[2023-05-13] MEDS: Mirtazapine 15 MG Tab PO SCH (21:24)
[2023-05-14] MEDS: Meropenem 500 MG in Sodium Chloride 0.9% 50 ML IV SCH ×2 (00:11→08:30)
[2023-05-14] MEDS: oxyCODONE 5 MG Tab PO PRN ×2 (04:23→08:26)
[2023-05-14 05:06] LABS: A/G RATIO 0.8 (1.2-2.2); ALANINE AMINOTRANSFERASE,ALT 8 U/L (12-78); ALBUMIN 2.6 g/dL (3.4-5.0); ALKALINE PHOSPHATASE 76 U/L (46-116); ASPARTATE AMNIOTRANSFERASE,AST 13 U/L (15-37); BILIRUBIN TOTAL 0.3 mg/dL (0.2-1.0); BLOOD UREA NITROGEN,BUN 20 mg/dL (7-18); CALCIUM 9.5 mg/dL (8.5-10.1); CARBON DIOXIDE,CO2 22 mmol/L (21-32); CHLORIDE,CL 106 mmol/L (100-108); ESTIMATED GFR 57 mL/min (>60); GLUCOSE RANDOM 83 mg/dL (74-106); POTASSIUM,K 3.4 mmol/L (3.6-5.2); PROTEIN TOTAL,TP 5.8 g/dL (6.4-8.2); SODIUM,NA 138 mmol/L (140-148)
[2023-05-14 05:10] LABS: ANION GAP 13.4 mmol/L (5.0-14.0)
[2023-05-14] MEDS: Levothyroxine 100 MCG Tab PO SCH (07:23)
[2023-05-14] MEDS: Pantoprazole 40 MG Tab.CR PO SCH (07:23)
[2023-05-14] MEDS ORDERED: Potassium Chloride 20 MEQ Tab.ER PO ONE (09:00)
[2023-05-14] MEDS: Aspirin 81 MG Tab.Chew PO SCH (10:31)
[2023-05-14] MEDS: Bumetanide 1 MG Tab PO SCH (10:32)
[2023-05-14] MEDS: busPIRone 10 MG Tab PO SCH (10:32)
[2023-05-14] MEDS: Enoxaparin 40 MG/0.4 ML Syringe SUBCUT SCH (10:33)
[2023-05-14] MEDS: Sertraline 50 MG Tab PO SCH (10:33)
[2023-05-14] MEDS: Lactobacillus Rhamnosus GG (Probiotic) Cap PO SCH (10:33)
[2023-05-14] MEDS: Lisinopril 5 MG Tab PO SCH (10:34)
[2023-05-14] MEDS: Metoprolol Succinate 50 MG Tab.ER PO SCH (10:34)
[2023-05-14 11:39] VITALS: BP 108/43; PULSE 46
== END 2023-05-14 15:32 | disposition home or self-care (01) | DRG 689 ==
LOC: JP.ED 15:12 → JP.MS 18:42
PROVIDERS: ADMIT Registered Nurse; ATTEND Internal Medicine
DX: N30.01 Acute cystitis with hematuria (principal); N30.00 Acute cystitis without hematuria; I48.91 Unspecified atrial fibrillation; I25.810 Atherosclerosis of coronary artery bypass graft(s) without angina pectoris; K85.20 Alcohol induced acute pancreatitis without necrosis or infection; I10 Essential (primary) hypertension; K57.92 Diverticulitis of intestine, part unspecified, without perforation or abscess without bleeding; N17.9 Acute kidney failure, unspecified; E86.0 Dehydration; I25.10 Atherosclerotic heart disease of native coronary artery without angina pectoris; E87.6 Hypokalemia; F10.20 Alcohol dependence, uncomplicated; B96.20 Unspecified Escherichia coli [E. coli] as the cause of diseases classified elsewhere; K29.70 Gastritis, unspecified, without bleeding; E78.00 Pure hypercholesterolemia, unspecified; K21.9 Gastro-esophageal reflux disease without esophagitis; Z88.1 Allergy status to other antibiotic agents; G43.909 Migraine, unspecified, not intractable, without status migrainosus; F41.9 Anxiety disorder, unspecified; N18.30 Chronic kidney disease, stage 3 unspecified; I12.9 Hypertensive chronic kidney disease with stage 1 through stage 4 chronic kidney disease, or unspecified chronic kidney disease; F17.210 Nicotine dependence, cigarettes, uncomplicated; F32.A Depression, unspecified; E03.9 Hypothyroidism, unspecified; M10.9 Gout, unspecified; G89.29 Other chronic pain; M54.9 Dorsalgia, unspecified; Z87.442 Personal history of urinary calculi; Z98.49 Cataract extraction status, unspecified eye; Z79.82 Long term (current) use of aspirin; Z79.899 Other long term (current) drug therapy; Z88.5 Allergy status to narcotic agent; Z88.8 Allergy status to other drugs, medicaments and biological substances; Z91.041 Radiographic dye allergy status; Z88.2 Allergy status to sulfonamides; Z95.1 Presence of aortocoronary bypass graft; Z90.49 Acquired absence of other specified parts of digestive tract; Z90.710 Acquired absence of both cervix and uterus; Z98.890 Other specified postprocedural states; I25.2 Old myocardial infarction
CPT/HCPCS: 0241U; 36415; 74176; 80048; 80053; 81001; 83605; 83690; 85025; 86140; 87086; 87088; 87186; 96361; 96365; 96375; 99222; 99232; 99238; 99284; 99285; A9270-GY; C9113; J1170; J1650; J2185; J2405; J3490; J7030; Q0162

== ENCOUNTER 2023-11-22 16:18 | Inpatient (IN) | payer MEDICARE ==
[2023-11-22 17:13] LABS: BASOPHILS ABSOLUTE AUTO 0.07 K/uL (0.00-0.10); BASOPHILS PERCENT AUTO 0.5 % (0.1-1.3); EOSINOPHILS ABSOLUTE AUTO 0.52 K/uL (0.00-0.40); HEMATOCRIT 28.3 % (34.3-46.0); HEMOGLOBIN 10.3 g/dL (11.2-15.5); IMMATURE GRAN ABSOLUTE AUTO 0.09 K/uL (0.00-0.23); IMMATURE GRAN PERCENT AUTO 0.7 % (0.0-0.7); LYMPHOCYTES ABSOLUTE AUTO 1.62 K/uL (0.8-3.3); LYMPHOCYTES PERCENT AUTO 12.4 % (11.4-47.7); MEAN CORPUSCULAR HEMOGLOBIN 35.5 pg (31.6-35.5); MEAN CORPUSCULAR HGB CONC 36.4 g/dL (31.6-35.5); MEAN CORPUSCULAR VOLUME 97.6 fL (81.4-99.0); MONOCYTES ABSOLUTE AUTO 0.73 K/uL (0.20-0.90); MONOCYTES PERCENT AUTO 5.6 % (3.3-12.6); NEUTROPHILS ABSOLUTE AUTO 10.02 K/uL (1.0-7.6); NEUTROPHILS PERCENT AUTO 76.8 % (40.0-78.1); PLATELET COUNT,PLT 284 K/uL (130-375); WHITE BLOOD CELL COUNT,WBC 13.1 K/uL (3.2-11.0)
[2023-11-22] MEDS: fentaNYL 50 MCG/ML SDV IVPUSH ONE (17:24)
[2023-11-22] MEDS: Ondansetron 4 MG/2 ML SDV IVPUSH ONE (17:24)
[2023-11-22] MEDS: Sodium Chloride 0.9% 1,000 ML IV ONE (17:24)
[2023-11-22 17:47] LABS: A/G RATIO 0.8 (1.2-2.2); ALANINE AMINOTRANSFERASE,ALT 14 U/L (12-78); ALBUMIN 2.7 g/dL (3.4-5.0); ALKALINE PHOSPHATASE 154 U/L (46-116); AMYLASE 226 U/L (25-115); ASPARTATE AMNIOTRANSFERASE,AST 23 U/L (15-37); BILIRUBIN TOTAL 0.4 mg/dL (0.2-1.0); BLOOD UREA NITROGEN,BUN 21 mg/dL (7-18); C-REACTIVE PROTEIN 2.47 mg/dL (<0.50); CALCIUM 9.4 mg/dL (8.5-10.1); CARBON DIOXIDE,CO2 28 mmol/L (21-32); CHLORIDE,CL 95 mmol/L (100-108); CREATININE 1.1 mg/dL (0.6-1.0); EST CRCL DRUG DOSING (CG) 37.55 mL/min; ESTIMATED GFR 50 mL/min (>60); GLUCOSE RANDOM 95 mg/dL (74-106); PROTEIN TOTAL,TP 6.2 g/dL (6.4-8.2); SODIUM,NA 130 mmol/L (140-148)
[2023-11-22 17:52] LABS: ANION GAP 9.9 mmol/L (5.0-14.0)
[2023-11-22 17:53] LABS: POTASSIUM,K 2.9 mmol/L (3.6-5.2)
[2023-11-22] MEDS: Potassium Chloride 10 MEQ in Premix Bag 1 BAG IV ONE (18:29)
[2023-11-22] MEDS: HYDROmorphone 0.5 MG/0.5 ML Syringe IVPUSH ONE (19:38)
[2023-11-22] MEDS ORDERED: Melatonin 3 MG Tab PO PRN (19:44)
[2023-11-22] MEDS ORDERED: Sennosides/Docusate Sodium 50-8.6 MG Tab PO PRN (19:44)
[2023-11-22] MEDS ORDERED: Nicotine Polacrilex 2 MG Gum CHEW PRN (19:46)
[2023-11-22] MEDS: Sodium Chloride 0.9% 1,000 ML IV SCH (19:56)
[2023-11-22 20:07] LABS: APPEARANCE,URINE SLIGHTLY CLOUDY (CLEAR); BILIRUBIN,URINE NEGATIVE (NEGATIVE); COLOR,URINE YELLOW (YELLOW); GLUCOSE,URINE NEGATIVE (NEGATIVE); KETONES,URINE NEGATIVE (NEGATIVE); LEUKOCYTE ESTERASE,URINE NEGATIVE (NEGATIVE); NITRITE,URINE NEGATIVE (NEGATIVE); OCCULT BLOOD,URINE SMALL (NEGATIVE); PH,URINE 5.5 (5.0-8.0); PROTEIN,URINE NEGATIVE (NEGATIVE); UROBILINOGEN,URINE 0.2 EU/dL (0.2-1.0)
[2023-11-22] MEDS: Enoxaparin 40 MG/0.4 ML Syringe SUBCUT SCH (20:07)
[2023-11-22] MEDS: Mirtazapine 15 MG Tab PO SCH (20:08)
[2023-11-22] MEDS: Albuterol/Ipratropium 3.0-0.5 MG/3 ML Neb Soln NEB SCH (20:08)
[2023-11-22] MEDS: Potassium Chloride 10 MEQ in Premix Bag 1 BAG IV SCH (20:08)
[2023-11-22 20:17] LABS: AMORPHOUS SEDIMENT,URINE NOT SEEN; BACTERIA,URINE RARE; EPITHELIAL CELLS,URINE MODERATE; MUCUS,URINE NOT SEEN; RBC,URINE 0-5 (0-5); WBC,URINE 0-5 (0-5)
[2023-11-22] MEDS: diphenhydrAMINE 50 MG/ML SDV IVPUSH STA (20:45)
[2023-11-22] MEDS: Sodium Chloride 0.9% 100 ML IV SCH (21:12)
[2023-11-22] MEDS: Iopamidol 755 Mg/ML 100 ML Bottle IV SCH (21:13)
[2023-11-22] MEDS: Enoxaparin 30 MG/0.3 ML Syringe SUBCUT ONE (22:44)
[2023-11-22] MEDS: HYDROmorphone 1 MG/ML Syringe IVPUSH PRN (22:48)
[2023-11-23 05:34] LABS: HEMATOCRIT 24.7 % (34.3-46.0); HEMOGLOBIN 8.7 g/dL (11.2-15.5); MEAN CORPUSCULAR HEMOGLOBIN 34.8 pg (31.6-35.5); MEAN CORPUSCULAR HGB CONC 35.2 g/dL (31.6-35.5); MEAN CORPUSCULAR VOLUME 98.8 fL (81.4-99.0); RED BLOOD CELL COUNT 2.5 M/uL (3.77-5.24); WHITE BLOOD CELL COUNT,WBC 8.9 K/uL (3.2-11.0)
[2023-11-23 06:03] LABS: CALCIUM 8.3 mg/dL (8.5-10.1); CREATININE 1.2 mg/dL (0.6-1.0); EST CRCL DRUG DOSING (CG) 34.42 mL/min; POTASSIUM,K 3.8 mmol/L (3.6-5.2); TSH ULTRASENSITIVE 6.366 uIU/mL (0.358-3.740)
[2023-11-23 06:15] LABS: ANION GAP 10.8 mmol/L (5.0-14.0)
[2023-11-23] MEDS ORDERED: Levothyroxine 112 MCG Tab PO SCH (07:30)
[2023-11-23] MEDS: Ondansetron 4 MG/2 ML SDV IV PRN (08:11)
[2023-11-23] MEDS: Pantoprazole 40 MG Tab.CR PO SCH (08:14)
[2023-11-23] MEDS: Levothyroxine 25 MCG Tab PO SCH (08:14)
[2023-11-23] MEDS: Levothyroxine 100 MCG Tab PO SCH (08:14)
[2023-11-23] MEDS: Sertraline 50 MG Tab PO SCH (08:15)
[2023-11-23] MEDS: busPIRone 10 MG Tab PO SCH (08:15)
[2023-11-23] MEDS: Lisinopril 5 MG Tab PO SCH (10:20)
[2023-11-23] MEDS: Bumetanide 1 MG Tab PO SCH (10:20)
[2023-11-23] MEDS: Metoprolol Succinate 50 MG Tab.ER PO SCH (10:21)
[2023-11-23] MEDS: Enoxaparin 80 MG/0.8 ML Syringe SUBCUT SCH (10:23)
[2023-11-23] MEDS: HYDROmorphone 0.5 MG/0.5 ML Syringe IVPUSH PRN (12:24)
[2023-11-23] MEDS: Acetaminophen 325 MG Tab PO PRN (19:57)
[2023-11-24 05:32] LABS: HEMATOCRIT 25.6 % (34.3-46.0); HEMOGLOBIN 8.9 g/dL (11.2-15.5); MEAN CORPUSCULAR HEMOGLOBIN 35.5 pg (31.6-35.5); MEAN CORPUSCULAR HGB CONC 34.8 g/dL (31.6-35.5); RED BLOOD CELL COUNT 2.51 M/uL (3.77-5.24); WHITE BLOOD CELL COUNT,WBC 11.6 K/uL (3.2-11.0)
[2023-11-24 05:58] LABS: A/G RATIO 0.7 (1.2-2.2); ALANINE AMINOTRANSFERASE,ALT 11 U/L (12-78); ALBUMIN 2.1 g/dL (3.4-5.0); ALKALINE PHOSPHATASE 119 U/L (46-116); ANION GAP 12.9 mmol/L (5.0-14.0); ASPARTATE AMNIOTRANSFERASE,AST 17 U/L (15-37); BILIRUBIN TOTAL 0.3 mg/dL (0.2-1.0); BLOOD UREA NITROGEN,BUN 16 mg/dL (7-18); C-REACTIVE PROTEIN 2.86 mg/dL (<0.50); CALCIUM 8.2 mg/dL (8.5-10.1); CARBON DIOXIDE,CO2 22 mmol/L (21-32); CHLORIDE,CL 108 mmol/L (100-108); CREATININE 1.1 mg/dL (0.6-1.0); EST CRCL DRUG DOSING (CG) 37.55 mL/min; ESTIMATED GFR 50 mL/min (>60); GLUCOSE RANDOM 80 mg/dL (74-106); POTASSIUM,K 3.9 mmol/L (3.6-5.2); PROTEIN TOTAL,TP 5.1 g/dL (6.4-8.2); SODIUM,NA 139 mmol/L (140-148)
[2023-11-24] MEDS: Apixaban 5 MG Tab PO SCH (11:06)
[2023-11-24] MEDS: Sodium Chloride 0.9% 1,000 ML IV SCH (11:08)
[2023-11-24] MEDS: oxyCODONE 5 MG Tab PO PRN (12:22)
[2023-11-25 05:29] LABS: HEMOGLOBIN 8.6 g/dL (11.2-15.5); MEAN CORPUSCULAR HEMOGLOBIN 34.7 pg (31.6-35.5); MEAN CORPUSCULAR HGB CONC 34.4 g/dL (31.6-35.5); MEAN CORPUSCULAR VOLUME 100.8 fL (81.4-99.0); RED BLOOD CELL COUNT 2.48 M/uL (3.77-5.24); WHITE BLOOD CELL COUNT,WBC 14.5 K/uL (3.2-11.0)
[2023-11-25 05:44] LABS: CALCIUM 8.4 mg/dL (8.5-10.1); EST CRCL DRUG DOSING (CG) 41.3 mL/min; POTASSIUM,K 3.5 mmol/L (3.6-5.2)
[2023-11-25 05:47] LABS: ANION GAP 14.5 mmol/L (5.0-14.0)
[2023-11-25] MEDS: Ondansetron 4 MG Tab.DIS PO PRN (09:04)
[2023-11-25] MEDS: Ampicillin/Sulbactam Na 3 GM in Sodium Chloride 0.9% 100 ML IV SCH (10:24)
[2023-11-25] MEDS: HYDROmorphone 2 MG Tab PO PRN (13:43)
[2023-11-26 09:21] LABS: BASOPHILS ABSOLUTE AUTO 0.04 K/uL (0.00-0.10); BASOPHILS PERCENT AUTO 0.4 % (0.1-1.3); EOSINOPHILS ABSOLUTE AUTO 0.29 K/uL (0.00-0.40); EOSINOPHILS PERCENT AUTO 2.6 % (0.0-5.4); HEMATOCRIT 28.4 % (34.3-46.0); HEMOGLOBIN 9.7 g/dL (11.2-15.5); IMMATURE GRAN ABSOLUTE AUTO 0.06 K/uL (0.00-0.23); IMMATURE GRAN PERCENT AUTO 0.5 % (0.0-0.7); LYMPHOCYTES ABSOLUTE AUTO 1.18 K/uL (0.8-3.3); LYMPHOCYTES PERCENT AUTO 10.4 % (11.4-47.7); MEAN CORPUSCULAR HEMOGLOBIN 34.9 pg (31.6-35.5); MEAN CORPUSCULAR HGB CONC 34.2 g/dL (31.6-35.5); MEAN CORPUSCULAR VOLUME 102.2 fL (81.4-99.0); MONOCYTES ABSOLUTE AUTO 0.46 K/uL (0.20-0.90); NEUTROPHILS ABSOLUTE AUTO 9.34 K/uL (1.0-7.6); NEUTROPHILS PERCENT AUTO 82.1 % (40.0-78.1); PLATELET COUNT,PLT 287 K/uL (130-375); RED BLOOD CELL COUNT 2.78 M/uL (3.77-5.24); WHITE BLOOD CELL COUNT,WBC 11.4 K/uL (3.2-11.0)
[2023-11-26 09:36] LABS: ANION GAP 10.7 mmol/L (5.0-14.0); CALCIUM 8.8 mg/dL (8.5-10.1); EST CRCL DRUG DOSING (CG) 41.3 mL/min; POTASSIUM,K 3.7 mmol/L (3.6-5.2)
[2023-11-26 12:05] VITALS: BP 125/49; PULSE 63
== END 2023-11-26 15:07 | disposition home health service (06) | DRG 438 ==
LOC: JP.ED 16:18 → JP.MS 19:24
PROVIDERS: ADMIT Registered Nurse; ATTEND Internal Medicine
DX: K85.90 Acute pancreatitis without necrosis or infection, unspecified (principal); K85.20 Alcohol induced acute pancreatitis without necrosis or infection; I10 Essential (primary) hypertension; I26.94 Multiple subsegmental thrombotic pulmonary emboli without acute cor pulmonale; I25.810 Atherosclerosis of coronary artery bypass graft(s) without angina pectoris; H54.7 Unspecified visual loss; I25.10 Atherosclerotic heart disease of native coronary artery without angina pectoris; E78.00 Pure hypercholesterolemia, unspecified; K21.9 Gastro-esophageal reflux disease without esophagitis; M10.9 Gout, unspecified; M54.9 Dorsalgia, unspecified; G89.29 Other chronic pain; Z79.890 Hormone replacement therapy; G43.909 Migraine, unspecified, not intractable, without status migrainosus; F41.9 Anxiety disorder, unspecified; F32.A Depression, unspecified; E03.9 Hypothyroidism, unspecified; E87.6 Hypokalemia; I48.0 Paroxysmal atrial fibrillation; F17.210 Nicotine dependence, cigarettes, uncomplicated; E86.0 Dehydration; I12.9 Hypertensive chronic kidney disease with stage 1 through stage 4 chronic kidney disease, or unspecified chronic kidney disease; N18.30 Chronic kidney disease, stage 3 unspecified; F10.20 Alcohol dependence, uncomplicated; Z88.2 Allergy status to sulfonamides; Z88.8 Allergy status to other drugs, medicaments and biological substances; Z91.041 Radiographic dye allergy status; Z88.1 Allergy status to other antibiotic agents; Z88.5 Allergy status to narcotic agent; Z79.82 Long term (current) use of aspirin; Z79.899 Other long term (current) drug therapy; Z79.2 Long term (current) use of antibiotics; Z95.1 Presence of aortocoronary bypass graft; I25.2 Old myocardial infarction; Z95.5 Presence of coronary angioplasty implant and graft; Z87.442 Personal history of urinary calculi; Z87.440 Personal history of urinary (tract) infections; Z87.81 Personal history of (healed) traumatic fracture; Z86.16 Personal history of COVID-19; Z98.49 Cataract extraction status, unspecified eye; Z98.890 Other specified postprocedural states; Z90.49 Acquired absence of other specified parts of digestive tract; Z90.710 Acquired absence of both cervix and uterus; Z86.718 Personal history of other venous thrombosis and embolism
CPT/HCPCS: 36415; 71046 ×2; 80053; 82150; 83605; 83690; 84145; 85025; 85379; 86140; 93005; 93010; 96361; 96365; 96375; 99285 ×2; J2405; J3010; J3480; J7030; 71275; 80048; 81001; 84132; 84443; 85027; 93970; 93970-26; 94640; 97116-GP; 97161-GP; 97165-GO; 99222; 99232; 99239; A9270-GY; J0295; J1170; J1200; J1650; J3490; J7620; Q0162; Q9967

== ENCOUNTER 2023-11-29 10:09 | Inpatient (IN) | payer MEDICARE ==
[2023-11-29] MEDS: Albuterol/Ipratropium 3.0-0.5 MG/3 ML Neb Soln NEB ONE (13:03)
[2023-11-29] MEDS: HYDROmorphone 0.5 MG/0.5 ML Syringe IVPUSH ONE (13:03)
[2023-11-29 13:06] LABS: BASOPHILS ABSOLUTE AUTO 0.03 K/uL (0.00-0.10); BASOPHILS PERCENT AUTO 0.4 % (0.1-1.3); EOSINOPHILS ABSOLUTE AUTO 0.13 K/uL (0.00-0.40); EOSINOPHILS PERCENT AUTO 1.6 % (0.0-5.4); HEMOGLOBIN 9.9 g/dL (11.2-15.5); IMMATURE GRAN ABSOLUTE AUTO 0.03 K/uL (0.00-0.23); IMMATURE GRAN PERCENT AUTO 0.4 % (0.0-0.7); LYMPHOCYTES ABSOLUTE AUTO 1.29 K/uL (0.8-3.3); MEAN CORPUSCULAR HEMOGLOBIN 34.4 pg (31.6-35.5); MEAN CORPUSCULAR HGB CONC 35.4 g/dL (31.6-35.5); MEAN CORPUSCULAR VOLUME 97.2 fL (81.4-99.0); MONOCYTES ABSOLUTE AUTO 0.56 K/uL (0.20-0.90); NEUTROPHILS PERCENT AUTO 74.6 % (40.0-78.1); PLATELET COUNT,PLT 287 K/uL (130-375); RED BLOOD CELL COUNT 2.88 M/uL (3.77-5.24)
[2023-11-29 13:26] LABS: INR 1.5; PROTHROMBIN TIME 15.5 sec (9.2-10.6); PTT,PARTIAL THROMBOPLSTIN TIME 37.4 sec (21.8-27.3)
[2023-11-29 13:40] LABS: A/G RATIO 0.6 (1.2-2.2); ALANINE AMINOTRANSFERASE,ALT 15 U/L (12-78); ALBUMIN 2.3 g/dL (3.4-5.0); ALKALINE PHOSPHATASE 117 U/L (46-116); ASPARTATE AMNIOTRANSFERASE,AST 19 U/L (15-37); BILIRUBIN TOTAL 0.5 mg/dL (0.2-1.0); BLOOD UREA NITROGEN,BUN 11 mg/dL (7-18); CALCIUM 9.4 mg/dL (8.5-10.1); CARBON DIOXIDE,CO2 25 mmol/L (21-32); CHLORIDE,CL 102 mmol/L (100-108); CREATININE 0.9 mg/dL (0.6-1.0); EST CRCL DRUG DOSING (CG) 45.89 mL/min; ESTIMATED GFR 64 mL/min (>60); GLUCOSE RANDOM 102 mg/dL (74-106); MAGNESIUM 0.9 mg/dL (1.8-2.4); PHOSPHORUS 1.8 mg/dL (2.5-4.9); SODIUM,NA 137 mmol/L (140-148)
[2023-11-29 13:55] LABS: ANION GAP 12.9 mmol/L (5.0-14.0); POTASSIUM,K 2.9 mmol/L (3.6-5.2)
[2023-11-29] MEDS ORDERED: Magnesium Sulfate/Water 6 GM in Premix Bag 1 BAG IV STA (16:05)
[2023-11-29 16:31] LABS: APPEARANCE,URINE CLOUDY (CLEAR); BILIRUBIN,URINE SMALL (NEGATIVE); COLOR,URINE YELLOW (YELLOW); GLUCOSE,URINE NEGATIVE (NEGATIVE); KETONES,URINE TRACE mg/dL (NEGATIVE); LEUKOCYTE ESTERASE,URINE NEGATIVE (NEGATIVE); NITRITE,URINE NEGATIVE (NEGATIVE); OCCULT BLOOD,URINE NEGATIVE (NEGATIVE); PH,URINE 5.5 (5.0-8.0); PROTEIN,URINE 30 mg/dL (NEGATIVE); UROBILINOGEN,URINE 0.2 EU/dL (0.2-1.0)
[2023-11-29] MEDS: Furosemide 40 MG/4 ML VIAL IVPUSH ONE (16:31)
[2023-11-29] MEDS: Magnesium Sulfate/Water 2 GM in Premix Bag 1 BAG IV SCH (16:31)
[2023-11-29 16:40] LABS: AMORPHOUS SEDIMENT,URINE NOT SEEN; BACTERIA,URINE RARE; EPITHELIAL CELLS,URINE MANY; MUCUS,URINE NOT SEEN; RBC,URINE 0-5 (0-5); WBC,URINE 0-5 (0-5)
[2023-11-29] MEDS ORDERED: Albuterol 0.083% 2.5 MG/3 ML Neb Soln NEB PRN (17:14)
[2023-11-29] MEDS ORDERED: Sodium Chloride 0.9% 10 ML Syringe FLUSH PRN (17:14)
[2023-11-29] MEDS ORDERED: Magnesium Sulfate/Water 2 GM in Premix Bag 1 BAG IV SCH (17:30)
[2023-11-29] MEDS: Potassium Chloride 20 MEQ Tab.ER PO ONE ×2 (18:47→21:48)
[2023-11-29] MEDS ORDERED: HYDROmorphone 1 MG/ML Syringe IVPUSH PRN ×2 (19:34→19:37)
[2023-11-29] MEDS: Apixaban 5 MG Tab PO SCH (21:46)
[2023-11-29] MEDS: Mirtazapine 15 MG Tab PO SCH (21:46)
[2023-11-29] MEDS: Potassium Chloride 10 MEQ in Premix Bag 1 BAG IV SCH (21:54)
[2023-11-30] MEDS: Magnesium Sulfate/Water 2 GM in Premix Bag 1 BAG IV SCH ×2 (00:02→12:54)
[2023-11-30] MEDS: HYDROmorphone 2 MG Tab PO PRN (01:10)
[2023-11-30 05:21] LABS: HEMATOCRIT 23.4 % (34.3-46.0); HEMOGLOBIN 8.2 g/dL (11.2-15.5); MEAN CORPUSCULAR HEMOGLOBIN 33.7 pg (31.6-35.5); MEAN CORPUSCULAR VOLUME 96.3 fL (81.4-99.0); RED BLOOD CELL COUNT 2.43 M/uL (3.77-5.24); WHITE BLOOD CELL COUNT,WBC 6.4 K/uL (3.2-11.0)
[2023-11-30 05:47] LABS: CALCIUM 9.2 mg/dL (8.5-10.1); CREATININE 0.7 mg/dL (0.6-1.0); EST CRCL DRUG DOSING (CG) 59.33 mL/min; MAGNESIUM 1.8 mg/dL (1.8-2.4); POTASSIUM,K 3.7 mmol/L (3.6-5.2)
[2023-11-30 05:48] LABS: ANION GAP 10.7 mmol/L (5.0-14.0)
[2023-11-30 05:49] LABS: TROPONIN I HIGH SENSITIVITY 84.4 pg/mL (<=60.3)
[2023-11-30] MEDS ORDERED: Levothyroxine 112 MCG Tab PO SCH (07:30)
[2023-11-30] MEDS: Sertraline 50 MG Tab PO SCH (08:07)
[2023-11-30] MEDS: Metoprolol Succinate 50 MG Tab.ER PO SCH (08:07)
[2023-11-30] MEDS: Lisinopril 5 MG Tab PO SCH (08:08)
[2023-11-30] MEDS: busPIRone 10 MG Tab PO SCH (08:08)
[2023-11-30] MEDS: Levothyroxine 100 MCG, Levothyroxine 25 MCG PO SCH (08:08)
[2023-11-30] MEDS: Rosuvastatin 5 MG Tab PO SCH (08:08)
[2023-11-30] MEDS: Aspirin 81 MG Tab.Chew PO SCH (08:09)
[2023-11-30] MEDS: Furosemide 20 MG/2 ML VIAL IVPUSH SCH (08:09)
[2023-11-30] MEDS: Magnesium Oxide 400 MG Tab PO SCH (12:53)
[2023-11-30] MEDS: Witch Hazel Medicated Pads 100/Jar TOP PRN (12:53)
[2023-11-30] MEDS: Potassium Chloride 20 MEQ Tab.ER PO SCH (12:53)
[2023-11-30] MEDS: Ondansetron 4 MG/2 ML SDV IV PRN (12:54)
[2023-12-01 04:38] LABS: HEMATOCRIT 23.9 % (34.3-46.0); HEMOGLOBIN 8.2 g/dL (11.2-15.5); MEAN CORPUSCULAR HEMOGLOBIN 34.2 pg (31.6-35.5); MEAN CORPUSCULAR HGB CONC 34.3 g/dL (31.6-35.5); MEAN CORPUSCULAR VOLUME 99.6 fL (81.4-99.0); RED BLOOD CELL COUNT 2.4 M/uL (3.77-5.24); WHITE BLOOD CELL COUNT,WBC 7.6 K/uL (3.2-11.0)
[2023-12-01 04:55] LABS: CALCIUM 9.1 mg/dL (8.5-10.1); CREATININE 0.8 mg/dL (0.6-1.0); EST CRCL DRUG DOSING (CG) 51.91 mL/min
[2023-12-01] MEDS: Acetaminophen 325 MG Tab PO PRN (10:30)
[2023-12-01] MEDS: Naproxen 250 MG Tab PO SCH (12:11)
[2023-12-01] MEDS: Sodium Chloride 0.9% 500 ML IV ONE (19:48)
[2023-12-02 05:30] LABS: HEMATOCRIT 23.5 % (34.3-46.0); HEMOGLOBIN 7.8 g/dL (11.2-15.5); MEAN CORPUSCULAR HEMOGLOBIN 33.6 pg (31.6-35.5); MEAN CORPUSCULAR HGB CONC 33.2 g/dL (31.6-35.5); MEAN CORPUSCULAR VOLUME 101.3 fL (81.4-99.0); RED BLOOD CELL COUNT 2.32 M/uL (3.77-5.24); WHITE BLOOD CELL COUNT,WBC 7.6 K/uL (3.2-11.0)
[2023-12-02 05:48] LABS: CALCIUM 9.1 mg/dL (8.5-10.1); CREATININE 1.1 mg/dL (0.6-1.0); EST CRCL DRUG DOSING (CG) 37.75 mL/min; POTASSIUM,K 4.4 mmol/L (3.6-5.2)
[2023-12-02 05:52] LABS: ANION GAP 7.4 mmol/L (5.0-14.0)
[2023-12-02] MEDS: methylPREDNISolone Sodium Succinate 40 MG/1 ML SDV IVPUSH SCH (12:32)
[2023-12-02] MEDS: Mirtazapine 15 MG Tab PO SCH (20:50)
[2023-12-03 04:28] LABS: HEMATOCRIT 28.6 % (34.3-46.0); HEMOGLOBIN 9.9 g/dL (11.2-15.5); MEAN CORPUSCULAR HEMOGLOBIN 34.1 pg (31.6-35.5); MEAN CORPUSCULAR HGB CONC 34.6 g/dL (31.6-35.5); MEAN CORPUSCULAR VOLUME 98.6 fL (81.4-99.0); RED BLOOD CELL COUNT 2.9 M/uL (3.77-5.24); WHITE BLOOD CELL COUNT,WBC 7.3 K/uL (3.2-11.0)
[2023-12-03 04:40] LABS: ANION GAP 14.9 mmol/L (5.0-14.0); CALCIUM 9.8 mg/dL (8.5-10.1); CREATININE 1.1 mg/dL (0.6-1.0); EST CRCL DRUG DOSING (CG) 37.75 mL/min; POTASSIUM,K 5.9 mmol/L (3.6-5.2)
[2023-12-03] MEDS: Sodium Polystyrene Sulfonate 15 GM/60 ML Susp 60 ML Bot PO ONE (08:47)
[2023-12-03] MEDS: methylPREDNISolone Sodium Succinate 40 MG/1 ML SDV IVPUSH SCH (17:28)
[2023-12-04 05:44] LABS: CALCIUM 9.7 mg/dL (8.5-10.1); EST CRCL DRUG DOSING (CG) 41.3 mL/min; POTASSIUM,K 5.2 mmol/L (3.6-5.2)
[2023-12-04 05:55] LABS: ANION GAP 7.2 mmol/L (5.0-14.0)
[2023-12-04] MEDS: predniSONE 20 MG Tab PO ONE (14:41)
[2023-12-04] MEDS: Polyethylene Glycol 3350 Powder 17 GM Packet PO PRN (19:53)
[2023-12-05 06:22] LABS: HEMATOCRIT 25.8 % (34.3-46.0); HEMOGLOBIN 8.8 g/dL (11.2-15.5); MEAN CORPUSCULAR HEMOGLOBIN 33.5 pg (31.6-35.5); MEAN CORPUSCULAR HGB CONC 34.1 g/dL (31.6-35.5); MEAN CORPUSCULAR VOLUME 98.1 fL (81.4-99.0); RED BLOOD CELL COUNT 2.63 M/uL (3.77-5.24); WHITE BLOOD CELL COUNT,WBC 11.1 K/uL (3.2-11.0)
[2023-12-05 06:52] LABS: ANION GAP 6.3 mmol/L (5.0-14.0); C-REACTIVE PROTEIN 2.01 mg/dL (<0.50); CALCIUM 9.7 mg/dL (8.5-10.1); CREATININE 1.1 mg/dL (0.6-1.0); EST CRCL DRUG DOSING (CG) 37.55 mL/min; MAGNESIUM 1.6 mg/dL (1.8-2.4); POTASSIUM,K 4.3 mmol/L (3.6-5.2)
[2023-12-05] MEDS: Pantoprazole 40 MG Tab.CR PO SCH (07:38)
[2023-12-05] MEDS: predniSONE 20 MG Tab PO SCH (07:39)
[2023-12-06] MEDS: Furosemide 20 MG Tab PO SCH (08:56)
[2023-12-06 14:34] VITALS: BP 162/85; PULSE 59
== END 2023-12-06 15:05 | disposition home health service (06) | DRG 291 ==
LOC: JP.ED 10:09 → JP.MS 16:38
PROVIDERS: ADMIT Hospitalist; ATTEND Internal Medicine
DX: I11.0 Hypertensive heart disease with heart failure (principal); I26.94 Multiple subsegmental thrombotic pulmonary emboli without acute cor pulmonale; K85.90 Acute pancreatitis without necrosis or infection, unspecified; K86.1 Other chronic pancreatitis; I50.9 Heart failure, unspecified; I25.10 Atherosclerotic heart disease of native coronary artery without angina pectoris; M10.9 Gout, unspecified; E03.9 Hypothyroidism, unspecified; G89.29 Other chronic pain; M54.9 Dorsalgia, unspecified; F41.9 Anxiety disorder, unspecified; F32.A Depression, unspecified; E78.00 Pure hypercholesterolemia, unspecified; I48.91 Unspecified atrial fibrillation; E87.6 Hypokalemia; F10.20 Alcohol dependence, uncomplicated; E83.42 Hypomagnesemia; R79.89 Other specified abnormal findings of blood chemistry; Z88.8 Allergy status to other drugs, medicaments and biological substances; K21.9 Gastro-esophageal reflux disease without esophagitis; Z79.890 Hormone replacement therapy; F17.210 Nicotine dependence, cigarettes, uncomplicated; Z95.5 Presence of coronary angioplasty implant and graft; Z95.1 Presence of aortocoronary bypass graft; Z91.041 Radiographic dye allergy status; Z88.5 Allergy status to narcotic agent; Z88.2 Allergy status to sulfonamides; Z88.1 Allergy status to other antibiotic agents; Z79.82 Long term (current) use of aspirin; Z79.01 Long term (current) use of anticoagulants; Z79.899 Other long term (current) drug therapy; Z87.442 Personal history of urinary calculi; Z98.49 Cataract extraction status, unspecified eye; Z86.16 Personal history of COVID-19; Z90.710 Acquired absence of both cervix and uterus; Z90.49 Acquired absence of other specified parts of digestive tract; Z98.890 Other specified postprocedural states
CPT/HCPCS: 36415; 71046 ×2; 80053; 81001; 83605; 83690; 83735; 83880; 84100; 84145; 84484 ×2; 85025; 85610; 85730; 93005 ×2; 93010 ×2; 94640; 96374; 96375; 99284; 99285; J1170; J1940; J3475; 80048; 84132; 85018; 85027; 86140; 97161-GP; 97165-GO; 97530-GP; 99222; 99231; 99232; 99238; A9270-GY; J2405; J2919; J3480; J7040; J7512; J7620

== ENCOUNTER 2023-12-26 14:01 | Emergency (ER) | payer MEDICARE ==
[2023-12-26] MEDS: Sodium Chloride 0.9% 1,000 ML IV SCH (14:47)
[2023-12-26 14:56] LABS: BASOPHILS PERCENT AUTO 0.3 % (0.1-1.3); EOSINOPHILS PERCENT AUTO 0.3 % (0.0-5.4); HEMATOCRIT 22.8 % (34.3-46.0); HEMOGLOBIN 7.7 g/dL (11.2-15.5); IMMATURE GRAN PERCENT AUTO 0.3 % (0.0-0.7); LYMPHOCYTES ABSOLUTE AUTO 0.22 K/uL (0.8-3.3); LYMPHOCYTES PERCENT AUTO 2.8 % (11.4-47.7); MEAN CORPUSCULAR HEMOGLOBIN 32.1 pg (31.6-35.5); MEAN CORPUSCULAR HGB CONC 33.8 g/dL (31.6-35.5); MONOCYTES ABSOLUTE AUTO 0.05 K/uL (0.20-0.90); MONOCYTES PERCENT AUTO 0.6 % (3.3-12.6); NEUTROPHILS ABSOLUTE AUTO 7.54 K/uL (1.0-7.6); NEUTROPHILS PERCENT AUTO 95.7 % (40.0-78.1); PLATELET COUNT,PLT 300 K/uL (130-375); WHITE BLOOD CELL COUNT,WBC 7.9 K/uL (3.2-11.0)
[2023-12-26 14:59] LABS: BASOPHILS ABSOLUTE AUTO 0.02 K/uL (0.00-0.10); EOSINOPHILS ABSOLUTE AUTO 0.02 K/uL (0.00-0.40); IMMATURE GRAN ABSOLUTE AUTO 0.02 K/uL (0.00-0.23)
[2023-12-26 15:21] LABS: A/G RATIO 0.7 (1.2-2.2); ALANINE AMINOTRANSFERASE,ALT 8 U/L (12-78); ALKALINE PHOSPHATASE 103 U/L (46-116); ASPARTATE AMNIOTRANSFERASE,AST 11 U/L (15-37); BILIRUBIN TOTAL 0.6 mg/dL (0.2-1.0); BLOOD UREA NITROGEN,BUN 9 mg/dL (7-18); CALCIUM 8.1 mg/dL (8.5-10.1); CARBON DIOXIDE,CO2 29 mmol/L (21-32); CHLORIDE,CL 102 mmol/L (100-108); CREATININE 1.2 mg/dL (0.6-1.0); EST CRCL DRUG DOSING (CG) 34.42 mL/min; ESTIMATED GFR 45 mL/min (>60); GLUCOSE RANDOM 88 mg/dL (74-106); SODIUM,NA 138 mmol/L (140-148)
[2023-12-26 15:23] LABS: ANION GAP 9.7 mmol/L (5.0-14.0); POTASSIUM,K 2.7 mmol/L (3.6-5.2)
[2023-12-26 15:29] LABS: APPEARANCE,URINE CLEAR (CLEAR); BILIRUBIN,URINE NEGATIVE (NEGATIVE); COLOR,URINE YELLOW (YELLOW); GLUCOSE,URINE NEGATIVE (NEGATIVE); KETONES,URINE NEGATIVE (NEGATIVE); LEUKOCYTE ESTERASE,URINE NEGATIVE (NEGATIVE); NITRITE,URINE NEGATIVE (NEGATIVE); OCCULT BLOOD,URINE NEGATIVE (NEGATIVE); PROTEIN,URINE NEGATIVE (NEGATIVE); UROBILINOGEN,URINE 0.2 EU/dL (0.2-1.0)
[2023-12-26 15:43] LABS: AMORPHOUS SEDIMENT,URINE NOT SEEN; BACTERIA,URINE FEW; EPITHELIAL CELLS,URINE NOT SEEN; MUCUS,URINE NOT SEEN; RBC,URINE 0-5 (0-5); WBC,URINE 0-5 (0-5)
[2023-12-26] MEDS ORDERED: Diltiazem 100 MG in Sodium Chloride 0.9% 100 ML IV SCH (15:45)
[2023-12-26] MEDS ORDERED: Potassium Chloride 20 MEQ in Premix Bag 1 BAG IV ONE (15:50)
[2023-12-26] MEDS ORDERED: Potassium Chloride 100 ML ONE ×2 (15:52)
[2023-12-26] MEDS: Potassium Chloride 20 MEQ Tab.ER PO ONE (15:56)
[2023-12-26] MEDS: Potassium Chloride 10 MEQ in Premix Bag 1 BAG IV SCH (16:00)
[2023-12-26] MEDS: Acetaminophen 325 MG Tab PO ONE (16:35)
[2023-12-26] MEDS ORDERED: POTASSIUM ACETATE IV ONE (16:51)
[2023-12-26] MEDS ORDERED: SODIUM CHLORIDE 0.9% IV ONE (16:51)
[2023-12-26 18:43] VITALS: BP 73/44; PULSE 63
== END 2023-12-26 19:14 | disposition home or self-care (01) ==
LOC: JP.ED 14:01
DX: R53.1 Weakness (principal); D64.9 Anemia, unspecified; E87.6 Hypokalemia; I10 Essential (primary) hypertension; I25.2 Old myocardial infarction; E78.00 Pure hypercholesterolemia, unspecified; E03.9 Hypothyroidism, unspecified; Z88.1 Allergy status to other antibiotic agents; Z88.2 Allergy status to sulfonamides; Z91.041 Radiographic dye allergy status; Z79.82 Long term (current) use of aspirin; Z79.890 Hormone replacement therapy; Z79.899 Other long term (current) drug therapy; Z86.16 Personal history of COVID-19; Z90.49 Acquired absence of other specified parts of digestive tract; Z90.710 Acquired absence of both cervix and uterus; Z87.891 Personal history of nicotine dependence
CPT/HCPCS: 36415; 80053; 81001; 83690; 84145; 84484; 85025; 96361; 96365; 96366; 99284; 99285; A9270; J3480; J7030

== ENCOUNTER 2024-01-26 17:12 | Emergency (ER) | payer MEDICARE ==
[2024-01-26 18:21] LABS: BASOPHILS ABSOLUTE AUTO 0.04 K/uL (0.00-0.10); BASOPHILS PERCENT AUTO 0.6 % (0.1-1.3); EOSINOPHILS ABSOLUTE AUTO 0.12 K/uL (0.00-0.40); EOSINOPHILS PERCENT AUTO 1.8 % (0.0-5.4); HEMATOCRIT 27.6 % (34.3-46.0); HEMOGLOBIN 9.2 g/dL (11.2-15.5); IMMATURE GRAN ABSOLUTE AUTO 0.02 K/uL (0.00-0.23); IMMATURE GRAN PERCENT AUTO 0.3 % (0.0-0.7); LYMPHOCYTES ABSOLUTE AUTO 1.81 K/uL (0.8-3.3); LYMPHOCYTES PERCENT AUTO 26.8 % (11.4-47.7); MEAN CORPUSCULAR HEMOGLOBIN 30.5 pg (31.6-35.5); MEAN CORPUSCULAR HGB CONC 33.3 g/dL (31.6-35.5); MEAN CORPUSCULAR VOLUME 91.4 fL (81.4-99.0); MONOCYTES ABSOLUTE AUTO 0.42 K/uL (0.20-0.90); MONOCYTES PERCENT AUTO 6.2 % (3.3-12.6); NEUTROPHILS ABSOLUTE AUTO 4.35 K/uL (1.0-7.6); NEUTROPHILS PERCENT AUTO 64.3 % (40.0-78.1); PLATELET COUNT,PLT 290 K/uL (130-375); RED BLOOD CELL COUNT 3.02 M/uL (3.77-5.24); WHITE BLOOD CELL COUNT,WBC 6.8 K/uL (3.2-11.0)
[2024-01-26 18:28] LABS: APPEARANCE,URINE SLIGHTLY CLOUDY (CLEAR); BILIRUBIN,URINE NEGATIVE (NEGATIVE); COLOR,URINE YELLOW (YELLOW); GLUCOSE,URINE NEGATIVE (NEGATIVE); KETONES,URINE NEGATIVE (NEGATIVE); LEUKOCYTE ESTERASE,URINE NEGATIVE (NEGATIVE); NITRITE,URINE NEGATIVE (NEGATIVE); OCCULT BLOOD,URINE NEGATIVE (NEGATIVE); PH,URINE 5.5 (5.0-8.0); PROTEIN,URINE NEGATIVE (NEGATIVE); UROBILINOGEN,URINE 0.2 EU/dL (0.2-1.0)
[2024-01-26] MEDS: Sodium Chloride 0.9% 1,000 ML IV ONE (18:30)
[2024-01-26 18:35] LABS: AMORPHOUS SEDIMENT,URINE NOT SEEN; BACTERIA,URINE MODERATE; EPITHELIAL CELLS,URINE MANY; MUCUS,URINE NOT SEEN; RBC,URINE 0-5 (0-5); WBC,URINE 0-5 (0-5)
[2024-01-26 18:46] LABS: A/G RATIO 0.7 (1.2-2.2); ALANINE AMINOTRANSFERASE,ALT 7 U/L (12-78); ALBUMIN 2.7 g/dL (3.4-5.0); ALKALINE PHOSPHATASE 101 U/L (46-116); ASPARTATE AMNIOTRANSFERASE,AST 9 U/L (15-37); BILIRUBIN TOTAL 0.5 mg/dL (0.2-1.0); BLOOD UREA NITROGEN,BUN 17 mg/dL (7-18); CALCIUM 10.2 mg/dL (8.5-10.1); CARBON DIOXIDE,CO2 24 mmol/L (21-32); CHLORIDE,CL 99 mmol/L (100-108); CREATININE 1.1 mg/dL (0.6-1.0); EST CRCL DRUG DOSING (CG) 36.19 mL/min; ESTIMATED GFR 50 mL/min (>60); GLUCOSE RANDOM 97 mg/dL (74-106); POTASSIUM,K 4.7 mmol/L (3.6-5.2); PROTEIN TOTAL,TP 6.4 g/dL (6.4-8.2); SODIUM,NA 130 mmol/L (140-148)
[2024-01-26 18:47] LABS: ANION GAP 11.7 mmol/L (5.0-14.0)
[2024-01-26] MEDS: methylPREDNISolone Sodium Succinate 125 MG/2 ML SDV IVPUSH ONE (18:53)
[2024-01-26] MEDS: diphenhydrAMINE 50 MG/ML SDV IVPUSH ONE (18:53)
[2024-01-26] MEDS: Sodium Chloride 0.9% 80 ML IV SCH (19:28)
[2024-01-26] MEDS: Iopamidol 612 MG/ML 100 ML Bottle IV SCH (19:28)
[2024-01-26 21:07] VITALS: BP 139/68; PULSE 70
== END 2024-01-26 21:56 | disposition home or self-care (01) ==
LOC: JP.ED 17:12
DX: R41.0 Disorientation, unspecified (principal); I25.10 Atherosclerotic heart disease of native coronary artery without angina pectoris; I48.91 Unspecified atrial fibrillation; I25.2 Old myocardial infarction; I10 Essential (primary) hypertension; E78.00 Pure hypercholesterolemia, unspecified; F17.210 Nicotine dependence, cigarettes, uncomplicated; E03.9 Hypothyroidism, unspecified; Z90.710 Acquired absence of both cervix and uterus; Z79.82 Long term (current) use of aspirin; Z79.899 Other long term (current) drug therapy; Z88.8 Allergy status to other drugs, medicaments and biological substances; Z88.2 Allergy status to sulfonamides; Z88.5 Allergy status to narcotic agent; Z88.1 Allergy status to other antibiotic agents; Z91.041 Radiographic dye allergy status
CPT/HCPCS: 36415; 70450; 71260; 74177; 80053; 81001; 83605; 83690; 85025; 86140; 96361; 96374; 96375; 99285; J1200; J2919; J3490; J7030; Q9967

== ENCOUNTER 2024-02-22 10:32 | Inpatient (IN) | payer MEDICARE ==
[2024-02-22 10:59] LABS: BASOPHILS ABSOLUTE AUTO 0.03 K/uL (0.00-0.10); BASOPHILS PERCENT AUTO 0.2 % (0.1-1.3); EOSINOPHILS ABSOLUTE AUTO 0.11 K/uL (0.00-0.40); EOSINOPHILS PERCENT AUTO 0.9 % (0.0-5.4); HEMATOCRIT 28.4 % (34.3-46.0); HEMOGLOBIN 9.5 g/dL (11.2-15.5); IMMATURE GRAN ABSOLUTE AUTO 0.03 K/uL (0.00-0.23); IMMATURE GRAN PERCENT AUTO 0.2 % (0.0-0.7); LYMPHOCYTES ABSOLUTE AUTO 1.59 K/uL (0.8-3.3); LYMPHOCYTES PERCENT AUTO 12.7 % (11.4-47.7); MEAN CORPUSCULAR HEMOGLOBIN 29.5 pg (31.6-35.5); MEAN CORPUSCULAR HGB CONC 33.5 g/dL (31.6-35.5); MEAN CORPUSCULAR VOLUME 88.2 fL (81.4-99.0); MONOCYTES PERCENT AUTO 3.2 % (3.3-12.6); NEUTROPHILS ABSOLUTE AUTO 10.38 K/uL (1.0-7.6); NEUTROPHILS PERCENT AUTO 82.8 % (40.0-78.1); PLATELET COUNT,PLT 385 K/uL (130-375); RED BLOOD CELL COUNT 3.22 M/uL (3.77-5.24); WHITE BLOOD CELL COUNT,WBC 12.5 K/uL (3.2-11.0)
[2024-02-22 11:14] LABS: INR 1.2; PROTHROMBIN TIME 12.6 sec (9.2-10.6)
[2024-02-22] MEDS: Ondansetron 4 MG/2 ML SDV IVPUSH ONE (11:16)
[2024-02-22] MEDS: fentaNYL 50 MCG/ML SDV IVPUSH ONE (11:16)
[2024-02-22] MEDS: Sodium Chloride 0.9% 1,000 ML IV ONE ×2 (11:17→12:52)
[2024-02-22 11:22] LABS: A/G RATIO 0.8 (1.2-2.2); ALANINE AMINOTRANSFERASE,ALT 1 U/L (12-78); ALBUMIN 2.8 g/dL (3.4-5.0); ALKALINE PHOSPHATASE 112 U/L (46-116); ASPARTATE AMNIOTRANSFERASE,AST 11 U/L (15-37); BILIRUBIN TOTAL 0.3 mg/dL (0.2-1.0); BLOOD UREA NITROGEN,BUN 16 mg/dL (7-18); CARBON DIOXIDE,CO2 24 mmol/L (21-32); CHLORIDE,CL 103 mmol/L (100-108); CREATININE 1.1 mg/dL (0.6-1.0); EST CRCL DRUG DOSING (CG) 35.33 mL/min; ESTIMATED GFR 50 mL/min (>60); GLUCOSE RANDOM 114 mg/dL (74-106); POTASSIUM,K 3.9 mmol/L (3.6-5.2); PROTEIN TOTAL,TP 6.5 g/dL (6.4-8.2); SODIUM,NA 137 mmol/L (140-148); TROPONIN I HIGH SENSITIVITY 6.3 pg/mL (<=60.3)
[2024-02-22 11:42] LABS: ANION GAP 13.9 mmol/L (5.0-14.0)
[2024-02-22] MEDS: HYDROmorphone 0.5 MG/0.5 ML Syringe IVPUSH ONE ×2 (12:34→14:19)
[2024-02-22 14:46] LABS: APPEARANCE,URINE CLEAR (CLEAR); BILIRUBIN,URINE NEGATIVE (NEGATIVE); COLOR,URINE YELLOW (YELLOW); GLUCOSE,URINE NEGATIVE (NEGATIVE); KETONES,URINE NEGATIVE (NEGATIVE); LEUKOCYTE ESTERASE,URINE NEGATIVE (NEGATIVE); NITRITE,URINE NEGATIVE (NEGATIVE); OCCULT BLOOD,URINE NEGATIVE (NEGATIVE); PH,URINE 5.5 (5.0-8.0); PROTEIN,URINE NEGATIVE (NEGATIVE); UROBILINOGEN,URINE 0.2 EU/dL (0.2-1.0)
[2024-02-22 14:57] LABS: AMORPHOUS SEDIMENT,URINE NOT SEEN; BACTERIA,URINE RARE; EPITHELIAL CELLS,URINE NOT SEEN; MUCUS,URINE NOT SEEN; RBC,URINE 0-5 (0-5); WBC,URINE 0-5 (0-5)
[2024-02-22] MEDS ORDERED: Sodium Chloride 0.9% 10 ML Syringe FLUSH PRN (15:39)
[2024-02-22] MEDS ORDERED: Albuterol 0.083% 2.5 MG/3 ML Neb Soln NEB PRN (15:39)
[2024-02-22] MEDS: Sodium Chloride 0.9% 1,000 ML IV SCH (16:08)
[2024-02-22] MEDS: HYDROmorphone 0.5 MG/0.5 ML Syringe IVPUSH PRN (16:14)
[2024-02-22] MEDS: Rivaroxaban 10 MG Tab PO SCH (16:45)
[2024-02-22] MEDS: Rosuvastatin 5 MG Tab PO SCH (20:33)
[2024-02-22] MEDS: Mirtazapine 15 MG Tab PO SCH (20:33)
[2024-02-22] MEDS: oxyCODONE 5 MG Tab PO PRN (20:35)
[2024-02-23 05:27] LABS: HEMATOCRIT 22.5 % (34.3-46.0); HEMOGLOBIN 7.4 g/dL (11.2-15.5); MEAN CORPUSCULAR HEMOGLOBIN 29.2 pg (31.6-35.5); MEAN CORPUSCULAR HGB CONC 32.9 g/dL (31.6-35.5); MEAN CORPUSCULAR VOLUME 88.9 fL (81.4-99.0); RED BLOOD CELL COUNT 2.53 M/uL (3.77-5.24); WHITE BLOOD CELL COUNT,WBC 6.5 K/uL (3.2-11.0)
[2024-02-23 05:51] LABS: A/G RATIO 0.7 (1.2-2.2); ALANINE AMINOTRANSFERASE,ALT 5 U/L (12-78); ALBUMIN 1.9 g/dL (3.4-5.0); ALKALINE PHOSPHATASE 87 U/L (46-116); ASPARTATE AMNIOTRANSFERASE,AST 12 U/L (15-37); BILIRUBIN TOTAL 0.4 mg/dL (0.2-1.0); BLOOD UREA NITROGEN,BUN 12 mg/dL (7-18); CALCIUM 8.9 mg/dL (8.5-10.1); CARBON DIOXIDE,CO2 23 mmol/L (21-32); CHLORIDE,CL 110 mmol/L (100-108); CREATININE 0.9 mg/dL (0.6-1.0); EST CRCL DRUG DOSING (CG) 45.89 mL/min; ESTIMATED GFR 64 mL/min (>60); GLUCOSE RANDOM 96 mg/dL (74-106); MAGNESIUM 1.5 mg/dL (1.8-2.4); PROTEIN TOTAL,TP 4.8 g/dL (6.4-8.2); SODIUM,NA 140 mmol/L (140-148)
[2024-02-23] MEDS: Pantoprazole 40 MG Tab.CR PO SCH (08:21)
[2024-02-23] MEDS: busPIRone 10 MG Tab PO SCH (08:22)
[2024-02-23] MEDS: Aspirin 81 MG Tab.Chew PO SCH (08:22)
[2024-02-23] MEDS: Bumetanide 1 MG Tab PO SCH (08:22)
[2024-02-23] MEDS: Levothyroxine 25 MCG Tab PO SCH (08:22)
[2024-02-23] MEDS: Levothyroxine 100 MCG Tab PO SCH (08:22)
[2024-02-23] MEDS: Magnesium Oxide 400 MG Tab PO SCH (08:22)
[2024-02-23] MEDS: Lisinopril 5 MG Tab PO SCH (08:22)
[2024-02-23] MEDS: Metoprolol Succinate 25 MG Tab.ER PO SCH (08:23)
[2024-02-23] MEDS: Sertraline 50 MG Tab PO SCH (08:23)
[2024-02-23] MEDS: Magnesium Sulfate/Water Premix 2 GM in Premix Bag 1 BAG IV SCH (08:24)
[2024-02-23] MEDS: FLU (Fluad Triv) TS24-25 (65UP)/MF59C/PF 45 MCG/0.5 ML Syringe IM ONE (09:06)
[2024-02-23] MEDS: Acetaminophen 325 MG Tab PO PRN (14:46)
[2024-02-23] MEDS: Albuterol/Ipratropium 3.0-0.5 MG/3 ML Neb Soln NEB PRN (15:00)
[2024-02-24 05:19] LABS: HEMATOCRIT 24.7 % (34.3-46.0); HEMOGLOBIN 8.3 g/dL (11.2-15.5); MEAN CORPUSCULAR HEMOGLOBIN 29.4 pg (31.6-35.5); MEAN CORPUSCULAR HGB CONC 33.6 g/dL (31.6-35.5); MEAN CORPUSCULAR VOLUME 87.6 fL (81.4-99.0); RED BLOOD CELL COUNT 2.82 M/uL (3.77-5.24); WHITE BLOOD CELL COUNT,WBC 10.9 K/uL (3.2-11.0)
[2024-02-24 05:32] LABS: CALCIUM 9.4 mg/dL (8.5-10.1); CREATININE 1.1 mg/dL (0.6-1.0); EST CRCL DRUG DOSING (CG) 36.22 mL/min; MAGNESIUM 2.1 mg/dL (1.8-2.4); POTASSIUM,K 3.6 mmol/L (3.6-5.2)
[2024-02-24 05:38] LABS: ANION GAP 12.6 mmol/L (5.0-14.0)
[2024-02-24] MEDS: Ondansetron 4 MG/2 ML SDV IV PRN (09:40)
[2024-02-24] MEDS ORDERED: Sodium Chloride 0.9% 1,000 ML IV SCH (10:45)
[2024-02-24] MEDS: Potassium Chloride 20 MEQ Tab.ER PO ONE (12:28)
[2024-02-24] MEDS: Polyethylene Glycol 3350 Powder 17 GM Packet PO PRN (19:45)
[2024-02-25 06:26] LABS: HEMATOCRIT 24.6 % (34.3-46.0); HEMOGLOBIN 8.3 g/dL (11.2-15.5); MEAN CORPUSCULAR HEMOGLOBIN 29.6 pg (31.6-35.5); MEAN CORPUSCULAR HGB CONC 33.7 g/dL (31.6-35.5); MEAN CORPUSCULAR VOLUME 87.9 fL (81.4-99.0); RED BLOOD CELL COUNT 2.8 M/uL (3.77-5.24); WHITE BLOOD CELL COUNT,WBC 10.1 K/uL (3.2-11.0)
[2024-02-25 06:38] LABS: CALCIUM 9.6 mg/dL (8.5-10.1); CREATININE 1.1 mg/dL (0.6-1.0); EST CRCL DRUG DOSING (CG) 36.22 mL/min; POTASSIUM,K 4.4 mmol/L (3.6-5.2)
[2024-02-25 06:59] LABS: ANION GAP 12.4 mmol/L (5.0-14.0)
[2024-02-26] MEDS ORDERED: Hyoscyamine 0.125 MG Tab.SL SL PRN (14:31)
[2024-02-27 06:31] LABS: C-REACTIVE PROTEIN 14.11 mg/dL (<0.50); CALCIUM 10.1 mg/dL (8.5-10.1); CREATININE 1.1 mg/dL (0.6-1.0); EST CRCL DRUG DOSING (CG) 37.28 mL/min; POTASSIUM,K 4.2 mmol/L (3.6-5.2)
[2024-02-27 06:32] LABS: ANION GAP 11.2 mmol/L (5.0-14.0)
[2024-02-27] MEDS: Lactated Ringers 1,000 ML IV SCH (14:01)
[2024-02-27] MEDS: diphenhydrAMINE 50 MG/ML SDV IVPUSH ONE (14:36)
[2024-02-27] MEDS: methylPREDNISolone Sodium Succinate 125 MG/2 ML SDV IVPUSH ONE (14:37)
[2024-02-27] MEDS: Iopamidol 612 MG/ML 100 ML Bottle IV ONE (15:10)
[2024-02-27] MEDS: Sodium Chloride 0.9% 100 ML IV ONE (15:10)
[2024-02-27] MEDS: Sodium Chloride 0.9% 10 ML Syringe FLUSH ONE (15:10)
[2024-02-29 12:11] VITALS: BP 127/47; PULSE 56
== END 2024-02-29 13:45 | disposition home or self-care (01) | DRG 439 ==
LOC: JP.ED 10:32 → JP.MS 14:44
PROVIDERS: ADMIT Hospitalist; ATTEND Internal Medicine
DX: K85.90 Acute pancreatitis without necrosis or infection, unspecified (principal); K86.3 Pseudocyst of pancreas; I48.91 Unspecified atrial fibrillation; I25.10 Atherosclerotic heart disease of native coronary artery without angina pectoris; E78.00 Pure hypercholesterolemia, unspecified; Z23 Encounter for immunization; M10.9 Gout, unspecified; G43.909 Migraine, unspecified, not intractable, without status migrainosus; F41.9 Anxiety disorder, unspecified; H54.7 Unspecified visual loss; F32.A Depression, unspecified; E03.9 Hypothyroidism, unspecified; F17.210 Nicotine dependence, cigarettes, uncomplicated; I50.9 Heart failure, unspecified; I11.0 Hypertensive heart disease with heart failure; D64.9 Anemia, unspecified; K21.9 Gastro-esophageal reflux disease without esophagitis; Z91.041 Radiographic dye allergy status; Z88.2 Allergy status to sulfonamides; Z88.1 Allergy status to other antibiotic agents; Z88.5 Allergy status to narcotic agent; Z88.8 Allergy status to other drugs, medicaments and biological substances; Z79.82 Long term (current) use of aspirin; Z79.01 Long term (current) use of anticoagulants; Z95.1 Presence of aortocoronary bypass graft; I25.2 Old myocardial infarction; Z95.5 Presence of coronary angioplasty implant and graft; Z87.19 Personal history of other diseases of the digestive system; Z87.81 Personal history of (healed) traumatic fracture; Z98.49 Cataract extraction status, unspecified eye; Z98.890 Other specified postprocedural states; Z79.899 Other long term (current) drug therapy; Z90.49 Acquired absence of other specified parts of digestive tract; Z90.710 Acquired absence of both cervix and uterus
CPT/HCPCS: 36415; 71045 ×2; 74176 ×2; 80053; 83690; 84484; 85025; 85610; 93005; 93010; 96361; 96374; 96375; 96376; 99285 ×2; J1170 ×2; J2405; J3010; J7030 ×2; 74177; 74177-26; 80048; 81001; 83735; 85027; 86140; 90653; 94640; 97110-GP; 97116-GP; 97161-GP; 97530-GP; 99222; 99232; 99238; A9270-GY; G0008; J1200; J2919; J3475; J3490; J7120; J7620; Q9967

== ENCOUNTER 2024-03-19 16:01 | Emergency (ER) | payer MEDICARE ==
[2024-03-19] MEDS: HYDROmorphone 0.5 MG/0.5 ML Syringe IVPUSH ONE (16:44)
[2024-03-19] MEDS: Ondansetron 4 MG/2 ML SDV IVPUSH ONE (16:44)
[2024-03-19 16:52] LABS: BASOPHILS ABSOLUTE AUTO 0.05 K/uL (0.00-0.10); BASOPHILS PERCENT AUTO 0.4 % (0.1-1.3); EOSINOPHILS ABSOLUTE AUTO 0.07 K/uL (0.00-0.40); EOSINOPHILS PERCENT AUTO 0.6 % (0.0-5.4); HEMATOCRIT 31.6 % (34.3-46.0); HEMOGLOBIN 10.2 g/dL (11.2-15.5); IMMATURE GRAN ABSOLUTE AUTO 0.05 K/uL (0.00-0.23); IMMATURE GRAN PERCENT AUTO 0.4 % (0.0-0.7); LYMPHOCYTES ABSOLUTE AUTO 1.66 K/uL (0.8-3.3); LYMPHOCYTES PERCENT AUTO 13.5 % (11.4-47.7); MEAN CORPUSCULAR HEMOGLOBIN 28.5 pg (31.6-35.5); MEAN CORPUSCULAR HGB CONC 32.3 g/dL (31.6-35.5); MEAN CORPUSCULAR VOLUME 88.3 fL (81.4-99.0); MONOCYTES ABSOLUTE AUTO 0.56 K/uL (0.20-0.90); MONOCYTES PERCENT AUTO 4.5 % (3.3-12.6); NEUTROPHILS ABSOLUTE AUTO 9.93 K/uL (1.0-7.6); NEUTROPHILS PERCENT AUTO 80.6 % (40.0-78.1); PLATELET COUNT,PLT 427 K/uL (130-375); RED BLOOD CELL COUNT 3.58 M/uL (3.77-5.24); WHITE BLOOD CELL COUNT,WBC 12.3 K/uL (3.2-11.0)
[2024-03-19 17:03] LABS: A/G RATIO 0.7 (1.2-2.2); ALANINE AMINOTRANSFERASE,ALT 9 U/L (12-78); ALBUMIN 2.8 g/dL (3.4-5.0); ALKALINE PHOSPHATASE 122 U/L (46-116); ASPARTATE AMNIOTRANSFERASE,AST 11 U/L (15-37); BILIRUBIN TOTAL 0.6 mg/dL (0.2-1.0); BLOOD UREA NITROGEN,BUN 14 mg/dL (7-18); CALCIUM 10.5 mg/dL (8.5-10.1); CARBON DIOXIDE,CO2 24 mmol/L (21-32); CHLORIDE,CL 103 mmol/L (100-108); CREATININE 1.2 mg/dL (0.6-1.0); EST CRCL DRUG DOSING (CG) 31.86 mL/min; ESTIMATED GFR 45 mL/min (>60); GLUCOSE RANDOM 124 mg/dL (74-106); INR 1.1; POTASSIUM,K 3.9 mmol/L (3.6-5.2); PROTEIN TOTAL,TP 6.8 g/dL (6.4-8.2); PROTHROMBIN TIME 10.9 sec (9.2-10.6); SODIUM,NA 138 mmol/L (140-148)
[2024-03-19 17:26] LABS: ANION GAP 14.9 mmol/L (5.0-14.0)
[2024-03-19] MEDS: Sodium Chloride 0.9% 1,000 ML IV ONE (18:10)
[2024-03-19] MEDS: Prochlorperazine 10 MG/2 ML SDV IVPUSH ONE (19:58)
[2024-03-19] MEDS: traMADol 50 MG Tab PO ONE (20:14)
[2024-03-19 20:23] LABS: APPEARANCE,URINE CLEAR (CLEAR); BILIRUBIN,URINE NEGATIVE (NEGATIVE); COLOR,URINE YELLOW (YELLOW); GLUCOSE,URINE NEGATIVE (NEGATIVE); KETONES,URINE NEGATIVE (NEGATIVE); LEUKOCYTE ESTERASE,URINE NEGATIVE (NEGATIVE); NITRITE,URINE NEGATIVE (NEGATIVE); OCCULT BLOOD,URINE NEGATIVE (NEGATIVE); PROTEIN,URINE NEGATIVE (NEGATIVE); UROBILINOGEN,URINE 0.2 EU/dL (0.2-1.0)
[2024-03-19 20:33] LABS: AMORPHOUS SEDIMENT,URINE NOT SEEN; BACTERIA,URINE MODERATE; EPITHELIAL CELLS,URINE MODERATE; MUCUS,URINE NOT SEEN; RBC,URINE 0-5 (0-5); WBC,URINE 0-5 (0-5)
[2024-03-19 22:04] VITALS: BP 136/66; PULSE 71
== END 2024-03-19 22:06 | disposition home or self-care (01) ==
LOC: JP.ED 16:01
DX: K85.90 Acute pancreatitis without necrosis or infection, unspecified (principal); I48.91 Unspecified atrial fibrillation; I25.10 Atherosclerotic heart disease of native coronary artery without angina pectoris; E78.00 Pure hypercholesterolemia, unspecified; K21.9 Gastro-esophageal reflux disease without esophagitis; E03.9 Hypothyroidism, unspecified; Z90.710 Acquired absence of both cervix and uterus; Z90.49 Acquired absence of other specified parts of digestive tract; Z79.899 Other long term (current) drug therapy; Z91.041 Radiographic dye allergy status; Z88.9 Allergy status to unspecified drugs, medicaments and biological substances; Z88.2 Allergy status to sulfonamides; Z88.8 Allergy status to other drugs, medicaments and biological substances; Z88.1 Allergy status to other antibiotic agents; Z88.5 Allergy status to narcotic agent
CPT/HCPCS: 36415; 80053; 81001; 83690; 85025; 85610; 96361; 96374; 96375; 99284; A9270; J0780; J1171; J2405; J7030

== ENCOUNTER 2024-12-10 19:54 | Emergency (ER) | payer MEDICARE ==
[2024-12-10 21:39] LABS: BASOPHILS ABSOLUTE AUTO 0.05 K/uL (0.00-0.10); BASOPHILS PERCENT AUTO 0.6 % (0.1-1.3); EOSINOPHILS ABSOLUTE AUTO 0.16 K/uL (0.00-0.40); EOSINOPHILS PERCENT AUTO 1.8 % (0.0-5.4); IMMATURE GRAN ABSOLUTE AUTO 0.06 K/uL (0.00-0.23); IMMATURE GRAN PERCENT AUTO 0.7 % (0.0-0.7); LYMPHOCYTES ABSOLUTE AUTO 1.53 K/uL (0.8-3.3); LYMPHOCYTES PERCENT AUTO 17.4 % (11.4-47.7); MONOCYTES ABSOLUTE AUTO 0.63 K/uL (0.20-0.90); MONOCYTES PERCENT AUTO 7.2 % (3.3-12.6); NEUTROPHILS ABSOLUTE AUTO 6.38 K/uL (1.0-7.6); NEUTROPHILS PERCENT AUTO 72.3 % (40.0-78.1); PLATELET COUNT,PLT 205 K/uL (130-375); RED BLOOD CELL COUNT 3.15 M/uL (3.77-5.24); WHITE BLOOD CELL COUNT,WBC 8.8 K/uL (3.2-11.0)
[2024-12-10 21:52] VITALS: BP 121/55; PULSE 65
[2024-12-10 21:56] LABS: BLOOD UREA NITROGEN,BUN 39.0 mg/dL (7-18); CARBON DIOXIDE,CO2 23.0 mmol/L (21-32); CHLORIDE,CL 104.0 mmol/L (100-108); CREATININE 2.3 mg/dL (0.6-1.0); EST CRCL DRUG DOSING (CG) 17.65 mL/min; ESTIMATED GFR 21.0 mL/min (>60); GLUCOSE RANDOM 203.0 mg/dL (74-106); POTASSIUM,K 4.1 mmol/L (3.6-5.2); SODIUM,NA 138.0 mmol/L (140-148)
== END 2024-12-10 22:35 | disposition home or self-care (01) ==
LOC: JP.ED 19:54
DX: G62.9 Polyneuropathy, unspecified (principal); I25.10 Atherosclerotic heart disease of native coronary artery without angina pectoris; I48.91 Unspecified atrial fibrillation; I10 Essential (primary) hypertension; I25.2 Old myocardial infarction; K21.9 Gastro-esophageal reflux disease without esophagitis; E03.9 Hypothyroidism, unspecified; F17.200 Nicotine dependence, unspecified, uncomplicated; Z79.899 Other long term (current) drug therapy; Z79.82 Long term (current) use of aspirin; Z88.8 Allergy status to other drugs, medicaments and biological substances; Z91.041 Radiographic dye allergy status; Z88.2 Allergy status to sulfonamides; Z88.5 Allergy status to narcotic agent; Z88.1 Allergy status to other antibiotic agents; Z79.890 Hormone replacement therapy
CPT/HCPCS: 36415; 80048; 85025; 99284; A9270

== ENCOUNTER 2025-04-28 16:51 | Inpatient (IN) | payer MEDICARE ==
[2025-04-28 17:24] LABS: BASOPHILS ABSOLUTE AUTO 0.06 K/uL (0.00-0.10); BASOPHILS PERCENT AUTO 0.5 % (0.1-1.3); EOSINOPHILS ABSOLUTE AUTO 0.16 K/uL (0.00-0.40); EOSINOPHILS PERCENT AUTO 1.4 % (0.0-5.4); IMMATURE GRAN ABSOLUTE AUTO 0.08 K/uL (0.00-0.23); IMMATURE GRAN PERCENT AUTO 0.7 % (0.0-0.7); LYMPHOCYTES ABSOLUTE AUTO 2.48 K/uL (0.8-3.3); LYMPHOCYTES PERCENT AUTO 22.3 % (11.4-47.7); MONOCYTES ABSOLUTE AUTO 0.61 K/uL (0.20-0.90); MONOCYTES PERCENT AUTO 5.5 % (3.3-12.6); NEUTROPHILS ABSOLUTE AUTO 7.72 K/uL (1.0-7.6); NEUTROPHILS PERCENT AUTO 69.6 % (40.0-78.1); PLATELET COUNT,PLT 320 K/uL (130-375); RED BLOOD CELL COUNT 4.13 M/uL (3.77-5.24); WHITE BLOOD CELL COUNT,WBC 11.1 K/uL (3.2-11.0)
[2025-04-28 17:36] LABS: APPEARANCE,URINE SLIGHTLY CLOUDY (CLEAR); GLUCOSE,URINE NEGATIVE (NEGATIVE); OCCULT BLOOD,URINE TRACE-INTACT (NEGATIVE)
[2025-04-28 17:43] LABS: SQUAMOUS EPITHELIAL CELLS,UR FEW /HPF; UROTHELIAL CELLS,URINE NOT SEEN /HPF
[2025-04-28 17:45] LABS: A/G RATIO 1.0 (1.2-2.2); ALANINE AMINOTRANSFERASE,ALT 19 U/L (12-78); ASPARTATE AMNIOTRANSFERASE,AST 15 U/L (15-37); BILIRUBIN TOTAL 0.6 mg/dL (0.2-1.0); BLOOD UREA NITROGEN,BUN 28 mg/dL (7-18); CARBON DIOXIDE,CO2 24 mmol/L (21-32); CHLORIDE,CL 100 mmol/L (100-108); CREATININE 1.7 mg/dL (0.6-1.0); EST CRCL DRUG DOSING (CG) 22.96 mL/min; ESTIMATED GFR 30 mL/min (>60); GLUCOSE RANDOM 151 mg/dL (74-106); POTASSIUM,K 3.8 mmol/L (3.6-5.2); PROTEIN TOTAL,TP 8.1 g/dL (6.4-8.2); SODIUM,NA 137 mmol/L (140-148)
[2025-04-28] MEDS: Ondansetron 4 MG/2 ML SDV IVPUSH ONE (19:49)
[2025-04-28] MEDS: Phenazopyridine 95 MG Tab PO ONE (19:49)
[2025-04-28] MEDS ORDERED: Sennosides/Docusate Sodium 50-8.6 MG Tab PO PRN (20:39)
[2025-04-28] MEDS: LORazepam 2 MG/ML SDV IVPUSH ONE (20:39)
[2025-04-28] MEDS: Lactobacillus Rhamnosus GG (Probiotic) Cap PO SCH (21:04)
[2025-04-29] MEDS: LORazepam 2 MG/ML SDV IVPUSH PRN (02:01)
[2025-04-29 05:57] LABS: PLATELET COUNT,PLT 240.0 K/uL (130-375); RED BLOOD CELL COUNT 3.42 M/uL (3.77-5.24); WHITE BLOOD CELL COUNT,WBC 7.2 K/uL (3.2-11.0)
[2025-04-29 06:12] LABS: BLOOD UREA NITROGEN,BUN 26.0 mg/dL (7-18); CARBON DIOXIDE,CO2 25.0 mmol/L (21-32); CHLORIDE,CL 107.0 mmol/L (100-108); CREATININE 1.5 mg/dL (0.6-1.0); EST CRCL DRUG DOSING (CG) 27.07 mL/min; ESTIMATED GFR 35.0 mL/min (>60); GLUCOSE RANDOM 131.0 mg/dL (74-106); POTASSIUM,K 3.9 mmol/L (3.6-5.2); SODIUM,NA 140.0 mmol/L (140-148)
[2025-04-29] MEDS: Ondansetron 4 MG/2 ML SDV IV PRN (12:36)
[2025-04-30 06:25] LABS: BLOOD UREA NITROGEN,BUN 25.0 mg/dL (7-18); CARBON DIOXIDE,CO2 26.0 mmol/L (21-32); CHLORIDE,CL 107.0 mmol/L (100-108); CREATININE 1.5 mg/dL (0.6-1.0); EST CRCL DRUG DOSING (CG) 27.07 mL/min; ESTIMATED GFR 35.0 mL/min (>60); GLUCOSE RANDOM 140.0 mg/dL (74-106); POTASSIUM,K 4.1 mmol/L (3.6-5.2); SODIUM,NA 141.0 mmol/L (140-148)
[2025-04-30] MEDS: Ondansetron 4 MG Tab.DIS PO PRN (08:44)
[2025-05-01 06:25] LABS: BLOOD UREA NITROGEN,BUN 32.0 mg/dL (7-18); CARBON DIOXIDE,CO2 27.0 mmol/L (21-32); CHLORIDE,CL 104.0 mmol/L (100-108); CREATININE 2.3 mg/dL (0.6-1.0); EST CRCL DRUG DOSING (CG) 17.65 mL/min; ESTIMATED GFR 21.0 mL/min (>60); GLUCOSE RANDOM 139.0 mg/dL (74-106); POTASSIUM,K 4.4 mmol/L (3.6-5.2); SODIUM,NA 138.0 mmol/L (140-148)
[2025-05-02 06:27] LABS: PLATELET COUNT,PLT 246.0 K/uL (130-375); RED BLOOD CELL COUNT 3.31 M/uL (3.77-5.24); WHITE BLOOD CELL COUNT,WBC 8.5 K/uL (3.2-11.0)
[2025-05-02 06:48] LABS: BLOOD UREA NITROGEN,BUN 32.0 mg/dL (7-18); CARBON DIOXIDE,CO2 24.0 mmol/L (21-32); CHLORIDE,CL 107.0 mmol/L (100-108); CREATININE 1.6 mg/dL (0.6-1.0); EST CRCL DRUG DOSING (CG) 25.38 mL/min; ESTIMATED GFR 32.0 mL/min (>60); GLUCOSE RANDOM 129.0 mg/dL (74-106); POTASSIUM,K 4.1 mmol/L (3.6-5.2); SODIUM,NA 140.0 mmol/L (140-148)
[2025-05-02] MEDS: methylPREDNISolone Sodium Succinate 40 MG/1 ML SDV IVPUSH ONE (10:27)
[2025-05-02] MEDS: diphenhydrAMINE 50 MG/ML SDV IVPUSH ONE (10:36)
[2025-05-02] MEDS: Iopamidol 612 MG/ML 100 ML Bottle IV SCH (11:38)
[2025-05-02] MEDS: Sodium Chloride 0.9% 10 ML Syringe FLUSH ONE (11:38)
[2025-05-03 06:08] LABS: BLOOD UREA NITROGEN,BUN 30.0 mg/dL (7-18); CARBON DIOXIDE,CO2 25.0 mmol/L (21-32); CHLORIDE,CL 111.0 mmol/L (100-108); CREATININE 1.4 mg/dL (0.6-1.0); EST CRCL DRUG DOSING (CG) 29.0 mL/min; ESTIMATED GFR 38.0 mL/min (>60); GLUCOSE RANDOM 189.0 mg/dL (74-106); POTASSIUM,K 4.7 mmol/L (3.6-5.2); SODIUM,NA 143.0 mmol/L (140-148)
[2025-05-03] MEDS ORDERED: Sodium Chloride 0.9% 10 ML Syringe IV PRN (08:51)
[2025-05-05] MEDS ORDERED: Propofol 200 MG/20 ML SDV ONE ×2 (11:47→12:06)
[2025-05-07 06:16] LABS: BLOOD UREA NITROGEN,BUN 41.0 mg/dL (7-18); CARBON DIOXIDE,CO2 30.0 mmol/L (21-32); CHLORIDE,CL 103.0 mmol/L (100-108); CREATININE 1.9 mg/dL (0.6-1.0); EST CRCL DRUG DOSING (CG) 21.37 mL/min; ESTIMATED GFR 26.0 mL/min (>60); GLUCOSE RANDOM 140.0 mg/dL (74-106); POTASSIUM,K 4.5 mmol/L (3.6-5.2); SODIUM,NA 139.0 mmol/L (140-148)
[2025-05-07 11:08] VITALS: BP 141/64; PULSE 57
== END 2025-05-07 14:10 | disposition home or self-care (01) | DRG 690 ==
LOC: JP.ED 16:51 → JP.MS 20:01 → OBSVTOIN 04-29 12:29
PROVIDERS: ADMIT Registered Nurse; ATTEND Internal Medicine
PROC: 3E03329 Introduction of Other Anti-infective into Peripheral Vein, Percutaneous Approach (ICD-10-PCS; 2025-04-28)
PROC: 3E0333Z Introduction of Anti-inflammatory into Peripheral Vein, Percutaneous Approach (ICD-10-PCS; 2025-05-02)
PROC: 0DB78ZX Excision of Stomach, Pylorus, Via Natural or Artificial Opening Endoscopic, Diagnostic (ICD-10-PCS; principal; 2025-05-07)
DX: N12 Tubulo-interstitial nephritis, not specified as acute or chronic (principal); N39.0 Urinary tract infection, site not specified; I10 Essential (primary) hypertension; K57.32 Diverticulitis of large intestine without perforation or abscess without bleeding; N30.00 Acute cystitis without hematuria; I13.0 Hypertensive heart and chronic kidney disease with heart failure and stage 1 through stage 4 chronic kidney disease, or unspecified chronic kidney disease; Z16.39 Resistance to other specified antimicrobial drug; I50.32 Chronic diastolic (congestive) heart failure; N17.9 Acute kidney failure, unspecified; Z91.09 Other allergy status, other than to drugs and biological substances; Z79.890 Hormone replacement therapy; N18.32 Chronic kidney disease, stage 3b; E11.22 Type 2 diabetes mellitus with diabetic chronic kidney disease; I25.10 Atherosclerotic heart disease of native coronary artery without angina pectoris; E78.00 Pure hypercholesterolemia, unspecified; H26.9 Unspecified cataract; H54.7 Unspecified visual loss; K21.9 Gastro-esophageal reflux disease without esophagitis; G89.29 Other chronic pain; M10.9 Gout, unspecified; G43.909 Migraine, unspecified, not intractable, without status migrainosus; E03.9 Hypothyroidism, unspecified; F41.9 Anxiety disorder, unspecified; F32.A Depression, unspecified; I48.0 Paroxysmal atrial fibrillation; R13.10 Dysphagia, unspecified; B96.20 Unspecified Escherichia coli [E. coli] as the cause of diseases classified elsewhere; Z88.2 Allergy status to sulfonamides; Z88.1 Allergy status to other antibiotic agents; Z88.5 Allergy status to narcotic agent; Z88.8 Allergy status to other drugs, medicaments and biological substances; Z91.041 Radiographic dye allergy status; Z79.1 Long term (current) use of non-steroidal anti-inflammatories (NSAID); Z79.82 Long term (current) use of aspirin; Z79.899 Other long term (current) drug therapy; Z90.710 Acquired absence of both cervix and uterus; Z90.49 Acquired absence of other specified parts of digestive tract; Z98.49 Cataract extraction status, unspecified eye; Z98.890 Other specified postprocedural states; Z95.1 Presence of aortocoronary bypass graft; Z87.19 Personal history of other diseases of the digestive system; Z87.81 Personal history of (healed) traumatic fracture; Z85.828 Personal history of other malignant neoplasm of skin; Z87.891 Personal history of nicotine dependence
CPT/HCPCS: 36415 ×2; 74019 ×2; 74176; 80048; 80053; 81001; 83605; 85025; 85027; 86140; 87086; 87088; 87186; 93005; 93010; 96361; 96365; 96375; 99223; 99285 ×2; A9270 ×14; J1650; J2060 ×2; J2185 ×2; J2405; J7030 ×3; 00731-QZ; 73560-26-LT; 73560-LT; 74177; 74177-26; 74220; 74220-26; 82550; 83690; 83735; 96366; 96372; 96376; 97116-GP; 97161-GP; 97164-GP; 97530-GP; 99232; 99238; G0378; J1200; J1335; J2704; J2919; Q0162; Q9967

== ENCOUNTER 2025-05-24 19:17 | Emergency (ER) | payer MEDICARE ==
[2025-05-24 19:49] LABS: APPEARANCE,URINE TURBID (CLEAR); GLUCOSE,URINE NEGATIVE (NEGATIVE); OCCULT BLOOD,URINE TRACE-LYSED (NEGATIVE)
[2025-05-24 20:02] LABS: SQUAMOUS EPITHELIAL CELLS,UR FEW /HPF; UROTHELIAL CELLS,URINE NOT SEEN /HPF
[2025-05-24 21:14] LABS: BASOPHILS ABSOLUTE AUTO 0.06 K/uL (0.00-0.10); BASOPHILS PERCENT AUTO 0.7 % (0.1-1.3); EOSINOPHILS ABSOLUTE AUTO 0.29 K/uL (0.00-0.40); EOSINOPHILS PERCENT AUTO 3.4 % (0.0-5.4); IMMATURE GRAN ABSOLUTE AUTO 0.03 K/uL (0.00-0.23); IMMATURE GRAN PERCENT AUTO 0.3 % (0.0-0.7); LYMPHOCYTES ABSOLUTE AUTO 2.37 K/uL (0.8-3.3); LYMPHOCYTES PERCENT AUTO 27.4 % (11.4-47.7); MONOCYTES ABSOLUTE AUTO 0.58 K/uL (0.20-0.90); MONOCYTES PERCENT AUTO 6.7 % (3.3-12.6); NEUTROPHILS ABSOLUTE AUTO 5.32 K/uL (1.0-7.6); NEUTROPHILS PERCENT AUTO 61.5 % (40.0-78.1); PLATELET COUNT,PLT 342 K/uL (130-375); RED BLOOD CELL COUNT 3.88 M/uL (3.77-5.24); WHITE BLOOD CELL COUNT,WBC 8.7 K/uL (3.2-11.0)
[2025-05-24 21:30] LABS: BLOOD UREA NITROGEN,BUN 21.0 mg/dL (7-18); CARBON DIOXIDE,CO2 25.0 mmol/L (21-32); CHLORIDE,CL 105.0 mmol/L (100-108); CREATININE 1.5 mg/dL (0.6-1.0); EST CRCL DRUG DOSING (CG) 27.07 mL/min; ESTIMATED GFR 35.0 mL/min (>60); GLUCOSE RANDOM 199.0 mg/dL (74-106); POTASSIUM,K 3.9 mmol/L (3.6-5.2); SODIUM,NA 142.0 mmol/L (140-148)
[2025-05-24 22:36] VITALS: BP 125/63; PULSE 79
== END 2025-05-24 22:41 | disposition home or self-care (01) ==
LOC: JP.ED 19:17
DX: N30.00 Acute cystitis without hematuria (principal); E78.00 Pure hypercholesterolemia, unspecified; I25.10 Atherosclerotic heart disease of native coronary artery without angina pectoris; I12.9 Hypertensive chronic kidney disease with stage 1 through stage 4 chronic kidney disease, or unspecified chronic kidney disease; N18.4 Chronic kidney disease, stage 4 (severe); I25.2 Old myocardial infarction; E03.9 Hypothyroidism, unspecified; I48.91 Unspecified atrial fibrillation; K21.9 Gastro-esophageal reflux disease without esophagitis; Z91.041 Radiographic dye allergy status; Z88.8 Allergy status to other drugs, medicaments and biological substances; Z88.2 Allergy status to sulfonamides; Z88.1 Allergy status to other antibiotic agents; Z88.5 Allergy status to narcotic agent; Z91.09 Other allergy status, other than to drugs and biological substances; Z79.82 Long term (current) use of aspirin; Z95.1 Presence of aortocoronary bypass graft; Z95.5 Presence of coronary angioplasty implant and graft; Z90.49 Acquired absence of other specified parts of digestive tract; Z90.710 Acquired absence of both cervix and uterus; Z87.891 Personal history of nicotine dependence; Z79.899 Other long term (current) drug therapy; Z79.890 Hormone replacement therapy
CPT/HCPCS: 36415; 80048; 81001; 85025; 87086; 96372; 99283; J1335; J2003; 87088; 87186